=== PATIENT | female | born 2000 | race Caucasian/White ===

== ENCOUNTER 2024-11-10 10:11 | Emergency (ER) | payer MEDICAID, SELFPAY ==
[2024-11-10 10:11] VITALS: BP 133/94; PULSE 99; RESP 16; TEMP 36; O2SAT 100; BMI 45.6
--- NOTE | 2024-11-10 10:33 | EDS_ITS ---
HPI History of Present Illness Chief Complaint: Substance Abuse Detail of Chief Complaint: Intermittent use of fentanyl for 10 years Informant: patient Onset/Context/Timing Onset: - (Last used 1 week ago.) Context: Sudden Onset Timing: Intermittent Quality: Patient admits to snorting fentanyl. Location: Not applicable Current Severity: Gone Worsened by: Not applicable Relieved by: Not applicable Associated Symptoms Associated Symptoms: Negative for vomiting*, diarrhea*, fever*, rash*, seizure, tremor, palpatations, change in mental status, trauma or *HIV Risk Factors:Consider testing if last test > 6 months Narrative Narrative: Patient is a 24-year-old woman. Has no stomach and past medical history. She is had intermittent use of fentanyl for 10 years. She has not used since last week. She snorts the fentanyl. She has no history of hepatitis or HIV. Patient is affiliated with [facility]. She was instructed to come to the emergency room for medical clearance. Prior similar symptoms: Yes Recent Illness/Hospitalization: [facility] Medical History (Updated 11/10/24 @ 10:[address] Abdifatah Mattson MD) Opiate use Allergy/AdvReac Type Severity Reaction Status Date / Time No Known Allergies Allergy Verified 11/10/24 10:13 Social History (Updated 11/10/24 @ 10:[address] Abdifatah Mattson MD) household members: children ROS ROS ED Constitutional Constitutional ED: Denies chills, fever(s) or subjective Eyes Eyes: Denies blurry vision or change in vision ENT ENT ED: Denies rhinorrhea or sore throat Cardiovascular Cardiovascular: Denies chest pain or palpitations Respiratory/Chest Respiratory/Chest: Denies cough, dyspnea or dyspnea on exertion Gastrointestinal Gastrointestinal: Denies abdominal pain, diarrhea, nausea or vomiting Musculoskeletal Musculoskeletal: Denies arthralgias or myalgias Integumentary Denies rash Neurologic Neurologic: Denies headache(s) or paresthesias Endocrine Endocrinology: Denies cold intolerance or heat intolerance Hematologic/Lymphatic Hematologic/Lymphatic: Denies easy bleeding or easy bruising EXAM Physical Exam Const Vital Signs: 11/10/24 10:11 Temperature 96.8 F L Temperature Source Temporal Pulse Rate 99 Respiratory Rate 16 Blood Pressure 133/94 H Blood Pressure Mean 107 Pulse Ox 100 Oxygen Delivery Method Room Air Positive well nourished and well developed Constitutional Narrative: BMI is 45.7. Blood pressure slightly elevated. General Appearance ED: well developed and NAD; Negative for pallor HEENT Reports moist mucous membranes HEENT Narrative: Head is atraumatic and normocephalic. Ears normal Eyes PERRL and EOMs intact bilaterally General Eye ED: Negative for scleral icterus Neck no lymphadenopathy, supple and no JVD Resp normal respiratory effort and clear to auscultation bilaterally Cardio regular rate, regular rhythm, S1 normal heart sound, S2 normal heart sound and no murmurs Extremity Extremity Narrative: No clubbing, cyanosis, mottling or self injury. Neuro oriented x3, CN's II-XII intact bilaterally and no sensory deficits noted Gary Coma Scale: document GCS findings Spontaneous Obeys Commands Oriented 15 Sensorium / Orientation: alert Psych mental status grossly normal and thought process normal Skin General Skin Exam: Negative for jaundice or pallor Lesions: no lesions Rashes: no rashes MDM MDM MDM Narrative Medical decision making narrative: Patient presents for medical clearance. She has no symptoms. In my professional opinion patient is clear for outpatient therapy through [facility]. Discharge Plan Triage Chief Complaint: Substance Abuse ED Provider: Abdifatah Mattson Dx/Rx/DC Orders Clinical Impression: Encounter for medical screening examination, Opiate use, Elevated blood- pressure reading without diagnosis of hypertension, Adult BMI 45.0-49.9 kg/sq m Instructions: ED Screening Exam Medical Nonurgent Primary Care Provider: NOT,DEFINED Referrals: NOT,DEFINED [Primary Care Provider] - [facility] [Non-Staff] - As soon as possible Print Language: Korean Disposition Disposition: Home, Self Care
[2024-11-10 11:03] VITALS: BP 124/76; PULSE 84; RESP 16; TEMP 36.6; O2SAT 100
== END 2024-11-10 11:05 | disposition home or self-care (01) ==
LOC: ED 10:53
PROVIDERS: Emergency Provider Emergency Medicine; Visit Provider Emergency Medicine
DX: F11.10 Opioid abuse, uncomplicated (principal); R03.0 Elevated blood-pressure reading, without diagnosis of hypertension
CPT/HCPCS: 99282

== ENCOUNTER 2024-12-23 22:01 | Emergency (ER) | payer MEDICAID, SELFPAY ==
[2024-12-23 22:02] VITALS: BP 148/95; PULSE 94; RESP 20; TEMP 36.6; O2SAT 97; BMI 47.0
--- NOTE | 2024-12-23 22:34 | EKG12_ITS ---
Test Reason : CP Blood Pressure : */* mmHG Vent. Rate : 77 BPM Atrial Rate : 77 BPM P-R Int : 158 ms QRS Dur : 80 ms QT Int : 372 ms P-R-T Axes : 13 27 15 degrees QTcB Int : 420 ms Normal sinus rhythm with sinus arrhythmia Normal ECG Confirmed by LOPEZ NIETO ([id number]), video news editor EFE JUAREZ ([id number]) on 12/28/2024 6:26:42 AM Referred By: Confirmed By: LOPEZ NIETO
--- NOTE | 2024-12-23 22:37 | RAD_ITS ---
PROCEDURE: CHEST PA AND LATERAL 12/23/2024 REASON FOR EXAM: CP TECHNIQUE: CHEST PA AND LATERAL COMPARISON: None. FINDINGS: Lungs/Pleura: Clear. No consolidation, pneumothorax or pleural effusion. Heart/Mediastinum: Within normal limits. No vascular congestion. Bones/Soft tissues: No significant abnormality. RAD/Chest PA and Lateral IMPRESSION: No acute cardiopulmonary disease. Reading Location: [id number]
--- NOTE | 2024-12-23 22:38 | EDS_ITS ---
HPI History of Present Illness Chief Complaint: Chest Other Informant: patient Onset/Context/Timing Onset: Days Activity at onset: gradual Timing: Intermittent Quality: Positive for Sharp and Stabbing Location: Substernal Current Severity: Gone Maximum Severity: Mild Worsened By: Nothing Relieved By: Nothing Associated Symptoms: Negative for Nausea, Vomiting, Diaphoresis, Dyspnea, Cough, Fever, Lightheadedness, Acid Reflux or Palpitations Narrative Narrative: 24-year-old female history of bipolar, PTSD and anxiety. States she has had intermittent chest pain as sharp and stabbing the last 3 days to begin on Friday. Nothing particular makes it better or worse. She has had this before with anxiety. She has no history of cardiac disease. No history of drug use. Denies any history of DVT or PE. No leg pain or swelling. No hemoptysis. The pain is not pleuritic. Currently she is pain-free. She has had no recent travel, surgery or immobilization. Denies any family history of cardiac disease in a young age or clotting disorders. Prior Similar Symptoms: Yes Recent Illness/Hospitalization: No CVD Risk Factors: Negative for Hypertension, Diabetes or Hypercholesterolemia PE Risk Factors: Negative for Recent Travel/Surgery, Recent Immobilization, Prior DVT or PE, Cancer or OCP + Smoking + >/=35 TAD Risk Factors: Negative for Marfan's Syndrome [facility] Medical History Bipolar disorder PTSD (post-traumatic stress disorder) Anxiety Opiate use Home Medications ?Medication ?Instructions ?Recorded ?Last Taken ?Type aripiprazole lauroxil 882 mg/3.2 882 mg IM QMONTH 11/27 12/20 Unknown History mL suspension, ext.rel. IM syringe (Aristada) Allergy/AdvReac Type Severity Reaction Status Date / Time No Known Allergies Allergy Verified 12/23/24 22:02 Surgical History History of abdominal surgery Social History household members: children Smoking Status: Current every day smoker tobacco type: cigarettes and e- cigarettes ROS ROS ED ROS Narrative Denies recent illness. Intermittent sharp stabbing chest pain. Currently pain- free. Constitutional Constitutional ED: Denies chills or fever(s) Eyes Eyes: Reports none ENT ENT ED: Denies ear pain Cardiovascular Cardiovascular: Reports chest pain; Denies palpitations or racing heartbeat Respiratory/Chest Respiratory/Chest: Denies cough, dyspnea or dyspnea on exertion Gastrointestinal Gastrointestinal: Denies abdominal pain, constipation, diarrhea, melena, nausea or vomiting Genitourinary Genitourinary ED: Denies dysuria or hematuria Musculoskeletal Musculoskeletal: Denies arthralgias or back pain Integumentary Denies abscess or Abrasions Neurologic Neurologic: Denies headache(s) Psychiatric Psychiatric: Reports anxiety Endocrine Endocrinology: Denies cold intolerance Hematologic/Lymphatic Hematologic/Lymphatic: Denies easy bleeding, easy bruising or lymphadenopathy Allergic/Immunologic Allergic/Immunologic ED: Denies mouth swelling, tongue swelling or urticaria EXAM Physical Exam Narrative Exam Narrative: Well-appearing on 24-year-old female. Vital signs stable afebrile. Pulse ox 97% on room air no signs of hypoxia. Currently symptom-free pain-free. No distress. H EENT exam pupils round react light. Moist mutes membranes. Neck nontender no JVD. No lymphadenopathy. Back nontender. Lungs clear to auscultation bilaterally. Equal and symmetrical. Heart regular rate and rhythm rate about 90 no murmur. Chest wall and ribs nontender. No ecchymosis or bruising. Abdomen soft nontender. Moving all 4 extremities. Calves nontender without edema or cords. Normal dorsi plantarflexion. 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 Equal symmetrical radial pulses. Neurologically she is awake alert. Answering questions following commands. Benign exam. Const Vital Signs: 12/23/24 22:02 12/23/24 22:02 Temperature 97.8 F Temperature Source Oral Pulse Rate 94 Respiratory Rate 20 H Respiratory Effort Normal Blood Pressure 148/95 H Blood Pressure Mean 112 Pulse Ox 97 Positive well developed; Negative for cachectic, contractures or unkempt General Appearance ED: well developed; Negative for unkempt, cachectic, contractures or pallor Nutritional Appearance: Negative for cachectic HEENT Reports moist mucous membranes normocephalic and atraumatic Eyes PERRL and EOMs intact bilaterally Neck no lymphadenopathy, supple and no JVD General: Negative for tenderness Chest Wall inspection of chest normal and palpation of chest normal Resp normal respiratory effort and clear to auscultation bilaterally Effort and Inspection: Negative for respiratory distress Auscultation: Negative for rales, rhonchi, wheezes or diminished lung sounds Cardio regular rate, regular rhythm, S1 normal heart sound, S2 normal heart sound and no murmurs Peripheral Pulses: pulses 2+ throughout GI normal to inspection, nondistended, normoactive bowel sounds, soft to palpation, non-tender, non-distended and no masses Back/Spine no CVA tenderness and no thoracic nor lumbar tenderness Extremity normal to inspection General Extremety ED: Negative for edema, pulses abnormal or tenderness General Extremity: Negative for edema or pulses abnormal Neuro oriented x3 and CN's II-XII intact bilaterally Sensorium / Orientation: awake, alert, oriented to person, oriented to place and oriented to time Motor Exam: strength 5/5 throughout Psych mental status grossly normal Appearance: Negative for unkempt Skin no rashes or lesions noted and no wounds General Skin Exam: Negative for jaundice or pallor Rashes: No rashes noted Trauma: Negative for abrasion or laceration Heart Score History: Slightly/Non-Suspicious ECG: Normal Age: </= 45 years Risk Factors: No Risk Factors Score: 0 MDM MDM MDM Narrative Medical decision making narrative: 24-year-old female history of bipolar and anxiety. Complaining of atypical nonreproducible pleuritic chest pain and currently she is symptom-free. No history of DVT or PE or risk factors. Benign exam. Will obtain a chest x-ray and EKG. I do not think this is an MD. I do not think labs to be beneficial. She has no history or risk factors for DVT or PE and I will likely need a D- dimer. Repeat exam patient is doing well around 11:18 PM. She be discharged to home. Chest x-ray and EKG were both normal. History & Record Review Discussion w/independent historian: Patient Additional record(s) reviewed:: Prior inpatient record, Prior outpatient record, Prior ED visit and Prior labs Radiography Chest X-Ray - ED: 2 View, Read by ED Physician, Normal, Heart, Lungs, Mediastinum, Bony Structures and No Acute Disease Diagnostic Testing: Clinical Impression(s) from Imaging Studies Chest X-Ray 12/23/24 22:37 IMPRESSION: No acute cardiopulmonary disease. Reading Location: [facility] Chest x-ray, 2 views, AP and lateral, interpreted both by myself and radiology shows no acute abnormality. Normal cardiac silhouette. Normal mediastinum. Normal lung schultz. No pneumonia. No pneumothorax. Rhythm Strip Rhythm Strip: Sinus Rhythm Rate: 77 Ectopy: None EKG Initial EKG: Attestation: I personally reviewed and interpreted this EKG as follows: Interpretation: Sinus Rhythm and No Acute Injury Pattern Comments: Normal sinus rhythm rate of 77 no acute signs of MD nor ischemia. No dysrhythmia. Discharge Plan Triage Chief Complaint: Chest Other ED Provider: Christiano Chung Dx/Rx/DC Orders Clinical Impression: Chest pain, History of post traumatic stress disorder Instructions: ED Chest Pain, Uncertain Cause Prescriptions: No Action Aristada 882 mg/3.2 mL suspension,extended rel syring 882 mg IM QMONTH Primary Care Provider: Care Physician,No Primary Referrals: Koby Stone MD [Med Staff - [facility]] - 3-5 Days if not improving Care Physician,No Primary [Primary Care Provider] - Activity Restrictions/Additional Instructions: Your exam, chest x-ray and EKG were all normal. Tylenol and/or Motrin for pain. Follow-up with local doctor as needed. Print Language: Greek Disposition Disposition: Home, Self Care
--- OUTSIDE RECORDS SUMMARY | 2024-12-23 23:05 | XMS RPT_ITS | CCD ---
Author Organization [facility] Care Team Providers Care Fire Prevention Chief Name Role Phone DAVID MARLOW Attending Unavailable SRI PÉREZ Primary Care Unavailable STACY HENRY Attending Unavailable Unavailable Primary Care Provider Unavailabl e PROVIDER, UNKNOWN Attending Unavailable PROVIDER, UNKNOWN Admitting Unavailable DAVID MCFARLANE Referring Unavailable PROVIDER, UNKNOWN Admitting Unavailable JONH CHEN Attending Unavailable Unavailable Primary Care Provider Unavailabl e Unavailable Primary Care Provider Unavailabl e Unavailable Primary Care Provider Unavailabl e PROVIDER, UNKNOWN Referring Unavailable No, PCP Primary Care Unavailable ABRAHAM ANGUIANO Attending Unavailable PROVIDER, UNKNOWN Referring Unavailable No, PCP Primary Care Unavailable HERMAN CABRERA Attending Unavailable PROVIDER, UNKNOWN Referring Unavailable No, PCP Primary Care Unavailable Tootie Melgoza Attending Unavailable PROVIDER, UNKNOWN Referring Unavailable No, PCP Primary Care Unavailable Tootie Melgoza Attending Unavailable PROVIDER, UNKNOWN Referring Unavailable No, PCP Primary Care Unavailable GILLIAN ORTIZ Attending Unavailable PROVIDER, UNKNOWN Referring Unavailable No, PCP Primary Care Unavailable George Srinivasan Attending Unavailable ANNABELLE BREWER Attending Unavailable PROVIDER, UNKNOWN Referring Unavailable No, PCP Primary Care Unavailable PROVIDER, UNKNOWN Referring Unavailable No, PCP Primary Care Unavailable BERNADETTE MAYNARD Attending Unavailable Tommy Domingo Attending Unavailable PROVIDER, UNKNOWN Referring Unavailable No, PCP Primary Care Unavailable PROVIDER, UNKNOWN Referring Unavailable No, PCP Primary Care Unavailable Patricio Mills Attending Unavailable No, Pcp Primary Care Provider Unavailabl e Inc, [facility] Primary Care Provider Unav ailable Inc, [facility] Primary Care Provider Unav ailable Unavailable Primary Care Provider Unavailabl e ANISHA BARBER Admitting Unavailable ANISHA BARBER Attending Unavailable JEANNIE CARREON Admitting Unavailable JEANNIE CARREON Attending Unavailable TAMIRISA, VILMA Admitting Unavailable TAMIRISA, VILMA Attending Unavailable TAMIRISA, VILMA Admitting Unavailable TAMIRISA, VILMA Attending Unavailable TAMIRISA, VILMA Admitting Unavailable TAMIRISA, VILMA Attending Unavailable BIRD, LUIZ Attending Unavailable INC, [facility] Primary Care Unavailable BIRD, LUIZ Attending Unavailable BIRD, LUIZ Attending Unavailable [facility], [facility] Primary Care Unavailable BIRD, LUIZ Attending Unavailable BIRD, LUIZ Attending Unavailable BIRD, LUIZ Referring Unavailable INC, [facility] Primary Care Unavailable BIRD, LUIZ Attending Unavailable BIRD, LUIZ Referring Unavailable BIRD, LUIZ Attending Unavailable BIRD, LUIZ Referring Unavailable BIRD, LUIZ Attending Unavailable BIRD, LUIZ Referring Unavailable BIRD, LUIZ Attending Unavailable BIRD, LUIZ Referring Unavailable JHONY REYES III Attending Unavailfelipe Mattson MD, Dr. Gardiner Emergency Provider Care Physician, No Primary Primary Care Provider Unavailable Abdifatah Mattson Attending Unavailable Care Physician, No Primary Primary Care Unava ilable Allergies Allergy Classification Reported Allergen(s) Allergy Type Date of Onset Reaction(s) Facility (20 sources) fentaNYL; Translations: [FENTANYL] Drug Allergy 8 Hives, Itching [facility] Other [place] [facility] Medications Current Medications Medication Drug Class(es) Dates Sig (Normalized) Sig (Original) acetaminophen 500 mg oral tablet (16 sources) Start: 02-24-2024 End: 03-05-2024 take 1 tablet by mouth every six hours as needed for pain acetaminophen (Tylenol Extra Strength) 500 MG tablet Take 1 tablet (500 mg) by mouth every 6 hours as needed for mild pain (1-3) for up to 10 days. 30 tablet 02/24/2024 03/05/2024 Active Start: 02-22-2024 End: 02-24-2024 take 1 tablet by mouth every six hours as needed 650 mg, Oral, Every 6 hours PRN, other, pain (1-10), Starting on 02/22/24 at 2353, Give in addition to any other pain medication ordered at same time for any pain indication. Maximum dose of acetaminophen is 4000 mg from all sources in 24 hours. Alternate ibuprofen and acetaminophen every 3 hours. Give ibuprofen first in the sequence. Start: 07-25-2022 End: 08-09-2022 take 1 tablet by mouth every six hours as needed for pain acetaminophen (Tylenol Extra Strength) 500 MG tablet Take 1 tablet (500 mg) by mouth every 6 hours as needed for mild pain (1-3) for up to 10 days. 60 tablet 0 07/25/2022 08/09/2022 Active Start: 07-23-2022 End: 07-26-2022 take 1 tablet by mouth every six hours as needed for pain 650 mg, Oral, Every 6 hours PRN, mild pain (1-3), Starting on Tu07/23/22 at 0358 Give in addition to any other pain medication ordered at same time for any pain indication. Maximum dose of acetaminophen is 4000 mg from all sources in 24 hours. Alternate ibuprofen and acetaminophen every 3 hours. Start: 07-04-2022 End: 07-04-2022 take 1 tablet by mouth every four hours as needed for pain 650 mg, Oral, Every 4 hours PRN, mild pain (1-3), Fever GREATER than 100.5 F (38 C), Starting on [place] 07/04/22 at 1610 Maximum dose of acetaminophen is 4000 mg from all sources in 24 hours. 3.2 ml ARIPiprazole lauroxil 276 mg/ml prefilled syringe (20 sources) Start: 02-11-2024 Aristada 882 M G/3.2ML injection Inject 882 mg into the shoulder, thigh, or buttocks every 28 (twenty-eight) days. 02/07/24 02/11/2024 Active Start: 09-03-2023 End: 02-22-2024 Aristada 662 MG/2.4ML inject ion Inject 2.4 mL intramuscularly every 28 days 09/03/2023 02/22/2024 Discontinued 24 hr buPROPion hydrochloride 150 mg extended release oral tablet (18 sources) Aminoketone Start: 02-07-2023 take 1 tablet by mouth once daily buPROPion XL (Wellbutrin XL) 150 MG 24 hr tablet Take 150 mg by mouth daily. 0 02/07/2023 Active cephalexin 500 mg oral capsule (5 sources) Cephalosporin Antibacterial Start: 12-20-2021 End: 12-27-2021 take 1 capsule by mouth twice daily cephALEXin (KEFLEX) 500 MG capsule Take 1 capsule by mouth 2 times daily for 7 days 14 capsule 0 12/20/2021 12/27/2021 Active Start: 07-12-2021 End: 07-19-2021 take 1 capsule by mouth twice daily cephALEXin (KEFLEX) 500 MG capsule Take 1 capsule by mouth 2 times daily for 7 days 14 capsule 0 07/12/2021 07/19/2021 Active Start: 04-17-2019 End: 04-22-2019 take 1 capsule by mouth three times daily cephALEXin (KEFLEX) 250 MG capsule Take 1 capsule by mouth 3 times daily for 5 days 15 capsule 0 04/17/2019 04/22/2019 Active clindamycin 150 mg oral capsule (2 sources) Lincosamide Antibacterial Start: 12-20-2021 End: 12-27-2021 take 3 capsules by mouth three times daily clindamycin (CLEOCIN) 150 MG capsule Take 3 capsules by mouth 3 times daily for 7 days 63 capsule 0 12/20/2021 12/27/2021 Active Start: 12-20-2021 End: 12-20-2021 clindamycin (CLEOCIN) capsul e 450 mg clotrimazole 10 mg/ml topical cream (4 sources) Azole Antifungal Start: 07-03-2024 End: 08-02-2024 clotrimazole (Lotrimin) 1 % cream Apply 1 Application topically 2 times daily. Apply to affected area 2 times daily 85 g 07/03/2024 08/02/2024 Active Start: 07-03-2024 End: 07-03-2024 clotrimazole (Lotrimin) 1 % external solution Apply topically 2 times daily. 60 mL 07/03/2024 07/03/2024 Discontinued (Ineffective) docusate sodium 100 mg oral capsule (20 sources) Start: 02-22-2024 End: 02-24-2024 take 1 capsule by mouth twice daily docusate sodium (Colace) 100 MG capsule Take 1 capsule (100 mg) by mouth 2 times daily. 60 capsule 2 02/24/2024 Active Start: 07-15-2022 End: 02-09-2024 take 1 capsule by mouth twice daily docusate sodium (Colace) 100 MG capsule Take 1 capsule (100 mg) by mouth 2 times daily. 60 capsule 2 07/25/2022 02/09/2024 Discontinued (Stop taking at discharge) Start: 04-28-2019 End: 06-26-2019 take 1 capsule by mouth twice daily docusate sodium (COLACE) 100 MG capsule Take 1 capsule by mouth 2 times daily 20 capsule 0 04/28/2019 06/26/2019 Discontinued (LIST CLEANUP) docusate sodium 50 mg / sennosides, intermediate 8.6 mg oral tablet (2 sources) Start: 08-26-2022 End: 09-15-2022 take 8.6-50 mg by mouth once daily senna-docusate (Nicky-Colace) 8.6-50 MG tablet Take 2 tablets by mouth daily for 20 days. 40 tablet 0 08/26/2022 09/15/2022 Active ibuprofen 600 mg oral tablet (17 sources) Nonsteroidal Anti-inflammatory Drug Start: 02-22-2024 End: 03-10-2024 take 1 tablet by mouth every six hours as needed for pain ibuprofen 600 MG tablet Take 1 tablet (600 mg) by mouth every 6 hours as needed for mild pain (1-3) for up to 15 days. Alternate with tylenol 30 tablet 1 02/24/2024 03/10/2024 Active Start: 07-23-2022 End: 02-21-2023 take 1 tablet by mouth every six hours ibuprofen 600 MG tablet Take 1 tablet (600 mg) by mouth in the morning and 1 tablet (600 mg) at noon and 1 tablet (600 mg) in the evening and 1 tablet (600 mg) before bedtime. 60 tablet 0 07/25/2022 02/21/2023 Discontinued (Med list cleanup) magnesium citrate (1 source) Start: 04-20-2019 End: 04-20-2019 take 150 mL by mouth once magnesium citrate (CITROMA) SOLN Take 150 mLs by mouth once for 1 dose 1 Bottle 0 04/20/2019 04/20/2019 Active methadone hydrochloride 2 mg/ml oral solution (17 sources) Opioid Agonist methadone (Dolophine) 10 MG/5ML solution Take 20 mg by mouth. 0 Active naloxone hydrochloride 40 mg/ml nasal spray (2 sources) Opioid Antagonist Start: 09-14-2019 naloxone (NALOXONE TO-GO) 4 mg/0.1 mL nasal spray naproxen 500 mg oral tablet (5 sources) Nonsteroidal Anti-inflammatory Drug Start: 04-23-2021 take 1 tablet by mouth twice daily at mealtime naproxen (NAPROSYN) 500 MG tablet Take 1 tablet by mouth 2 times daily (with meals) 30 tablet 0 04/23/2021 Active polyethylene glycol 3350 57940 mg powder for oral solution (4 sources) Osmotic Laxative Start: 08-26-2022 End: 09-02-2022 take 17 g by mouth twice daily polyethylene glycol, PEG, 3350 (Miralax) 17 g packet Take 17 g by mouth 2 times daily for 7 days. 14 packet 0 08/26/2022 09/02/2022 Active Start: 04-20-2019 End: 05-20-2019 take 17 g by mouth once daily polyethylene glycol (GLY COLAX) powder Take 17 g by mouth daily 1530 g 1 04/20/2019 05/20/2019 Active Vit-Fe Fumarate-FA ( VITAMIN) 27-1 MG TABS tablet (1 source) take 1 tablet by mouth once daily Vit-Fe Fumarate-FA ( VITAMIN) 27-1 MG TABS tablet Take 1 tablet by mouth daily Patient taking . Unsure of brand 0 Active sennosides, intermediate 8.6 mg oral tablet (6 sources) Start: 02-24-2024 End: 03-05-2024 take 1 tablet by mouth once daily senna (Senokot) 8.6 MG tablet Take 1 tablet (8.6 mg) by mouth Nightly for 10 days. 10 tablet 02/24/2024 03/05/2024 Active Completed/Discontinued Medications Medication Drug Class(es) Dates Sig (Normalized) Sig (Original) aluminum hydroxide 40 mg/ml / magnesium hydroxide 40 mg/ml / simethicone 4 mg/ml oral suspension (2 sources) Start: 07-04-2022 End: 07-04-2022 take 30 mL by mouth every six hours as needed for gastroesophageal reflux disease 30 mL, Oral, Every 6 hours PRN, indigestion, heartburn, Starting on [facility] 07/04/22 at 1610 ARIPiprazole 5 mg oral tablet (20 sources) Atypical Antipsychotic Start: 02-07-2023 End: 02-22-2024 take 1 tablet by mouth once daily ARIPiprazole (Abilify) 5 MG tablet Take 5 mg by mouth daily. 02/07/2023 02/22/2024 Discontinued azithromycin 250 mg oral tablet (1 source) Macrolide Antimicrobial Start: 07-12-2021 End: 03-17-2022 azithromycin (ZITHROMAX) tablet 1,000 mg benzethonium chloride 2 mg/ml / benzocaine 200 mg/ml topical spray (4 sources) Standardized Chemical Allergen Start: 02-23-2024 End: 02-24-2024 Topical, As needed, pain, , Starting on 02/23/24 at 0224, , Apply to perineal area. Patient is capable and may self administer at bedside. Start: 07-23-2022 End: 07-26-2022 Topical, As needed, pain, Po stpartum, Starting on Tu07/23/22 at 0358, Apply to perineal area. Patient is capable and may self administer at bedside. brexpiprazole 1 mg oral tablet (3 sources) Atypical Antipsychotic End: 09-14-2019 take 1 tablet by mouth once daily brexpiprazole (REXULTI) 1 MG TABS tablet Take 1 mg by mouth daily 0 09/14/2019 Discontinued buprenorphine 2 mg sublingual tablet (20 sources) Partial Opioid Agonist Start: 07-23-2022 End: 07-23-2022 buprenorphine (Subtex) SL tablet 4 mg Start: 07-23-2022 End: 07-26-2022 buprenorphine (Subtex) SL ta blet 8 mg Start: 07-05-2022 End: 07-04-2022 buprenorphine (Subtex) SL ta blet 4 mg Start: 07-05-2022 End: 07-04-2022 buprenorphine (Subtex) SL ta blet 4 mg Start: 07-04-2022 End: 07-04-2022 take 1 tablet under the tongue every two hours buprenorphine (Subtex) SL tablet 2 mg buprenorphine (S ubtex) [address] 8 mg under the tongue. 0 Active busPIRone hydrochloride 5 mg oral tablet (3 sources) End: 09-14-2019 take 1 tablet by mouth three times daily busPIRone (BUSPAR) 5 MG tablet Take 5 mg by mouth 3 times daily 0 09/14/2019 Discontinued calcium chloride 0.0014 meq/ml / potassium chloride 0.004 meq/ml / sodium chloride 0.103 meq/ml / sodium lactate 0.028 meq/ml injectable solution (4 sources) Start: 02-22-2024 End: 02-22-2024 take 125 mL intravenously every hour 125 mL/hr, IntraVENous, Continuous, Starting on 02/22/24 at 1215, Pre-Delivery Start: 07-22-2022 End: 07-23-2022 take 125 mL intravenously every hour 125 mL/hr, IntraVENous, Continuous, Starting on Fri07/22/22 at 0900, Pre-Delivery cefTRIAXone (ROCEPHIN) 500 mg in lidocaine 1 % 1 mL IM Injection (1 source) Start: 07-12-2021 End: 07-12-2021 cefTRIAXone (ROCEPHIN) 500 mg in lidocaine 1 % 1 mL IM Injection chlorhexidine gluconate 20 mg/ml medicated pad (2 sources) Start: 07-22-2022 End: 07-23-2022 apply 1 dose topically every six hours Topical, Every 6 hours, First dose on Fri07/22/22 at 0900, Pre-Delivery Apply to the affected area. &nbsp ; Clean entire abdomen. chlorhexidine (Hibiclens) 4 % solution 1 Application (2 sources) Start: 02-22-2024 End: 02-22-2024 1 Application, Topical, Daily, First dose on 02/22/24 at 1215, Pre-Delivery, Use solution to clean abdomen upon admission then once daily until delivered dicyclomine hydrochloride 10 mg oral capsule (2 sources) Anticholinergic Start: 07-04-2022 End: 07-04-2022 take 10 mg by mouth three times daily as needed 10 mg, Oral, 3 times daily PRN, Abd cramping, Starting on [place] 07/04/22 at 1611 diphenhydrAMINE hydrochloride 25 mg oral tablet (4 sources) Histamine-1 Receptor Antagonist Start: 02-23-2024 End: 02-24-2024 take 1 tablet by mouth every six hours as needed for sleep 25 mg, Oral, Every 6 hours PRN, sleep, Starting on Fri02/23/24 at 2035 Start: 09-08-2021 End: 09-08-2021 diphenhydrAMINE (BENADRYL) i njection 50 mg Start: 09-08-2021 End: 09-08-2021 diphenhydrAMINE (BENADRYL) 5 0 MG/ML injection doxylamine succinate 25 mg oral tablet (4 sources) Start: 04-22-2018 End: 06-26-2019 take 0.5 tablet by mouth twice daily doxyLAMINE succinate (GNP SLEEP AID) 25 MG tablet Take 0.5 tablets by mouth 2 times daily 30 tablet 0 04/22/2018 06/26/2019 Discontinued (LIST CLEANUP) etonogestrel 68 mg drug implant (2 sources) Progestin Start: 02-22-2024 End: 02-23-2024 1 each, Implant, Once, On 02/22/24 at 2330, For 1 dose famotidine 20 mg oral tablet (4 sources) Histamine-2 Receptor Antagonist Start: 02-23-2024 End: 02-24-2024 Start: 07-23-2022 End: 07-26-2022 take 20 mg by mouth twice daily as needed for gastroesophageal reflux disease 20 mg, Oral, 2 times daily PRN, heartburn, Starting on Fri07/23/22 at 0358, Renal dose per pharmacy for peptic ulcer prophylaxis. ferrous sulfate 325 mg oral tablet (4 sources) Start: 02-23-2024 End: 02-24-2024 Start: 07-23-2022 End: 07-26-2022 take 325 mg by mouth twice daily at mealtime 325 mg, Oral, 2 times daily with meals, First dose on Fri07/23/22 at 0800, Start if Hgb less than 10. 1 ml haloperidol 5 mg/ml injection (2 sources) Typical Antipsychotic Start: 09-08-2021 End: 09-08-2021 haloperidol lactate (HALDOL) injection 5 mg Start: 09-08-2021 End: 09-08-2021 haloperidol lactate (HALDOL) 5 MG/ML injection hydrOXYzine pamoate 25 mg oral capsule (2 sources) Antihistamine Start: 07-04-2022 End: 07-04-2022 take 1 capsule by mouth every six hours as needed for anxiety 25 mg, Oral, Every 6 hours PRN, anxiety, sleep, Starting on Fri07/04/22 at 1615 iopamidol (Isovue-370) 76 % injection 75 mL (2 sources) Start: 08-26-2022 End: 08-26-2022 iopamidol (Isovue-370) 76 % injection 75 mL 1 ml ketorolac tromethamine 30 mg/ml cartridge (1 source) Nonsteroidal Anti-inflammatory Drug, Cyclooxygenase Inhibitor Start: 04-16-2019 End: 04-16-2019 ketorolac (TORADOL) injection 30 mg lamoTRIgine 25 mg oral tablet (4 sources) Mood Stabilizer, Anti-epileptic Agent End: 06-26-2019 take 1 tablet by mouth once daily lamoTRIgine (LAMICTAL) 25 MG tablet Take 25 mg by mouth daily 0 06/26/2019 Discontinued (LIST CLEANUP) lanolin 1000 mg/ml topical cream (4 sources) Start: 02-23-2024 End: 02-24-2024 Start: 07-23-2022 End: 07-26-2022 Topical, As needed, dry skin , nipple discomfort, Starting on Fri07/23/22 at 0358, Apply to affected area. 10 ml lidocaine hydrochloride 10 mg/ml injection (7 sources) Antiarrhythmic, Amide Local Anesthetic Start: 02-22-2024 End: 02-23-2024 5 mL, Infiltration, Once, On 02/22/24 at 2330, For 1 dose Start: 12-20-2023 End: 12-30-2023 apply 1 dose transdermal route once daily, then apply 1 dose transdermal route every twelve hours lidocaine (Lidoderm) 5 % patch Apply 1 patch topically daily for 10 days. Remove & discard patch within 12 hours or as directed by . 10 patch 12/20/2023 12/30/2023 Active Start: 12-20-2023 End: 12-20-2023 apply 1 dose transdermal route once daily, then apply 1 dose transdermal route every twelve hours 1 patch, TransDERmal, Administer over 12 Hours, Daily, First dose (after last modification) on 12/20/23 at 0315, Apply patch to affected area. Patch may remain in place for up to 12 hours in any 24 hour period. loperamide hydrochloride 2 mg oral capsule (2 sources) Opioid Agonist Start: 07-04-2022 End: 07-04-2022 take 1 capsule by mouth every six hours as needed for diarrhea 2 mg, Oral, Every 6 hours PRN, diarrhea, Starting on [place] 07/04/22 at 1610 1 ml LORazepam 2 mg/ml injection (2 sources) Benzodiazepine Start: 09-08-2021 End: 09-08-2021 LORazepam (ATIVAN) injection 2 mg Start: 09-08-2021 End: 09-08-2021 LORazepam (ATIVAN) 2 MG/ML i njection metoclopramide 10 mg oral tablet (2 sources) Dopamine-2 Receptor Antagonist Start: 07-15-2022 End: 07-15-2022 metoclopramide (Reglan) tablet 10 mg Start: 07-15-2022 End: 07-15-2022 metoclopramide (Reglan) tabl et 10 mg metroNIDAZOLE 500 mg oral tablet (1 source) Nitroimidazole Antimicrobial Start: 07-12-2021 End: 07-12-2021 metroNIDAZOLE (FLAGYL) tablet 2,000 mg miSOPROStol (Cytotec) split tablet 25 mcg (2 sources) Start: 07-22-2022 End: 07-22-2022 take 1 tablet vaginal route every four hours miSOPROStol (Cytotec) split tablet 25 mcg 24 hr nicotine 0.292 mg/hr transdermal system (20 sources) Cholinergic Nicotinic Agonist Start: 07-22-2022 End: 07-26-2022 nicotine (Nicoderm, Step 3) 7 MG/24HR patch 1 patch Start: 07-04-2022 End: 07-04-2022 apply 1 dose transdermal route once daily as needed 1 patch, TransDERmal, Administer over 24 Hours, Daily PRN, For cravings, Starting on Fri07/04/22 at 1614 Start: 05-23-2022 End: 02-21-2023 nicotine (Nicoderm, Step 1) 21 MG/24HR patch Place 1 patch on the skin Every 24 hours. 30 patch 1 05/23/2022 02/21/2023 Discontinued (Med list cleanup) OLANZapine (20 sources) Atypical Antipsychotic Start: 07-22-2022 End: 07-26-2022 OLANZapine (ZyPREXA) tablet 7.5 mg Start: 07-04-2022 End: 07-04-2022 take 7.5 mg by mouth once daily 7.5 mg, Oral, Nightly, First dose on Fri07/04/22 at 2100 Start: 07-04-2022 End: 07-04-2022 take 7.5 mg by mouth once daily 7.5 mg, Oral, Nightly, First dose on [place] 07/04/22 at 2100 Start: 05-03-2022 take 1 tablet by magali th once daily OLANZapine (ZyPREXA) 7.5 MG tablet Take 1 tablet by mouth daily. 0 05/03/2022 Active ondansetron 4 mg disintegrating oral tablet (7 sources) Serotonin-3 Receptor Antagonist Start: 07-04-2022 End: 07-04-2022 take 1 tablet by mouth every eight hours as needed for nausea and vomiting 4 mg, Oral, Every 8 hours PRN, nausea, vomiting, Starting on [place] 07/04/22 at 1610 1st Line. If inadequate response within 60 minutes, proceed to next-line agent or contact provider if no further options ordered. Patient should allow tablet to dissolve on tongue. Do not remove from blister pack until just before administering. Start: 04-16-2019 ondansetron (Z OFRAN) injection 4 mg Start: 03-21-2018 End: 06-26-2019 take 1 tablet by mouth every eight hours as needed for nausea ondansetron (ZOFRAN) 4 MG tablet Take 1 tablet by mouth every 8 hours as needed for Nausea 10 tablet 0 03/21/2018 06/26/2019 Discontinued (LIST CLEANUP) ondansetron ODT (Zofran-ODT) disintegrating tablet 4 mg (4 sources) Start: 02-22-2024 End: 02-24-2024 take 1 tablet by mouth every eight hours as needed for nausea and vomiting ondansetron ODT (Zofran-ODT) disintegrating tablet 4 mg Start: 07-23-2022 End: 07-26-2022 take 1 tablet by mouth every eight hours as needed for nausea and vomiting ondansetron ODT (Zofran-ODT) disintegrating tablet 4 mg oxytocin (Pitocin) 30 units in 500 mL infusion (14 sources) Start: 02-23-2024 End: 02-24-2024 125 celia-units/min (125 mL/ hr), IntraVENous, Continuous PRN, bleeding, Starting on 02/23/24 at 0031, For 48 hours, , For Immediate Post Use Only. Give after delivery of placenta and initial 30 unit bolus. Bag 2 of 2: 125cc/hr (125 mu/min) for an additional infusion of 500cc (30 units). Start: 02-22-2024 End: 02-23-2024 1-20 celia-units/min (1-20 m L/hr), IntraVENous, Continuous, Starting on [place] 02/22/24 at 1745, Begin infusion at 1 celia-unit/min (1 celia-unit per min = 1 mL per hour) and increase by 1 celia-unit/min after 30 minutes. Then increase by 2 celia-units/min as needed, no faster than every 30 minutes, until labor is achieved. Labor is defined as contractions every 2-3 minutes with cervical changes or [place] units (MVU) greater than 200 in a 10-minute window. Maximum infusion rate: 20 celia-unit/min. Contact provider if maximum rate does not achieve desired response. Provider may order alternative titration goal or other clinically appropriate goal of titration rate (s). Smaller titration increments of 1 celia-units/min, not faster than every 30 minutes, may be used when approaching therapeutic goal. Start: 02-22-2024 End: 02-22-2024 1-2 celia-units/min (1-2 mL/ hr), IntraVENous, Continuous, Starting on [place] 02/22/24 at 1515, Begin infusion at 1 celia-unit/min (1 celia-unit per min = 1 mL per hour) and increase by 1 celia-unit/min after 30 minutes. Maintain at 2 celia-unit/min until mendoza bulb comes out. Notify provider when mendoza bulb comes out. Start: 02-22-2024 End: 02-23-2024 250-999 celia-units/min (250 -999 mL/hr), IntraVENous, Continuous PRN, bleeding, Starting on [place] 02/22/24 at 1211, Post-Delivery, For Immediate Post Use Only. Give after delivery of placenta. Bag 1 of 2: Bolus for bag to infuse at 999 ml/hour for 15 minutes (15 units in 250cc). After initial bolus then decrease rate to 250cc/hr for 1 hour. Then discontinue Start: 07-23-2022 End: 07-25-2022 125 celia-units/min (125 mL/ hr), IntraVENous, Continuous PRN, bleeding, Starting on Fri07/23/22 at 0358, For 48 hours, For Immediate Post Use Only. Give after delivery of placenta and initial 30 unit bolus. Bag 2 of 2: 125cc/hr (125 mu/min) for an additional infusion of 500cc (30 units). Start: 07-22-2022 End: 07-23-2022 oxytocin (Pitocin) 30 units in 500 mL infusion Start: 07-22-2022 End: 07-26-2022 250-999 celia-units/min (250 -999 mL/hr), IntraVENous, Continuous PRN, bleeding, Starting on 07/22/22 at 0855 For Immediate Post Use Only. Give after delivery of placenta. Bag 1 of 2: Bolus for bag to infuse at 999 ml/hour for 15 minutes (15 units in 250cc). After initial bolus then decrease rate to 250cc/hr for 1 hour. Then discontinue oxytocin (Pitocin) 30 units infusion - Pyxis ADS Override Pull (2 sources) Start: 07-22-2022 End: 07-22-2022 oxytocin (Pitocin) 30 units infusion - Pyxis ADS Override Pull Vit-Fe Fumarate-FA ( Plus Vitamin/Mineral) 27-1 MG tablet (20 sources) Start: 04-26-2022 End: 02-24-2024 take 1 tablet by mouth once daily Vit-Fe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 Marijuana, Methamphetamines, Fentanyl Comment: Sober date July 10, 2022 Sexual activity: Yes Partners: Male Social Drivers of Health Financial Resource Strain: Low Risk (09/30/2023) Overall Financial Resource Strain (CARDIA) Difficulty of Paying Living Expenses: Not very hard Food Insecurity: No Food Insecurity (02/22/2024) Hunger Vital Sign Worried About Running Out of Food in the Last Year: Never true Ran Out of Food in the Last Year: Never true Transportation Needs: No Transportation Needs (02/22/2024) PRAPARE - Transportation Lack of Transportation (Medical): No Lack of Transportation (Non-Medical): No Physical Activity: Insufficiently Active (09/30/2023) Exercise Vital Sign Days of Exercise per Week: 5 days Minutes of Exercise per Session: 10 min Stress: Stress Concern Present (09/30/2023) [employer] - Occupational Stress Questionnaire Feeling of Stress : To some extent Social Connections: Unknown (09/30/2023) Social Connection and Isolation Panel [NHANES] Frequency of Communication with Friends and Family: Twice a week Frequency of Social Gatherings with Friends and Family: Twice a week Active Member of Clubs or Organizations: No Attends Club or Organization Meetings: Never Marital Status: Living with partner Intimate Partner Violence: Not At Risk (02/22/2024) Humiliation, Afraid, Rape, and Kick questionnaire Fear of Current or Ex-Partner: No Emotionally Abused: No Physically Abused: No Sexually Abused: No Housing Stability: Low Risk (02/22/2024) Housing Stability Vital Sign Unable to Pay for Housing in the Last Year: No Number of Times Moved in the Last Year: 0 Homeless in the Last Year: No SCREENINGS PHYSICAL EXAM ED Triage Vitals [07/03/24 1438] Temp Heart Rate Resp BP 36 ?C (96.8 ?F) 99 16 (!) 131/92 SpO2 Temp Source Heart Rate Source Patient Position 97 % Temporal Monitor -- BP Location FiO2 (%) -- -- Physical Exam GENERAL: The patient appears well nourished, well developed. Good historian. Able to answer questions appropriately. Vital signs as documented. HEENT: Head is normocephalic, atraumatic. No scleral icterus or orbital trauma noted. PERRLA, EOM intact. Mucous m (more content not included)... [facility] Office Visiton 03-15-2024 Follow-up visit [id number] Prakash Greene 2000 F Date Provider Department Center 03/15/2024 [id number] E [facility] WOM None Family History Problem Relation Age of Onset No Known Problems Father No Known Problems Mother No Known Problems Sister No Known Problems Daughter Family Status - Relation Status Age at Father Alive Mother Brother Sister Alive Daughter Alive Level of Service:[id number] RI OFFICE/OUTPT VISIT,PROCEDURE ONLY Reason for Visit and Comments: Care [85] [facility] Progress Noteon 03-15-2024 Progress Note Chief Complaint Patient presents with Care Patient's last menstrual period was 12/12/2022 (approximate). History: Past Medical History: Diagnosis Date Acute cystitis without hematuria 06/28/2019 Anxiety Anxiety Borderline personality disorder (CMS/HCC) (HCC) Drug abuse (CMS/HCC) (HCC) Hepatitis C Psychiatric problem PTSD (post-traumatic stress disorder) Past Surgical History: Procedure Laterality Date ABDOMINAL SURGERY 4yrs old- bowel surgery TONSILLECTOMY (HISTORICAL) 3yrs old Family History Problem Relation Name Age of Onset No Known Problems Father No Known Problems Mother No Known Problems Sister x2 No Known Problems Daughter x2 Social History Socioeconomic History Marital status: Single Spouse name: Alex Tobacco Use Smoking status: Every Day Current packs/day: 0.25 Average packs/day: 0.3 packs/day for 13.9 years (3.5 ttl pk-yrs) Types: Cigarettes Start date: 04/28/2010 Smokeless tobacco: Never Vaping Use Vaping status: Every Day Substances: Nicotine Substance and Sexual Activity Alcohol use: Not Currently Comment: last drink October 29, 2022 Drug use: Not Currently Types: IV, Marijuana, Methamphetamines, Fentanyl Comment: Sober date July 10, 2022 Sexual activity: Yes Partners: Male Social Drivers of Health Financial Resource Strain: Low Risk (09/30/2023) Overall Financial Resource Strain (CARDIA) Difficulty of Paying Living Expenses: Not very hard Food Insecurity: No Food Insecurity (02/22/2024) Hunger Vital Sign Worried About Running Out of Food in the Last Year: Never true Ran Out of Food in the Last Year: Never true Transportation Needs: No Transportation Needs (02/22/2024) PRAPARE - Transportation Lack of Transportation (Medical): No Lack of Transportation (Non-Medical): No Physical Activity: Insufficiently Active (09/30/2023) Exercise Vital Sign Days of Exercise per Week: 5 days Minutes of Exercise per Session: 10 min Stress: Stress Concern Present (09/30/2023) [employer] - Occupational Stress Questionnaire Feeling of Stress : To some extent Social Connections: Unknown (09/30/2023) Social Connection and Isolation Panel [NHANES] Frequency of Communication with Friends and Family: Twice a week Frequency of Social Gatherings with Friends and Family: Twice a week Active Member of Clubs or Organizations: No Attends Club or Organization Meetings: Never Marital Status: Living with partner Intimate Partner Violence: Not At Risk (02/22/2024) Humiliation, Afraid, Rape, and Kick questionnaire Fear of Current or Ex-Partner: No Emotionally Abused: No Physically Abused: No Sexually Abused: No Housing Stability: Low Risk (02/22/2024) Housing Stability Vital Sign Unable to Pay for Housing in the Last Year: No Number of Times Moved in the Last Year: 0 Homeless in the Last Year: No Allergies: Allergies Allergen Reactions Fentanyl Itching Medications: Current Outpatient Medications on File Prior to Visit Medication Sig Dispense Refill Aristada 882 MG/3.2ML injection Inject 882 mg into the shoulder, thigh, or buttocks every 28 (twenty-eight) days. 02/07/24 docusate sodium (Colace) 100 MG capsule Take 1 capsule (100 mg) by mouth 2 times daily. 60 capsule 2 [] ibuprofen 600 MG tablet Take 1 tablet (600 mg) by mouth every 6 hours as needed for mild pain (1-3) for up to 15 days. Alternate with tylenol 30 tablet 1 No current facility-administered medications on file prior to visit. HPI: Patient presents for pp visit. Delivered male infant via on 02/22/24. States light vaginal bleeding. Denies troubles with bladder and bowels. Denies fevers, chills, N/V. She is bottle feeding. Denies troubles with breasts. Denies problems with depression and/or too much sadness. Feels safe. Denies SI/HI. She has not had sex yet. Had Nexplanon placed while in the hospital. Patient also with hx Hep C. ROS: Review of Systems Constitutional: Negative. Gastrointestinal: Negative for constipation, diarrhea, nausea and vomiting. Genitourinary: Negative. exam: BP 120/83 Pulse 64 Temp 37.1 ?C (98.8 ?F) (Temporal) Wt 217 lb (98.4 kg) LMP 12/12/2022 (Approximate) No BMI 39.69 kg/m? Physical Exam Constitutional: Appearance: Normal appearance. HENT: Head: Normocephalic and atraumatic. Pulmonary: Effort: Pulmonary effort is normal. Abdominal: Palpations: Abdomen is soft. Genitourinary: Exam position: Lithotomy position. Labia: Right: No rash, tenderness, lesion or injury. Left: No rash, tenderness, lesion or injury. Vagina: No signs of injury and foreign body. Bleeding present. No vaginal discharge, erythema, tenderness, lesions or prolapsed vaginal allen. Cervix: Normal. Uterus: Normal. Adnexa: Right adnexa normal and left adnexa normal. Comments: Small bleeding noted. Musculoskeletal: General: Normal range of motion. (more content not included)... Normal [facility] Progress Note Pt states she has no concerns at the moment A cloth bale header was offered to be present during her exam. The patient: Declined [facility] 36on 03-03-2024 36 Call made to patient . Reschedueld PP visit. [facility] 36 Patient can't be released until she has pp visit. Must be at least 3 weeks pp for visit. Normal [facility] 36 Patient left on n urse line stating she was supposed to go back to work today but needs a note from her provider. Patient just delivered on 02/21. PP appointment not until 03/30. Forwarding to provider as I am not sure the policy on this. [facility] 36on 02-24-2024 36 Pt scheduled. [facility] 36 Please call patient to schedule her visit 4-6 weeks from 02/21. Thanks so much! [facility] Laboratory - Chemistry and C hemistry - challengeon 02-24-2024 Glucose [Mass/Vol] 123 mg/dL High 70 - 100 mg/dL [facility] No Panel Informationon 02-23 Interpretation and review of laboratory results Abnormal [facility] Performed by: [facility], [address] [place] [address] CLIA ID: [id number] [facility] Nursing Noteon 02-24-2024 Nursing Note Patient discharged t o home at 1135. Patient was wheeled out with father of baby and infant. Discharge paperwork reviewed with patient and father of the baby. Patient states she understands when to call the doctor for both her and and states she has no questions at this time. Normal [facility] Progress Noteon 02-24-2024 Progress Note VAGINAL DELIVERY POST DAY # 2 Prakash Ramona, 23 y.o. This patient was seen & examined today. Her was complicated by: Patient Active Problem List Diagnosis Polysubstance abuse (CMS/HCC) (HCC) Substance use disorder Hepatitis C antibody positive in blood Supervision of high risk in third trimester Substance abuse affecting in third trimester, antepartum ([facility]) Maternal obesity affecting , antepartum complicated by tobacco use in third trimester 39 weeks gestation of Today she is doing well without any chief complaint. Her lochia is light. She denies Headache, Chest Pain, Vision Changes, and Shortness of Breath. She is ambulating well. She is tolerating solids. Vital Signs: Vitals: 02/23/24 0812 02/23/24 2000 02/23/24 2303 02/24/24 0120 BP: 124/78 100/71 134/88 133/89 BP Location: Patient Position: Pulse: 97 99 93 94 Resp: 16 16 16 16 Temp: 36.3 ?C (97.3 ?F) 37 ?C (98.6 ?F) 36.4 ?C (97.5 ?F) 36.9 ?C (98.4 ?F) TempSrc: Temporal Temporal Temporal Temporal SpO2: 97% 97% 96% 96% Weight: Height: Physical Exam: GENERAL APPEARANCE: alert, well appearing, in no apparent distress ABDOMEN : benign non-tender, without masses or organomegaly palpable EXTREMITIES: no redness or tenderness in the calves or thighs, no edema NEUROLOGIC: alert, oriented, normal speech, no focal findings or movement disorder noted UTERUS : normal size, well involuted, firm, non-tender Lab: Lab Results Component Value Date HGB 11.1 (L) 02/22/2024 Lab Results Component Value Date HCT 34.0 (L) 02/22/2024 O Antibody Screen: No results found for: LABANTI No results found for: RUBELLAIGG LABOR DELIVERY ??? SCD's ONLY (labor through ambulation) SCD's PLUS Prophylactic Anticoagulation until discharge SCD's PLUS Prophylactic Anticoagulation for 6 weeks SCD's PLUS Therapeutic Anticoagulation for 6 weeks Vaginal Delivery [] BMI >= 40 kg/m2 Delivery All patients Vaginal Delivery [] BMI >= 40 kg/m2 AND [] Antepartum hospitalization >= 72 hours within the past month Delivery 1 Major Risk Factor: [] BMI >= 35 kg/m2 [] Low Risk Thrombophilia [] PPH+RBCs, IR, or operation [] Infection+Antibiotics [] Antepartum hospitalization >= 72 hours within the past month [] PMH: Sickle Cell, SLE, Cardiac Dz, Active IBD, Active Cancer, Nephrotic Syndrome OR 2 Minor Risk Factors: [] Multiple gestation [] Age > 40 [] PPH >= 1,000cc [] (+)FMH of VTE [] Smoker [] Preeclampsia [] BMI >= 40 kg/m2 AND [] Low Risk Thrombophilia OR ANY OF THE FOLLOWING: [] High Risk Thrombophilia without prior VTE [] Low Risk Thrombophilia with (+)FMH of VTE [] Any single prior VTE ANY OF THE FOLLOWING: [] Already on LMWH/UFH [] Multiple prior VTE [] High Risk Thrombophilia with prior VTE Low Risk Thrombophilia: FVL (heterozygous), Prothrombin (heterozygous), Protein C, Protein S High Risk Thrombophilia: FVL (homozygous), Prothrombin (homozygous), FVL+Prothrombin (heterozygous), Antithrombin III, APLS Assessment/Plan: Prakash Greene is PPD # 2 s/p Care - Doing well, VSS - Male, s/p circ - bottle feeding - Contraception: s/p Nexplanon insertion - Encourage ambulation - VTE Prophylaxis: Not Indicated Hepatitis C -09/08 VL positive without quant viral load -Quantitative viral load in process this hospitalization 3. History of Substance Use Disorder 4. Tobacco Use -Reports not using since 2022 -Used Marijuana, Methamphetamine, alcohol and fentanyl prior -MAT negative on admission -Reports 2-3 cigarette use daily 5. Obesity -BMI 41 -Ambulation encouraged this AM Disposition: Patient is safe for discharge today. Will plan for discharge later today. Provider's Name: DO Milagros Black MD 02/24/2024, 5:48 AM Normal [facility] [id number] 02-23-2024 [id number] Met with mother of baby/mob at bedside. Father of baby/fob Venkatesh Cummings [birth year]20-60 present and holding baby Venkatesh Cummings Jr. Mob known to from of last child Sharifa Cummings 07-23-22, at which time she was newly in recovery and going to [facility] and [facility] took custody at [place]. Mob states doing very well in recovery. ,Mob has been clean from substances since 07-10-22, admits to a relapse of alcohol one time on 10-29-22. still goes to counseling 1x per week with Rowena at [facility]. Fob states has been clean since time of baby's June 2022 and continues to regularly attend 12 step meetings. Mob stayed in [facility] for 90 days and worked plan with [facility], worker is Joy Vega got custody back of her dtr a few months ago and they have protective supervision over case and will close in a couple of months. [facility] Worker Joy Vega on way up to hospital. was able to speak to her when she came to visit mob and baby. States doing well and very compliant with case plan and tox screens all negative. Tox screens in med recordinclude 09-09-23, 12-31-23 and 02-22-24, all negative. Santi states has all supplies for baby including carseat, crib, basinett,clothing,diaper s and is on wic. Educated on safe sleep. She reports current mental health tx through [facility] and is on monthly injections of Abilify. [facility] sees psychiatrist ever three months. Discussed signs of PP Depression. Per [facility] worker Joy Vega, shira for mob and baby to be dc, they will continue to work with family in community. OK FOR DC [facility] [id number] Date: 02/23/2024 Name: Prakash Greene : 2000 [facility] Information [facility] Patient Information Primary Caregiver: Self Accompanied by/Relationship: S/O;Family Marital Status: single Support System: SO/Family Adventism/Cultural Factors: arnie Activities of Daily Living Communication: See demographics Living Arrangements Current Residence: Private residence Lives With: S/O; Family Support System: S/O; Family Income Information Income Source: Employed Financial Resource Strain How hard is it for you to pay for the very basics like food, housing, medical care and heating? N/A Housing Stability In the last 12 months, was there a time when you did not have a steady place to sleep or slept in a custodial (including now)? No Transportation Needs Has the lack of Transportation kept you from medical appointments? No In the past 12 months, has the lack of transportation kept you from meetings, work, or from getting things needed for daily living? No Food Insecurity Within the past 12 months, have you worried that your food would run out before you got the money to buy more? No Stress Do you feel stress - tense, restless, nervous, or anxious, or unable to sleep at night because you mind is troubled all the time? Mood stable Referral To Financial Resources: N/A Community Resources: Admission folder given upon admission to PP Unit Social Work: Hx of SHEA CLP: N/A Medical Information 23 year old admitted for IOL at 39/1 weeks. 5 Para 2. Vaginal delivery. Hx of THC, methamphetamine, fentanyl. MAT negative Patient states she went to [facility] for treatment. Discharge Plan Home or Community Resources: Admission folder given upon admission to PP unit Equipment: N/A Education Given: Discussion on the A. B. C's of safe sleep. Always place your baby on his or her back to sleep, use a firm sleep surface and your baby should not sleep in an adult bed, on a couch or chair. Keep soft objects, toys and loose bedding out of your baby's sleep area. Reviewed depression. It is common to have blues. This is a normal response to many of the hormonal changes, stress and lack of sleep that go with raising a and physically recovering from the . Don't hesitate to talk to your provider with any concerns. There are resources in your home going booklet. To help prevent germs from spreading to you and your baby, make sure everyone washes their hands before they handle your . Avoid crowds, and keep away from sick people, anyone who is sick with a cough or fever, including family members. Post- warning signs information reviewed with patient per nurse with discharge Additional Information: Patient is independent and has insurance. She is prepared with her baby supplies. To be discharged to home. Denies any concerns at this time. Mental Health Services: Resources in discharge folder Equipment: Developmental Delay: N/A Children's Services: N/A Normal [facility] Progress Noteon 02-23-2024 Progress Note ---- -------- Attestation signed by Vilma Rapp DO at 02/23/2024 11:14 AM Hospital Care (Independent): I independently saw and evaluated the patient. I agree with the findings and plan of care as documented in the resident's note. 23yo PPD#1 s/p at 39w1d at 39w1d (RR IOL). She is doing well but notes pain along her back where epidural was placed. States minimal bleeding and pain otherwise. Bonding well with baby. VSS Agree with physical exam findings. Plan for routine care and dc home tomorrow. Reviewed circumcision with patient and her support person. Discussed anesthesia with dorsal penile block' a;sp reviewed risks to be, but not exclusive of, bleeding, need for revision, small risk of injury to penile head that could require further surgical intervention. Patient agrees to move further. Discussed likely discharge home tomorrow if no other concerns. -------- VAGINAL DELIVERY POST DAY # 1 Prakash Greene, 23 y.o. This patient was seen & examined today. Her was complicated by: Patient Active Problem List Diagnosis Polysubstance abuse (CMS/HCC) (HCC) Substance use disorder Hepatitis C antibody positive in blood Supervision of high risk in third trimester Substance abuse affecting in third trimester, antepartum ([facility]) Maternal obesity affecting , antepartum complicated by tobacco use in third trimester 39 weeks gestation of Today she is doing well without any chief complaint. Her lochia is light. She denies Headache, Chest Pain, Vision Changes, and Shortness of Breath. She is ambulating well. She is tolerating solids. Vital Signs: Vitals: 02/23/24 0055 02/23/24 0110 02/23/24 0126 02/23/24 0156 BP: (!) 90/58 103/75 (!) 81/46 108/63 BP Location: Right arm Patient Position: Lying Pulse: 87 96 68 Resp: 18 Temp: 36.8 ?C (98.3 ?F) TempSrc: Temporal SpO2: 96% Weight: Height: Physical Exam: GENERAL APPEARANCE: alert, well appearing, in no apparent distress ABDOMEN : benign non-tender, without masses or organomegaly palpable EXTREMITIES: no redness or tenderness in the calves or thighs, no edema NEUROLOGIC: alert, oriented, normal speech, no focal findings or movement disorder noted UTERUS : normal size, well involuted, firm, non-tender Lab: Lab Results Component Value Date HGB 11.1 (L) 02/22/2024 Lab Results Component Value Date HCT 34.0 (L) 02/22/2024 O Antibody Screen: No results found for: LABANTI No results found for: RUBELLAIGG LABOR DELIVERY ??? SCD's ONLY (labor through ambulation) SCD's PLUS Prophylactic Anticoagulation until discharge SCD's PLUS Prophylactic Anticoagulation for 6 weeks SCD's PLUS Therapeutic Anticoagulation for 6 weeks Vaginal Delivery [] BMI >= 40 kg/m2 Delivery All patients Vaginal Delivery [] BMI >= 40 kg/m2 AND [] Antepartum hospitalization >= 72 hours within the past month Delivery 1 Major Risk Factor: [] BMI >= 35 kg/m2 [] Low Risk Thrombophilia [] PPH+RBCs, IR, or operation [] Infection+Antibiotics [] Antepartum hospitalization >= 72 hours within the past month [] PMH: Sickle Cell, SLE, Cardiac Dz, Active IBD, Active Cancer, Nephrotic Syndrome OR 2 Minor Risk Factors: [] Multiple gestation [] Age > 40 [] PPH >= 1,000cc [] (+)FMH of VTE [] Smoker [] Preeclampsia [] BMI >= 40 kg/m2 AND [] Low Risk Thrombophilia OR ANY OF THE FOLLOWING: [] High Risk Thrombophilia without prior VTE [] Low Risk Thrombophilia with (+)FMH of VTE [] Any single prior VTE ANY OF THE FOLLOWING: [] Already on LMWH/UFH [] Multiple prior VTE [] High Risk Thrombophilia with prior VTE Low Risk Thrombophilia: FVL (heterozygous), Prothrombin (heterozygous), Protein C, Protein S High Risk Thrombophilia: FVL (homozygous), Prothrombin (homozygous), FVL+Prothrombin (heterozygous), Antithrombin III, APLS Assessment/Plan: Prakash Greene is PPD # 1 s/p Care - Doing well, VSS - Male, desires circumcision - both, breast and bottle feeding - Contraception: s/p Nexplanon insertion - Encourage ambulation - VTE Prophylaxis: Not Indicated Hepatitis C -09/08 VL positive without quant -quant viral load in process 3. Substance Use Disorder -MAT negative for everything -Tobacco use 2-3 cigarettes per day -hx marijuana, methamphetamine, fentanyl 4. Obesity -BMI 41 -Early ambulation Disposition: Plan for discharge tomorrow given late time of delivery on 02/21. Provider's Name: DO Milagros Black MD 02/23/2024, 5:[address] [facility] BLOOD TYPE AND SCREEN GELon 02-22-2024 ABO GROUP[address] O [facility] Comment on above: Order Comment: Speci men is valid for 3 days - nurse to verify valid specimen. Performed By: #### L [id number] ####Center Consultant: CHASE GUTIERRES ([id number])[facility] ([facility])[address] [place] [address] RH TYPE IN BLOOD Positive Normal [facility] Comment on above: Order Comment: Speci men is valid for 3 days - nurse to verify valid specimen. Performed By: #### L [id number] ####Center Consultant: CHASE GUTIERRES ([id number])[facility] ([facility])[address] [place] [address] Blood type and Crossmatch pa vick (Bld)on 02-22-2024 ABO group Nom (Bld) O [facility] Blood group antibody screen GEL Ql Negative [facility] D Ag Ql (RBC) Positive [facility] h CBC (HEMOGRAM)on 02-22-2024 Erythrocyte distribution width (RBC) [Ratio] 13.7 % Normal 11.5-15.0 [facility] Comment on above: Performed By: #### L [id number] ####Center Consultant: CHASE GUTIERRES ([id number])[facility])[address] [place] [address] Hematocrit (Bld) [Volume fraction] 34.0 % Low 35.0-47.0 [facility] Comment on above: Performed By: #### L [id number] ####Center Consultant: CHASE GUTIERRES ([id number])[facility])[address] [place] [address] Hemoglobin (Bld) [Mass/Vol] 11.1 g/dL Low 11.7-16.0 [facility] Comment on above: Performed By: #### L [id number] ####Center Consultant: CHASE GUTIERRES ([id number])[facility])[address] [place] [address] MCH (RBC) [Entitic mass] 26.7 pg Normal 26.0-34.0 [facility] Comment on above: Performed By: #### L [id number] ####Center Consultant: CHASE GUTIERRES ([id number])[facility] ([facility])[address] [place] [address] MCHC 32.6 % Normal 30.5-36.0 [facility] Comment on above: Performed By: #### L [id number] ####Center Consultant: CHASE GUTIERRES ([id number])[facility] ([facility])[address] [place] [address] MCV (RBC) [Entitic vol] 81.7 fL Normal 77.0-99.0 [facility] Comment on above: Performed By: #### L [id number] ####Center Consultant: CHASE GUTIERRES ([id number])[facility])[address] [place] [address] Platelet mean volume (Bld) [Entitic vol] 8.5 fL Low 9.0-12.7 [facility] Comment on above: Performed By: #### L [id number] ####Center Consultant: CHASE GUTIERRES ([id number])[facility] ([facility])[address] [place] [address] Platelets (Bld) [#/Vol] 283 10*3/uL Normal 140-440 [facility] Comment on above: Performed By: #### L [id number] ####Center Consultant: CHASE GUTIERRES ([id number])[facility] ([facility])[address] [place] [address] RBC (Bld) [#/Vol] 4.16 10*6/uL Normal 3.80-5.20 [facility] Comment on above: Performed By: #### L [id number] ####Center Consultant: CHASE GUTIERRES ([id number])[facility] ([facility])[address] [place] [address] WBC (Bld) [#/Vol] 13.6 10*3/uL High 3.6-10.7 [facility] Comment on above: Performed By: #### L [id number] ####Center Consultant: CHASE GUTIERRES ([id number])[facility] ([address] CBC panel Auto (Bld)on 02-21 Erythrocyte distribution width (RBC) [Ratio] 13.7 % 11.5 - 15.0 % [facility] Hematocrit (Bld) [Volume fraction] 34 % Low 35.0 - 47.0 % [facility] Hemoglobin (Bld) [Mass/Vol] 11.1 g/dL Low 11.7 - 16.0 g/dL [facility] Interpretation and review of laboratory results Abnormal [facility] MCH (RBC) [Entitic mass] 26.7 pg 26.0 - 34.0 pg [facility] MCHC (RBC) [Mass/Vol] 32.6 % 30.5 - 36.0 % [facility] MCV (RBC) [Entitic vol] 81.7 fL 77.0 - 99.0 fL [facility] Platelet mean volume (Bld) [Entitic vol] 8.5 fL Low 9.0 - 12.7 fL [facility] Platelets (Bld) [#/Vol] 283 10*3/uL 140 - 440 10*3/uL [facility] RBC (Bld) [#/Vol] 4.16 10*6/uL 3.80 - 5.2 0 10*6/uL [facility] WBC (Bld) [#/Vol] 13.6 10*3/uL High 3.6 - 10.7 10*3/uL [facility] [employer] HEPATITIS C VIRAL LOADon HCV RNA QUANT 317 IU/ml High <15 [facility] Comment on above: Performed By: #### L [id number] ####Center Consultant: CHASE GUTIERRES ([id number])[facility] ([facility])[address] [place] [address] HCV RNA QUANT (LOG) 2.50 Log_IU High <1.18 [facility] [facility] Comment on above: Result Comment: HAZEL Montgomery COMMENTS: The linear detection limit for this assay is 15 HCV IU/ml. A result of <15 IU (<1.18 log IU) indicates that HCV was detected, but at a level below the linear cutoff. A result of None Detected means that no HCV RNA was detected. This test is performed via rtPCR methodology. Performed By: #### L [id number] ####Center Consultant: CHASE GUTIERRES ([id number])[address] Labor and Delivery Noteon Labor and Delivery Note -------- Attestation signed by Jeannie Carreon DO at 02/23/2024 6:39 AM Procedures or Surgery: I was present for all barron elements of the procedure or surgery as described in the resident note. -------- Vaginal Delivery Note Department of Obstetrics and Gynecology Patient: Prakash Greene : 2000 Date of delivery: 02/22/24 Pre-operative Diagnosis: Prakash Greene at 39w1d 1. Hepatitis C - New Viral load ordered on admission 2. Substance Use Disorder - MAT negative on admission 3. 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 Carreon; Dr. Garduno; Dr. Ramirez Infant Information: Information for the patient's : Kei Greene Prakash [[id number]] Information for the patient's : Kei GreeneAnaly [[id number]] Description: normal Meconium Noted: None Anesthesia: epidural Complications: None Application and Delivery: Prakash Greene at 39w1d admitted for IOL-RR. Her labor course consisted of mendoza balloon, pitocin, AROM. Patient progressed to complete and pushed with 1 contraction and delivered. She was known to be GBS negative and received nothing for prophylaxis. After pushing with contractions the head delivered OA over an intact perineum. A nuchal cord was not present. The anterior, then posterior shoulder delivered easily and atraumatically followed by the rest of the . The infant was placed on the maternal abdomen and attended by the RN for evaluation. The infant was stimulated and dried. The cord was clamped and cut. The delivery of the placenta was spontaneous and appeared intact. Pitocin was started. The vagina was swept of all clots and debris. The perineum and vagina were evaluated. No laceration were noted. All counts were correct. Mother and baby tolerated procedure well. EBL: 100cc VTE Prophylaxis: Not Indicated LABOR DELIVERY ??? SCD's ONLY (labor through ambulation) SCD's PLUS Prophylactic Anticoagulation until discharge SCD's PLUS Prophylactic Anticoagulation for 6 weeks SCD's PLUS Therapeutic Anticoagulation for 6 weeks Vaginal Delivery [] BMI >= 40 kg/m2 Delivery All patients Vaginal Delivery [] BMI >= 40 kg/m2 AND [] Antepartum hospitalization >= 72 hours within the past month Delivery 1 Major Risk Factor: [] BMI >= 35 kg/m2 [] Low Risk Thrombophilia [] PPH+RBCs, IR, or operation [] Infection+Antibiotics [] Antepartum hospitalization >= 72 hours within the past month [] PMH: Sickle Cell, SLE, Cardiac Dz, Active IBD, Active Cancer, Nephrotic Syndrome OR 2 Minor Risk Factors: [] Multiple gestation [] Age > 40 [] PPH >= 1,000cc [] (+)FMH of VTE [] Smoker [] Preeclampsia [] BMI >= 40 kg/m2 AND [] Low Risk Thrombophilia OR ANY OF THE FOLLOWING: [] High Risk Thrombophilia without prior VTE [] Low Risk Thrombophilia with (+)FMH of VTE [] Any single prior VTE ANY OF THE FOLLOWING: [] Already on LMWH/UFH [] Multiple prior VTE [] High Risk Thrombophilia with prior VTE Low Risk Thrombophilia: FVL (heterozygous), Prothrombin (heterozygous), Protein C, Protein S High Risk Thrombophilia: FVL (homozygous), Prothrombin (homozygous), FVL+Prothrombin (heterozygous), Antithrombin III, APLS Delivery Summary: Specimen: Cord blood, cord gases Blood Type and Rh: O Positive Racheal Garduno, DO 02/22/2024, 11:35 PM Normal [facility] Laboratory - Drug toxicology Ordered By: Odilia Palma on 02-22-2024 Amphetamines Ql (U) Negative Negative [facility] Barbiturates screen method Nom (U) Negative Negative [facility] Benzodiazepines screen method Nom (U) Negative Negative [facility] Cocaine Ql (U) Negative Negative [facility] Ethanol [Mass/Vol] Negative Negative [facility] Methadone Ql (U) Negative Negative [facility] Opiates Screen Ql (U) Negative Negative [facility] MEDICATION ASSISTED TREATMEN T PANELon 02-22-2024 Amphetamines Ql (U) Negative Normal Negative [facility] Comment on above: Performed By: #### L [id number] ####Center Consultant: CHASE GUTIERRES ([id number])[facility] ([facility])[address] [place] [address] BARBITURATES Negative Normal Negative [facility] Comment on above: Performed By: #### L [id number] ####Center Consultant: CHASE GUTIERRES ([id number])[facility])[address] [place] [address] Benzodiazepines Ql (U) Negative Normal Negative [facility] Comment on above: Performed By: #### L [id number] ####Center Consultant: CHASE GUTIERRES ([id number])[facility] ([facility])[address] [place] [address] BUPRENORPHINE SCREEN Negative Normal Negative [facility] Comment on above: Performed By: #### L [id number] ####Center Consultant: CHASE GUTIERRES ([id number])[facility] ([facility])[address] [place] [address] Cocaine Ql (U) Negative Normal Negative [facility] Comment on above: Performed By: #### L [id number] ####Center Consultant: CHASE GUTIERRES ([id number])[facility] ([facility])[address] [place] [address] ETHANOL-ETOHO Negative Normal Negative [facility] Comment on above: Result Comment: ORDE R COMMENTS: The expected value for the drugs listed above is Negative. The following drugs or drug groups have been screened for by Immunoassay at the following thresholds: Amphetamine class(1000ng/mL) Barbituates(200ng/mL) Benzodiazepines(200ng/mL) Cocaine(300ng/mL) Ethanol (50 ng/mL) Methadone(300ng/mL) Opiates(300ng/mL) Oxycodone(100ng/mL) PCP(25ng/mL) Buprenorphine(5ng/mL) THC(50ng/mL) Fentanyl(1ng/mL) Positive results are NOT confirmed by a more specific alternative method unless requested. If confirmation is needed, request confirmation under separate order. NOTE: These results are for medical treatment only. Analysis performed using non-forensic procedures. Performed By: #### L [id number] ####Center Consultant: CHASE GUTIERRES ([id number])[address] FENTANYL Negative Normal Negative [facility] Comment on above: Performed By: #### L [id number] ####Center Consultant: CHASE GUTIERRES ([id number])[address] Methadone Ql (U) Negative Normal Negative [facility] Comment on above: Performed By: #### L [id number] ####Center Consultant: CHASE GUTIERRES ([id number])[facility])[address] [place] [address] Opiates Ql (U) Negative Normal Negative [facility] Comment on above: Performed By: #### L [id number] ####Center Consultant: CHASE GUTIERRES ([id number])[facility])[address] [place] [address] OXYCODONE/OXYMORPHONE Negative Normal Negative [facility] Comment on above: Performed By: #### L [id number] ####Center Consultant: CHASE GUTIERRES ([id number])[facility])[address] [place] [address] PCP Negative Normal Negative [facility] Comment on above: Performed By: #### L [id number] ####Center Consultant: CHASE GUTIERRES ([id number])[facility])[address] [place] [address] THC-MTTHC Negative Normal Negative [facility] Comment on above: Performed By: #### L [id number] ####Center Consultant: CHASE GUTIERRES ([id number])[facility] ([facility])[address] [place] [address] No Panel InformationOrdered By: Odilia Palma on 02-22-2024 BUPRENORPHINE SCREEN Negative Negative [facility] FENTANYL Negative Negative [facility] OXYCODONE/OXYMORPHONE Negative Negative [facility] PCP Negative Negative [facility] THC Negative Negative [facility] The expected value f or the drugs listed above is Negative. The following drugs or drug groups have been screened for by Immunoassay at the following thresholds: Amphetamine class(1000ng/mL) Barbituates(200ng/mL) Benzodiazepines(200ng/mL ) Cocaine(300ng/mL) Ethanol (50 ng/mL) Methadone(300ng/mL) Opiates(300ng/mL) Oxycodone(100ng/mL) PCP(25ng/mL) Buprenorphine(5ng/mL) THC(50ng/mL) Fentanyl(1ng/mL) Positive results are NOT confirmed by a more specific alternative method unless requested. If confirmation is needed, request confirmation under separate order. NOTE: These results are for medical treatment only. Analysis performed using non-forensic procedures. [facility] No Panel Informationon 02-21 [facility] Progress Noteon 02-21-2024 Progress Note Department of Obstet rics and Gynecology Labor and Delivery Triage Note CHIEF COMPLAINT: Contractions HISTORY OF PRESENT ILLNESS: The patient is a 23 y.o. 39w0d. OB History 5 Para 2 Term 2 AB 2 Living 1 SAB 2 IAB Ectopic Multiple Live Births 1 Obstetric Comments Plans to bottle feed Patient presents with a chief complaint as above. Reports she noticed 5 contractions between 17:30-18:30 today that were intense, however reports they have not recurred since she has been in OB triage. Denies VB/LOF. When asked about DFM patient reports she does not keep track of kick counts of FM. Estimated Due Date: Estimated Date of Delivery: 02/28/24 PAST MEDICAL HISTORY: Past Medical History: Diagnosis Date Acute cystitis without hematuria 06/28/2019 Anxiety Anxiety Borderline personality disorder (CMS/HCC) (HCC) Drug abuse (CMS/HCC) (HCC) Hepatitis C Psychiatric problem PTSD (post-traumatic stress disorder) PAST SURGICAL HISTORY: Past Surgical History: Procedure Laterality Date ABDOMINAL SURGERY 4yrs old- bowel surgery TONSILLECTOMY (HISTORICAL) 3yrs old SOCIAL HISTORY: reports that she has been smoking cigarettes. She started smoking about 13 years ago. She has a 3.5 pack-year smoking history. She has never used smokeless tobacco. She reports that she does not currently use alcohol. She reports that she does not currently use drugs after having used the following drugs: IV, Marijuana, Methamphetamines, and Fentanyl. MEDICATIONS: Prior to Admission medications Medication Sig Start Date End Date Taking? Authorizing Provider Aristada 662 MG/2.4ML injection Inject 2.4 mL intramuscularly every 28 days 09/03/23 Yes Historical Provider, ARIPiprazole (Abilify) 5 MG tablet Take 5 mg by mouth daily. 02/07/23 Historical Provider, Vit-Fe Fumarate-FA ( Plus Vitamin/Mineral) 27-1 MG tablet Take 1 tablet by mouth daily. 04/26/22 Luiz Velez APRN - [employer] EMISSIONS INSPECTOR CARE: Complicated by: Hep C, History of Substance Use Disorder, Tobacco Use REVIEW OF SYSTEMS: Pertinent items are noted in HPI. APPEARANCE: Pain: No PHYSICAL EXAM: Vital Signs: VS wnl-reviewed/Respiration s normal effort Vitals: 02/21/24192402/21/24192902/21/241930 BP: 115/77 Pulse: (!) 123 118 (!) 123 Resp: 16 16 Temp: 36.6 ?C (97.9 ?F) TempSrc: Oral SpO2: 98% Weight: 200 lb (90.7 kg) Height: 5' 2 (1.575 m) Abdomen: soft, NT, ND, no rebound/guarding Uterus: gravid/non-tender LE Edema: trace heart rate: Category I Cervix: 2 / 50 / -3 Contraction frequency: none, uterine irritability Membranes: Intact RESULTS: NST: Reactive BSUS: Vertex ARLYN: 12.2 Procedures GENERAL LABS: No results found for this or any previous visit (from the past 24 hours). TRIAGE COURSE: Vertex on BSUS. Cervix noted to be 2/50/-3, she was 1/50/-3 in triage on 02/15. BP NT, however patient noted to be tachycardic, however patient has baseline tachycardia noted throughout . Given unknown movement status as patient does not keep track, ARLYN performed by Dr. Maloney and noted to be WNL (12.2). Patient has induction scheduled for 02/26 and would like to be notified if a soon time is available. Agreeable for discharge and given strict return precautions. IMPRESSION: Latent Phase Labor Pain assessment and plan: None DISCUSSED WITH C PROVIDER: Dr. Rapp DISPOSITION: Discharge to Home [facility] 36on 02-18-2024 36 Call to patient. No answer. LM with callback [facility] 36 Call to patient to discuss. No answer. LM with callback number. Informed pt of induction date and time. See other TE. Also notified pt she needs to get labs done. Informed pt she can be added to our lab, or go to outpatient lab. [facility] 36 Name of Caller: Presley Greene Contact Reason for Appointment: Pt calling to check status of induction scheduling. OV notes states Desires 39wk induction. Please advise Office Name: [facility] Medication Refills need, if any: n/a Medication Name: n/a [facility] 36on 02-17-2024 36 Pt left without gett ing labs today. Can we please call pt and see if she would be willing to come in for lab visit this week for completion? Thanks. [facility] GROUP B STREP SCREEN BY PCRo n 02-17-2024 GROUP B STREP SCREEN BY PCR GROUP B STREP SCREEN BY PCR Reference Not Detected Not Detected ORDER COMMENTS: Methodology: real-time PCR [facility] Comment on above: Performed By: #### L [id number] ####Center Consultant: CHASE GUTIERRES ([id number])[facility] ([employer] Progress Noteon 02-17-2024 Progress Note Pt here for OB visit . The baby is active. No LOF or bleeding. Contractions, but not consistent or regular. History reviewed - see episode report No nausea or vomiting. PE: See vitals Pt A&OX3, NAD Normal affect Non labored breathing Abd - non tender Ext - no edema Plan: 1.) GBS collected and labs from last visit collected as well. 2.) Desires 39wk induction. Reviewed R/B/A. Consent obtained. 3.) Flu and tdap today. 4.) Labor precautions, kick counts. 5.) RTC pp visit. Normal [facility] Progress Note Per MA, patient left without getting labs, flu vax, and tdap. Normal [facility] OB FOLLOW UP TRANSABDOMIN AL APPROACHon 02-17-2024 OB FOLLOW UP TRANSABDOMINAL APPROACH OBSTETRICS REPORT (Signed Final 02/17/2024 03:44 pm) PATIENT INFO: ID #: [id number] : [birth year] (23 yrs)(F) Name: PRAKASH GREENE Visit Date: 02/17/2024 11:06 am PERFORMED BY: Attending: Mary De Los Santos Performed By: Ran Alvarado Referred By: LUIZ VELEZ Location: [facility] Visit Type: Outpatient SERVICE(S) [place]: [place] [id number] INDICATIONS: Obesity complicating , unspecified O99.210 trimester VITAL SIGNS: Weight (lb): 224 Height: 5'2 BMI: 40.97 EVALUATION: Num Of Fetuses: 1 Heart Rate(bpm): 134 Cardiac Activity: Regular rhythm Lie: Longitudinal Presentation: Cephalic Placenta: Posterior Amniotic Fluid ARLYN FV: Within normal limits ARLYN Sum(cm) %Tile Largest Pocket(cm) 19.2 77 6.27 RUQ(cm) RLQ(cm) LUQ(cm) LLQ(cm) 3.75 3.71 6.27 5.47 BIOMETRY: BPD: 92 mm G.Age: 37w 3d 48 % OFD: 119 mm HC: 338.6 mm G.Age: 38w 6d 44 % AC: 341.9 mm G.Age: 38w 1d 61 % FL: 72.3 mm G.Age: 37w 0d 20 % LV: 3.65 mm CI: 77.3 % 70 - 86 FL/HC: 21.4 % 20.9 - 22.7 HC/AC: 0.99 0.92 - 1.05 FL/BPD: 78.6 % 71 - 87 FL/AC: 21.1 % 20 - 24 Est. FW: 3324 gm 7 lb 5 oz 52 % GESTATIONAL AGE: LMP: 35w 5d Date: 06/12/23 YAS: 03/18/24 U/S Today: 37w 6d YAS: 03/03/24 Best: 38w 3d Det. By: U/S (09/10/23) YAS: 02/28/24 ANATOMY: Cranium: Normal appearance Cavum: Normal appearance Ventricles: Normal appearance Choroid Plexus: Normal appearance Cerebellum: Normal appearance Posterior Fossa: Normal appearance Face: Normal appearance Lips: Previously visualized Palate: Suboptimal views Thoracic: Normal appearance Heart: Normal appearance RVOT: Normal appearance LVOT: Suboptimal views Aortic Arch: Normal appearance Ductal Arch: Normal appearance Diaphragm: Normal appearance Stomach: Normal appearance Abdomen: Normal appearance Abdominal Wall: Normal appearance Cord Vessels: 3-Vessel Cord Kidneys: Normal appearance Bladder: Normal appearance Spine: Previously visualized Upper Extremities: Present Lower Extremities: Present TARGETED ANATOMY: Head/Neck Palate: Suboptimal views Orbits/Eyes: Suboptimal views Mandible: Suboptimal views Maxilla: Suboptimal views Thorax Rt Outflow Tract: Suboptimal views Lt Outflow Tract: Suboptimal views Ductal Arch: Normal appearance SVC: Normal appearance 3 Vessel View: Normal appearance 3 V Trachea View: Normal appearance IVC: Normal Appearance Crossing: Suboptimal views Extremities Rt Humerus: Suboptimal views Rt Forearm: Suboptimal views Rt Hand: Suboptimal views Mary De Los Santos Electronically Signed Final Report 02/17/2024 03:44 pm IMPRESSION: 1. Lin live intrauterine at 38w 3d. 2. Normal growth; EFW 3324 grams, which is at the 52% for this gestational age. 3. The amniotic fluid index is 19.2cm, which is within normal limits. 4. Visualized anatomy appears normal as noted above but remains suboptimal due to GA Follow-up as clinically indicated. Ultrasound is not diagnostic of chromosomal aneuploidy and does not detect all subtle defects. Normal ultrasound findings do not guarantee normal outcomes. Normal [facility] US for pregnancyon 4 1. Lin live intrauterine at 38w 3d. 2. Normal growth; EFW 3324 grams, which is at the 52% for this gestational age. 3. The amniotic fluid index is 19.2cm, which is within normal limits. 4. Visualized anatomy appears normal as noted above but remains suboptimal due to GA Follow-up as clinically indicated. Ultrasound is not diagnostic of chromosomal aneuploidy and does not detect all subtle defects. Normal ultrasound findings do not guarantee normal outcomes. [employer] OBSTETRICS REPORT (Signed Final 02/17/2024 03:44 pm) PATIENT INFO: ID #: [id number] : [birth year] (23 yrs)(F) Name: PRAKASH GREENE Visit Date: 02/17/2024 11:06 am PERFORMED BY: Attending: Mray De Los Santos Performed By: Ran Alvarado Referred By: LUIZ VELEZ Location: [facility] Visit Type: Outpatient SERVICE(S) [place]: [place] [id number] INDICATIONS: Obesity complicating , unspecified O99.210 trimester VITAL SIGNS: Weight (lb): 224 Height: 5'2 BMI: 40.97 EVALUATION: Num Of Fetuses: 1 Heart Rate(bpm): 134 Cardiac Activity: Regular rhythm Lie: Longitudinal Presentation: Cephalic Placenta: Posterior Amniotic Fluid ARLYN FV: Within normal limits ARLYN Sum(cm) %Tile Largest Pocket(cm) 19.2 77 6.27 RUQ(cm) RLQ(cm) LUQ(cm) LLQ(cm) 3.75 3.71 6.27 5.47 BIOMETRY: BPD: 92 mm G.Age: 37w 3d 48 % OFD: 119 mm HC: 338.6 mm G.Age: 38w 6d 44 % AC: 341.9 mm G.Age: 38w 1d 61 % FL: 72.3 mm G.Age: 37w 0d 20 % LV: 3.65 mm CI: 77.3 % 70 - 86 FL/HC: 21.4 % 20.9 - 22.7 HC/AC: 0.99 0.92 - 1.05 FL/BPD: 78.6 % 71 - 87 FL/AC: 21.1 % 20 - 24 Est. FW: 3324 gm 7 lb 5 oz 52 % GESTATIONAL AGE: LMP: 35w 5d Date: 06/12/23 YAS: 03/18/24 U/S Today: 37w 6d YAS: 03/03/24 Best: 38w 3d Det. By: U/S (09/10/23) YAS: 02/28/24 ANATOMY: Cranium: Normal appearance Cavum: Normal appearance Ventricles: Normal appearance Choroid Plexus: Normal appearance Cerebellum: Normal appearance Posterior Fossa: Normal appearance Face: Normal appearance Lips: Previously visualized Palate: Suboptimal views Thoracic: Normal appearance Heart: Normal appearance RVOT: Normal appearance LVOT: Suboptimal views Aortic Arch: Normal appearance Ductal Arch: Normal appearance Diaphragm: Normal appearance Stomach: Normal appearance Abdomen: Normal appearance Abdominal Wall: Normal appearance Cord Vessels: 3-Vessel Cord Kidneys: Normal appearance Bladder: Normal appearance Spine: Previously visualized Upper Extremities: Present Lower Extremities: Present TARGETED ANATOMY: Head/Neck Palate: Suboptimal views Orbits/Eyes: Suboptimal views Mandible: Suboptimal views Maxilla: Suboptimal views Thorax Rt Outflow Tract: Suboptimal views Lt Outflow Tract: Suboptimal views Ductal Arch: Normal appearance SVC: Normal appearance 3 Vessel View: Normal appearance 3 V Trachea View: Normal appearance IVC: Normal Appearance Crossing: Suboptimal views Extremities Rt Humerus: Suboptimal views Rt Forearm: Suboptimal views Rt Hand: Suboptimal views Mary De Los Santos Electronically Signed Final Report 02/17/2024 03:44 pm [facility] [place] [facility] Mary De Los Santos MD - 02/17/2024 OBSTETRICS REPORT (Signed Final 02/17/2024 03:44 pm) PATIENT INFO: ID #: [id number] : [birth year] (23 yrs)(F) Name: PRAKASH GREENE Visit Date: 02/17/2024 11:06 am PERFORMED BY: Attending: Mary De Los Santos Performed By: Ran Alvarado Referred By: LUIZ VELEZ Location: [facility] Visit Type: Outpatient SERVICE(S) [place] [id number] INDICATIONS: Obesity complicating , unspecified O99.210 trimester VITAL SIGNS: Weight (lb): 224 Height: 5'2 BMI: 40.97 EVALUATION: Num Of Fetuses: 1 Heart Rate(bpm): 134 Cardiac Activity: Regular rhythm Lie: Longitudinal Presentation: Cephalic Placenta: Posterior Amniotic Fluid ARLYN FV: Within normal limits ARLYN Sum(cm) %Tile Largest Pocket(cm) 19.2 77 6.27 RUQ(cm) RLQ(cm) LUQ(cm) LLQ(cm) 3.75 3.71 6.27 5.47 BIOMETRY: BPD: 92 mm G.Age: 37w 3d 48 % OFD: 119 mm HC: 338.6 mm G.Age: 38w 6d 44 % AC: 341.9 mm G.Age: 38w 1d 61 % FL: 72.3 mm G.Age: 37w 0d 20 % LV: 3.65 mm CI: 77.3 % 70 - 86 FL/HC: 21.4 % 20.9 - 22.7 HC/AC: 0.99 0.92 - 1.05 FL/BPD: 78.6 % 71 - 87 FL/AC: 21.1 % - 24 Est. FW: 3324 gm 7 lb 5 oz 52 % GESTATIONAL AGE: LMP: 35w 5d Date: 06/12/23 YAS: 03/18/24 U/S Today: 37w 6d YAS: 03/03/24 Best: 38w 3d Det. By: U/S (09/10/23) YAS: 02/28/24 ANATOMY: Cranium: Normal appearance Cavum: Normal appearance Ventricles: Normal appearance Choroid Plexus: Normal appearance Cerebellum: Normal appearance Posterior Fossa: Normal appearance Face: Normal appearance Lips: Previously visualized Palate: Suboptimal views Thoracic: Normal appearance Heart: Normal appearance RVOT: Normal appearance LVOT: Suboptimal views Aortic Arch: Normal appearance Ductal Arch: Normal appearance Diaphragm: Normal appearance Stomach: Normal appearance Abdomen: Normal appearance Abdominal Wall: Normal appearance Cord Vessels: 3-Vessel Cord Kidneys: Normal appearance Bladder: Normal appearance Spine: Previously visualized Upper Extremities: Present Lower Extremities: Present TARGETED ANATOMY: Head/Neck Palate: Suboptimal views Orbits/Eyes: Suboptimal views Mandible: Suboptimal views Maxilla: Suboptimal views Thorax Rt Outflow Tract: Suboptimal views Lt Outflow Tract: Suboptimal views Ductal Arch: Normal appearance SVC: Normal appearance 3 Vessel View: Normal appearance 3 V Trachea View: Normal appearance IVC: Normal Appearance Crossing: Suboptimal views Extremities Rt Humerus: Suboptimal views Rt Forearm: Suboptimal views Rt Hand: Suboptimal views Mary De Los Santos Electronically Signed Final Report 02/17/2024 03:44 pm IMPRESSION: 1. Lin live intrauterine at 38w 3d. 2. Normal growth; EFW 3324 grams, which is at the 52% for this gestational age. 3. The amniotic fluid index is 19.2cm, which is within normal limits. 4. Visualized anatomy appears normal as noted above but remains suboptimal due to GA Follow-up as clinically indicated. Ultrasound is not diagnostic of chromosomal aneuploidy and does not detect all subtle defects. Normal ultrasound findings do not guarantee normal outcomes. [facility] Radiology Study observation (narrative) [facility] Progress Noteon 02-16-2024 Progress Note ---- -------- Attestation signed by Anisha Barber MD at 02/16/2024 6:01 AM Hospital Care (Independent): I independently saw and evaluated the patient. I agree with the findings and plan of care as documented in the resident's note. -------- Department of Obstetrics and Gynecology Labor and Delivery Triage Note CHIEF COMPLAINT: CTX HISTORY OF PRESENT ILLNESS: The patient is a 23 y.o. 38w2d. Pt here for ctx every 20 min. Unsure if in labor. Patient denies any other complaints. OB History 5 Para 2 Term 2 AB 2 Living 1 SAB 2 IAB Ectopic Multiple Live Births 1 Obstetric Comments Plans to bottle feed Patient presents with a chief complaint as above. DFM/VB/LOF/CTX Estimated Due Date: Estimated Date of Delivery: 02/28/24 PAST MEDICAL HISTORY: Past Medical History: Diagnosis Date Acute cystitis without hematuria 06/28/2019 Anxiety Anxiety Borderline personality disorder (CMS/HCC) ([facility]) Drug abuse (CMS/[facility]) ([facility]) Hepatitis C Psychiatric problem PTSD (post-traumatic stress disorder) PAST SURGICAL HISTORY: Past Surgical History: Procedure Laterality Date ABDOMINAL SURGERY 4yrs old- bowel surgery TONSILLECTOMY (HISTORICAL) 3yrs old SOCIAL HISTORY: reports that she has been smoking cigarettes. She started smoking about 13 years ago. She has a 3.5 pack-year smoking history. She has never used smokeless tobacco. She reports that she does not currently use alcohol. She reports that she does not currently use drugs after having used the following drugs: IV, Marijuana, Methamphetamines, and Fentanyl. MEDICATIONS: Prior to Admission medications Medication Sig Start Date End Date Taking? Authorizing Provider ARIPiprazole (Abilify) 5 MG tablet Take 5 mg by mouth daily. 02/07/23 Historical Provider, Aristada 662 MG/2.4ML injection Inject 2.4 mL intramuscularly every 28 days 09/03/23 Historical Provider, Vit-Fe Fumarate-FA ( Plus Vitamin/Mineral) 27-1 MG tablet Take 1 tablet by mouth daily. 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 APPEARANCE: Pain: No PHYSICAL EXAM: Vital Signs: VS wnl-reviewed/Respiration s normal effort Vitals: 02/15/24 2348 BP: 118/76 Pulse: 109 Resp: 15 Temp: 36.7 ?C (98 ?F) TempSrc: Oral SpO2: 99% Abdomen: soft, NT, ND, no rebound/guarding Uterus: gravid/non-tender LE Edema: trace Speculum Exam: defer heart rate: Category I Cervix: 1/50/-3 Contraction frequency: irregular, every 20 minutes Membranes: Intact RESULTS: NST: Reactive Procedures GENERAL LABS: No results found for this or any previous visit (from the past 24 hour(s)). TRIAGE COURSE: Patient here out of concern for contractions. FHT initially not reactive, but now reactive with acels and moderate variability. SVE unchanged from prior triage visit. Given triage precautions. Will trace heart rate for another 10 minutes for full NST. Patient had one possible late deceleration at 0058. Patient was then kept on monitor for next hour. FHT during that 1 hour Cat I with moderate variability and several spontaneous accelerations. Payne q10 min. Given strict triage precautions. Ran strip with Dr Barber. Offered patient induction for deceleration and patient felt comfortable going home given 1 hour of cat I. ESSION: Contractions Pain assessment and plan: None DISCUSSED WITH [facility] PROVIDER: Dr barber and Dr Christensen DISPOSITION: Discharge to Home [facility] Progress Noteon 02-09-2024 Progress Note ---- -------- Attestation signed by Vilma Rapp DO at 02/10/2024 6:37 AM Hospital Care (Independent): I independently saw and evaluated the patient. I agree with the findings and plan of care as documented in the resident's note. Discussed reassuring physical exam findings and discussed return precautions. Patient verbalized understanding and all questions were answered to her satisfaction. -------- Department of Obstetrics and Gynecology Labor and Delivery Triage Note CHIEF COMPLAINT: ROL HISTORY OF PRESENT ILLNESS: The patient is a 23 y.o. 37w2d. Contraction every 20-25 minutes. Pelvic pressure last few months as well. Denies VB, LOF, DFM. Overall well appearing. Will be seen tomorrow in [facility]. OB History 5 Para 2 Term 2 AB 2 Living 1 SAB 2 IAB Ectopic Multiple Live Births 1 Obstetric Comments Plans to bottle feed Patient presents with a chief complaint as above. DFM/VB/LOF Estimated Due Date: Estimated Date of Delivery: 02/28/24 PAST MEDICAL HISTORY: Past Medical History: Diagnosis Date Acute cystitis without hematuria 06/28/2019 Anxiety Anxiety Borderline personality disorder ([facility]) ([facility]) Drug abuse ([facility]) ([facility]) Hepatitis C Psychiatric problem PTSD (post-traumatic stress disorder) PAST SURGICAL HISTORY: Past Surgical History: Procedure Laterality Date ABDOMINAL SURGERY 4yrs old- bowel surgery TONSILLECTOMY (HISTORICAL) 3yrs old SOCIAL HISTORY: reports that she has been smoking cigarettes. She started smoking about 13 years ago. She has a 3.4 pack-year smoking history. She has never used smokeless tobacco. She reports that she does not currently use alcohol. She reports that she does not currently use drugs after having used the following drugs: IV, Marijuana, Methamphetamines, and Fentanyl. MEDICATIONS: Prior to Admission medications Medication Sig Start Date End Date Taking? Authorizing Provider Aristada 662 MG/2.4ML injection Inject 2.4 mL intramuscularly every 28 days 09/03/23 Yes Historical Provider, Vit-Fe Fumarate-FA ( Plus Vitamin/Mineral) 27-1 MG tablet Take 1 tablet by mouth daily. 04/26/22 Yes Luiz Velez APRN - [facility]ANK ARIPiprazole (Abilify) 5 MG tablet Take 5 mg by mouth daily. 02/07/23 Historical Provider, docusate sodium (Colace) 100 MG capsule Take 1 capsule (100 mg) by mouth 2 times daily. Patient not taking: Reported on 12/20/2023 07/25/22 Joanna Adhikari DO CARE: Complicated by: History of substance use, hepatitis C antibody positive, maternal obesity REVIEW OF SYSTEMS: Pertinent items are noted in HPI. APPEARANCE: Pain: No PHYSICAL EXAM: Vital Signs: VS wnl-reviewed/Respiration s normal effort Vitals: 02/09/24 1835 BP: 120/73 Pulse: 118 Resp: 18 Temp: 36.7 ?C (98.1 ?F) TempSrc: Oral Abdomen: soft, NT, ND, no rebound/guarding Uterus: gravid/non-tender LE Edema: 1+ Speculum Exam: defer heart rate: Category I Cervix: /-3 Contraction frequency: none Membranes: Intact RESULTS: NST: Reactive Procedures GENERAL LABS: No results found for this or any previous visit (from the past 24 hour(s)). TRIAGE COURSE: Patient resting comfortably with concern that she is in labor. Comfortable appearing without breathing through contractions. SVE /-3. Has appointment tomorrow with [facility]. FHT Cat I. Strip reviewed with Dr Rapp. Given labor precuations. [place] comfortable going home. ESSION: Contractions Pain assessment and plan: None DISCUSSED WITH C PROVIDER: Dr Rapp and Dr Gilman DISPOSITION: Discharge to Home [facility] 36on 01-06-[address] [facility] No Panel Informationon 01-05 Lin live intrauterine at 32w 3d. Normal growth; EFW 2147 grams, which is at the 57% for this gestational age. Visualized anatomy appears normal with limitations as noted above. The amniotic fluid index is 20.1cm, which is within normal limits. Reassuring BPP. [facility] OBSTETRICS REPORT (Signed Final 01/06/2024 11:55 am) PATIENT INFO: ID #: [id number] : [birth year] (23 yrs)(F) Name: PRESLEYJEFFY GREENE Visit Date: 01/06/2024 11:01 am PERFORMED BY: Attending: Mallorie Ochoa DO, FACOG Performed By: Hortencia Santiago RDMS Referred By: LUIZ VELEZ Location: [facility] Visit Type: Outpatient SERVICE(S) PROVIDED: Level II complete (Targeted OB) 58774 BPP w/out NST 49454 INDICATIONS: Obesity complicating , unspecified O99.210 trimester Obesity complicating , unspecified O99.210 trimester screening for malformations using Z36.3 ultrasound VITAL SIGNS: Weight (lb): 224 Height: 5'2 BMI: 40.97 EVALUATION: Num Of Fetuses: 1 Heart Rate(bpm): 119 Cardiac Activity: Regular rhythm Lie: Longitudinal Presentation: Cephalic Placenta: Posterior P. Cord Insertion: Not Visualized Amniotic Fluid ARLYN FV: Within normal limits ARLYN Sum(cm) %Tile Largest Pocket(cm) 20.1 76 5.9 RUQ(cm) RLQ(cm) LUQ(cm) LLQ(cm) 5.9 4.8 3.9 5.5 BIOPHYSICAL EVALUATION: Amniotic F.V: Within normal limits F. Tone: Observed F. Movement: Observed Score: 12/03 F. Breathing: Observed BIOMETRY: BPD: 82.7 mm G.Age: 33w 2d 67 % OFD: 109.6 mm HC: 307.3 mm G.Age: 34w 2d 62 % AC: 295.6 mm G.Age: 33w 4d 80 % FL: 62.3 mm G.Age: 32w 2d 33 % HUM: 55.3 mm G.Age: 32w 1d 49 % CER: 43.5 mm G.Age: 34w 1d 72 % LV: 4.69 mm CM: 6.85 mm TIB: 54.3 mm G.Age: 32w 0d 49 % CI: 75.5 % 70 - 86 FL/HC: 20.3 % 19.1 - 21.3 HC/AC: 1.04 0.96 - 1.17 FL/BPD: 75.3 % 71 - 87 FL/AC: 21.1 % 20 - 24 Est. FW: 2147 gm 4 lb 12 oz 57 % GESTATIONAL AGE: LMP: 29w 5d Date: 06/12/23 YAS: 03/18/24 U/S Today: 33w 3d YAS: 02/21/24 Best: 32w 3d Det. By: U/S (09/10/23) YAS: 02/28/24 TARGETED ANATOMY: Central Nervous System Calvarium/Cranial V.: Normal appearance Intracranial Bruce: Normal appearance Cavum: Normal appearance Parenchyma: Normal appearance Lateral Ventricles: Normal appearance Choroid Plexus: Normal appearance Cereb./Vermis: Normal appearance Cisterna Magna: Normal appearance Corpus Callosum: Normal appearance Midline Falx: Normal appearance Spine Cervical: Normal appearance Thoracic: Normal appearance Lumbar: Normal appearance Sacral: Normal appearance Shape/Curvature: Normal appearance Head/Neck Face: Normal appearance Lips: Normal appearance Neck: Normal appearance Nuchal Fold: Suboptimal views Nasal Bone: Present Palate: Suboptimal views Profile: Normal appearance Orbits/Eyes: Suboptimal views Mandible: Suboptimal views Maxilla: Suboptimal views Thorax Thoracic Contour: Normal appearance Lungs: Normal appearance 4 Chamber View: Normal appearance Cardiac Activity: Observed Cardiac Rhythm: Normal appearance Cardiac Situs: Normal appearance Rt Outflow Tract: Suboptimal views Lt Outflow Tract: Suboptimal views Aortic Arch: Normal appearance Ductal Arch: Suboptimal views SVC: Suboptimal View (more content not included)... [facility] [place] RADIOLOGY SYSTEM Mallorie Ochoa, DO - 01/06/2024 OBSTETRICS REPORT (Signed Final 01/06/2024 11:55 am) PATIENT INFO: ID #: [id number] : [birth year] (23 yrs)(F) Name: PRAKASH RAMONA Visit Date: 01/06/2024 11:01 am PERFORMED BY: Attending: Mallorie Ochoa DO, FACOG Performed By: Hortencia Santiago RDMS Referred By: LUIZ VELEZ Location: [facility] Visit Type: Outpatient SERVICE(S) PROVIDED: Level II complete (Targeted OB) 49309 BPP w/out NST 48340 INDICATIONS: Obesity complicating , unspecified O99.210 trimester Obesity complicating , unspecified O99.210 trimester screening for malformations using Z36.3 ultrasound VITAL SIGNS: Weight (lb): 224 Height: 5'2 BMI: 40.97 EVALUATION: Num Of Fetuses: 1 Heart Rate(bpm): 119 Cardiac Activity: Regular rhythm Lie: Longitudinal Presentation: Cephalic Placenta: Posterior P. Cord Insertion: Not Visualized Amniotic Fluid ARLYN FV: Within normal limits ARLYN Sum(cm) %Tile Largest Pocket(cm) 20.1 76 5.9 RUQ(cm) RLQ(cm) LUQ(cm) LLQ(cm) 5.9 4.8 3.9 5.5 BIOPHYSICAL EVALUATION: Amniotic F.V: Within normal limits F. Tone: Observed F. Movement: Observed Score: 12/03 F. Breathing: Observed BIOMETRY: BPD: 82.7 mm G.Age: 33w 2d 67 % OFD: 109.6 mm HC: 307.3 mm G.Age: 34w 2d 62 % AC: 295.6 mm G.Age: 33w 4d 80 % FL: 62.3 mm G.Age: 32w 2d 33 % HUM: 55.3 mm G.Age: 32w 1d 49 % CER: 43.5 mm G.Age: 34w 1d 72 % LV: 4.69 mm CM: 6.85 mm TIB: 54.3 mm G.Age: 32w 0d 49 % CI: 75.5 % 70 - 86 FL/HC: 20.3 % 19.1 - 21.3 HC/AC: 1.04 0.96 - 1.17 FL/BPD: 75.3 % 71 - 87 FL/AC: 21.1 % 20 - 24 Est. FW: 2147 gm 4 lb 12 oz 57 % GESTATIONAL AGE: LMP: 29w 5d Date: 06/12/23 YAS: 03/18/24 U/S Today: 33w 3d YAS: 02/21/24 Best: 32w 3d Det. By: U/S (09/10/23) YAS: 02/28/24 TARGETED ANATOMY: Central Nervous System Calvarium/Cranial V.: Normal appearance Intracranial Bruce: Normal appearance Cavum: Normal appearance Parenchyma: Normal appearance Lateral Ventricles: Normal appearance Choroid Plexus: Normal appearance Cereb./Vermis: Normal appearance Cisterna Magna: Normal appearance Corpus Callosum: Normal appearance Midline Falx: Normal appearance Spine Cervical: Normal appearance Thoracic: Normal appearance Lumbar: Normal appearance Sacral: Normal appearance Shape/Curvature: Normal appearance Head/Neck Face: Normal appearance Lips: Normal appearance Neck: Normal appearance Nuchal Fold: Suboptimal views Nasal Bone: Present Palate: Suboptimal views Profile: Normal appearance Orbits/Eyes: Suboptimal views Mandible: Suboptimal views Maxilla: Suboptimal views Thorax Thoracic Contour: Normal appearance Lungs: Normal appearance 4 Chamber View: Normal appearance Cardiac Activity: Observed Cardiac Rhythm: Normal appearance Cardiac Situs: Normal appearance Rt Outflow Tract: Suboptimal views Lt Outflow Tract: Suboptimal views Aortic Arch: Normal appearance Ductal Arch: Suboptimal views SVC: Suboptimal Views Interventr. Septum: Normal appearance Cardiac Mendon: Normal appearance Diaphragm: Normal appearance 3 Vessel View: Suboptimal views 3 V Trachea View: Suboptimal views IVC: Suboptimal View Crossing: Suboptimal views Abdomen Ventral Wall: Normal appearance Cord Insertion: Normal appearance Situs: Normal appearance Stomach: Normal appearance Liver: Normal appearance Lt Kidney: Normal appearance Rt Kidney: Normal appearance Bladder: Normal appearance Bowel: Normal appearance Spleen: Normal appearance Extremities Lt Humerus: Normal appearance Rt Humerus: Suboptimal views Lt Forearm: Normal appearance Rt Forearm: Suboptimal views Lt Hand: Normal appearance Rt Hand: Suboptimal views Lt Femur: Normal appearance Rt Femur: Normal appearance Lt Lower Leg: Normal appearance Rt Lower Leg: Normal appearance Lt Foot: Normal appearance Rt Foot: Normal appearance Other Umbilical Cord: Normal 3-vessel Genitalia: Male Comment: LT ankle - Sub-optimal (more content not included)... [facility] Radiology Study observation (narrative) [facility] No Panel InformationOrdered By: Mallorie Ochoa on 01-06-2024 [facility] Work Phone: US BIOPHYSICAL PROFILE WO NON STRESS TESTINGon 01-06-2024 US BIOPHYSICAL PROFILE WO NON STRESS TESTING OBSTETRICS REPORT (Signed Final 01/06/2024 11:55 am) PATIENT INFO: ID #: [id number] : [birth year] (23 yrs)(F) Name: PRAKASH GREENE Visit Date: 01/06/2024 11:01 am PERFORMED BY: Attending: Mallorie Ochoa DO, FACOG Performed By: Hortencia Santiago RDMS Referred By: LUIZ VELEZ Location: [facility] Visit Type: Outpatient SERVICE(S) PROVIDED: US Level II complete (Targeted OB) 12349 BPP w/out NST 32062 INDICATIONS: Obesity complicating , unspecified O99.210 trimester Obesity complicating , unspecified O99.210 trimester screening for malformations using Z36.3 ultrasound VITAL SIGNS: Weight (lb): 224 Height: 5'2 BMI: 40.97 EVALUATION: Num Of Fetuses: 1 Heart Rate(bpm): 119 Cardiac Activity: Regular rhythm Lie: Longitudinal Presentation: Cephalic Placenta: Posterior P. Cord Insertion: Not Visualized Amniotic Fluid ARLYN FV: Within normal limits ARLYN Sum(cm) %Tile Largest Pocket(cm) 20.1 76 5.9 RUQ(cm) RLQ(cm) LUQ(cm) LLQ(cm) 5.9 4.8 3.9 5.5 BIOPHYSICAL EVALUATION: Amniotic F.V: Within normal limits F. Tone: Observed F. Movement: Observed Score: 12/03 F. Breathing: Observed BIOMETRY: BPD: 82.7 mm G.Age: 33w 2d 67 % OFD: 109.6 mm HC: 307.3 mm G.Age: 34w 2d 62 % AC: 295.6 mm G.Age: 33w 4d 80 % FL: 62.3 mm G.Age: 32w 2d 33 % HUM: 55.3 mm G.Age: 32w 1d 49 % CER: 43.5 mm G.Age: 34w 1d 72 % LV: 4.69 mm CM: 6.85 mm TIB: 54.3 mm G.Age: 32w 0d 49 % CI: 75.5 % 70 - 86 FL/HC: 20.3 % 19.1 - 21.3 HC/AC: 1.04 0.96 - 1.17 FL/BPD: 75.3 % 71 - 87 FL/AC: 21.1 % 20 - 24 Est. FW: 2147 gm 4 lb 12 oz 57 % GESTATIONAL AGE: LMP: 29w 5d Date: 06/12/23 YAS: 03/18/24 U/S Today: 33w 3d YAS: 02/21/24 Best: 32w 3d Det. By: U/S (09/10/23) YAS: 02/28/24 TARGETED ANATOMY: Central Nervous System Calvarium/Cranial V.: Normal appearance Intracranial Bruce: Normal appearance Cavum: Normal appearance Parenchyma: Normal appearance Lateral Ventricles: Normal appearance Choroid Plexus: Normal appearance Cereb./Vermis: Normal appearance Cisterna Magna: Normal appearance Corpus Callosum: Normal appearance Midline Falx: Normal appearance Spine Cervical: Normal appearance Thoracic: Normal appearance Lumbar: Normal appearance Sacral: Normal appearance Shape/Curvature: Normal appearance Head/Neck Face: Normal appearance Lips: Normal appearance Neck: Normal appearance Nuchal Fold: Suboptimal views Nasal Bone: Present Palate: Suboptimal views Profile: Normal appearance Orbits/Eyes: Suboptimal views Mandible: Suboptimal views Maxilla: Suboptimal views Thorax Thoracic Contour: Normal appearance Lungs: Normal appearance 4 Chamber View: Normal appearance Cardiac Activity: Observed Cardiac Rhythm: Normal appearance Cardiac Situs: Normal appearance Rt Outflow Tract: Suboptimal views Lt Outflow Tract: Suboptimal views Aortic Arch: Normal appearance Ductal Arch: Suboptimal views SVC: Suboptimal Views Interventr. Septum: Normal appearance Cardiac Mendon: Normal appearance Diaphragm: Normal appearance 3 Vessel View: Suboptimal views 3 V Trachea View: Suboptimal views IVC: Suboptimal View Crossing: Suboptimal views Abdomen Ventral Wall: Normal appearance Cord Insertion: Normal appearance Situs: Normal appearance Stomach: Normal appearance Liver: Normal appearance Lt Kidney: Normal appearance Rt Kidney: Normal appearance Bladder: Normal appearance Bowel: Normal appearance Spleen: Normal appearance Extremities Lt Humerus: Normal appearance Rt Humerus: Suboptimal views Lt Forearm: Normal appearance Rt Forearm: Suboptimal views Lt Hand: Normal appearance Rt Hand: Suboptimal views Lt Femur: Normal appearance Rt Femur: Normal appearance Lt Lower Leg: Normal appearance Rt Lower Leg: Normal appearance Lt Foot: Normal appearance Rt Foot: Normal appearance Other Umbilical Cord: Normal 3-vessel Genitalia: Male Comment: LT ankle - Sub-optimal views. AP kidneys and renal arteries- sub-optimal views. ------ (more content not included)... [facility] US OB DETAIL ANATOMY T RANSABDOMINALon 01-06-2024 US OB DETAIL ANATOMY TRANSABDOMINAL OBSTETRICS REPORT (Signed Final 01/06/2024 11:55 am) PATIENT INFO: ID #: [id number] : [birth year] (23 yrs)(F) Name: PRAKASH GREENE Visit Date: 01/06/2024 11:01 am PERFORMED BY: Attending: Mallorie Ochoa DO, FACOG Performed By: Hortencia Santiago RDMS Referred By: LUIZ VELEZ Location: [facility] Visit Type: Outpatient SERVICE(S) PROVIDED: Level II complete (Targeted OB) [address] [facility] w/out NST 85922 INDICATIONS: Obesity complicating , unspecified O99.210 trimester Obesity complicating , unspecified O99.210 trimester screening for malformations using Z36.3 ultrasound VITAL SIGNS: Weight (lb): 224 Height: 5'2 BMI: 40.97 EVALUATION: Num Of Fetuses: 1 Heart Rate(bpm): 119 Cardiac Activity: Regular rhythm Lie: Longitudinal Presentation: Cephalic Placenta: Posterior P. Cord Insertion: Not Visualized Amniotic Fluid ARLYN FV: Within normal limits ARLYN Sum(cm) %Tile Largest Pocket(cm) 20.1 76 5.9 RUQ(cm) RLQ(cm) LUQ(cm) LLQ(cm) 5.9 4.8 3.9 5.5 BIOPHYSICAL EVALUATION: Amniotic F.V: Within normal limits F. Tone: Observed F. Movement: Observed Score: 8/8 F. Breathing: Observed BIOMETRY: BPD: 82.7 mm G.Age: 33w 2d 67 % OFD: 109.6 mm HC: 307.3 mm G.Age: 34w 2d 62 % AC: 295.6 mm G.Age: 33w 4d 80 % FL: 62.3 mm G.Age: 32w 2d 33 % HUM: 55.3 mm G.Age: 32w 1d 49 % CER: 43.5 mm G.Age: 34w 1d 72 % LV: 4.69 mm CM: 6.85 mm TIB: 54.3 mm G.Age: 32w 0d 49 % CI: 75.5 % 70 - 86 FL/HC: 20.3 % 19.1 - 21.3 HC/AC: 1.04 0.96 - 1.17 FL/BPD: 75.3 % 71 - 87 FL/AC: 21.1 % 20 - 24 Est. FW: 2147 gm 4 lb 12 oz 57 % GESTATIONAL AGE: LMP: 29w 5d Date: 06/12/23 YAS: 03/18/24 U/S Today: 33w 3d YAS: 02/21/24 Best: 32w 3d Det. By: U/S (09/10/23) YAS: 02/28/24 TARGETED ANATOMY: Central Nervous System Calvarium/Cranial V.: Normal appearance Intracranial Bruce: Normal appearance Cavum: Normal appearance Parenchyma: Normal appearance Lateral Ventricles: Normal appearance Choroid Plexus: Normal appearance Cereb./Vermis: Normal appearance Cisterna Magna: Normal appearance Corpus Callosum: Normal appearance Midline Falx: Normal appearance Spine Cervical: Normal appearance Thoracic: Normal appearance Lumbar: Normal appearance Sacral: Normal appearance Shape/Curvature: Normal appearance Head/Neck Face: Normal appearance Lips: Normal appearance Neck: Normal appearance Nuchal Fold: Suboptimal views Nasal Bone: Present Palate: Suboptimal views Profile: Normal appearance Orbits/Eyes: Suboptimal views Mandible: Suboptimal views Maxilla: Suboptimal views Thorax Thoracic Contour: Normal appearance Lungs: Normal appearance 4 Chamber View: Normal appearance Cardiac Activity: Observed Cardiac Rhythm: Normal appearance Cardiac Situs: Normal appearance Rt Outflow Tract: Suboptimal views Lt Outflow Tract: Suboptimal views Aortic Arch: Normal appearance Ductal Arch: Suboptimal views SVC: Suboptimal Views Interventr. Septum: Normal appearance Cardiac [place]: Normal appearance Diaphragm: Normal appearance 3 Vessel View: Suboptimal views 3 V Trachea View: Suboptimal views IVC: Suboptimal View Crossing: Suboptimal views Abdomen Ventral Wall: Normal appearance Cord Insertion: Normal appearance Situs: Normal appearance Stomach: Normal appearance Liver: Normal appearance Lt Kidney: Normal appearance Rt Kidney: Normal appearance Bladder: Normal appearance Bowel: Normal appearance Spleen: Normal appearance Extremities Lt Humerus: Normal appearance Rt Humerus: Suboptimal views Lt Forearm: Normal appearance Rt Forearm: Suboptimal views Lt Hand: Normal appearance Rt Hand: Suboptimal views Lt Femur: Normal appearance Rt Femur: Normal appearance Lt Lower Leg: Normal appearance Rt Lower Leg: Normal appearance Lt Foot: Normal appearance Rt Foot: Normal appearance Other Umbilical Cord: Normal 3-vessel Genitalia: Male Comment: LT ankle - Sub-optimal views. AP kidneys and renal arteries- sub-optimal views. ------ (more content not included)... [facility] 36on 12-31-2023 36 Please fax order for maternity belt to [employer]. Thanks. [facility] MEDICATION ASSISTED TREATMEN T PANELOrdered By: David Galeana on 12-31-2023 Amphetamines Ql (U) Negative Negative [facility] Barbiturates screen method Nom (U) Negative Negative [facility] Benzodiazepines screen method Nom (U) Negative Negative [facility] BUPRENORPHINE SCREEN Negative [facility] Cocaine Ql (U) Negative [facility] th Ethanol [Mass/Vol] Negative Negative [facility] FENTANYL Negative Negative [facility] Methadone Ql (U) Negative Negative [facility] Opiates Screen Ql (U) Negative Negative [facility] OXYCODONE/OXYMORPHONE Negative Negative [facility] PCP Negative Negative [facility] THC Negative Negative [facility] The expected value f or the drugs listed above is Negative. The following drugs or drug groups have been screened for by Immunoassay at the following thresholds: Amphetamine class(1000ng/mL) Barbituates(200ng/mL) Benzodiazepines(200ng/mL ) Cocaine(300ng/mL) Ethanol (50 ng/mL) Methadone(300ng/mL) Opiates(300ng/mL) Oxycodone(100ng/mL) PCP(25ng/mL) Buprenorphine(5ng/mL) THC(50ng/mL) Fentanyl(1ng/mL) Positive results are NOT confirmed by a more specific alternative method unless requested. If confirmation is needed, request confirmation under separate order. NOTE: These results are for medical treatment only. Analysis performed using non-forensic procedures. [facility] MEDICATION ASSISTED TREATMEN T PANELon 12-31-2023 Amphetamines Ql (U) Negative Normal Negative [facility] Comment on above: Performed By: #### L [id number] ####Center Consultant: CHASE GUTIERRES ([id number])[facility] ([facility])[address] [place] [address] BARBITURATES Negative Normal Negative [facility] Comment on above: Performed By: #### L [id number] ####Center Consultant: CHASE GUTIERRES ([id number])[facility])[address] [place] [address] Benzodiazepines Ql (U) Negative Normal Negative [facility] Comment on above: Performed By: #### L [id number] ####Center Consultant: CHASE GUTIERRES ([id number])[facility] ([facility])[address] [place] [address] BUPRENORPHINE SCREEN Negative Normal Negative [facility] Comment on above: Performed By: #### L [id number] ####Center Consultant: CHASE GUTIERRES ([id number])[facility] ([facility])[address] [place] [address] Cocaine Ql (U) Negative Normal Negative [facility] Comment on above: Performed By: #### L [id number] ####Center Consultant: CHASE GUTIERRES ([id number])[facility] ([facility])[address] [place] [address] ETHANOL-ETOHO Negative Normal Negative [facility] Comment on above: Result Comment: NIKHILE R COMMENTS: The expected value for the drugs listed above is Negative. The following drugs or drug groups have been screened for by Immunoassay at the following thresholds: Amphetamine class(1000ng/mL) Barbituates(200ng/mL) Benzodiazepines(200ng/mL) Cocaine(300ng/mL) Ethanol (50 ng/mL) Methadone(300ng/mL) Opiates(300ng/mL) Oxycodone(100ng/mL) PCP(25ng/mL) Buprenorphine(5ng/mL) THC(50ng/mL) Fentanyl(1ng/mL) Positive results are NOT confirmed by a more specific alternative method unless requested. If confirmation is needed, request confirmation under separate order. NOTE: These results are for medical treatment only. Analysis performed using non-forensic procedures. Performed By: #### L [id number] ####Center Consultant: CHASE GUTIERRES ([id number])[facility] [place] [address] FENTANYL Negative Normal Negative [facility] Comment on above: Performed By: #### L [id number] ####Center Consultant: CHASE GUTIERRES ([id number])[facility] ([facility])[address] [place] [address] Methadone Ql (U) Negative Normal Negative [facility] Comment on above: Performed By: #### L [id number] ####Center Consultant: CHASE GUTIERRES ([id number])[facility] ([facility])[address] [place] [address] Opiates Ql (U) Negative Normal Negative [facility] Comment on above: Performed By: #### L [id number] ####Center Consultant: CHASE GUTIERRES ([id number])[facility] ([facility])[address] [place] [address] OXYCODONE/OXYMORPHONE Negative Normal Negative [facility] Comment on above: Performed By: #### L [id number] ####Center Consultant: CHASE GUTIERRES ([id number])[facility] ([facility])[address] [place] [address] PCP Negative Normal Negative [facility] Comment on above: Performed By: #### L [id number] ####Center Consultant: CHASE GUTIERRES ([id number])[facility] ([facility])[address] [place] [address] THC-MTTHC Negative Normal Negative [facility] Comment on above: Performed By: #### L [id number] ####Center Consultant: CHASE GUTIERRES ([id number])[facility] ([facility])[address] [place] [address] Progress Noteon 12-31-2023 Progress Note Temp 97.4 Normal [facility] Progress Note Pt here for OB visit . The baby is active. No LOF or bleeding. No contractions. History reviewed - see episode report No nausea or vomiting. States she will have pelvic pain at times. No pain currently. Notices when walking. Denies unusual vaginal discharge. Denies troubles with bladder and bowels. Planning on . Desires BTL for contraception. PE: See vitals Pt A&OX3, NAD Normal affect Non labored breathing Abd - non tender Ext - no edema Plan: 1.) GCT, CBC, and RPR today. 2.) Needs to reschedule anatomy scan. 3.) Hx drug abuse. Sober since 06/2022. She does admit to consuming alcohol x1 on October 29. Gives consent for utox today. 4.) Hx BPD, anxiety, and PTSD. Follows with [facility] and is on Aristada injections. Feels safe. Denies SI/HI. 5.) Maternal obesity. Serial growth scans and testing ordered. 5.) Discussed round ligament pain vs pelvic joint dysfunction as source of pain. Rx maternity belt. 6.) Tdap today. 7.) Will have her discuss BTL with resident next visit. 8.) Smokes ciggs. 2-3 per day. Down from PPD. Encouraged cessation. Discussed risks during . Discussed [facility] program. 9.) Hep C antibody positive. Check hepatic fxn and viral load today. 10.) RTC 2wks. Normal [facility] Progress Note Labs and TDAP not completed, pt left prior to blood draw. Called pt at number listed in her chart, NA. Normal [facility] 36on 12-20-2023 36 S: Patient spoke shagufta h [facility] nurse regarding medication problem B: Onset of symptoms/concern today A: Pt states was seen at OB triage, script was sent in for lidocaine patches to [facility] which is closed for the weekend, requesting script to be transferred to [facility] at [address] R: Contacted [facility] pharmacy at [phone]. Pharmacist refused to take script stating they are to busy to do that today and sent call to . Prescription noted in EMR for lidocaine (Lidoderm) 5% patch, apply 1 patch topically for 10 day. Remove and discard patch within 12 hours or as directed by . D- 10 patch, R-0 and left verbatim on pharmacy . Patient understands care advice. No further needs at this time. Patient instructed to call back with new or worsening symptoms. Reason for Disposition ? [1] Prescription prescribed recently is not at pharmacy AND [2] triager has access to patient's EMR AND [3] prescription is recorded in the EMR Protocols used: Medication Refill and Renewal [id number] Normal [facility] COMPLETE URINALYSISon 2023 BACTERIA (#/HPF) IN URINE Few Abnormal Negative [facility] Comment on above: Performed By: #### L [id number] ####Center Consultant: CHASE GUTIERRES ([id number])[facility])[address] [place] [address] BILIRUBIN, TOTAL PRESENCE IN URINE Negative Normal Negative [facility] Comment on above: Performed By: #### L [id number] ####Center Consultant: CHASE GUTIERRES ([id number])[facility])[address] [place] [address] CALCIUM OXALATE CRYSTALS (#/HPF) IN URINE Moderate Abnormal Negative [facility] Comment on above: Performed By: #### L [id number] ####Center Consultant: CHASE GUTIERRES ([id number])[facility])[address] [place] [address] Clarity (U) Clear Normal Clear [facility] Comment on above: Performed By: #### L [id number] ####Center Consultant: CHASE GUTIERRES ([id number])[facility])[address] [place] [address] Color (U) Yellow Normal Lt. Yellow [facility] Comment on above: Performed By: #### L [id number] ####Center Consultant: CHASE GUTIERRES ([id number])[facility])[address] [place] [address] GLUCOSE (MG/DL) IN URINE Normal Normal Normal (<70) [facility] Comment on above: Performed By: #### L [id number] ####Center Consultant: CHASE GUTIERRES ([id number])[facility] ([facility])[address] [place] [address] HEMOGLOBIN PRESENCE IN URINE Negative Normal Negative [facility] Comment on above: Performed By: #### L [id number] ####Center Consultant: CHASE GUTIERRES ([id number])[facility] ([facility])[address] [place] [address] HYALINE CASTS (#/LPF) IN URINE SEDIMENT BY MICROSCOPY Negative Normal Negative [facility] Comment on above: Performed By: #### L [id number] ####Center Consultant: CHASE GUTIERRES ([id number])[facility] ([facility])[address] [place] [address] Ketones Ql (U) Trace Abnormal Negative [facility] Comment on above: Performed By: #### L [id number] ####Center Consultant: CHASE GUTIERRES ([id number])[facility] ([facility])[address] [place] [address] LEUKOCYTE ESTERASE PRESENCE IN URINE BY TEST STRIP 75 Violette/uL Abnormal Negative [facility] Comment on above: Performed By: #### L [id number] ####Center Consultant: CHASE GUTIERRES ([id number])[facility] ([facility])[address] [place] [address] MUCUS (#/LPF) IN URINE SEDIMENT Few Normal Negative [facility] Comment on above: Performed By: #### L [id number] ####Center Consultant: CHASE GUTIERRES ([id number])[facility] ([facility])[address] [place] [address] NITRITE PRESENCE IN URINE Negative Normal Negative [facility] Comment on above: Performed By: #### L [id number] ####Center Consultant: CHASE GUTIERRES ([id number])[facility] ([facility])[address] [place] [address] pH (U) 5.5 [pH] Normal 5.0-8.0 [facility] Comment on above: Performed By: #### L [id number] ####Center Consultant: CHASE GUTIERRES ([id number])[facility])[address] [place] [address] Protein (U) [Mass/Vol] 30 mg/dL Abnormal Negative [facility] Comment on above: Performed By: #### L [id number] ####Center Consultant: CHASE GUTIERRES ([id number])[facility])[address] [place] [address] RBC (#/HPF) IN URINE SEDIMENT 11-25 Abnormal 0-2 [facility] Comment on above: Performed By: #### L [id number] ####Center Consultant: CHASE GUTIERRES ([id number])[facility])[address] [place] [address] Specific gravity (U) [Rel density] 1.035 High 1.005-1.030 [facility] Comment on above: Performed By: #### L [id number] ####Center Consultant: CHASE GUTIERRES ([id number])[facility] ([facility])[address] [place] [address] SQUAMOUS EPITHELIAL CELLS (#/HPF) IN URINE SEDIMENT 11-25 Abnormal 3-5 [facility] Comment on above: Performed By: #### L [id number] ####Center Consultant: CHASE GUTIERRES ([id number])[facility])[address] [place] [address] UROBILINOGEN (MG/DL) IN URINE 2 mg/dL Abnormal Normal (0-1) [facility] Comment on above: Performed By: #### L [id number] ####Center Consultant: CHASE GUTIERRES ([id number])[facility])[address] [place] [address] WBC (LEUKOCYTE) (#/HPF) IN URINE SEDIMENT 3-5 Normal 0-5 [facility] Comment on above: Performed By: #### L [id number] ####Center Consultant: CHASE GUTIERRES ([id number])[facility])[address] [place] [address] [facility] Progress Noteon 12-20-2023 Progress Note ---- -------- Attestation signed by Vilma Rapp DO at 12/21/2023 10:42 AM Hospital Care (Independent): I independently saw and evaluated the patient. I agree with the findings and plan of care as documented in the resident's note. Patient with noted improvement of back pain. Patient discharged home with return precautions. -------- Department of Obstetrics and Gynecology Labor and Delivery Triage Note CHIEF COMPLAINT: back pain HISTORY OF PRESENT ILLNESS: The patient is a 23 y.o. 30w0d. Patient reports back pain and pelvis pain for 1 month, worsening in severity. Pain started intermittent and has become constant. States it has started to prevent her from working. She describes the pain as Sukumar horses in her back. Lower pelvic pain does not feel similar to pelvic pain she has had in prior pregnancies. She has taken tylenol with little to no relief. No VB, LOF, CTX. Positive for FM. No LEE, CP, SOB, N/V,Fevers/Chills, urinary or bladder habits. OB History 5 Para 2 Term 2 AB 2 Living 1 SAB 2 IAB Ectopic Multiple Live Births 1 Obstetric Comments Plans to bottle feed Estimated Due Date: Estimated Date of Delivery: 02/28/24 PAST MEDICAL HISTORY: Past Medical History: Diagnosis Date Acute cystitis without hematuria 06/28/2019 Anxiety Anxiety Borderline personality disorder (CMS/HCC) (HCC) Drug abuse (CMS/HCC) (HCC) Hepatitis C Psychiatric problem PTSD (post-traumatic stress disorder) PAST SURGICAL HISTORY: Past Surgical History: Procedure Laterality Date ABDOMINAL SURGERY 4yrs old- bowel surgery TONSILLECTOMY (HISTORICAL) 3yrs old SOCIAL HISTORY: reports that she has been smoking cigarettes. She started smoking about 13 years ago. She has a 3.4 pack-year smoking history. She has never used smokeless tobacco. She reports that she does not currently use alcohol. She reports that she does not currently use drugs after having used the following drugs: IV, Marijuana, Methamphetamines, and Fentanyl. Was taking methadone, stopped before this . Reports she has remained sober all of . MEDICATIONS: Prior to Admission medications Medication Sig Start Date End Date Taking? Authorizing Provider Aristada 662 MG/2.4ML injection Inject 2.4 mL intramuscularly every 28 days 09/03/23 Yes Historical Provider, Vit-Fe Fumarate-FA ( Plus Vitamin/Mineral) 27-1 MG tablet Take 1 tablet by mouth daily. 04/26/22 Yes Luiz Velez APRN - [facility] ARIPiprazole (Abilify) 5 MG tablet Take 5 mg by mouth daily. 02/07/23 Historical Provider, docusate sodium (Colace) 100 MG capsule Take 1 capsule (100 mg) by mouth 2 times daily. Patient not taking: Reported on 12/20/2023 07/25/22 Joanna Adhikari DO CARE: Complicated by: none REVIEW OF SYSTEMS: Pertinent items are noted in HPI. APPEARANCE: Pain: Yes: suprpubic and lumbar PHYSICAL EXAM: Vital Signs: VS wnl-reviewed/Respiration s normal effort Vitals: 12/20/23 0132 12/20/23 0133 BP: 123/87 Pulse: 116 Resp: 17 Temp: 36.6 ?C (97.8 ?F) SpO2: 98% Weight: 225 lb (102 kg) Height: 5' 2 (1.575 m) Abdomen: soft, NT, ND, no rebound/guarding Uterus: gravid/non-tender LE Edema: trace heart rate: Category I GENERAL LABS: No results found for this or any previous visit (from the past 24 hour(s)). TRIAGE COURSE: Patient seen sitting comfortably in triage with partner at bedside. Fetus breech, cervix closed. FHT cat I, patient remained normotensive through visit. NST reactive. Will give lidocaine patch for pain. UA collected. Will follow up outpatient given afebrile, no systemic symptoms, and no CVA tenderness. Low concern for PTL due to closed cervix and quiet toco. Koby Santiago MD 12/20/2023 2:59 AM IMPRESSION: Back pain, PTL ruled out. MSK pain Pain assessment and plan: DISCUSSED WITH [facility] PROVIDER: Dr. Rapp DISPOSITION: Discharge to Home Normal [facility] Urinalysis complete panel (U )Ordered By: Kathia Brooks on 12-20-2023 Bacteria LM.HPF (Urine sed) [#/Area] Few Abnormal Negative /HPF [facility] Bilirubin Ql (U) Negative Negative mg/dL [facility] Calcium oxalate crystals LM.HPF (Urine sed) [#/Area] Moderate Abnormal Negative /HPF [facility] Clarity (U) Clear Clear [facility] Color (U) Yellow Lt. Yellow [facility] Epithelial cells.squamous LM.HPF (Urine sed) [#/Area] 11-25 Abnormal [facility] h Glucose Ql (U) Normal Normal (<70) mg/dL [facility] Hemoglobin Ql (U) Negative Negative mg/dL [facility] Hyaline casts Auto (Urine sed) [#/Area] Negative Negative /LPF [facility] Interpretation and review of laboratory results Abnormal [facility] Ketones (U) [Mass/Vol] Trace Abnormal Negat augie mg/dL [facility] Leukocyte esterase Test strip Ql (U) 75 Abnormal Negative Violette/uL [facility] Mucus LM.HPF (Urine sed) [#/Area] Few Negative /LPF [facility] Nitrite Ql (U) Negative Negative [facility] th pH (U) 5.5 [pH] 5.0 - 8.0 pH [facility] Protein (U) [Mass/Vol] 30 mg/dL Abnormal Negative [facility] RBC LM.HPF (Urine sed) [#/Area] 11-25 Abnormal [facility] Specific gravity (U) [Rel density] 1.035 High 1.005 - 1.030 [facility] Urobilinogen (U) [Mass/Vol] 2 mg/dL Abnormal Normal (0-1) [facility] WBC LM.HPF (Urine sed) [#/Area] 3-5 [facility] ED PROV NOTEon 12-07-2023 ED PROV NOTE HNO ID: [id number] Author: PATRICIO MILLS APRN.FRANK Service: Emergency Medicine Author Type: Nurse Practitioner Type: ED Provider Notes Filed: 12/07/2023 13:32 Note Text: ED Provider Note Patient Name: Elsi Greene : 2000 SERVICE DATE: 12/07/23 History Patient presents with: Flu Like Symptoms: Pt complaining of cough and tiredness that started one week ago; (+) diarrhea; Denies any known fever; Stated is 7 months ; Stated needs a doctor note for work; Patient is a 23-year-old female presented to ED with complaints of coldness with the symptoms. She is been sick for about the past week. She notes that she has nasal congestion cough and fatigue. She states her and child are both sick with similar symptoms but have gotten better. She is here because she states she needs a work note. She is . She is approximately 7 months gestation. She denies any change in movement, no leaking of fluid. No abdominal pain, cramping. Notes some diarrhea as well but denies any constipation, vaginal bleeding or urinary changes. PAST MEDICAL HISTORY No date: Anxiety disorder No date: Depression No date: Drug abuse (HCC) No date: Mood disorder (HCC) PAST SURGICAL HISTORY No date: COLON SURGERY HX age 4: PAST SURGICAL HISTORY OF Comment: some type of abdominal surgery, has transverse scar No date: TONSILLECTOMY HX No family history on file. Social History Tobacco Use Smoking status: Every Day Packs/day: .5 Types: Cigarettes Last attempt to quit: 06/19/2016 Years since quittin.4 Smokeless tobacco: Never Vaping Use Vaping Use: Some days Substance and Sexual Activity Alcohol use: No Drug use: Yes Types: Marijuana, Heroin, Crack Cocaine, IV Comment: IV heroin, benzodiazepines, stimulants Sexual activity: Yes Partners: Male ALLERGIES Allergen Reactions Fentanyl Hives Review of Systems All other systems reviewed and are negative. Physical Exam Vitals [12/07/23 1315] BP Pulse Temp Temp src Resp SpO2 Weight Height 140/80 (!) 96 36.3 ?C (97.3 ?F) Temporal 20 98 % 99.8 kg (220 lb) 1.575 m (5' 2) Physical Exam Vitals and nursing note reviewed. Constitutional: Appearance: Normal appearance. She is well-developed. She is obese. HENT: Head: Normocephalic and atraumatic. Nose: Nose normal. Mouth/Throat: Mouth: Mucous membranes are moist. Eyes: General: No scleral icterus. Cardiovascular: Rate and Rhythm: Normal rate. Pulses: Normal pulses. Heart sounds: Normal heart sounds. Pulmonary: Effort: Pulmonary effort is normal. No respiratory distress. Breath sounds: Normal breath sounds. Abdominal: General: Bowel sounds are normal. There is no distension. Palpations: Abdomen is soft. Tenderness: There is no abdominal tenderness. There is no guarding or rebound. Musculoskeletal: General: Normal range of motion. Cervical back: Normal range of motion. Skin: General: Skin is warm. Neurological: Mental Status: She is alert and oriented to person, place, and time. Psychiatric: Mood and Affect: Mood normal. Diagnostic Testing ED Labs Ordered and Reviewed - No data to display Procedures ED Course / Clinical Impression Clinical Impressions as of 12/07/23 1330 Viral URI with cough MDM / Disposition / Plan Patient is a 23-year-old female presented to the ED with complaints of 1 week of URI symptoms. She is seen medically stable presentation she is but has no related symptoms. heart tones normal. Did offer COVID and flu testing but she declined. I believe she is stable to return to work we discussed appropriate hygiene and contact precautions. She will continue taking [id number]-vrb-[id number] meds as needed. Will follow-up with her PCP/MORTGAGE CONSULTANT. Disposition The patient was discharged. Counseled patient regarding suspected diagnosis. Prescriptions and Discharge Orders Discharge Orders None SIGNATURE: Patricio Mills APRN.PATRICIO NICOLE 12/07/23 1332 Normal [facility] Progress Noteon 09-30-2023 Progress Note Temp- 97.1 Patient here for OB intake. She arrived alone. This will be her third baby. Patient plans to bottle feed. Benefits of and baby friendly reviewed. Folder reviewed with patient and all relevant teaching completed. Proof of printed and instructions given to sign up for WIC. TDAP and Flu vaccination encouraged. Patient is active with Mychart. Informed patient on appropriate use of mychart and to not use for medical emergency questions. Informed patient when to seek emergent care and location of OB triage. Transportation is not an issue getting to appointments. Informed patient of provide a ride services through their insurance company. Virtual maternity tour not needed at this time. Hospital information handout given. Future visit appointment scheduled. Encouraged baby and me. Pt declined at this time. All questions answered. Informed pt of [facility] ([facility]), BETTINA Lopez LISW at [facility], but a referral is not indicated at this time. Patient reports she has outpatient counseling. She declines meeting with . Has resources through [employer]. Normal [facility] US OB 14+ WEEKS SINGLE FETUS MATERNAL EVAL TRANSABDOMINALon 09-10-2023 US OB 14+ WEEKS SINGLE FETUS MATERNAL EVAL TRANSABDOMINAL OBSTETRICS REPORT (Signed Final 09/10/2023 08:52 am) PATIENT INFO: ID #: [id number] : [birth year] (22 yrs)(F) Name: PRAKASH RICARDOMON Visit Date: 09/10/2023 07:54 am PERFORMED BY: Attending: Mallorie Ochoa DO, FACOG Performed By: Ran Alvarado Referred By: LUIZ VELEZ Location: [facility] Visit Type: Outpatient SERVICE(S) PROVIDED: US >= 14 weeks [id number] INDICATIONS: Encounter for supervision of other normal Z34.82 , second trimester VITAL SIGNS: Weight (lb): 190 Height: 5'2 BMI: 34.75 EVALUATION: Num Of Fetuses: 1 Heart Rate(bpm): 154 Cardiac Activity: Present Lie: Too early to determine Placenta: Posterior P. Cord Insertion: Normal Amniotic Fluid ARLYN FV: Appropriate for gestational age BIOMETRY: CRL: 104.4 mm G.Age: 16w 2d YAS: 02/23/24 BPD: 31.5 mm G.Age: 15w 6d 60 % OFD: 41 mm HC: 115.8 mm G.Age: 15w 5d 39 % AC: 93.4 mm G.Age: 15w 3d 50 % FL: 18 mm G.Age: 15w 2d 35 % CI: 76.8 % 70 - 86 FL/HC: 15.5 % 13.3 - 16.5 HC/AC: 1.24 1.05 - 1.39 FL/BPD: 57.1 % FL/AC: 19.3 % 20 - 24 Est. FW: 125 gm 0 lb 4 oz GESTATIONAL AGE: LMP: 12w 6d Date: 06/12/23 YAS: 03/18/24 U/S Today: 15w 4d YAS: 02/28/24 Best: 15w 4d Det. By: U/S (09/10/23) YAS: 02/28/24 ANATOMY: Cranium: Normal appearance Ventricles: Normal appearance Choroid Plexus: Normal appearance Heart: Normal appearance Stomach: Normal appearance Abdomen: Normal appearance Abdominal Wall: Normal appearance Cord Vessels: 3-Vessel Cord Kidneys: Normal appearance Bladder: Normal appearance Upper Extremities: Present Lower Extremities: Present CERVIX UTERUS ADNEXA: Right Ovary Size(cm) 3.58 x 2.18 x 2.37 Vol(ml): 9.68 Mallorie Ochoa DO, FACOG Electronically Signed Final Report 09/10/2023 08:52 am IMPRESSION: 1. Lin live intrauterine with a gestational age of 15w 4d with an YAS of 02/28/2024 based on today's biometry. 2. biometry is not in agreement with clinically supplied YAS. 3. Normal early anatomy as noted above. 4. Normal uterus and adnexa as noted above. Recommendations: 1. Recommend changing YAS to 02/28/24. 2. Aneuploidy screening as ordered per primary OB. MFM/genetics consult is available if desired. 3. Anatomic survey at 18-20 weeks. 4. Additional follow-up as clinically indicated. Ultrasound is not diagnostic of chromosomal aneuploidy and does not detect all subtle defects. Normal ultrasound findings do not guarantee normal outcomes. Normal [facility] US for pregnancyon 4 1. Lin live intrauterine with a gestational age of 15w 4d with an YAS of 02/28/2024 based on today's biometry. 2. biometry is not in agreement with clinically supplied YAS. 3. Normal early anatomy as noted above. 4. Normal uterus and adnexa as noted above. Recommendations: 1. Recommend changing YAS to 02/28/24. 2. Aneuploidy screening as ordered per primary OB. MFM/genetics consult is available if desired. 3. Anatomic survey at 18-20 weeks. 4. Additional follow-up as clinically indicated. Ultrasound is not diagnostic of chromosomal aneuploidy and does not detect all subtle defects. Normal ultrasound findings do not guarantee normal outcomes. [facility] OBSTETRICS REPORT (Signed Final 09/10/2023 08:52 am) PATIENT INFO: ID #: [id number] : [birth year] (22 yrs)(F) Name: PRAKASH GREENE Visit Date: 09/10/2023 07:54 am PERFORMED BY: Attending: Mallorie Ochoa DO, FACOG Performed By: Ran Alvarado Referred By: LUIZ VELEZ Location: [facility] Visit Type: Outpatient SERVICE(S) PROVIDED: US >= 14 weeks [id number] INDICATIONS: Encounter for supervision of other normal Z34.82 , second trimester VITAL SIGNS: Weight (lb): 190 Height: 5'2 BMI: 34.75 EVALUATION: Num Of Fetuses: 1 Heart Rate(bpm): 154 Cardiac Activity: Present Lie: Too early to determine Placenta: Posterior P. Cord Insertion: Normal Amniotic Fluid ARLYN FV: Appropriate for gestational age BIOMETRY: CRL: 104.4 mm G.Age: 16w 2d YAS: 02/23/24 BPD: 31.5 mm G.Age: 15w 6d 60 % OFD: 41 mm HC: 115.8 mm G.Age: 15w 5d 39 % AC: 93.4 mm G.Age: 15w 3d 50 % FL: 18 mm G.Age: 15w 2d 35 % CI: 76.8 % 70 - 86 FL/HC: 15.5 % 13.3 - 16.5 HC/AC: 1.24 1.05 - 1.39 FL/BPD: 57.1 % FL/AC: 19.3 % 20 - 24 Est. FW: 125 gm 0 lb 4 oz GESTATIONAL AGE: LMP: 12w 6d Date: 06/12/23 YAS: 03/18/24 U/S Today: 15w 4d YAS: 02/28/24 Best: 15w 4d Det. By: U/S (09/10/23) YAS: 02/28/24 ANATOMY: Cranium: Normal appearance Ventricles: Normal appearance Choroid Plexus: Normal appearance Heart: Normal appearance Stomach: Normal appearance Abdomen: Normal appearance Abdominal Wall: Normal appearance Cord Vessels: 3-Vessel Cord Kidneys: Normal appearance Bladder: Normal appearance Upper Extremities: Present Lower Extremities: Present CERVIX UTERUS ADNEXA: Right Ovary Size(cm) 3.58 x 2.18 x 2.37 Vol(ml): 9.68 Mallorie Ochoa DO, FACOG Electronically Signed Final Report 09/10/2023 08:52 am [facility] Mallorie Ochoa DO - 09/10/2023 OBSTETRICS REPORT (Signed Final 09/10/2023 08:52 am) PATIENT INFO: ID #: [id number] : [birth year] (22 yrs)(F) Name: PRAKASH GREENE Visit Date: 09/10/2023 07:54 am PERFORMED BY: Attending: Mallorie Ochoa DO, FACOG Performed By: Ran Alvarado Referred By: LUIZ VELEZ Location: [facility] Visit Type: Outpatient SERVICE(S) PROVIDED: US >= 14 weeks [id number] INDICATIONS: Encounter for supervision of other normal Z34.82 , second trimester VITAL SIGNS: Weight (lb): 190 Height: 5'2 BMI: 34.75 EVALUATION: Num Of Fetuses: 1 Heart Rate(bpm): 154 Cardiac Activity: Present Lie: Too early to determine Placenta: Posterior P. Cord Insertion: Normal Amniotic Fluid ARLYN FV: Appropriate for gestational age BIOMETRY: CRL: 104.4 mm G.Age: 16w 2d YAS: 02/23/24 BPD: 31.5 mm G.Age: 15w 6d 60 % OFD: 41 mm HC: 115.8 mm G.Age: 15w 5d 39 % AC: 93.4 mm G.Age: 15w 3d 50 % FL: 18 mm G.Age: 15w 2d 35 % CI: 76.8 % 70 - 86 FL/HC: 15.5 % 13.3 - 16.5 HC/AC: 1.24 1.05 - 1.39 FL/BPD: 57.1 % FL/AC: 19.3 % 20 - 24 Est. FW: 125 gm 0 lb 4 oz GESTATIONAL AGE: LMP: 12w 6d Date: 06/12/23 YAS: 03/18/24 U/S Today: 15w 4d YAS: 02/28/24 Best: 15w 4d Det. By: U/S (09/10/23) YAS: 02/28/24 ANATOMY: Cranium: Normal appearance Ventricles: Normal appearance Choroid Plexus: Normal appearance Heart: Normal appearance Stomach: Normal appearance Abdomen: Normal appearance Abdominal Wall: Normal appearance Cord Vessels: 3-Vessel Cord Kidneys: Normal appearance Bladder: Normal appearance Upper Extremities: Present Lower Extremities: Present CERVIX UTERUS ADNEXA: Right Ovary Size(cm) 3.58 x 2.18 x 2.37 Vol(ml): 9.68 Mallorie Ochoa DO, FACOG Electronically Signed Final Report 09/10/2023 08:52 am IMPRESSION: 1. Lin live intrauterine with a gestational age of 15w 4d with an YAS of 02/28/2024 based on today's biometry. 2. biometry is not in agreement with clinically supplied YAS. 3. Normal early anatomy as noted above. 4. Normal uterus and adnexa as noted above. Recommendations: 1. Recommend changing YAS to 02/28/24. 2. Aneuploidy screening as ordered per primary OB. MFM/genetics consult is available if desired. 3. Anatomic survey at 18-20 weeks. 4. Additional follow-up as clinically indicated. Ultrasound is not diagnostic of chromosomal aneuploidy and does not detect all subtle defects. Normal ultrasound findings do not guarantee normal outcomes. [facility] Radiology Study observation (narrative) [facility] US for pregnancyOrdered By: Mallorie Ochoa on 09-10-2023 [facility] [employer] Work Phone: ABO RH BLOOD TYPEon 09-09-19 ABO GROUPING O Normal [facility] Comment on above: Performed By: #### L [id number], [id number] ####Center Consultant: CHASE GUTIERRES ([id number])[facility] BLOOD [facility] ([facility])[address] [place] [address] RH TYPE IN BLOOD Positive Normal [facility] Comment on above: Performed By: #### L [id number], [id number] ####Center Consultant: CHASE GUTIERRES ([id number])[facility] BLOOD BANK ([facility])[address] [place] [address] [place] ABO and Rh group panel (Bld) on 09-09-2023 ABO group Nom (Bld) O [facility] D Ag Ql (RBC) Positive [facility] Blood group antibody screen GEL Qlon 09-09-2023 [facility] CBC (HEMOGRAM)on 09-09-2023 Erythrocyte distribution width (RBC) [Ratio] 13.4 % Normal 11.5-15.0 [facility] Comment on above: Performed By: #### L [id number] ####Center Consultant: CHASE GUTIERRES ([id number])[address] Hematocrit (Bld) [Volume fraction] 39.0 % Normal 35.0-47.0 [facility] Comment on above: Performed By: #### L [id number] ####Center Consultant: CHASE GUTIERRES ([id number])[address] Hemoglobin (Bld) [Mass/Vol] 13.2 g/dL Normal 11.7-16.0 [facility] Comment on above: Performed By: #### L [id number] ####Center Consultant: CHASE GUTIERRES ([id number])[address] MCH (RBC) [Entitic mass] 29.0 pg Normal 26.0-34.0 [facility] Comment on above: Performed By: #### L [id number] ####Center Consultant: CHASE GUTIERRES ([id number])[address] MCHC 33.8 % Normal 30.5-36.0 [facility] Comment on above: Performed By: #### L [id number] ####Center Consultant: CHASE GUTIERRES ([id number])[address] MCV (RBC) [Entitic vol] 85.7 fL Normal 77.0-99.0 [facility] Comment on above: Performed By: #### L [id number] ####Center Consultant: CHASE GUTIERRES ([id number])[address] Platelet mean volume (Bld) [Entitic vol] 9.5 fL Normal 9.0-12.7 [facility] Comment on above: Performed By: #### L [id number] ####Center Consultant: CHASE [id number])[facility] ([facility])[address] [place] [address] Platelets (Bld) [#/Vol] 284 10*3/uL Normal 140-440 [facility] Comment on above: Performed By: #### L [id number] ####Center Consultant: CHASE GUTIERRES ([id number])[facility])[address] [place] [address] RBC (Bld) [#/Vol] 4.55 10*6/uL Normal 3.80-5.20 [facility] Comment on above: Performed By: #### L [id number] ####Center Consultant: CHASE GUTIERRES ([id number])[facility])[address] [place] [address] WBC (Bld) [#/Vol] 9.1 10*3/uL Normal 3.6-10.7 [facility] Comment on above: Performed By: #### L [id number] ####Center Consultant: CHASE GUTIERRES ([id number])[facility] ([facility])[address] [place] [address] CBC panel Auto (Bld)on 09-08 Erythrocyte distribution width (RBC) [Ratio] 13.4 % 11.5 - 15.0 % [facility] Hematocrit (Bld) [Volume fraction] 39.0 % 35.0 - 47.0 % [facility] Hemoglobin (Bld) [Mass/Vol] 13.2 g/dL 11.7 - 16.0 g/dL [facility] Interpretation and review of laboratory results Normal [facility] MCH (RBC) [Entitic mass] 29.0 pg 26.0 - 34.0 pg [facility] MCHC (RBC) [Mass/Vol] 33.8 % 30.5 - 36.0 % [facility] MCV (RBC) [Entitic vol] 85.7 fL 77.0 - 99.0 fL [facility] Platelet mean volume (Bld) [Entitic vol] 9.5 fL 9.0 - 12.7 fL [facility] Platelets (Bld) [#/Vol] 284 10*3/uL 140 - 440 10*3/uL [facility] RBC (Bld) [#/Vol] 4.55 10*6/uL 3.80 - 5.2 0 10*6/uL [facility] WBC (Bld) [#/Vol] 9.1 10*3/uL 3.6 - 10.7 10*3/uL [facility] CHLAMYDIA/GONORRHEAon 2023 CHLAMYDIA/GONORRHEA NEISSERIA GONORRHOEA E DNA PROBE Reference Not Detected Not Detected CHLAMYDIA TRACHOMATIS DNA PROBE Reference Not Detected Not Detected ORDER COMMENTS: Methodology: real-time PCR This test is intended for medical purposes only and is not intended for the evaluation of suspected sexual abuse or for other forensic purposes. In certain contexts, culture may be required to meet applicable laws and regulations for diagnosis of C. trachomatis and N. gonorrhoeae infections. Per 2014 CDC recommmendations, this test does not include confirmation of positive results by an alternative nucleic acid target. A negative result does not exclude the possibility of infection. A result of invalid indicates that a new specimen should be collected if clinically indicated. Normal [facility] Comment on above: Performed By: #### L [id number], [id number] ####Center Consultant: CHASE GUTIERRES ([id number])[address] HBV surface Ag IA Qlon 09-08 Interpretation and review of laboratory results Normal [facility] HCV Ab IA QlOrdered By: Sonja Palma on 09-09-2023 Interpretation and review of laboratory results Abnormal [facility] HEMOGLOBIN A1Con 09-09-2023 Glucose [Mass/Vol] 100 mg/dL Normal [facility] Comment on above: Performed By: #### L AB90 ####Center Consultant: CHASE GUTIERRES ([id number])[facility])[address] [place] [address] HbA1c (Bld) [Mass fraction] 5.1 % Normal <5.7 [facility] Comment on above: Result Comment: Norm al less than 5.7% Prediabetes 5.7% to 6.4% Diabetes 6.5% or higher --HgbA1C levels may not be accurate in patients who have renal disease, received recent blood transfusions, are anemic, or who have dyshemoglobinemia. Performed By: #### L AB90 ####Center Consultant: CHASE GUTIERRES ([id number])[address] HEMOGLOBINOPATHY EVALon 05 Erythrocyte distribution width (RBC) [Ratio] 13.8 % Normal 11.0-15.0 [facility] Comment on above: Performed By: #### L [id number] ####[facility] ([facility]DBEAKER)[id number] [place] [place] [facility] Hematocrit (Bld) [Volume fraction] 41.6 % Normal 35.0-45.0 [facility] Comment on above: Performed By: #### L [id number] ####[facility] ([employer]) [place] Hemoglobin (Bld) [Mass/Vol] 13.6 g/dL Normal 11.7-15.5 [facility] Comment on above: Performed By: #### L [id number] ####[facility] (AMDBEAKER)[id number] [place] [address] [facility] HEMOGLOBIN A 96.9 % Normal >96.0 [facility] Comment on above: Performed By: #### L [id number] ####[facility] ([employer]) [place] HEMOGLOBIN A2 3.1 % Normal 2.2-3.2 [facility] Comment on above: Performed By: #### L [id number] ####[facility] (AMDBEAKER)[id number] [place] [address] [facility] HEMOGLOBIN C NO RESULT Normal [facility] Comment on above: Performed By: #### L [id number] ####[facility] ([employer]) [place] HEMOGLOBIN E NO RESULT Normal [facility] Comment on above: Performed By: #### L [id number] ####[facility] ([employer]) [place] [place] [facility] HEMOGLOBIN F 0.0 % Normal <2.0 [facility] Comment on above: Performed By: #### L [id number] ####[facility] ([employer])[address] [place] Hemoglobin S Ql (Bld) NO RESULT Normal [facility] Comment on above: Performed By: #### L [id number] ####[facility] ([employer])[address] [place] INTERPRETATION SEE BELOW Normal [facility] Comment on above: Result Comment: NORMAL PATTERN There is a normal pattern of hemoglobins and normal levels of Hb A2 and Hb F are present. No variant hemoglobins are observed. This is consistent with A/A phenotype. If iron deficiency coexists with a mild/silent beta thalassemia trait Hb A2 may be in the normal range. Rare variant hemoglobins have no separation from hemoglobin A by capillary zone electrophoresis (CZE) or high-performance liquid chromatography (HPLC). If clinically indicated, Thalassemia and Hemoglobinopathy [place] ([place] [address]) should be considered. Test Performed by [employer], [employer] [facility], [address] [place] [address] John Hernandez M.D., Ph.D., Director of Laboratories , [facility] [id number] Performed By: #### L [id number] ####[facility] ([employer])[address] [place] MCH (RBC) [Entitic mass] 29.6 pg Normal 27.0-33.0 [facility] Comment on above: Performed By: #### L [id number] ####[facility] ([employer])[address] [place] MCV (RBC) [Entitic vol] 90.4 fL Normal 80.0-100.0 [facility] Comment on above: Performed By: #### L [id number] ####[facility] ([employer])[address] [place] OTHER HEMOGLOBIN 1 NO RESULT Normal [facility] Comment on above: Performed By: #### L [id number] ####[facility] ([employer])[address] [place] OTHER HEMOGLOBIN 2 NO RESULT Normal [facility] Comment on above: Performed By: #### L [id number] ####[facility] ([employer])[address] [place] RED BLOOD CELL COUNT - QUE[facility] 4.60 Mill/uL Normal 3.80-5.10 [facility] Comment on above: Performed By: #### L [id number] ####[facility] ([employer]DB[employer]AKER)[id number] [place] [place] [facility] HEPATITIS B SURFACE ANTIGENo n 09-09-2023 HEPATITIS B VIRUS SURFACE AG Not detected Normal Not Detected [facility] Comment on above: Performed By: #### L [id number], [id number] ####Center Consultant: CHASE GUTIERRES ([id number])[facility])[address] [place] [address] HEPATITIS C ANTIBODYon 09-08 HCV Ab IA Ql Detected Abnormal Not Detected [facility] Comment on above: Result Comment: Dulce ents with DETECTED Hepatitis C Ab results should have a new specimen submitted for supplemental testing with a Hepatitis C Quantitative RNA assay (viral load), if clinically indicated. Performed By: #### L [id number], [id number] ####Center Consultant: CHASE GUTIERRES ([id number])[address] HIV 1+2 Ab+HIV1 p24 Ag IA Ql Ordered By: Lindsay Fitzgerald on 09-09-2023 Interpretation and review of laboratory results Normal [facility] HIV1,2 COMBO ANTIGEN-ANTIBOD Y SCREENon 09-09-2023 HIV 1,2 COMBO ANTIGEN/ANTIBODY Non-Reactive Normal Nonreactive [facility] Comment on above: Result Comment: The specimen was non-reactive for HIV-1 and HIV-2 antibodies and p24 antigen using an FDA-cleared 4th generation HIV test. Based on this non-reactive screen result, further reflexive testing was not indicated and was, therefore, not performed. Performed By: #### L [id number], [id number] ####Center Consultant: CHASE GUTIERRES ([id number])[facility] ([facility])[address] [place] [address] Laboratory - Blood bankon Blood group antibody screen GEL Ql Negative [facility] Laboratory - Chemistry and C hemistry - challengeon 09-09-2023 Average glucose Estimated from glycated hemoglobin (Bld) [Mass/Vol] 100 mg/dL [facility] Laboratory - Drug toxicology Ordered By: Felecia Shane on 09-09-2023 Amphetamines Ql (U) Negative Negative [facility] Barbiturates screen method Nom (U) Negative Negative [facility] Benzodiazepines screen method Nom (U) Negative Negative [facility] Cocaine Ql (U) Negative Negative [facility] th Ethanol [Mass/Vol] Negative Negative [facility] Methadone Ql (U) Negative Negative [facility] alth Opiates Screen Ql (U) Negative Negative [facility] Laboratory - Hematology and Cell countson 09-09-2023 HbA1c (Bld) [Mass fraction] 5.1 % NINF - 5.7 % [facility] Comment on above: Normal less than 5.7 % Prediabetes 5.7% to 6.4% Diabetes 6.5% or higher --HgbA1C levels may not be accurate in patients who have renal disease, received recent blood transfusions, are anemic, or who have dyshemoglobinemia. Laboratory - Microbiology an d Antimicrobial susceptibilityon 09-09-2023 Reagin Ab RPR Ql (S) Non-Reactive Nonreactive S [facility] Rubella virus IgG Qn (S) 22.9 [IU]/mL IU/mL [facility] HBV surface Ag IA Ql Not detected Not Detected [facility] Laboratory - Microbiology an d Antimicrobial susceptibilityOrdered By: Lindsay Fitzgerald on 09-09-2023 HIV 1+2 Ab+HIV1 p24 Ag IA Ql Non-Reactive Nonreactive [facility] Comment on above: The specimen was non -reactive for HIV-1 and HIV-2 antibodies and p24 antigen using an FDA-cleared 4th generation HIV test. Based on this non-reactive screen result, further reflexive testing was not indicated and was, therefore, not performed. Laboratory - Microbiology an d Antimicrobial susceptibilityOrdered By: Odilia Palma on 09-09-2023 HCV Ab IA Ql Detected Abnormal Not Detected [facility] Comment on above: Patients with DETECT ED Hepatitis C Ab results should have a new specimen submitted for supplemental testing with a Hepatitis C Quantitative RNA assay (viral load), if clinically indicated. MATERNAL SCREEN, AFP ONLYon 09-09-2023 DATING LMP CONF by [facility] Comment on above: Performed By: #### L [id number] ####[facility] ([facility])[address] ESTIMATED DUE DATE 02-27-[address] [facility] Comment on above: Performed By: #### L [id number] ####[facility] ([facility])[address] FAMILY HX NEURAL TUBE DEFECT No [facility] Comment on above: Performed By: #### L [id number] ####[facility] ([facility])[address] GESTATIONAL AGE CALC. AT COLLECTION 15 wks, [address] [facility] Comment on above: Performed By: #### L [id number] ####[facility] ([facility])[address] INSULIN REQ MATERNAL DIABETES No [facility] Comment on above: Performed By: #### L [id number] ####[facility] ([facility])[address] MATERNAL AGE AT DELIVERY 23.[address] [facility] Comment on above: Performed By: #### L [id number] ####[facility] ([facility])[address] MATERNAL RACE Nonblack Normal [facility] Comment on above: Performed By: #### L [id number] ####[facility] ([facility])[address] MATERNAL SCRN INTER. Screen Neg [facility] Comment on above: Result Comment: INTE RPRETATION: SCREEN NEGATIVE for open spina bifida Neural Tube Defects (NTD) Negative Pre-Test Post-Test Cutoff Neural Tube Defects Risks 1:1030 < 1:35088 1:250 Comments: The risk of an open neural tube defect is less than the screening cut-off. This test was developed and its performance characteristics determined by [facility]. It has not been cleared or approved by the [place] Food and Drug Administration. This test was performed in a CLIA certified laboratory and is intended for clinical purposes. Performed By: #### L [id number] ####[facility] ([facility])[address] MATERNAL WEIGHT 190.0 lbs. Normal [facility] Comment on above: Performed By: #### L [id number] ####[facility] ([facility])[address] MOM FOR AFP 0.88 Normal [facility] Comment on above: Performed By: #### L [id number] ####[facility] ([facility])[address] NUMBER OF FETUSES Lin Normal [facility] Comment on above: Performed By: #### L [id number] ####[facility] ([facility])[address] PATIENT'S AFP 24 ng/mL Normal [facility] Comment on above: Performed By: #### L [id number] ####[facility] ([facility])[address] SMOKING No Normal [facility] Comment on above: Performed By: #### L [id number] ####[facility] ([facility])[address] SPECIMEN See Note Normal [facility] Comment on above: Result Comment: Init ial sample Performed By: [facility] [address] [place] [address] Injection Molding Machine Offbearer: Panda Trammell MD, PhD CLIA Number: [id number] Performed By: #### L [id number] ####[facility] ([facility])[address] MEDICATION ASSISTED TREATMEN T PANELon 09-09-2023 Amphetamines Ql (U) Negative Normal Negative [facility] Comment on above: Performed By: #### L [id number] ####Center Consultant: CHASE GUTIERRES ([phone])[facility])[address] [place] [address] BARBITURATES Negative Normal Negative [facility] Comment on above: Performed By: #### L [id number] ####Center Consultant: CHASE GUTIERRES ([id number])[facility])[address] [place] [address] Benzodiazepines Ql (U) Negative Normal Negative [facility] Comment on above: Performed By: #### L [id number] ####Center Consultant: CHASE GUTIERRES ([id number])[facility])[address] [place] [address] BUPRENORPHINE SCREEN Negative Normal Negative [facility] Comment on above: Performed By: #### L [id number] ####Center Consultant: CHASE GUTIERRES ([id number])[facility] ([facility])[address] [place] [address] Cocaine Ql (U) Negative Normal Negative [facility] Comment on above: Performed By: #### L [id number] ####Center Consultant: CHASE GUTIERRES ([id number])[address] ETHANOL-ETOHO Negative Normal Negative [facility] Comment on above: Result Comment: HAZEL Montgomery COMMENTS: The expected value for the drugs listed above is Negative. The following drugs or drug groups have been screened for by Immunoassay at the following thresholds: Amphetamine class(1000ng/mL) Barbituates(200ng/mL) Benzodiazepines(200ng/mL) Cocaine(300ng/mL) Ethanol (50 ng/mL) Methadone(300ng/mL) Opiates(300ng/mL) Oxycodone(100ng/mL) PCP(25ng/mL) Buprenorphine(5ng/mL) THC(50ng/mL) Fentanyl(1ng/mL) Positive results are NOT confirmed by a more specific alternative method unless requested. If confirmation is needed, request confirmation under separate order. NOTE: These results are for medical treatment only. Analysis performed using non-forensic procedures. Performed By: #### L [id number] ####Center Consultant: CHASE GUTIERRES ([id number])[facility] ([facility])[address] [place] [address] FENTANYL Negative Normal Negative [facility] Comment on above: Performed By: #### L [id number] ####Center Consultant: CHASE GUTIERRES ([id number])[facility] ([facility])[address] [place] [address] Methadone Ql (U) Negative Normal Negative [facility] Comment on above: Performed By: #### L [id number] ####Center Consultant: CHASE GUTIERRES ([id number])[facility] ([facility])[address] [place] [address] Opiates Ql (U) Negative Normal Negative [facility] Comment on above: Performed By: #### L [id number] ####Center Consultant: CHASE GUTIERRES ([id number])[facility] ([facility])[address] [place] [address] OXYCODONE/OXYMORPHONE Negative Normal Negative [facility] Comment on above: Performed By: #### L [id number] ####Center Consultant: CHASE GUTIERRES ([id number])[facility] ([facility])[address] [place] [address] PCP Negative Normal Negative [facility] Comment on above: Performed By: #### L [id number] ####Center Consultant: CHASE GUTIERRES ([id number])[facility] ([facility])[address] [place] [address] THC-MTTHC Negative Normal Negative [facility] Comment on above: Performed By: #### L [id number] ####Center Consultant: CHASE GUTIERRES ([id number])[facility] ([facility])[address] [place] [address] N. gonorrhoeae DNA TAYLOR+probe Ql (Cervical mucus)on 09-09-2023 C. trachomatis DNA TAYLOR+probe Ql (Unsp spec) Not detected Not Detected [facility] Interpretation and review of laboratory results Normal [facility] N gonorrhoeae, DNA Probe Not detected Not Detected [facility] Methodology: real-ti me PCR This test is intended for medical purposes only and is not intended for the evaluation of suspected sexual abuse or for other forensic purposes. In certain contexts, culture may be required to meet applicable laws and regulations for diagnosis of C. trachomatis and N. gonorrhoeae infections. Per 2014 CDC recommmendations, this test does not include confirmation of positive results by an alternative nucleic acid target. A negative result does not exclude the possibility of infection. A result of invalid indicates that a new specimen should be collected if clinically indicated. [facility] No Panel InformationOrdered By: Felecia Shane on 09-09-2023 BUPRENORPHINE SCREEN Negative Negative [facility] FENTANYL Negative Negative [facility] OXYCODONE/OXYMORPHONE Negative Negative [facility] PCP Negative Negative [facility] THC Negative Negative [facility] The expected value f or the drugs listed above is Negative. The following drugs or drug groups have been screened for by Immunoassay at the following thresholds: Amphetamine class(1000ng/mL) Barbituates(200ng/mL) Benzodiazepines(200ng/mL ) Cocaine(300ng/mL) Ethanol (50 ng/mL) Methadone(300ng/mL) Opiates(300ng/mL) Oxycodone(100ng/mL) PCP(25ng/mL) Buprenorphine(5ng/mL) THC(50ng/mL) Fentanyl(1ng/mL) Positive results are NOT confirmed by a more specific alternative method unless requested. If confirmation is needed, request confirmation under separate order. NOTE: These results are for medical treatment only. Analysis performed using non-forensic procedures. [facility] No Panel Informationon 09-08 Interpretation Table : <10.0 Antibody NOT Detected >=10.0 Antibody Detected [facility] Office Visiton 09-09-2023 Follow-up visit [id number] Prakash Greene 2000 F Date Provider Department Center 09/09/2023 [id number] VELEZ [facility] None Family History Family Status - Relation Status Age at Mother Alive Father Alive Brother Sister Alive Level of Service:03[address] [place] OFFICE/OUTPATIENT ESTABLISHED LOW MDM 20 MIN (SA) Reason for Visit and Comments: Amenorrhea [[id number]] Normal [facility] Progress Noteon 09-09-2023 Progress Note Vital signs BP 146/82 Weight 214 Pulse 96 Temp 98.0 Normal [facility] Progress Note Chief Complaint Patient presents with Amenorrhea Patient's last menstrual period was 12/12/2022 (approximate). History: Past Medical History: Diagnosis Date Acute cystitis without hematuria 06/28/2019 Anxiety Anxiety takes zyprexa Borderline personality disorder (CMS/HCC) (HCC) Drug abuse (CMS/HCC) (HCC) Hepatitis C Psychiatric problem PTSD (post-traumatic stress disorder) Past Surgical History: Procedure Laterality Date ABDOMINAL SURGERY 4yrs old TONSILLECTOMY (HISTORICAL) 3yrs old No family history on file. Social History Socioeconomic History Marital status: Single Tobacco Use Smoking status: Every Day Packs/day: 0.50 Years: 10.00 Additional pack years: 0.00 Total pack years: 5.00 Types: Cigarettes Start date: 04/28/2010 Last attempt to quit: 07/22/2022 Years since quittin.1 Smokeless tobacco: Never Vaping Use Vaping Use: Never used Substance and Sexual Activity Alcohol use: Not Currently Drug use: Not Currently Types: IV, Marijuana, Methamphetamines, Fentanyl Comment: stopped whrn she found out she was . Relapsed week of 07/07/22, currently in rehab Sexual activity: Yes Partners: Male Social Determinants of Health Transportation Needs: No Transportation Needs (07/22/2022) PRAPARE - Transportation Lack of Transportation (Medical): No Lack of Transportation (Non-Medical): No Intimate Partner Violence: Not At Risk (06/19/2022) Humiliation, Afraid, Rape, and Kick questionnaire Fear of Current or Ex-Partner: No Emotionally Abused: No Physically Abused: No Sexually Abused: No Housing Stability: High Risk (07/22/2022) Housing Stability Vital Sign Unable to Pay for Housing in the Last Year: No Number of Places Lived in the Last Year: 3 Unstable Housing in the Last Year: Yes Allergies: Allergies Allergen Reactions Fentanyl Itching Medications: Current Outpatient Medications on File Prior to Visit Medication Sig Dispense Refill Aristada 662 MG/2.4ML injection Inject 2.4 mL intramuscularly every 28 days Vit-Fe Fumarate-FA ( Plus Vitamin/Mineral) 27-1 MG tablet Take 1 tablet by mouth daily. 90 tablet 4 ARIPiprazole (Abilify) 5 MG tablet Take 5 mg by mouth daily. buprenorphine (Subtex) [address] 8 mg under the tongue. buPROPion XL (Wellbutrin XL) 150 MG 24 hr tablet Take 150 mg by mouth daily. docusate sodium (Colace) 100 MG capsule Take 1 capsule (100 mg) by mouth 2 times daily. 60 capsule 2 methadone (Dolophine) 10 MG/5ML solution Take 20 mg by mouth. OLANZapine (ZyPREXA) 7.5 MG tablet Take 1 tablet by mouth daily. No current facility-administered medications on file prior to visit. HPI: Patient presents to establish care at [facility]. LMP 06/12/23. However, states she had U/S at [facility] giving her YAS of 02/27/24. Taking PNV's. Denies cramping and bleeding. Denies fevers, chills, N/V. Denies troubles with bladder and bowels. Denies unusual vaginal discharge. Desires genetic testing. ROS: Review of Systems Constitutional: Negative. Gastrointestinal: Negative for constipation, diarrhea, nausea and vomiting. Genitourinary: Negative. exam: LMP 12/12/2022 (Approximate) Physical Exam Constitutional: Appearance: Normal appearance. HENT: Head: Normocephalic and atraumatic. Pulmonary: Effort: Pulmonary effort is normal. Abdominal: Palpations: Abdomen is soft. Comments: FHR 150's Musculoskeletal: General: Normal range of motion. Cervical back: Normal range of motion. Skin: General: Skin is warm and dry. Neurological: Mental Status: She is alert and oriented to person, place, and time. Psychiatric: Mood and Affect: Mood normal. Behavior: Behavior normal. Assessment and Plan: Prakash was seen today for amenorrhea. Diagnoses and all orders for this visit: care, subsequent in second trimester (Primary) - Chlamydia/Gonorrhea - Trichomonas vaginalis PCR - ABO/Rh - Antibody screen - CBC - Hemoglobin A1c - Hemoglobinopathy evaluation - Hepatitis B surface antigen - Hepatitis C antibody - HIV-1 and HIV-2 Antigen-Antibody Screen - Maternal Screen, AFP Only - RPR - Urine culture - Rubella antibody, IgG - PANORAMA TEST - US OB 14+ weeks anatomy scan; Future - MEDICATION ASSISTED TREATMENT PANEL - Hepatitis C viral load - Hepatic function panel 15 weeks gestation of Hx drug abuse currently sober. She is not on MAT. Gives verbal consent for urine drug screen. Hx Hep C. States no active disease. Will check viral load and hepatic fxn. Follow up for OB intake. Normal [facility] RPR WITH REFLEX QUANTon 08-26 RPR Non-Reactive Normal Nonreactive [facility] Comment on above: Performed By: #### L [id number] ####Center Consultant: CHASE GUTIERRES ([id number])[facility] ([facility])[address] [place] [address] [place] RUBELLA ANTIBODY, IGGon 08-26 RUBELLA IMMUNE STATUS 22.9 IU/mL Normal [facility] Comment on above: Result Comment: HAZEL Montgomery COMMENTS: Interpretation Table: <10.0 Antibody NOT Detected >=10.0 Antibody Detected Performed By: #### L [id number] ####Center Consultant: BESSIE SALEEM ([id number])[facility] ([facility])[address] [place] [address] [place] Reagin Ab RPR Ql (S)on 09-08 Interpretation and review of laboratory results Normal [facility] T. vaginalis DNA TAYLOR+probe Q l (Genital specimen)on 09-09-2023 Interpretation and review of laboratory results Normal [facility] Trichomonas vaginalis Not detected Not Detected [facility] Methodology: real-ti me PCR A negative result does not completely rule out infection with T. vaginalis. Results should be interpreted in conjunction with other clinical data. This test has not been validated for use with self-collected vaginal swab specimens from patients. This test is intended for medical purposes only and is not intended for the evaluation of suspected sexual abuse or for other forensic purposes. [facility] TRICHOMONAS VAGINALIS PCRon 09-09-2023 TRICHOMONAS VAGINALIS PCR TRICHOMONAS VAGINALIS PCR Reference Not Detected Not Detected ORDER COMMENTS: Methodology: real-time PCR A negative result does not completely rule out infection with T. vaginalis. Results should be interpreted in conjunction with other clinical data. This test has not been validated for use with self-collected vaginal swab specimens from patients. This test is intended for medical purposes only and is not intended for the evaluation of suspected sexual abuse or for other forensic purposes. Normal [facility] Comment on above: Performed By: #### L [id number] ####Center Consultant: CHASE GUTIERRES ([phone])[facility])[address] [place] [address] URINE CULTUREon 09-09-2023 Bacteria identified Cx Nom (U) URINE CULTURE Reference Normal urogenital ashley present [ S = SUSCEPTIBLE R = RESISTANT I = INTERMEDIATE S-DD = Susceptible-dose dependent NS = Non-susceptible NO = No Interpretation ] Normal [facility] Comment on above: Performed By: #### L [id number] ####Center Consultant: CHASE GUTIERRES ([phone])[facility])[address] [place] [address] CBC W Auto Differential pane l (Bld)Ordered By: Leana Hawthorne on 04-16-2023 Basophils (Bld) [#/Vol] 0.0 10*3/uL 0.0 - 0.2 10*3/uL [facility] Basophils/100 WBC (Bld) 0.5 % 0.0 - 2.0 % [facility] Eosinophils (Bld) [#/Vol] 0.1 10*3/uL 0.0 - 0.5 10*3/uL [facility] Eosinophils/100 WBC (Bld) 0.8 % Low 1.0 - 6.0 % [facility] Erythrocyte distribution width (RBC) [Ratio] 13.5 % 11.5 - 14.5 % [facility] Hematocrit (Bld) [Volume fraction] 42.2 % 35.0 - 47.0 % [facility] Hemoglobin (Bld) [Mass/Vol] 13.8 g/dL 11.7 - 16.0 g/dL [facility] Interpretation and review of laboratory results Abnormal [facility] Lymphocytes (Bld) [#/Vol] 1.6 10*3/uL 1.0 - 4.3 10*3/uL [facility] Lymphocytes/100 WBC (Bld) 18.3 % Low 20.0 - 40.0 % [facility] MCH (RBC) [Entitic mass] 29.1 pg 26.0 - 34.0 pg [facility] MCHC (RBC) [Mass/Vol] 32.6 % 32.0 - 36.0 % [facility] MCV (RBC) [Entitic vol] 89.3 fL 80.0 - 98.0 fL [facility] Monocytes (Bld) [#/Vol] 0.3 10*3/uL 0.0 - 0.8 10*3/uL [facility] Monocytes/100 WBC (Bld) 3.6 % 2.0 - 10.0 % [facility] Neutrophils (Bld) [#/Vol] 6.7 10*3/uL 1.8 - 7.0 10*3/uL [facility] Neutrophils/100 WBC (Bld) 76.8 % 40.0 - 80.0 % [facility] Nucleated RBC/100 WBC (Bld) [Ratio] 0.0 % [facility] Platelet mean volume (Bld) [Entitic vol] 6.6 fL Low 7.4 - 12.4 fL [facility] Platelets (Bld) [#/Vol] 278 10*3/uL 140 - 440 10*3/uL [facility] RBC (Bld) [#/Vol] 4.73 10*6/uL 3.8 - 5.20 10*6/uL [facility] WBC (Bld) [#/Vol] 8.8 10*3/uL 3.6 - 10.7 10*3/uL [facility] COVID-19, Flu A/B, and RSV C omboon 04-16-2023 Interpretation and review of laboratory results Normal [facility] Laboratory - Chemistry and C hemistry - challengeon 04-16-2023 HCG.beta subunit Qn 4 m[IU]/mL Females <=5 mIU/mL [facility] Laboratory - Microbiology an d Antimicrobial susceptibilityon 04-16-2023 FLUAV RNA TAYLOR+probe Ql (Resp) Not detected Not Detected [facility] FLUBV RNA TAYLOR+probe Ql (Resp) Not detected Not Detected [facility] RSV RNA TAYLOR+probe Ql (Resp) Not detected Not Detected [facility] SARS-CoV-2 (COVID-19) RNA TAYLOR+probe Ql (Resp) Not detected Not Detected [facility] SARS-CoV-2 (COVID-19) RNA TAYLOR+probe Ql (Unsp spec) Methodology: real-time, RT-PCR The SARS-CoV-2, Flu A/B, and RSV Combo assay is intended for in vitro diagnostic use under the FDA Emergency Use Authorization (EUA). This test has not been FDA cleared or approved. In compliance with this authorization, please visit www.fda.gov/media/610745 /download or www.fda.gov/media/826764 /download to access the applicable information sheets. [facility] No Panel Informationon 04-16 Values in should double every 2 to 3 days for the first 6 weeks. Elevated concentrations of human chorionic gonadotropin (hCG) measured in the first trimester of are observed in normal , but may serve as an indication of chorionic carcinoma, hydatiform mole, or multiple . Decreasing hCG concentrations indicate threatened or missed , recent termination of , ectopic , gestosis or intrauterine . Nicky- and postmenopausal females may have detectable hCG concentrations (< or = to 14 mIU/mL) due to pituitary production of hCG. Serum follicle-stimulating hormone measurement may aid in ruling-out in this population. Cutoffs of greater than 20 to 45 mIU/mL have been suggested and are method dependent. False-elevations (called phantom human chorionic gonadotropin: hCG) may occur with patients who have human antianimal or heterophilic antibodies. Some specimens may not dilute linearly due to abnormal forms of hCG. Elevated hCG concentrations not associated with are found in patients with other diseases such as tumors of the germ cells, ovaries, bladder, pancreas, stomach, lungs, and liver. This test is not intended to detect or monitor tumors or gestational trophoblastic disease. [facility] US Pelvis transvaginalon No intrauterine gestation is identified. The endometrial stripe appears heterogeneous abnormally thickened, measuring up to 2.5 cm, which may reflect retained products of conception. Normal sonographic appearance of the ovaries. Report Dictated on Electronically Signed By: Panda Torres MD Electronically Signed Date/Time: 04/16/2023 4:58 PM [facility] Patient Name: PRAKASH GREENE : 2000 Exam Date/Time: 04/16/2023 16:03 Procedure: US PELVIS TRANSVAGINAL Ordering Provider: CASAS KEVIN Reason For Exam: ABDOMINAL PAIN PELVIC ULTRASOUND CLINICAL INDICATION: Abdominal pain, evaluate for retained products of conception Transvaginal sonographic images of the pelvis were obtained. COMPARISON: 03/17/2023. FINDINGS: The uterus measures 10 x 4.2 x 5.8 cm in length, AP, and transverse dimensions. No discrete fibroids are seen. The endometrial stripe is heterogeneous and thickened, measuring up to 2.5 cm in greatest thickness. There is no definite color or spectral Doppler blood flow within the endometrial canal. The right ovary measures 3.7 x 2.1 x 2.2 cm. The left ovary measures 4.3 x 1.1 x 1.3 cm. Normal color and spectral Doppler flow is seen within both ovaries. No abnormal fluid collections are noted. No adnexal masses are identified. [facility] Panda Torres MD - 04/16/2023 [facility] Name[facility] 2000 [id number] Exam Date/Time: 04/16/2023 16:03 Procedure: US PELVIS TRANSVAGINAL Ordering Provider: CASAS KEVIN Reason For Exam: ABDOMINAL PAIN PELVIC ULTRASOUND CLINICAL INDICATION: Abdominal pain, evaluate for retained products of conception Transvaginal sonographic images of the pelvis were obtained. COMPARISON: 03/17/2023. FINDINGS: The uterus measures 10 x 4.2 x 5.8 cm in length, AP, and transverse dimensions. No discrete fibroids are seen. The endometrial stripe is heterogeneous and thickened, measuring up to 2.5 cm in greatest thickness. There is no definite color or spectral Doppler blood flow within the endometrial canal. The right ovary measures 3.7 x 2.1 x 2.2 cm. The left ovary measures 4.3 x 1.1 x 1.3 cm. Normal color and spectral Doppler flow is seen within both ovaries. No abnormal fluid collections are noted. No adnexal masses are identified. IMPRESSION: No intrauterine gestation is identified. The endometrial stripe appears heterogeneous abnormally thickened, measuring up to 2.5 cm, which may reflect retained products of conception. Normal sonographic appearance of the ovaries. Report Dictated on Electronically Signed By: Panda Torres MD Electronically Signed Date/Time: 04/16/2023 4:58 PM EST [facility] Radiology Study observation (narrative) [facility] US Pelvis transvaginalOrdere d By: Panda Torres on 04-16-2023 [facility] Urinalysis complete panel (U )on 04-16-2023 Bilirubin Ql (U) Negative Negative mg/dL [facility] Clarity (U) Clear Clear [facility] Color (U) Light Yellow Lt. Yellow [facility] Glucose Ql (U) Normal Normal (<70) mg/dL [facility] Hemoglobin Ql (U) Negative Negative mg/dL [facility] Interpretation and review of laboratory results Normal [facility] Ketones (U) [Mass/Vol] Negative Negat augie mg/dL [facility] Leukocyte esterase Test strip Ql (U) Negative Negative Violette/uL [facility] Nitrite Ql (U) Negative Negative [facility] th pH (U) 6.5 [pH] 5.0 - 8.0 pH [facility] Protein (U) [Mass/Vol] Negative Negat augie mg/dL [facility] Specific gravity (U) [Rel density] 1.010 1.005 - 1.030 [facility] Urobilinogen (U) [Mass/Vol] Normal Normal (0-1) mg/dL [facility] No Panel Informationon 03-07 1. Lin live intrauterine with a gestational age of 7w 2d with an YAS of 10/22/23 based on today's CRL. 2. This is not in agreement of clinically supplied YAS . 3. Normal early anatomy as noted above. 4. Normal uterus and adnexa as noted above. Recommendations: 1. Recommend change of YAS to that of today's ultrasound. 2. NT screening between 11-13 weeks. 3. Aneuploidy screening as ordered per primary OB. MFM/genetics consult is available if desired. 4. Anatomic survey at 18-20 weeks. 5. Additional follow-up as clinically indicated. Ultrasound is not diagnostic of chromosomal aneuploidy and does not detect all subtle defects. Normal ultrasound findings do not guarantee normal outcomes. [facility] OBSTETRICS REPORT (Signed Final 03/07/2023 03:06 pm) PATIENT INFO: ID #: [id number] : [birth year] (22 yrs)(F) Name: PRAKASH GREENE Visit Date: 03/07/2023 11:12 am PERFORMED BY: Attending: Nakita Dumas MD Performed By: Hortencia Santiago RDMS Referred By: LUIZ VELEZ CNP Location: [facility] Visit Type: Outpatient SERVICE(S) PROVIDED: Transvaginal [id number] INDICATIONS: Amenorrhea, unspecified N91.2 VITAL SIGNS: Weight (lb): 202 Height: 5'2 BMI: 36.94 EVALUATION: Num Of Fetuses: 1 Preg. Location: Intrauterine Gest. Sac: Visualized Yolk Sac: Not visualized Pole: Not visualized Cardiac Activity: No pole Lie: Too early to determine Placenta: Too early to evaluate Amniotic Fluid ARLYN FV: Too early to evaluate BIOMETRY: GS: 21.4 mm G.Age: 7w 2d YAS: 10/22/23 GESTATIONAL AGE: LMP: 12w 1d Date: 12/12/22 YAS: 09/18/23 Best: 7w 2d Det. By: U/S Venecia Vizcaino YAS: 10/22/23 (03/07/23) CERVIX UTERUS ADNEXA: Right Ovary Size(cm) 2.72 x 2.17 x 2.51 Vol(ml): 7.76 Normal in size and appearance Left Ovary Not visualized Cul De Sac Small amount of fluid seen Nakita Dumas MD Electronically Signed Final Report 03/07/2023 03:06 pm [facility] Nakita Dumas MD - 03/07/2023 OBSTETRICS REPORT (Signed Final 03/07/2023 03:06 pm) PATIENT INFO: ID #: [id number] : [birth year] (22 yrs)(F) Name: RYLEYANALY GREENE Visit Date: 03/07/2023 11:12 am PERFORMED BY: Attending: Nakita Dumas MD Performed By: Hortencia Santiago RDMS Referred By: LUIZ VELEZ CNP Location: [facility] Visit Type: Outpatient SERVICE(S) PROVIDED: US Transvaginal [id number] INDICATIONS: Amenorrhea, unspecified N91.2 VITAL SIGNS: Weight (lb): 202 Height: 5'2 BMI: 36.94 EVALUATION: Num Of Fetuses: 1 Preg. Location: Intrauterine Gest. Sac: Visualized Yolk Sac: Not visualized Pole: Not visualized Cardiac Activity: No pole Lie: Too early to determine Placenta: Too early to evaluate Amniotic Fluid ARLYN FV: Too early to evaluate BIOMETRY: GS: 21.4 mm G.Age: 7w 2d YAS: 10/22/23 GESTATIONAL AGE: LMP: 12w 1d Date: 12/12/22 YAS: 09/18/23 Best: 7w 2d Det. By: Alem Vizcaino YAS: 10/22/23 (03/07/23) CERVIX UTERUS ADNEXA: Right Ovary Size(cm) 2.72 x 2.17 x 2.51 Vol(ml): 7.76 Normal in size and appearance Left Ovary Not visualized Cul De Sac Small amount of fluid seen Nakita Dumas MD Electronically Signed Final Report 03/07/2023 03:06 pm IMPRESSION: 1. Lin live intrauterine with a gestational age of 7w 2d with an YAS of 10/22/23 based on today's CRL. 2. This is not in agreement of clinically supplied YAS . 3. Normal early anatomy as noted above. 4. Normal uterus and adnexa as noted above. Recommendations: 1. Recommend change of YAS to that of today's ultrasound. 2. NT screening between 11-13 weeks. 3. Aneuploidy screening as ordered per primary OB. MFM/genetics consult is available if desired. 4. Anatomic survey at 18-20 weeks. 5. Additional follow-up as clinically indicated. Ultrasound is not diagnostic of chromosomal aneuploidy and does not detect all subtle defects. Normal ultrasound findings do not guarantee normal outcomes. [employer] [facility] Radiology Study observation (narrative) [employer] [facility] No Panel InformationOrdered By: Nakita Dumas on 03-07-2023 [employer] Work Phone: Gram Stain, Scored, VaginalO rdered By: Stalin Mcbride on 02-21-2023 Gram Stain Result Few Polymorphonuclea r leukocytes [facility] Gram Stain Result Gram stain consisten t with normal vaginal ashley. [facility] HCG ( test) Ql (U)o n 02-21-2023 Beta HCG ( test) Ql (U) [id number] [employer] [facility] Interpretation and review of laboratory results Abnormal [employer] [facility] NEGATIVE QC Pass [employer] [facility] POSITIVE QC Pass [employer] [facility] Preg Test, Ur Positive Abnormal Negative [employer] [employer] [facility] N. gonorrhoeae DNA TAYLOR+probe Ql (Cervical mucus)on 02-21-2023 C. trachomatis DNA TAYLOR+probe Ql (Unsp spec) Not detected Not Detected [employer] [facility] Interpretation and review of laboratory results Normal [facility] N gonorrhoeae, DNA Probe Not detected Not Detected [employer] [facility] Methodology: real-ti me PCR This test is intended for medical purposes only and is not intended for the evaluation of suspected sexual abuse or for other forensic purposes. In certain contexts, culture may be required to meet applicable laws and regulations for diagnosis of C. trachomatis and N. gonorrhoeae infections. Per 2014 CDC recommmendations, this test does not include confirmation of positive results by an alternative nucleic acid target. A negative result does not exclude the possibility of infection. A result of invalid indicates that a new specimen should be collected if clinically indicated. [facility] T. vaginalis DNA TAYLOR+probe Q l (Genital specimen)on 02-21-2023 Interpretation and review of laboratory results Normal [facility] Trichomonas vaginalis Not detected Not Detected [facility] Methodology: real-ti me PCR A negative result does not completely rule out infection with T. vaginalis. Results should be interpreted in conjunction with other clinical data. This test has not been validated for use with self-collected vaginal swab specimens from patients. This test is intended for medical purposes only and is not intended for the evaluation of suspected sexual abuse or for other forensic purposes. [facility] CBC W Auto Differential pane l (Bld)Ordered By: Gerald Starr on 08-26-2022 Basophils (Bld) [#/Vol] 0.0 10*3/uL 0.0 - 0.2 10*3/uL [facility] Basophils/100 WBC (Bld) 0.6 % 0.0 - 2.0 % [facility] Eosinophils (Bld) [#/Vol] 0.2 10*3/uL 0.0 - 0.5 10*3/uL [facility] Eosinophils/100 WBC (Bld) 4.0 % 1.0 - 6.0 % [facility] Erythrocyte distribution width (RBC) [Ratio] 13.4 % 11.5 - 14.5 % [facility] Hematocrit (Bld) [Volume fraction] 42.6 % 35.0 - 47.0 % [facility] Hemoglobin (Bld) [Mass/Vol] 14.2 g/dL 11.7 - 16.0 g/dL [facility] Interpretation and review of laboratory results Abnormal [facility] Lymphocytes (Bld) [#/Vol] 2.4 10*3/uL 1.0 - 4.3 10*3/uL [facility] Lymphocytes/100 WBC (Bld) 44.5 % High 20.0 - 40.0 % [facility] MCH (RBC) [Entitic mass] 30.8 pg 26.0 - 34.0 pg [facility] MCHC (RBC) [Mass/Vol] 33.5 % 32.0 - 36.0 % [employer] [facility] MCV (RBC) [Entitic vol] 92.0 fL 80.0 - 98.0 fL [facility] Monocytes (Bld) [#/Vol] 0.4 10*3/uL 0.0 - 0.8 10*3/uL [facility] Monocytes/100 WBC (Bld) 7.3 % 2.0 - 10.0 % [facility] Neutrophils (Bld) [#/Vol] 2.3 10*3/uL 1.8 - 7.0 10*3/uL [facility] Neutrophils/100 WBC (Bld) 43.6 % 40.0 - 80.0 % [employer] [facility] Nucleated RBC/100 WBC (Bld) [Ratio] 0.1 % [employer] [facility] Platelet mean volume (Bld) [Entitic vol] 6.7 fL Low 7.4 - 12.4 fL [facility] Platelets (Bld) [#/Vol] 193 10*3/uL 140 - 440 10*3/uL [facility] RBC (Bld) [#/Vol] 4.63 10*6/uL 3.8 - 5.20 10*6/uL [facility] WBC (Bld) [#/Vol] 5.4 10*3/uL 3.6 - 10.7 10*3/uL [facility] CT Abdomen and Pelvis W cont rast Kim 08-26-2022 No acute abdominal o r pelvic findings to explain symptoms. Probable constipation. Report Dictated on Electronically Signed By: George Philip Electronically Signed Date/Time: 08/26/2022 3:52 PM [facility] Patient Name: PRAKASH GREENE : 2000 Exam Date/Time: 08/26/2022 15:05 Procedure: CT ABDOMEN PELVIS W CONTRAST Ordering Provider: GARCIA J Reason For Exam: Nausea/vomiting CT ABDOMEN AND PELVIS WITH CONTRAST CLINICAL INDICATION: Nausea and vomiting.. TECHNIQUE: Multi-axial 3mm sections through the abdomen and pelvis following 75 mL of Isoview contrast media. No oral contrast was administered. Coronal and sagittal reconstructions were reviewed. Dose reduction was employed with automated exposure control. COMPARISON: None. FINDINGS: Lung bases: Normal. Liver: Normal size and contours. No focal lesion. Biliary tree: The gallbladder is unremarkable. No biliary dilatation. Spleen: Normal. Adrenals: Normal. Pancreas: Normal. Kidneys: Symmetric contrast enhancement without evidence of hydronephrosis. No focal renal lesion is identified. Free air or fluid: None. Mesenteric/retroperitone al: No adenopathy or inflammation. Aorta: Normal caliber. Bowel: Appendix is normal in caliber . No dilatation is noted. Residual fecal residue seen throughout the colon and rectum consistent with constipation. Abdominal wall: No ventral hernia is evident. Pelvic organs/viscera: No mass identified. Uterus is anteverted and normal in size. Urinary bladder is normally distended. Inguinal lymphadenopathy: None. Osseous structures: No osseous abnormality. [facility] [place] [facility] George Philip DO - 08/26/2022 [facility] 2000 [id number] Exam Date/Time: 08/26/2022 15:05 Procedure: CT ABDOMEN PELVIS W CONTRAST Ordering Provider: GARCIA J Reason For Exam: Nausea/vomiting CT ABDOMEN AND PELVIS WITH CONTRAST CLINICAL INDICATION: Nausea and vomiting.. TECHNIQUE: Multi-axial 3mm sections through the abdomen and pelvis following 75 mL of Isoview contrast media. No oral contrast was administered. Coronal and sagittal reconstructions were reviewed. Dose reduction was employed with automated exposure control. COMPARISON: None. FINDINGS: Lung bases: Normal. Liver: Normal size and contours. No focal lesion. Biliary tree: The gallbladder is unremarkable. No biliary dilatation. Spleen: Normal. Adrenals: Normal. Pancreas: Normal. Kidneys: Symmetric contrast enhancement without evidence of hydronephrosis. No focal renal lesion is identified. Free air or fluid: None. Mesenteric/retroperitone al: No adenopathy or inflammation. Aorta: Normal caliber. Bowel: Appendix is normal in caliber . No dilatation is noted. Residual fecal residue seen throughout the colon and rectum consistent with constipation. Abdominal wall: No ventral hernia is evident. Pelvic organs/viscera: No mass identified. Uterus is anteverted and normal in size. Urinary bladder is normally distended. Inguinal lymphadenopathy: None. Osseous structures: No osseous abnormality. IMPRESSION: No acute abdominal or pelvic findings to explain symptoms. Probable constipation. Report Dictated on Electronically Signed By: George Philip Electronically Signed Date/Time: 08/26/2022 3:52 PM EDT [facility] Radiology Study observation (narrative) [facility] CT Abdomen and Pelvis W cont rast IVOrdered By: George Philip on 08-26-2022 [facility] Work Phone: Comprehensive metabolic 2000 panelon 08-26-2022 Albumin [Mass/Vol] 4.1 g/dL 3.5 - 5.0 g/dL [facility] ALP [Catalytic activity/Vol] 109 U/L 38 - 126 U/L [facility] ALT [Catalytic activity/Vol] 42 U/L High 0 - 34 U/L [facility] Anion gap [Moles/Vol] 3 mmol/L 3 - 13 mmol/L [facility] AST [Catalytic activity/Vol] 56 U/L High 15 - 46 U/L [facility] Bilirubin [Mass/Vol] 0.4 mg/dL 0.2 - 1 .3 mg/dL [facility] Calcium [Mass/Vol] 8.9 mg/dL 8.4 - 10. 4 mg/dL [facility] Chloride [Moles/Vol] 101 mmol/L 98 - 10 7 mmol/L [facility] CO2 [Moles/Vol] 33 mmol/L High 22 - 30 mmol/L [facility] Creatinine [Mass/Vol] 0.94 mg/dL 0.52 - 1.04 mg/dL [facility] GFR/1.73 sq M.predicted MDRD (S/P/Bld) [Vol rate/Area] 87.6 mL/min/{1.73_m2} - [facility] Comment on above: Calculation based on the Chronic Kidney Disease Epidemiology Collaboration (CKD-EPI) equation refit without adjustment for race Glucose [Mass/Vol] 65 mg/dL Low 70 - 100 mg/dL [facility] Interpretation and review of laboratory results Abnormal [facility] Potassium [Moles/Vol] 4.7 mmol/L 3.5 - 5.1 mmol/L [facility] Protein [Mass/Vol] 6.9 g/dL 6.3 - 8.2 g/dL [facility] Sodium [Moles/Vol] 137 mmol/L 135 - 145 mmol/L [facility] Urea nitrogen [Mass/Vol] 19 mg/dL High 7 - 17 mg/dL [facility] Laboratory - Chemistry and C hemistry - challengeon 08-26-2022 HCG.beta subunit Qn Females < 5 mIU/mL [facility] Lipase [Catalytic activity/Vol] 136 U/L 23 - 300 U/L [facility] Lipase [Catalytic activity/V ol]on 08-26-2022 Interpretation and review of laboratory results Normal [facility] No Panel Informationon 08-26 Values in should double every 2 to 3 days for the first 6 weeks. Elevated concentrations of human chorionic gonadotropin (hCG) measured in the first trimester of are observed in normal , but may serve as an indication of chorionic carcinoma, hydatiform mole, or multiple . Decreasing hCG concentrations indicate threatened or missed , recent termination of , ectopic , gestosis or intrauterine . Nicky- and postmenopausal females may have detectable hCG concentrations (< or = to 14 mIU/mL) due to pituitary production of hCG. Serum follicle-stimulating hormone measurement may aid in ruling-out in this population. Cutoffs of greater than 20 to 45 mIU/mL have been suggested and are method dependent. False-elevations (called phantom human chorionic gonadotropin: hCG) may occur with patients who have human antianimal or heterophilic antibodies. Some specimens may not dilute linearly due to abnormal forms of hCG. Elevated hCG concentrations not associated with are found in patients with other diseases such as tumors of the germ cells, ovaries, bladder, pancreas, stomach, lungs, and liver. This test is not intended to detect or monitor tumors or gestational trophoblastic disease. [facility] Blood type and Crossmatch pa vick (Bld)on 07-22-2022 ABO group Nom (Bld) O [facility] Blood group antibody screen GEL Ql Negative [facility] D Ag Ql (RBC) Positive [facility] CBC panel Auto (Bld)Ordered By: Abraham Swab on 07-22-2022 Erythrocyte distribution width (RBC) [Ratio] 13.8 % 11.5 - 14.5 % [facility] Hematocrit (Bld) [Volume fraction] 36.7 % 35.0 - 47.0 % [facility] Hemoglobin (Bld) [Mass/Vol] 12.3 g/dL 11.7 - 16.0 g/dL [facility] Interpretation and review of laboratory results Abnormal [facility] MCH (RBC) [Entitic mass] 31.4 pg 26.0 - 34.0 pg [facility] MCHC (RBC) [Mass/Vol] 33.4 % 32.0 - 36.0 % [facility] MCV (RBC) [Entitic vol] 94.0 fL 80.0 - 98.0 fL [facility] Platelet mean volume (Bld) [Entitic vol] 6.8 fL Low 7.4 - 12.4 fL [facility] Platelets (Bld) [#/Vol] 323 10*3/uL 140 - 440 10*3/uL [facility] RBC (Bld) [#/Vol] 3.91 10*6/uL 3.8 - 5.20 10*6/uL [facility] WBC (Bld) [#/Vol] 15.1 10*3/uL High 3.6 - 10.7 10*3/uL [facility] Comprehensive metabolic 2000 panelon 07-22-2022 Albumin [Mass/Vol] 3.4 g/dL Low 3.5 - 5.0 g/dL [facility] ALP [Catalytic activity/Vol] 156 U/L High 38 - 126 U/L [facility] ALT [Catalytic activity/Vol] 14 U/L 0 - 34 U/L [facility] Anion gap [Moles/Vol] 7 mmol/L 3 - 13 mmol/L [facility] AST [Catalytic activity/Vol] 32 U/L 15 - 46 U/L [facility] Bilirubin [Mass/Vol] 0.3 mg/dL 0.2 - 1 .3 mg/dL [facility] Calcium [Mass/Vol] 9.5 mg/dL 8.4 - 10. 4 mg/dL [facility] Chloride [Moles/Vol] 104 mmol/L 98 - 10 7 mmol/L [facility] CO2 [Moles/Vol] 23 mmol/L 22 - 30 mmol/L [facility] Creatinine [Mass/Vol] 0.60 mg/dL 0.52 - 1.04 mg/dL [facility] GFR/1.73 sq M.predicted MDRD (S/P/Bld) [Vol rate/Area] - PINF [facility] Comment on above: Calculation based on the Chronic Kidney Disease Epidemiology Collaboration (CKD-EPI) equation refit without adjustment for race Glucose [Mass/Vol] 118 mg/dL High 70 - 100 mg/dL [facility] Interpretation and review of laboratory results Abnormal [facility] Potassium [Moles/Vol] 3.8 mmol/L 3.5 - 5.1 mmol/L [facility] Protein [Mass/Vol] 6.6 g/dL 6.3 - 8.2 g/dL [facility] Sodium [Moles/Vol] 133 mmol/L Low 135 - 145 mmol/L [facility] Urea nitrogen [Mass/Vol] 8 mg/dL 7 - 17 mg/dL [facility] Laboratory - Drug toxicology Ordered By: Jefe David on 07-22-2022 Amphetamines Ql (U) Negative Negative [facility] Benzodiazepines Ql (U) Negative Negative [facility] Cocaine Ql (U) Negative [facility] Ethanol [Mass/Vol] Negative Negative [facility] Methadone Ql (U) Negative Negative [facility] alth Opiates Ql (U) Negative Negative [facility] th No Panel InformationOrdered By: Jefe David on 07-22-2022 BARBITURATES Negative Negative [facility] BUPRENORPHINE SCREEN Positive Negative [facility] FENTANYL Negative Negative [facility] OXYCODONE/OXYMORPHONE Negative Negative [facility] PCP Negative Negative [facility] THC Negative Negative [facility] The expected value f or the drugs listed above is Negative. The following drugs or drug groups have been screened for by Immunoassay at the following thresholds: Amphetamine class(1000ng/mL) Barbituates(200ng/mL) Benzodiazepines(200ng/mL ) Cocaine(300ng/mL) Ethanol (50 ng/mL) Methadone(300ng/mL) Opiates(300ng/mL) Oxycodone(100ng/mL) PCP(25ng/mL) Buprenorphine(5ng/mL) THC(50ng/mL) Fentanyl(1ng/mL) Positive results are NOT confirmed by a more specific alternative method unless requested. If confirmation is needed, request confirmation under separate order. NOTE: These results are for medical treatment only. Analysis performed using non-forensic procedures. [facility] N. gonorrhoeae DNA TAYLOR+probe Ql (Cervical mucus)on 07-19-2022 C. trachomatis DNA TAYLOR+probe Ql (Unsp spec) Not detected Not Detected [facility] Interpretation and review of laboratory results Normal [facility] N gonorrhoeae, DNA Probe Not detected Not Detected [facility] Methodology: real-ti me PCR This test is intended for medical purposes only and is not intended for the evaluation of suspected sexual abuse or for other forensic purposes. In certain contexts, culture may be required to meet applicable laws and regulations for diagnosis of C. trachomatis and N. gonorrhoeae infections. Per 2014 CDC recommmendations, this test does not include confirmation of positive results by an alternative nucleic acid target. A negative result does not exclude the possibility of infection. A result of invalid indicates that a new specimen should be collected if clinically indicated. [facility] S. agalactiae DNA TAYLOR+probe Ql (Unsp spec)on 07-19-2022 Group B Strep Screen Not detected Not Detected [facility] Interpretation and review of laboratory results Normal [facility] Methodology: real-ti me PCR [facility] T. vaginalis DNA TAYLOR+probe Q l (Genital specimen)on 07-19-2022 Interpretation and review of laboratory results Normal [facility] Trichomonas vaginalis Not detected Not Detected [facility] Methodology: real-ti me PCR A negative result does not completely rule out infection with T. vaginalis. Results should be interpreted in conjunction with other clinical data. This test has not been validated for use with self-collected vaginal swab specimens from patients. This test is intended for medical purposes only and is not intended for the evaluation of suspected sexual abuse or for other forensic purposes. [facility] MEDICATION ASSISTED TREATMEN T PANELOrdered By: Felecia Shane on 07-18-2022 Amphetamines Ql (U) Negative Negative [facility] BARBITURATES Negative Negative [facility] Benzodiazepines Ql (U) Negative Negative [facility] BUPRENORPHINE SCREEN Positive Negative [facility] Cocaine Ql (U) Negative Negative [facility] Ethanol [Mass/Vol] Negative Negative [facility] FENTANYL Negative Negative [facility] Methadone Ql (U) Negative Negative [facility] alth Opiates Ql (U) Negative Negative [facility] th OXYCODONE/OXYMORPHONE Negative Negative [facility] PCP Negative Negative [facility] THC Negative Negative [facility] The expected value f or the drugs listed above is Negative. The following drugs or drug groups have been screened for by Immunoassay at the following thresholds: Amphetamine class(1000ng/mL) Barbituates(200ng/mL) Benzodiazepines(200ng/mL ) Cocaine(300ng/mL) Ethanol (50 ng/mL) Methadone(300ng/mL) Opiates(300ng/mL) Oxycodone(100ng/mL) PCP(25ng/mL) Buprenorphine(5ng/mL) THC(50ng/mL) Fentanyl(1ng/mL) Positive results are NOT confirmed by a more specific alternative method unless requested. If confirmation is needed, request confirmation under separate order. NOTE: These results are for medical treatment only. Analysis performed using non-forensic procedures. [employer] for pregnancyon 3 - Lin live intrauterine at 38w 3d. - The amniotic fluid index is 15.cm, which is within normal limits. - Incidental BPP 12/03. [facility] OBSTETRICS REPORT (Signed Final 07/18/2022 02:58 pm) PATIENT INFO: ID #: [id number] : [birth year] (21 yrs)(F) Name: PRAKASH RAMONA Visit Date: 07/18/2022 01:08 pm PERFORMED BY: Attending: Mallorie Ochoa DO FACOG Performed By: Sarah Champion Referred By: TOOTIE MELGOZA CNP Secondary Phy.: LUIZ VELEZ [employer] Visit Type: Outpatient SERVICE(S) PROVIDED: Limited [id number] INDICATIONS: Drug use complicating , O99.320 unspecified trimester Other psychoactive substance abuse, F19.10 uncomplicated (HCC) VITAL SIGNS: Weight (lb): 193 Height: 5'1 BMI: 36.46 EVALUATION: Num Of Fetuses: 1 Heart Rate(bpm): 149 Cardiac Activity: Regular rhythm Lie: Longitudinal Presentation: Cephalic Placenta: Anterior Amniotic Fluid ARLYN FV: Within normal limits ARLYN Sum(cm) %Tile Largest Pocket(cm) 15 59 5.4 RUQ(cm) RLQ(cm) LUQ(cm) LLQ(cm) 3.8 2 5.4 3.8 BIOMETRY: GESTATIONAL AGE: LMP: 41w 4d Date: 09/30/21 YAS: 07/07/22 Best: 38w 3d Det. By: U/S (02/13/22) YAS: 07/29/22 RECOMMENDATIONS: Follow-up as clinically indicated. Ultrasound is not diagnostic of chromosomal aneuploidy and does not detect all subtle defects. Normal ultrasound findings do not guarantee normal outcomes. Mallorie Ochoa DO, FACOG Electronically Signed Final Report 07/18/2022 02:58 pm [facility] Mallorie Ochoa DO - 07/18/2022 OBSTETRICS REPORT (Signed Final 07/18/2022 02:58 pm) PATIENT INFO: ID #: [id number] : [birth year] (21 yrs)(F) Name: PRAKASH GREENE Visit Date: 07/18/2022 01:08 pm PERFORMED BY: Attending: Mallorie Ochoa DO, FACOG Performed By: Sarah Champion Referred By: TOOTIE MELGOZA CNP Secondary Phy.: LUIZ VELEZ CNP Visit Type: Outpatient SERVICE(S) PROVIDED: [place] Limited [id number] INDICATIONS: Drug use complicating , O99.320 unspecified trimester Other psychoactive substance abuse, F19.10 uncomplicated (HCC) VITAL SIGNS: Weight (lb): 193 Height: 5'1 BMI: 36.46 EVALUATION: Num Of Fetuses: 1 Heart Rate(bpm): 149 Cardiac Activity: Regular rhythm Lie: Longitudinal Presentation: Cephalic Placenta: Anterior Amniotic Fluid ARLYN FV: Within normal limits ARLYN Sum(cm) %Tile Largest Pocket(cm) 15 59 5.4 RUQ(cm) RLQ(cm) LUQ(cm) LLQ(cm) 3.8 2 5.4 3.8 BIOMETRY: GESTATIONAL AGE: LMP: 41w 4d Date: 09/30/21 YAS: 07/07/22 Best: 38w 3d Det. By: Alem (02/13/22) YAS: 07/29/22 RECOMMENDATIONS: Follow-up as clinically indicated. Ultrasound is not diagnostic of chromosomal aneuploidy and does not detect all subtle defects. Normal ultrasound findings do not guarantee normal outcomes. Mallorie Ochoa DO, FACOG Electronically Signed Final Report 07/18/2022 02:58 pm IMPRESSION: - Lin live intrauterine at 38w 3d. - The amniotic fluid index is 15.cm, which is within normal limits. - Incidental BPP 12/03. [facility] Radiology Study observation (narrative) [facility] US for pregnancyOrdered By: Mallorie Ochoa on 07-18-2022 [employer] Work Phone: US for pregnancyon 3 Lin live intrauterine at 37w 3d. The amniotic fluid index is 13.6cm, which is within normal limits. Recommendations: Follow-up as clinically indicated. Ultrasound is not diagnostic of chromosomal aneuploidy and does not detect all subtle defects. Normal ultrasound findings do not guarantee normal outcomes. [facility] OBSTETRICS REPORT (Signed Final 07/11/2022 04:05 pm) PATIENT INFO: ID #: [id number] : [birth year] (21 yrs)(F) Name: PRAKASH GREENE Visit Date: 07/11/2022 01:43 pm PERFORMED BY: Attending: Nakita Dumas MD Performed By: Sarah Champion Referred By: TOOTIE MELGOZA CNP Secondary Phy.: LUIZ VELEZ CNP Visit Type: Outpatient SERVICE(S) PROVIDED: US Limited INDICATIONS: Drug use complicating , O99.320 unspecified trimester Other psychoactive substance abuse, F19.10 uncomplicated (HCC) VITAL SIGNS: Weight (lb): 193 Height: 5'1 BMI: 36.46 EVALUATION: Num Of Fetuses: 1 Heart Rate(bpm): 115 Cardiac Activity: Regular rhythm Lie: Longitudinal Presentation: Cephalic Placenta: Anterior Amniotic Fluid ARLYN FV: Within normal limits ARLYN Sum(cm) %Tile Largest Pocket(cm) 13.6 51 6.3 RUQ(cm) RLQ(cm) LUQ(cm) LLQ(cm) 6.3 1.6 5.7 0 BIOMETRY: GESTATIONAL AGE: LMP: 40w 4d Date: 09/30/21 YAS: 07/07/22 Best: 37w 3d Det. By: Jonathon/Charis (02/13/22) YAS: 07/29/22 Nakita Durango, MD Electronically Signed Final Report 07/11/2022 04:05 pm [facility] Nakita Dumas MD - 07/11/2022 OBSTETRICS REPORT (Signed Final 07/11/2022 04:05 pm) PATIENT INFO: ID #: [id number] : [birth year] (21 yrs)(F) Name: PRAKASH GREENE Visit Date: 07/11/2022 01:43 pm PERFORMED BY: Attending: Nakita Dumas MD Performed By: Sarah Champion Referred By: TOOTIE MELGOZA CNP Secondary Phy.: LUIZ VELEZ CNP Visit Type: Outpatient SERVICE(S) PROVIDED: US Limited INDICATIONS: Drug use complicating , O99.320 unspecified trimester Other psychoactive substance abuse, F19.10 uncomplicated (HCC) VITAL SIGNS: Weight (lb): 193 Height: 5'1 BMI: 36.46 EVALUATION: Num Of Fetuses: 1 Heart Rate(bpm): 115 Cardiac Activity: Regular rhythm Lie: Longitudinal Presentation: Cephalic Placenta: Anterior Amniotic Fluid ARLYN FV: Within normal limits ARLYN Sum(cm) %Tile Largest Pocket(cm) 13.6 51 6.3 RUQ(cm) RLQ(cm) LUQ(cm) LLQ(cm) 6.3 1.6 5.7 0 BIOMETRY: GESTATIONAL AGE: LMP: 40w 4d Date: 09/30/21 YAS: 07/07/22 Best: 37w 3d Det. By: U/S (02/13/22) YAS: 07/29/22 Nakita Dumas MD Electronically Signed Final Report 07/11/2022 04:05 pm IMPRESSION: Lin live intrauterine at 37w 3d. The amniotic fluid index is 13.6cm, which is within normal limits. Recommendations: Follow-up as clinically indicated. Ultrasound is not diagnostic of chromosomal aneuploidy and does not detect all subtle defects. Normal ultrasound findings do not guarantee normal outcomes. [facility] Radiology Study observation (narrative) [facility] US for pregnancyOrdered By: Nakita Dumas on 07-11-2022 [facility] Work Phone: Laboratory - Drug toxicology Ordered By: Preeti Cuba on 07-04-2022 Amphetamines Ql (U) Positive Negative [facility] Benzodiazepines Ql (U) Negative Negative [facility] Cocaine Ql (U) Positive Negative [facility] Ethanol [Mass/Vol] Negative Negative [facility] Methadone Ql (U) Negative Negative [facility] Opiates Ql (U) Negative Negative [facility] No Panel InformationOrdered By: Preeti Cuba on 07-04-2022 BARBITURATES Negative Negative [facility] BUPRENORPHINE SCREEN Negative Negative [facility] FENTANYL Negative Negative [facility] OXYCODONE/OXYMORPHONE Negative Negative [facility] PCP Negative Negative [facility] THC Negative Negative [facility] The expected value f or the drugs listed above is Negative. The following drugs or drug groups have been screened for by Immunoassay at the following thresholds: Amphetamine class(1000ng/mL) Barbituates(200ng/mL) Benzodiazepines(200ng/mL ) Cocaine(300ng/mL) Ethanol (50 ng/mL) Methadone(300ng/mL) Opiates(300ng/mL) Oxycodone(100ng/mL) PCP(25ng/mL) Buprenorphine(5ng/mL) THC(50ng/mL) Fentanyl(1ng/mL) Positive results are NOT confirmed by a more specific alternative method unless requested. If confirmation is needed, request confirmation under separate order. NOTE: These results are for medical treatment only. Analysis performed using non-forensic procedures. [facility] for pregnancyon 3 Lin live intrauterine at 36w 3d in cephalic presentation Normal growth; EFW 2557 grams, which is at the 25% for this gestational age. The amniotic fluid index is 16.1cm, which is within normal limits. [facility] [place] [facility] OBSTETRICS REPORT (Signed Final 07/04/2022 02:37 pm) PATIENT INFO: ID #: [id number] : [birth year] (21 yrs)(F) Name: PRAKASH RICARDOMON Visit Date: 07/04/2022 01:53 pm PERFORMED BY: Attending: Mary De Los Santos Performed By: Venessa Richmond RDMS Referred By: TOOTIE MELGOZA CNP Secondary Phy.: LUIZ VELEZ CNP Location: [facility] Visit Type: Outpatient SERVICE(S) [place]: [place] [address] INDICATIONS: Drug use complicating , O99.320 unspecified trimester Other psychoactive substance abuse, F19.10 uncomplicated (HCC) VITAL SIGNS: Weight (lb): 193 Height: 5'1 BMI: 36.46 EVALUATION: Num Of Fetuses: 1 Heart Rate(bpm): 131 Cardiac Activity: Regular rhythm Lie: Longitudinal Presentation: Cephalic Placenta: Anterior Amniotic Fluid ARLYN FV: Within normal limits ARLYN Sum(cm) %Tile Largest Pocket(cm) 16.1 60 6 RUQ(cm) RLQ(cm) LUQ(cm) LLQ(cm) 3 3.5 6 3.6 BIOMETRY: BPD: 87.8 mm G.Age: 35w 3d 34 % OFD: 113.9 mm HC: 322.8 mm G.Age: 36w 3d 23 % AC: 307.6 mm G.Age: 34w 5d 16 % FL: 67.4 mm G.Age: 34w 5d 10 % LV: 4.49 mm CI: 77.1 % 70 - 86 FL/HC: 20.9 % 20.1 - 22.1 HC/AC: 1.05 0.93 - 1.11 FL/BPD: 76.8 % 71 - 87 FL/AC: 21.9 % 20 - 24 Est. FW: 2557 gm 5 lb 10 oz 25 % GESTATIONAL AGE: LMP: 39w 4d Date: 09/30/21 YAS: 07/07/22 U/S Today: 35w 2d YAS: 08/06/22 Best: 36w 3d Det. By: U/S (02/13/22) YAS: 07/29/22 ANATOMY: Cranium: Normal appearance Cavum: Previously visualized Ventricles: Normal appearance Choroid Plexus: Normal appearance Cerebellum: Normal appearance Posterior Fossa: Normal appearance Nuchal Fold: Previously visualized Face: Normal appearance Lips: Normal appearance Palate: Previously visualized Thoracic: Normal appearance Heart: Normal appearance RVOT: Normal appearance LVOT: Normal appearance Aortic Arch: Previously visualized Ductal Arch: Previously visualized Diaphragm: Normal appearance Stomach: Normal appearance Abdomen: Normal appearance Abdominal Wall: Normal appearance Cord Vessels: Normal 3-Vessel Cord Kidneys: Normal appearance Bladder: Normal appearance Spine: Previously visualized Upper Extremities: Present Lower Extremities: Present RECOMMENDATIONS: Follow-up as clinically indicated. Ultrasound is not diagnostic of chromosomal aneuploidy and does not detect all subtle defects. Normal ultrasound findings do not guarantee normal outcomes. Mary De Los Santos Electronically Signed Final Report 07/04/2022 02:37 pm [facility] [place] RADIOLOGY SYSTEM Mary De Los Santos MD - 07/04/2022 OBSTETRICS REPORT (Signed Final 07/04/2022 02:37 pm) PATIENT INFO: ID #: [id number] : [birth year] (21 yrs)(F) Name: PRAKASH GREENE Visit Date: 07/04/2022 01:53 pm PERFORMED BY: Attending: Mary De Los Santos Performed By: Venessa Richmond RDMS Referred By: TOOTIE MELGOZA CNP Secondary Phy.: LUIZ VELEZ CNP Location: [facility] Visit Type: Outpatient SERVICE(S) [place]: [place] [address] INDICATIONS: Drug use complicating , O99.320 unspecified trimester Other psychoactive substance abuse, F19.10 uncomplicated (HCC) VITAL SIGNS: Weight (lb): 193 Height: 5'1 BMI: 36.46 EVALUATION: Num Of Fetuses: 1 Heart Rate(bpm): 131 Cardiac Activity: Regular rhythm Lie: Longitudinal Presentation: Cephalic Placenta: Anterior Amniotic Fluid ARLYN FV: Within normal limits ARLYN Sum(cm) %Tile Largest Pocket(cm) 16.1 60 6 RUQ(cm) RLQ(cm) LUQ(cm) LLQ(cm) 3 3.5 6 3.6 BIOMETRY: BPD: 87.8 mm G.Age: 35w 3d 34 % OFD: 113.9 mm HC: 322.8 mm G.Age: 36w 3d 23 % AC: 307.6 mm G.Age: 34w 5d 16 % FL: 67.4 mm G.Age: 34w 5d 10 % LV: 4.49 mm CI: 77.1 % 70 - 86 FL/HC: 20.9 % 20.1 - 22.1 HC/AC: 1.05 0.93 - 1.11 FL/BPD: 76.8 % 71 - 87 FL/AC: 21.9 % 20 - 24 Est. FW: 2557 gm 5 lb 10 oz 25 % GESTATIONAL AGE: LMP: 39w 4d Date: 09/30/21 YAS: 07/07/22 U/S Today: 35w 2d YAS: 08/06/22 Best: 36w 3d Det. By: U/S (02/13/22) YAS: 07/29/22 ANATOMY: Cranium: Normal appearance Cavum: Previously visualized Ventricles: Normal appearance Choroid Plexus: Normal appearance Cerebellum: Normal appearance Posterior Fossa: Normal appearance Nuchal Fold: Previously visualized Face: Normal appearance Lips: Normal appearance Palate: Previously visualized Thoracic: Normal appearance Heart: Normal appearance RVOT: Normal appearance LVOT: Normal appearance Aortic Arch: Previously visualized Ductal Arch: Previously visualized Diaphragm: Normal appearance Stomach: Normal appearance Abdomen: Normal appearance Abdominal Wall: Normal appearance Cord Vessels: Normal 3-Vessel Cord Kidneys: Normal appearance Bladder: Normal appearance Spine: Previously visualized Upper Extremities: Present Lower Extremities: Present RECOMMENDATIONS: Follow-up as clinically indicated. Ultrasound is not diagnostic of chromosomal aneuploidy and does not detect all subtle defects. Normal ultrasound findings do not guarantee normal outcomes. Mary De Los Santos Electronically Signed Final Report 07/04/2022 02:37 pm IMPRESSION: Lin live intrauterine at 36w 3d in cephalic presentation Normal growth; EFW 2557 grams, which is at the 25% for this gestational age. The amniotic fluid index is 16.1cm, which is within normal limits. [facility] Radiology Study observation (narrative) [facility] US for pregnancyOrdered By: Mary De Los Santos on 07-04-2022 [facility] Work Phone: US for pregnancyon 3 1. Lin live intrautine at 32w 3d. 2. Anatomy not visualized on prior exam appears normal. This completes the anatomic suvey. 3. Anterior placenta. 4. BPP 8 Additional follow-up as clinically indicated. Ultrasound is not diagnostic of chromosomal aneuploidy and does not detect all subtle defects. Normal ultrasound findings do not guarantee normal outcomes. [facility] OBSTETRICS REPORT (Signed Final 06/06/2022 02:30 pm) PATIENT INFO: ID #: [id number] : [birth year] (21 yrs)(F) Name: ELSI GREENE Visit Date: 06/06/2022 01:30 pm PERFORMED BY: Attending: Nakita Dumas MD Performed By: Venessa Richmond RDMS Referred By: TOOTIE MELGOZA CNP Location: [facility] Visit Type: Outpatient SERVICE(S) [place]: [place] [address] INDICATIONS: Encounter for other screening Z36.2 follow-up VITAL SIGNS: Weight (lb): 189 Height: 5'1 BMI: 35.71 EVALUATION: Num Of Fetuses: 1 Heart Rate(bpm): 140 Cardiac Activity: Regular rhythm Lie: Longitudinal Presentation: Cephalic Placenta: Anterior Amniotic Fluid ARLYN FV: Within normal limits ARLYN Sum(cm) %Tile Largest Pocket(cm) 14.1 48 6.1 RUQ(cm) LUQ(cm) LLQ(cm) 6.1 3.7 4.3 BIOMETRY: BPD: 82.3 mm G.Age: 33w 1d 62 % OFD: 106.5 mm HC: 303.3 mm G.Age: 33w 5d 46 % AC: 280.2 mm G.Age: 32w 0d 38 % FL: 61.9 mm G.Age: 32w 1d 28 % LV: 5.07 mm CI: 77.3 % 70 - 86 FL/HC: 20.4 % 19.1 - 21.3 HC/AC: 1.08 0.96 - 1.17 FL/BPD: 75.2 % 71 - 87 FL/AC: 22.1 % 20 - 24 Est. FW: 1950 gm 4 lb 5 oz 46 % GESTATIONAL AGE: LMP: 35w 4d Date: 09/30/21 YAS: 07/07/22 /S Today: 32w 5d YAS: 07/27/22 Best: 32w 3d Det. By: U/S (02/13/22) YAS: 07/29/22 ANATOMY: Cranium: Normal appearance Cavum: Normal appearance Ventricles: Normal appearance Choroid Plexus: Normal appearance Cerebellum: Normal appearance Posterior Fossa: Normal appearance Face: Normal appearance Lips: Previously visualized Palate: Previously visualized Thoracic: Normal appearance Heart: Normal appearance RVOT: Normal appearance LVOT: Normal appearance Aortic Arch: Normal appearance Ductal Arch: Previously visualized Diaphragm: Normal appearance Stomach: Normal appearance Abdomen: Normal appearance Abdominal Wall: Normal appearance Cord Vessels: 3-Vessel Cord Kidneys: Normal appearance Bladder: Normal appearance Spine: Normal appearance Upper Extremities: Normal appearance Lower Extremities: Normal appearance TARGETED ANATOMY: Thorax Thoracic Contour: Normal appearance Lungs: Normal appearance 4 Chamber View: Normal appearance Cardiac Activity: Normal Cardiac Rhythm: Normal Cardiac Situs: Normal appearance Rt Outflow Tract: Normal appearance Lt Outflow Tract: Normal appearance Aortic Arch: Normal appearance SVC: Normal appearance Interventr. Septum: Normal appearance Cardiac Mendon: Normal appearance Diaphragm: Normal appearance 3 Vessel View: Normal appearance 3 V Trachea View: Normal appearance IVC: Normal Appearance Crossing: Normal appearance Nakita Dumas MD Electronically Signed Final Report 06/06/2022 02:30 pm [facility] Nakita Dumas MD - 06/06/2022 OBSTETRICS REPORT (Signed Final 06/06/2022 02:30 pm) PATIENT INFO: ID #: [id number] : [birth year] (21 yrs)(F) Name: ELSI GREENE Visit Date: 06/06/2022 01:30 pm PERFORMED BY: Attending: Nakita Dumas MD Performed By: Venessa Richmond RDMS Referred By: TOOTIE MELGOZA CNP Location: [facility] Visit Type: Outpatient SERVICE(S) [place]: [place] [address] INDICATIONS: Encounter for other screening Z36.2 follow-up VITAL SIGNS: Weight (lb): 189 Height: 5'1 BMI: 35.71 EVALUATION: Num Of Fetuses: 1 Heart Rate(bpm): 140 Cardiac Activity: Regular rhythm Lie: Longitudinal Presentation: Cephalic Placenta: Anterior Amniotic Fluid ARLYN FV: Within normal limits ARLYN Sum(cm) %Tile Largest Pocket(cm) 14.1 48 6.1 RUQ(cm) LUQ(cm) LLQ(cm) 6.1 3.7 4.3 BIOMETRY: BPD: 82.3 mm G.Age: 33w 1d 62 % OFD: 106.5 mm HC: 303.3 mm G.Age: 33w 5d 46 % AC: 280.2 mm G.Age: 32w 0d 38 % FL: 61.9 mm G.Age: 32w 1d 28 % LV: 5.07 mm CI: 77.3 % 70 - 86 FL/HC: 20.4 % 19.1 - 21.3 HC/AC: 1.08 0.96 - 1.17 FL/BPD: 75.2 % 71 - 87 FL/AC: 22.1 % 20 - 24 Est. FW: 1950 gm 4 lb 5 oz 46 % GESTATIONAL AGE: LMP: 35w 4d Date: 09/30/21 YAS: 07/07/22 U/S Today: 32w 5d YAS: 07/27/22 Best: 32w 3d Det. By: U/S (02/13/22) YAS: 07/29/22 ANATOMY: Cranium: Normal appearance Cavum: Normal appearance Ventricles: Normal appearance Choroid Plexus: Normal appearance Cerebellum: Normal appearance Posterior Fossa: Normal appearance Face: Normal appearance Lips: Previously visualized Palate: Previously visualized Thoracic: Normal appearance Heart: Normal appearance RVOT: Normal appearance LVOT: Normal appearance Aortic Arch: Normal appearance Ductal Arch: Previously visualized Diaphragm: Normal appearance Stomach: Normal appearance Abdomen: Normal appearance Abdominal Wall: Normal appearance Cord Vessels: 3-Vessel Cord Kidneys: Normal appearance Bladder: Normal appearance Spine: Normal appearance Upper Extremities: Normal appearance Lower Extremities: Normal appearance TARGETED ANATOMY: Thorax Thoracic Contour: Normal appearance Lungs: Normal appearance 4 Chamber View: Normal appearance Cardiac Activity: Normal Cardiac Rhythm: Normal Cardiac Situs: Normal appearance Rt Outflow Tract: Normal appearance Lt Outflow Tract: Normal appearance Aortic Arch: Normal appearance SVC: Normal appearance Interventr. Septum: Normal appearance Cardiac Mendon: Normal appearance Diaphragm: Normal appearance 3 Vessel View: Normal appearance 3 V Trachea View: Normal appearance IVC: Normal Appearance Crossing: Normal appearance Nakita Dumas MD Electronically Signed Final Report 06/06/2022 02:30 pm IMPRESSION: 1. Lin live intrautine at 32w 3d. 2. Anatomy not visualized on prior exam appears normal. This completes the anatomic suvey. 3. Anterior placenta. 4. BPP 12/03 Additional follow-up as clinically indicated. Ultrasound is not diagnostic of chromosomal aneuploidy and does not detect all subtle defects. Normal ultrasound findings do not guarantee normal outcomes. [facility] Radiology Study observation (narrative) [facility] [facility] US for pregnancyOrdered By: Nakita Dumas on 06-06-2022 [facility] Work Phone: CBC panel Auto (Bld)Ordered By: Lupis Decker on 05-23-2022 Erythrocyte distribution width (RBC) [Ratio] 13.7 % 11.5 - 14.5 % [facility] Hematocrit (Bld) [Volume fraction] 36.7 % 35.0 - 47.0 % [employer] [employer] [facility] Hemoglobin (Bld) [Mass/Vol] 12.4 g/dL 11.7 - 16.0 g/dL [facility] Interpretation and review of laboratory results Abnormal [employer] [facility] MCH (RBC) [Entitic mass] 32.7 pg 26.0 - 34.0 pg [employer] [facility] MCHC (RBC) [Mass/Vol] 33.9 % 32.0 - 36.0 % [employer] [facility] MCV (RBC) [Entitic vol] 96.6 fL 80.0 - 98.0 fL [employer] [facility] Platelet mean volume (Bld) [Entitic vol] 6.7 fL Low 7.4 - 12.4 fL [employer] [facility] Platelets (Bld) [#/Vol] 266 10*3/uL 140 - 440 10*3/uL [employer] [facility] RBC (Bld) [#/Vol] 3.80 10*6/uL 3.8 - 5.20 10*6/uL [facility] WBC (Bld) [#/Vol] 13.4 10*3/uL High 3.6 - 10.7 10*3/uL [facility] Laboratory - Chemistry and C hemistry - challengeon 05-23-2022 Glucose 1 Hr post dose glucose [Mass/Vol] 139 mg/dL NINF - 140 mg/dL [facility] Laboratory - Drug toxicology Ordered By: Preeti Cuba on 05-23-2022 Amphetamines Ql (U) Negative Negative [facility] Benzodiazepines Ql (U) Negative Negative [facility] Cocaine Ql (U) Negative Negative [facility] Ethanol [Mass/Vol] Negative Negative [facility] Methadone Ql (U) Negative Negative [facility] Opiates Ql (U) Negative Negative [facility] No Panel InformationOrdered By: Preeti Cuba on 05-23-2022 BARBITURATES Negative Negative [facility] BUPRENORPHINE SCREEN Negative [facility] FENTANYL Negative Negative [facility] OXYCODONE/OXYMORPHONE Negative Negative [facility] PCP Negative Negative [facility] THC Negative Negative [facility] The expected value f or the drugs listed above is Negative. The following drugs or drug groups have been screened for by Immunoassay at the following thresholds: Amphetamine class(1000ng/mL) Barbituates(200ng/mL) Benzodiazepines(200ng/mL ) Cocaine(300ng/mL) Ethanol (50 ng/mL) Methadone(300ng/mL) Opiates(300ng/mL) Oxycodone(100ng/mL) PCP(25ng/mL) Buprenorphine(5ng/mL) THC(50ng/mL) Fentanyl(1ng/mL) Positive results are NOT confirmed by a more specific alternative method unless requested. If confirmation is needed, request confirmation under separate order. NOTE: These results are for medical treatment only. Analysis performed using non-forensic procedures. [facility] No Panel Informationon 05-23 Interpretation and review of laboratory results Normal [facility] Values >140 mg/dL constitute a positive screen. Positive screens on patients should be followed by a diagnostic three-hour glucose tolerance test (Glucose Tolerance Test; [id number]). [facility] US Complete w/ detailon 02-13-2022 M[facility] US Complete w/detail Patient Name: ELSI GREENE Maternal Medicine ACCESSION EXAM DATE/TIME PROCEDURE ORDERING PROVIDER [id number] 02/13/2022 09:57 EDT [facility] US TOOTIE MELGOZA Complete w/detail Reason For Exam ([facility] US Complete w/detail) Hx of substance abuse. Anatomy. Report OBSTETRICS REPORT (Signed Final 02/13/2022 04:49 pm) PATIENT INFO: ID #: [id number] : [birth year] (21 yrs) Name: ELSI GREENE Visit Date: 02/13/2022 09:52 am PERFORMED BY: Attending: Nakita Dumas MD Performed By: Sarah Champion Referred By: TOOTIE MELGOZA CNP Visit Type: Outpatient SERVICE(S) PROVIDED: US Level II complete (Targeted OB) 83532 US Transvaginal [id number] INDICATIONS: Anatomy/Cervical Length Dating Substance abuse Inmate VITAL SIGNS: Weight (lb): 153 Height: 5'1 BMI: 28.91 EVALUATION: Num Of Fetuses: 1 Heart Rate(bpm): 159 Cardiac Activity: Regular rhythm Lie: Longitudinal Presentation: Cephalic Placenta: Anterior P. Cord Insertion: Normal Amniotic Fluid ARLYN FV: Appropriate for gestational age Maternal Medicine Report BIOMETRY: BPD: 34.3 mm G.Age: 16w 4d 63 % OFD: 42.2 mm HC: 122.5 mm G.Age: 16w 1d 28 % AC: 106.5 mm G.Age: 16w 4d 61 % FL: 19.4 mm G.Age: 15w 5d 25 % HUM: 18.7 mm G.Age: 15w 3d 29 % CER: 15.4 mm G.Age: 16w 1d 20 % CM: 2.93 mm CI: 81.3 % 70 - 86 FL/HC: 15.8 % 13.3 - 16.5 HC/AC: 1.15 1.05 - 1.39 FL/BPD: 56.6 % FL/AC: 18.2 % 20 - 24 Est. FW: 148 gm 0 lb 5 oz GESTATIONAL AGE: LMP: 19w 3d Date: 09/30/21 YAS: 07/07/22 U/S Today: 16w 2d YAS: 07/29/22 Best: 16w 2d Det. By: U/S (02/13/22) YAS: 07/29/22 TARGETED ANATOMY: Central Nervous System Calvarium/Cranial V.: Normal appearance Intracranial Bruce: Normal appearance Cavum: Normal appearance Parenchyma: Normal appearance Lateral Ventricles: Normal appearance Choroid Plexus: Normal appearance Cereb./Vermis: Normal appearance Cisterna Magna: Normal appearance Corpus Callosum: Normal appearance Midline Falx: Normal appearance Spine Cervical: Normal appearance Thoracic: Normal appearance Lumbar: Normal appearance Sacral: Normal appearance Shape/Curvature: Normal appearance Head/Neck Face: Normal appearance Lips: Normal appearance Neck: Normal appearance Nuchal Fold: Suboptimal views Nasal Bone: Present Palate: Normal appearance Profile: Normal appearance Orbits/Eyes: Normal appearance Mandible: Normal appearance Maxilla: Normal appearance Thorax Thoracic Contour: Normal appearance Lungs: Normal appearance 4 Chamber View: Normal appearance Cardiac Activity: Observed Cardiac Rhythm: Normal appearance Cardiac Situs: Normal appearance Maternal Medicine Report Rt Outflow Tract: Suboptimal views Lt Outflow Tract: Suboptimal views Aortic Arch: Suboptimal views Ductal Arch: Suboptimal views SVC: Suboptimal Views Interventr. Septum: Suboptimal views Cardiac Mendon: Normal appearance Diaphragm: Normal appearance 3 Vessel View: Suboptimal views 3 V Trachea View: Suboptimal views IVC: Suboptimal Crossing: Suboptimal views Abdomen Ventral Wall: Normal appearance Cord Insertion: Normal appearance Situs: Normal appearance Stomach: Normal appearance Liver: Normal appearance Lt Kidney: Normal appearance Rt Kidney: Normal appearance Bladder: Normal appearance Bowel: Normal appearance Spleen: Normal appearance Extremities Lt Humerus: Normal appearance Rt Humerus: Normal appearance Lt Forearm: Normal appearance Rt Forearm: Normal appearance Lt Hand: Normal appearance Rt Hand: Normal appearance Lt Femur: Normal appearance Rt Femur: Normal appearance Lt Lower Leg: Normal appearance Rt Lower Leg: Normal appearance Lt Foot: Normal appearance Rt Foot: Normal appearance Other Umbilical Cord: Normal 3-vessel Genitalia: Female CERVIX UTERUS ADNEXA: Cervix Length: 4.31 cm. Within Normal Limits Right Ovary Size(cm) 3.53 x 3.13 x 2.97 Vol(ml): 17.18 Left Ovary Not visualized IMPRESSION: (more content not included)... Normal [facility] US Transvagina dacia 02-13-2022 [facility] US Transvaginal Patient Name: ELSI GREENE Maternal Medicine ACCESSION EXAM DATE/TIME PROCEDURE ORDERING PROVIDER [id number] 02/13/2022 09:57 EDT [facility] US TOOTIE MELGOZA Complete w/detail Reason For Exam ([facility] US Complete w/detail) CL screening Report OBSTETRICS REPORT (Signed Final 02/13/2022 04:49 pm) PATIENT INFO: ID #: [id number] : [birth year] (21 yrs) Name: ELSI GREENE Visit Date: 02/13/2022 09:52 am PERFORMED BY: Attending: Nakita Dumas MD Performed By: Sarah Champion Referred By: TOOTIE MELGOZA [employer] Visit Type: Outpatient SERVICE(S) PROVIDED: US Level II complete (Targeted OB) 91085 US Transvaginal [id number] INDICATIONS: Anatomy/Cervical Length Dating Substance abuse Inmate VITAL SIGNS: Weight (lb): 153 Height: 5'1 BMI: 28.91 EVALUATION: Num Of Fetuses: 1 Heart Rate(bpm): 159 Cardiac Activity: Regular rhythm Lie: Longitudinal Presentation: Cephalic Placenta: Anterior P. Cord Insertion: Normal Amniotic Fluid ARLYN FV: Appropriate for gestational age Maternal Medicine Report BIOMETRY: BPD: 34.3 mm G.Age: 16w 4d 63 % OFD: 42.2 mm HC: 122.5 mm G.Age: 16w 1d 28 % AC: 106.5 mm G.Age: 16w 4d 61 % FL: 19.4 mm G.Age: 15w 5d 25 % HUM: 18.7 mm G.Age: 15w 3d 29 % CER: 15.4 mm G.Age: 16w 1d 20 % CM: 2.93 mm CI: 81.3 % 70 - 86 FL/HC: 15.8 % 13.3 - 16.5 HC/AC: 1.15 1.05 - 1.39 FL/BPD: 56.6 % FL/AC: 18.2 % 20 - 24 Est. FW: 148 gm 0 lb 5 oz GESTATIONAL AGE: LMP: 19w 3d Date: 09/30/21 YAS: 07/07/22 U/S Today: 16w 2d YAS: 07/29/22 Best: 16w 2d Det. By: U/S (02/13/22) YAS: 07/29/22 TARGETED ANATOMY: Central Nervous System Calvarium/Cranial V.: Normal appearance Intracranial Bruce: Normal appearance Cavum: Normal appearance Parenchyma: Normal appearance Lateral Ventricles: Normal appearance Choroid Plexus: Normal appearance Cereb./Vermis: Normal appearance Cisterna Magna: Normal appearance Corpus Callosum: Normal appearance Midline Falx: Normal appearance Spine Cervical: Normal appearance Thoracic: Normal appearance Lumbar: Normal appearance Sacral: Normal appearance Shape/Curvature: Normal appearance Head/Neck Face: Normal appearance Lips: Normal appearance Neck: Normal appearance Nuchal Fold: Suboptimal views Nasal Bone: Present Palate: Normal appearance Profile: Normal appearance Orbits/Eyes: Normal appearance Mandible: Normal appearance Maxilla: Normal appearance Thorax Thoracic Contour: Normal appearance Lungs: Normal appearance 4 Chamber View: Normal appearance Cardiac Activity: Observed Cardiac Rhythm: Normal appearance Cardiac Situs: Normal appearance Maternal Medicine Report Rt Outflow Tract: Suboptimal views Lt Outflow Tract: Suboptimal views Aortic Arch: Suboptimal views Ductal Arch: Suboptimal views SVC: Suboptimal Views Interventr. Septum: Suboptimal views Cardiac Mendon: Normal appearance Diaphragm: Normal appearance 3 Vessel View: Suboptimal views 3 V Trachea View: Suboptimal views IVC: Suboptimal Crossing: Suboptimal views Abdomen Ventral Wall: Normal appearance Cord Insertion: Normal appearance Situs: Normal appearance Stomach: Normal appearance Liver: Normal appearance Lt Kidney: Normal appearance Rt Kidney: Normal appearance Bladder: Normal appearance Bowel: Normal appearance Spleen: Normal appearance Extremities Lt Humerus: Normal appearance Rt Humerus: Normal appearance Lt Forearm: Normal appearance Rt Forearm: Normal appearance Lt Hand: Normal appearance Rt Hand: Normal appearance Lt Femur: Normal appearance Rt Femur: Normal appearance Lt Lower Leg: Normal appearance Rt Lower Leg: Normal appearance Lt Foot: Normal appearance Rt Foot: Normal appearance Other Umbilical Cord: Normal 3-vessel Genitalia: Female CERVIX UTERUS ADNEXA: Cervix Length: 4.31 cm. Within Normal Limits Right Ovary Size(cm) 3.53 x 3.13 x 2.97 Vol(ml): 17.18 Left Ovary Not visualized IMPRESSION: 1. Lin live (more content not included)... Normal [facility] No Panel Informationon 02-13 Radiology Study observation (narrative) [facility] Work Phone: RADIOLOGY REPORTon 2 Ordered by an unspecified provider. [facility] US OB DETAIL ANATOMY S KATY OR FIRST GESTATIONon 02-13-2022 Patient Name: ELSI GREENE Maternal Medicine ACCESSION EXAM DATE/TIME PROCEDURE ORDERING PROVIDER [id number] 02/13/2022 09:57 EDT [facility] US TOOTIE MELGOZA Complete w/detail Reason For Exam ([facility] US Complete w/detail) Hx of substance abuse. Anatomy. Report OBSTETRICS REPORT (Signed Final 02/13/2022 04:49 pm) PATIENT INFO: ID #: [id number] : [birth year] (21 yrs) Name: ELSI GREENE Visit Date: 02/13/2022 09:52 am PERFORMED BY: Attending: Nakita Dumas MD Performed By: Sarah Champion Referred By: TOOTIE MELGOZA [employer]ISSIONS INSPECTOR Visit Type: Outpatient SERVICE(S) PROVIDED: Level II complete (Targeted OB) 11410 US Transvaginal 19550 INDICATIONS: Anatomy/Cervical Length Dating Substance abuse Inmate VITAL SIGNS: Weight (lb): 153 Height: 5'1 BMI: 28.91 EVALUATION: Num Of Fetuses: 1 Heart Rate(bpm): 159 Cardiac Activity: Regular rhythm Lie: Longitudinal Presentation: Cephalic Placenta: Anterior P. Cord Insertion: Normal Amniotic Fluid ARLYN FV: Appropriate for gestational age Maternal Medicine Report BIOMETRY: BPD: 34.3 mm G.Age: 16w 4d 63 % OFD: 42.2 mm HC: 122.5 mm G.Age: 16w 1d 28 % AC: 106.5 mm G.Age: 16w 4d 61 % FL: 19.4 mm G.Age: 15w 5d 25 % HUM: 18.7 mm G.Age: 15w 3d 29 % CER: 15.4 mm G.Age: 16w 1d 20 % CM: 2.93 mm CI: 81.3 % 70 - 86 FL/HC: 15.8 % 13.3 - 16.5 HC/AC: 1.15 1.05 - 1.39 FL/BPD: 56.6 % FL/AC: 18.2 % 20 - 24 Est. FW: 148 gm 0 lb 5 oz GESTATIONAL AGE: LMP: 19w 3d Date: 09/30/21 YAS: 07/07/22 U/S Today: 16w 2d YAS: 07/29/22 Best: 16w 2d Det. By: U/S (02/13/22) YAS: 07/29/22 TARGETED ANATOMY: Central Nervous System Calvarium/Cranial V.: Normal appearance Intracranial Bruce: Normal appearance Cavum: Normal appearance Parenchyma: Normal appearance Lateral Ventricles: Normal appearance Choroid Plexus: Normal appearance Cereb./Vermis: Normal appearance Cisterna Magna: Normal appearance Corpus Callosum: Normal appearance Midline Falx: Normal appearance Spine Cervical: Normal appearance Thoracic: Normal appearance Lumbar: Normal appearance Sacral: Normal appearance Shape/Curvature: Normal appearance Head/Neck Face: Normal appearance Lips: Normal appearance Neck: Normal appearance Nuchal Fold: Suboptimal views Nasal Bone: Present Palate: Normal appearance Profile: Normal appearance Orbits/Eyes: Normal appearance Mandible: Normal appearance Maxilla: Normal appearance Thorax Thoracic Contour: Normal appearance Lungs: Normal appearance 4 Chamber View: Normal appearance Cardiac Activity: Observed Cardiac Rhythm: Normal appearance Cardiac Situs: Normal appearance Maternal Medicine Report Rt Outflow Tract: Suboptimal views Lt Outflow Tract: Suboptimal views Aortic Arch: Suboptimal views Ductal Arch: Suboptimal views SVC: Suboptimal Views Interventr. Septum: Suboptimal views Cardiac Mendon: Normal appearance Diaphragm: Normal (more content not included)... Nakita Christopher MD - 02/13/2022 Patient Name: ELSI GREENE Maternal Medicine ACCESSION EXAM DATE/TIME PROCEDURE ORDERING PROVIDER [id number] 02/13/2022 09:57 EDT [facility] US TOOTIE MELGOZA Complete w/detail Reason For Exam ([facility] US Complete w/detail) Hx of substance abuse. Anatomy. Report OBSTETRICS REPORT (Signed Final 02/13/2022 04:49 pm) PATIENT INFO: ID #: [id number] : [birth year] (21 yrs) Name: ELSI GREENE Visit Date: 02/13/2022 09:52 am PERFORMED BY: Attending: Nakita Dumas MD Performed By: Sarah Champion Referred By: TOOTIE MELGOZA MOT[employer] EMISSIONS INSPECTOR Visit Type: Outpatient SERVICE(S) PROVIDED: Level II complete (Targeted OB) 01497 US Transvaginal 26112 INDICATIONS: Anatomy/Cervical Length Dating Substance abuse Inmate VITAL SIGNS: Weight (lb): 153 Height: 5'1 BMI: 28.91 EVALUATION: Num Of Fetuses: 1 Heart Rate(bpm): 159 Cardiac Activity: Regular rhythm Lie: Longitudinal Presentation: Cephalic Placenta: Anterior P. Cord Insertion: Normal Amniotic Fluid ARLYN FV: Appropriate for gestational age Maternal Medicine Report BIOMETRY: BPD: 34.3 mm G.Age: 16w 4d 63 % OFD: 42.2 mm HC: 122.5 mm G.Age: 16w 1d 28 % AC: 106.5 mm G.Age: 16w 4d 61 % FL: 19.4 mm G.Age: 15w 5d 25 % HUM: 18.7 mm G.Age: 15w 3d 29 % CER: 15.4 mm G.Age: 16w 1d 20 % CM: 2.93 mm CI: 81.3 % 70 - 86 FL/HC: 15.8 % 13.3 - 16.5 HC/AC: 1.15 1.05 - 1.39 FL/BPD: 56.6 % FL/AC: 18.2 % 20 - 24 Est. FW: 148 gm 0 lb 5 oz GESTATIONAL AGE: LMP: 19w 3d Date: 09/30/21 YAS: 07/07/22 U/S Today: 16w 2d YAS: 07/29/22 Best: 16w 2d Det. By: U/S (02/13/22) YAS: 07/29/22 TARGETED ANATOMY: Central Nervous System Calvarium/Cranial V.: Normal appearance Intracranial Bruce: Normal appearance Cavum: Normal appearance Parenchyma: Normal appearance Lateral Ventricles: Normal appearance Choroid Plexus: Normal appearance Cereb./Vermis: Normal appearance Cisterna Magna: Normal appearance Corpus Callosum: Normal appearance Midline Falx: Normal appearance Spine Cervical: Normal appearance Thoracic: Normal appearance Lumbar: Normal appearance Sacral: Normal appearance Shape/Curvature: Normal appearance Head/Neck Face: Normal appearance Lips: Normal appearance Neck: Normal appearance Nuchal Fold: Suboptimal views Nasal Bone: Present Palate: Normal appearance Profile: Normal appearance Orbits/Eyes: Normal appearance Mandible: Normal appearance Maxilla: Normal appearance Thorax Thoracic Contour: Normal appearance Lungs: Normal appearance 4 Chamber View: Normal appearance Cardiac Activity: Observed Cardiac Rhythm: Normal appearance Cardiac Situs: Normal appearance Maternal Medicine Report Rt Outflow Tract: Suboptimal views Lt Outflow Tract: Suboptimal views Aortic Arch: Suboptimal views Ductal Arch: Suboptimal views SVC: Suboptimal Views Interventr. Septum: Suboptimal views Cardiac Mendon: Normal appearance Diaphragm: Normal appearance 3 Vessel View: Suboptimal views 3 V Trachea View: Suboptimal views IVC: Suboptimal Crossing: Suboptimal views Abdomen Ventral Wall: Normal appearance Cord Insertion: Normal appearance Situs: Normal appearance Stomach: Normal appearance Liver: Normal appearance Lt Kidney: Normal appearance Rt Kidney: Normal appearance Bladder: Normal appearance Bowel: Normal appearance Spleen: Normal appearance Extremities Lt Humerus: Normal appearance Rt Humerus: Normal appearance Lt Forearm: Normal appearance Rt Forearm: Normal appearance Lt Hand: Normal appearance Rt Hand: Normal appearance Lt Femur: Normal appearance Rt Femur: Normal appearance Lt Lower Leg: Normal appearance Rt Lower Leg: Normal appearance Lt Foot: Normal appearance Rt Foot: Normal appearance Other Umbilical Cord: Normal 3-vessel Genitalia: Female CERVIX UTERUS ADNEXA: Cervix Length: 4.31 cm. Within Normal Limits Right Ovary Size(cm) 3.53 x 3.13 x 2.9 (more content not included)... [facility] Work Phone: US OB DETAIL ANATOMY S KATY OR FIRST GESTATIONOrdered By: Nakita Dumas on 02-13-2022 [facility] Work Phone: US OB TRANSVAGINALon 022 Patient Name: ELSI GREENE Maternal Medicine ACCESSION EXAM DATE/TIME PROCEDURE ORDERING PROVIDER [id number] 02/13/2022 09:57 EDT [facility] US TOOTIE MELGOZA Complete w/detail Reason For Exam ([facility] US Complete w/detail) CL screening Report OBSTETRICS REPORT (Signed Final 02/13/2022 04:49 pm) PATIENT INFO: ID #: [id number] : [birth year] (21 yrs) Name: ELSI GREENE Visit Date: 02/13/2022 09:52 am PERFORMED BY: Attending: Nakita Dumas MD Performed By: Sarah Champion Referred By: TOOTIE MELGOZA CNP Visit Type: Outpatient SERVICE(S) PROVIDED: US Level II complete (Targeted OB) 47903 US Transvaginal 26448 INDICATIONS: Anatomy/Cervical Length Dating Substance abuse Inmate VITAL SIGNS: Weight (lb): 153 Height: 5'1 BMI: 28.91 EVALUATION: Num Of Fetuses: 1 Heart Rate(bpm): 159 Cardiac Activity: Regular rhythm Lie: Longitudinal Presentation: Cephalic Placenta: Anterior P. Cord Insertion: Normal Amniotic Fluid ARLYN FV: Appropriate for gestational age Maternal Medicine Report BIOMETRY: BPD: 34.3 mm G.Age: 16w 4d 63 % OFD: 42.2 mm HC: 122.5 mm G.Age: 16w 1d 28 % AC: 106.5 mm G.Age: 16w 4d 61 % FL: 19.4 mm G.Age: 15w 5d 25 % HUM: 18.7 mm G.Age: 15w 3d 29 % CER: 15.4 mm G.Age: 16w 1d 20 % CM: 2.93 mm CI: 81.3 % 70 - 86 FL/HC: 15.8 % 13.3 - 16.5 HC/AC: 1.15 1.05 - 1.39 FL/BPD: 56.6 % FL/AC: 18.2 % 20 - 24 Est. FW: 148 gm 0 lb 5 oz GESTATIONAL AGE: LMP: 19w 3d Date: 09/30/21 YAS: 07/07/22 U/S Today: 16w 2d YAS: 07/29/22 Best: 16w 2d Det. By: U/S (02/13/22) YAS: 07/29/22 TARGETED ANATOMY: Central Nervous System Calvarium/Cranial V.: Normal appearance Intracranial Bruce: Normal appearance Cavum: Normal appearance Parenchyma: Normal appearance Lateral Ventricles: Normal appearance Choroid Plexus: Normal appearance Cereb./Vermis: Normal appearance Cisterna Magna: Normal appearance Corpus Callosum: Normal appearance Midline Falx: Normal appearance Spine Cervical: Normal appearance Thoracic: Normal appearance Lumbar: Normal appearance Sacral: Normal appearance Shape/Curvature: Normal appearance Head/Neck Face: Normal appearance Lips: Normal appearance Neck: Normal appearance Nuchal Fold: Suboptimal views Nasal Bone: Present Palate: Normal appearance Profile: Normal appearance Orbits/Eyes: Normal appearance Mandible: Normal appearance Maxilla: Normal appearance Thorax Thoracic Contour: Normal appearance Lungs: Normal appearance 4 Chamber View: Normal appearance Cardiac Activity: Observed Cardiac Rhythm: Normal appearance Cardiac Situs: Normal appearance Maternal Medicine Report Rt Outflow Tract: Suboptimal views Lt Outflow Tract: Suboptimal views Aortic Arch: Suboptimal views Ductal Arch: Suboptimal views SVC: Suboptimal Views Interventr. Septum: Suboptimal views Cardiac Mendon: Normal appearance Diaphragm: Normal appearance 3 Ves (more content not included)... [facility] Nakita Beatty MD - 02/13/2022 Patient Name: ELSI GREENE Maternal Medicine ACCESSION EXAM DATE/TIME PROCEDURE ORDERING PROVIDER [id number] 02/13/2022 09:57 EDT [facility] US TOOTIE MELGOZA Complete w/detail Reason For Exam ([facility] US Complete w/detail) CL screening Report OBSTETRICS REPORT (Signed Final 02/13/2022 04:49 pm) PATIENT INFO: ID #: [id number] : [birth year] (21 yrs) Name: ELSI GREENE Visit Date: 02/13/2022 09:52 am PERFORMED BY: Attending: Nakita Dumas MD Performed By: Sarah Champion Referred By: TOOTIE MELGOZA CNP Visit Type: Outpatient SERVICE(S) PROVIDED: US Level II complete (Targeted OB) 48957 US Transvaginal 88881 INDICATIONS: Anatomy/Cervical Length Dating Substance abuse Inmate VITAL SIGNS: Weight (lb): 153 Height: 5'1 BMI: 28.91 EVALUATION: Num Of Fetuses: 1 Heart Rate(bpm): 159 Cardiac Activity: Regular rhythm Lie: Longitudinal Presentation: Cephalic Placenta: Anterior P. Cord Insertion: Normal Amniotic Fluid ARLYN FV: Appropriate for gestational age Maternal Medicine Report BIOMETRY: BPD: 34.3 mm G.Age: 16w 4d 63 % OFD: 42.2 mm HC: 122.5 mm G.Age: 16w 1d 28 % AC: 106.5 mm G.Age: 16w 4d 61 % FL: 19.4 mm G.Age: 15w 5d 25 % HUM: 18.7 mm G.Age: 15w 3d 29 % CER: 15.4 mm G.Age: 16w 1d 20 % CM: 2.93 mm CI: 81.3 % 70 - 86 FL/HC: 15.8 % 13.3 - 16.5 HC/AC: 1.15 1.05 - 1.39 FL/BPD: 56.6 % FL/AC: 18.2 % 20 - 24 Est. FW: 148 gm 0 lb 5 oz GESTATIONAL AGE: LMP: 19w 3d Date: 09/30/21 YAS: 07/07/22 U/S Today: 16w 2d YAS: 07/29/22 Best: 16w 2d Det. By: U/S (02/13/22) YAS: 07/29/22 TARGETED ANATOMY: Central Nervous System Calvarium/Cranial V.: Normal appearance Intracranial Bruce: Normal appearance Cavum: Normal appearance Parenchyma: Normal appearance Lateral Ventricles: Normal appearance Choroid Plexus: Normal appearance Cereb./Vermis: Normal appearance Cisterna Magna: Normal appearance Corpus Callosum: Normal appearance Midline Falx: Normal appearance Spine Cervical: Normal appearance Thoracic: Normal appearance Lumbar: Normal appearance Sacral: Normal appearance Shape/Curvature: Normal appearance Head/Neck Face: Normal appearance Lips: Normal appearance Neck: Normal appearance Nuchal Fold: Suboptimal views Nasal Bone: Present Palate: Normal appearance Profile: Normal appearance Orbits/Eyes: Normal appearance Mandible: Normal appearance Maxilla: Normal appearance Thorax Thoracic Contour: Normal appearance Lungs: Normal appearance 4 Chamber View: Normal appearance Cardiac Activity: Observed Cardiac Rhythm: Normal appearance Cardiac Situs: Normal appearance Maternal Medicine Report Rt Outflow Tract: Suboptimal views Lt Outflow Tract: Suboptimal views Aortic Arch: Suboptimal views Ductal Arch: Suboptimal views SVC: Suboptimal Views Interventr. Septum: Suboptimal views Cardiac Mendon: Normal appearance Diaphragm: Normal appearance 3 Vessel View: Suboptimal views 3 V Trachea View: Suboptimal views IVC: Suboptimal Crossing: Suboptimal views Abdomen Ventral Wall: Normal appearance Cord Insertion: Normal appearance Situs: Normal appearance Stomach: Normal appearance Liver: Normal appearance Lt Kidney: Normal appearance Rt Kidney: Normal appearance Bladder: Normal appearance Bowel: Normal appearance Spleen: Normal appearance Extremities Lt Humerus: Normal appearance Rt Humerus: Normal appearance Lt Forearm: Normal appearance Rt Forearm: Normal appearance Lt Hand: Normal appearance Rt Hand: Normal appearance Lt Femur: Normal appearance Rt Femur: Normal appearance Lt Lower Leg: Normal appearance Rt Lower Leg: Normal appearance Lt Foot: Normal appearance Rt Foot: Normal appearance Other Umbilical Cord: Normal 3-vessel Genitalia: Female CERVIX UTERUS ADNEXA: Cervix Length: 4.31 cm. Within Normal Limits Right Ovary Size(cm) 3.53 x 3.13 x 2.97 Vol(ml): 17.18 (more content not included)... [facility] Work Phone: [facility] Work Phone: Complete Urinalysison 2021 Appearance (U) Turbid Abnormal Clear [facility] Comment on above: Result Comment: . Performed By: #### C UA2, HCGUR ####[employer] [place], [place] Bacteria Moderate Abnormal Negative [facility] Comment on above: Result Comment: . Performed By: #### C UA2, HCGUR ####[employer] [place], [place] Bilirubin,Urine Negative Normal Negative [facility] Comment on above: Result Comment: . Performed By: #### C UA2, HCGUR ####[employer] [place], [place] Cast, Hyaline Negative Normal Negative [facility] Comment on above: Result Comment: . Performed By: #### C UA2, HCGUR ####[employer] [address] [place], [place] Color (U) Yellow Normal Lt. Yellow [facility] Comment on above: Result Comment: . Performed By: #### C UA2, HCGUR ####[employer] [address] [place], [place] Glucose Ql (U) Normal Normal Normal (<70) [facility] Comment on above: Result Comment: . Performed By: #### C UA2, HCGUR ####[employer] [place], [place] Ketone,Urine Negative Normal Negative [facility] Comment on above: Result Comment: . Performed By: #### C UA2, HCGUR ####[id number] [place], [place] Leukocytes,Urine 75 [place]/uL Abnormal Negative [facility] Comment on above: Result Comment: . Performed By: #### C UA2, HCGUR ####[id number] [place], [place] Mucous Threads Few Normal Negative [facility] Comment on above: Result Comment: . Performed By: #### C UA2, HCGUR ####[place] [address] [place], [place] Nitrites,Urine Positive Abnormal Negative [facility] Comment on above: Result Comment: . Performed By: #### C UA2, HCGUR ####[address] Occult Blood,Urine Negative Normal Negative [facility] Comment on above: Result Comment: . Performed By: #### C UA2, HCGUR ####[address] pH,Urine 6.5 Normal 5.0-8.0 [facility] Comment on above: Result Comment: . Performed By: #### C UA2, HCGUR ####[address] RBC, Urine 0 - 2 Normal 0-2 [facility] Comment on above: Result Comment: . Performed By: #### C UA2, HCGUR ####[address] [place], [place] Specific [place],Urine 1.014 Normal 1.005 - 1.030 [facility] Comment on above: Result Comment: . Performed By: #### C UA2, HCGUR ####[address] Squamous Epithelial 0 - 2 Normal 3-5 [facility] Comment on above: Result Comment: . Performed By: #### C UA2, HCGUR ####[address] Total Protein,Urine Negative Normal Negative [facility] Comment on above: Result Comment: . Performed By: #### C UA2, HCGUR ####[employer] [place] [address] Urobilinogen,Urine Normal Normal Normal (0-1) [facility] Comment on above: Result Comment: . Performed By: #### C UA2, HCGUR ####[employer] [place] [address] WBC, Urine 6 - 10 Abnormal 0-5 [facility] Comment on above: Result Comment: . Performed By: #### C UA2, HCGUR ####[employer] [place] [address] ED Provider Noteon ED [facility] Patient: Elsi Greene : 2000 Date of Evaluation: 12/20/2021 ED KOURTNEY Provider: JIN Lew Chief Complaint Chief Complaint Patient presents with Rash Pt arrives via triage with complaints of staph infection all over her body for 2-3 weeks but is coming in now because she has fever/chills. Pt states she is 4-6 weeks . CELI Greene is a 21 y.o. female who presents to the emergency department with concern for rash. Vital signs are normal, patient not tachycardic, or febrile. Patient states that she has been told that she has a staph infection by multiple people, states that it is on her legs, back. Patient states that it itches, and she picks at it. Patient states it is not getting any better. Patient states she thinks she may be 4 to 6 weeks . Patient denies any chest pain, shortness of breath, diarrhea, dysuria, vaginal bleeding, vaginal discharge, nausea, vomiting. ROS: Review of Systems 14 systems reviewed and otherwise acutely negative except as in the [place]. Past History Past Medical History: Diagnosis Date Acute cystitis without hematuria 06/28/2019 Anxiety Borderline personality disorder (HCC) Drug abuse (HCC) Psychiatric problem PTSD (post-traumatic stress disorder) Past Surgical History: Procedure Laterality Date ABDOMINAL SURGERY TONSILLECTOMY Social History Socioeconomic History Marital status: Single Number of children: 1 Tobacco Use Smoking status: Every Day Packs/day: 0.50 Years: 10.00 Pack years: 5.00 Types: Cigarettes Smokeless tobacco: Never Vaping Use Vaping Use: Every day Substance and Sexual Activity Alcohol use: Yes Comment: 4 days a week, what she can get Drug use: Yes Types: IV, Opiates , Methamphetamines (Crystal Meth) Comment: meth/ fentanyl/ heroin, benzos Medications/Allergies Previous Medications NAPROXEN (NAPROSYN) 500 MG TABLET Take 1 tablet by mouth 2 times daily (with meals) Allergies Allergen Reactions Fentanyl Hives Pt Physical Exam ED Triage Vitals BP Temp Temp Source Heart Rate Resp SpO2 Height Weight 12/20/21 0200 12/20/21 0245 12/20/21 0200 12/20/21 0200 12/20/21 0200 12/20/21 0200 -- -- 115/77 98 ?F (36.7 ?C) Temporal (!) 102 16 98 % Physical Exam Constitutional: Appearance: Normal appearance. HENT: Head: Normocephalic and atraumatic. Mouth/Throat: Mouth: Mucous membranes are moist. Eyes: Extraocular Movements: Extraocular movements intact. Pupils: Pupils are equal, round, and reactive to light. Cardiovascular: Rate and Rhythm: Normal rate and regular rhythm. Pulmonary: Effort: Pulmonary effort is normal. No respiratory distress. Breath sounds: No stridor. No wheezing, rhonchi or rales. Abdominal: General: There is no distension. Palpations: Abdomen is soft. There is no mass. Tenderness: no abdominal tenderness There is no guarding. Hernia: No hernia is present. Musculoskeletal: General: Normal range of motion. Skin: General: Skin is warm and dry. Capillary Refill: Capillary refill takes less than 2 seconds. Findings: Erythema and rash present. Rash is crusting. Comments: Erythematous, crusting lesions, with purulence. No focal abscess, fluctuance, no skin sloughing, necrosis. Neurological: General: No focal deficit present. Mental Status: She is alert and oriented to person, place, and time. Sensory: No sensory deficit. Motor: No weakness. SCREENINGS Diagnostics Labs: Results for orders placed or performed during the hospital encounter of 12/20/21 Urinalysis Result Value Ref Range Glucose, Ur Normal Normal (<70) mg/dL Total Protein, Urine Negative Negative mg/dL Bilirubin Urine Negative Negative mg/dL Urobilinogen, Urine Normal Normal (0-1) mg/dL pH, Urine 6.5 5.0 - 8.0 NA Specific [place], Urine 1.014 1.005 - 1.030 NA Occult Blood,Urine Negative Negative mg/dL Ketones, Urine Negative Negative mg/dL Nitrite, Urine Positive (A) Negative NA LEUKOCYTES, UA 75 (A) Negative [place]/uL Appearance Turbid (A) Clear NA Color, Urine Yellow Lt. Yellow NA RBC, UA 0-2 0 - 2 /[HPF] WBC, UA 6-10 (A) 0 - 5 /[HPF] Squam Epithel, UA 0-2 3 - 5 /[HPF] Bacteria, UA Moderate (A) Negative /[HPF] Mucous Threads Few Negative /[LPF] Hyaline Casts, UA Negative Negative /[LPF] , URINE Result Value Ref Range HCG Urine Positive Negative NA Radiographs: No results found. Procedures: ED Course and MDM In brief, Elsi Greene is a 21 y.o. female who presented to the emergency department with concerns for , lesions on her legs, back. Vital signs are normal. Patient appears to have a staph infection, or possibly impetigo. Patient is , UA show evidence of acute infection. Patient will need Keflex to cover for the gram-negative's in the urine, and clindamycin to cover for MRSA. Patient was given follow-up w (more content not included)... Normal [facility] HCG,Urine Qualon 12-20-2021 Beta HCG ( test) Ql (U) Positive Normal Negative [facility] Comment on above: Result Comment: is the most common reason for HCG in urine, although choriocarcinoma, hydatidiform mole, and certain nontropho- blastic malignancies also result in detectable urinary HCG levels. Sensitivity = 20mIU/mL. Performed By: #### C UA2, HCGUR ####[facility] [place] [address] , URINEon Beta HCG ( test) Ql (U) Positive Negative NA [facility] Comment on above: is the most common reason for HCG in urine, although choriocarcinoma, hydatidiform mole, and certain nontropho- blastic malignancies also result in detectable urinary HCG levels. Sensitivity = 20mIU/mL. Test Performed by [facility], [address] [place] [address] [facility] Urinalysison 12-20-2021 Appearance (U) Turbid Abnormal Clear NA [facility] Comment on above: . Bacteria, UA Moderate Abnormal Negative /[HPF] [facility] Comment on above: . Bilirubin Urine Negative Negative mg/dL [facility] Comment on above: . Color (U) Yellow Lt. Yellow NA [facility] Comment on above: . Glucose, Ur Normal Normal (<70) mg/dL [facility] Comment on above: . Hyaline Casts, UA Negative Negative /[LPF] [facility] Comment on above: . Interpretation and review of laboratory results Abnormal [facility] Ketones Ql (U) Negative Negative mg/dL [facility] Comment on above: . LEUKOCYTES, UA 75 Abnormal Negative Violette/uL [facility] Comment on above: . Mucous Threads Few Negative /[LPF] [facility] Comment on above: . Nitrite, Urine Positive Abnormal Negative NA [facility] Comment on above: . Occult Blood,Urine Negative Negative mg/dL [facility] Comment on above: . pH (U) 6.5 [pH] [facility] Comment on above: . RBC, UA /[HPF] 0 - 2 /[HPF] [facility] Comment on above: . Specific [place], Urine 1.014 [facility] Comment on above: . Squam Epithel, UA 0-2 3 - 5 /[HPF] [facility] Comment on above: . Total Protein, Urine Negative Negativ e mg/dL [facility] Comment on above: . Urobilinogen, Urine Normal Normal ( 0-1) mg/dL [facility] Comment on above: . WBC, UA /[HPF] Abnormal 0 - 5 /[HPF] [facility] Comment on above: . Test Performed by [facility], [address] [place] [address] [facility] Comp Metabolic Panelon 09-09 ALT [Catalytic activity/Vol] 13 U/L Normal 0-34 [facility] Comment on above: Result Comment: The ALT test is performed by an updated assay method. Please note that the reference intervals have been changed and are now sex specific. Performed By: #### E TOH4, CMP3, HEMDF ####[place] [id number] [facility] [place] [address] Calcium [Mass/Vol] 8.9 mg/dL Normal 8.4-10.4 [facility] Comment on above: Performed By: #### E TOH4, CMP3, HEMDF ####[facility] [facility] [address] Glucose [Mass/Vol] 101 mg/dL High 70-100 [facility] Comment on above: Performed By: #### E TOH4, CMP3, HEMDF ####[place] [id number] [facility] [place] [address] Urea nitrogen [Mass/Vol] 18 mg/dL Normal 9-20 [facility] Comment on above: Performed By: #### E TOH4, CMP3, HEMDF ####[place] [address] [facility] [address] ALP [Catalytic activity/Vol] 80 U/L Normal 38-126 [facility] Comment on above: Performed By: #### E TOH4, CMP3, HEMDF ####[place] [address] [facility] [place] [address] Anion gap [Moles/Vol] 6 mmol/L Normal 3-13 [facility] Comment on above: Performed By: #### E TOH4, CMP3, HEMDF ####[place] [address] [facility] [place] [address] AST [Catalytic activity/Vol] 28 U/L Normal 15-46 [facility] Comment on above: Performed By: #### E TOH4, CMP3, HEMDF ####[place] [address] [facility] [place] [address] Bilirubin [Mass/Vol] mg/dL Low 0.2-1.3 [facility] Comment on above: Performed By: #### E TOH4, CMP3, HEMDF ####[place] [address] [facility] [address] CO2 [Moles/Vol] 27 mmol/L Normal 22-30 [facility] Comment on above: Performed By: #### E TOH4, CMP3, HEMDF ####[facility] [id number] [place], [place] Creatinine [Mass/Vol] 0.90 mg/dL Normal 0.52-1.25 [facility] Comment on above: Performed By: #### E TOH4, CMP3, HEMDF ####[facility] [id number] [place], [place] eGFR OTHER > 90.0 Normal >60 [facility] Comment on above: Result Comment: KDIG O guidelines provide the following GFR categories: Stage GFR(ml/min/1.73 m2) Terms G1 >=90 Normal or high G2 60-89 Mildly decreased* G3a 45-59 Mildly to moderately decreased G3b 30-44 Moderately to severely decreased G4 15-29 Severely decreased G5 <15 Kidney failure *Relative to young adult level. In the absence of evidence of kidney damage, neither GFR category G1 nor G2 fulfill the criteria for CKD. The CKD-EPI equation is validated in individuals 18 years of age and older. Currently the best equation for estimating glomerular filtration rate (GFR) from serum creatinine in children is the Bedside Perdomo equation. It is less accurate in patients with extremes of muscle mass, restriction of dietary protein, ingestion of creatine, extra-renal metabolism of creatinine, or treatment with medications that affect renal tubular creatinine secretion. Performed By: #### E TOMERRY Gaines3, HEMDF ####[facility] [address] [id number] [place], [place] GFR/1.73 sq M.predicted among blacks MDRD (S/P/Bld) [Vol rate/Area] mL/min/{1.73_m2} Normal >60 [facility] Comment on above: Performed By: #### E TOH4, CMP3, HEMDF ####[facility] [id number] [place], [place] Protein [Mass/Vol] 6.2 g/dL Low 6.3-8.2 [facility] Comment on above: Performed By: #### E TOH4, CMP3, HEMDF ####[facility] [address] [id number] [place], [place] Potassium [Moles/Vol] 4.0 mmol/L Normal 3.5-5.1 [facility] Comment on above: Performed By: #### E TOH4, CMP3, HEMDF ####[facility] [place], [place] Sodium [Moles/Vol] 142 mmol/L Normal 135-145 [facility] Comment on above: Performed By: #### E TOH4, CMP3, HEMDF ####[facility] [place], [place] Albumin [Mass/Vol] 3.5 g/dL Normal 3.5-5.0 [facility] Comment on above: Performed By: #### E TOH4, CMP3, HEMDF ####[facility] [place], [place] Chloride [Moles/Vol] 109 mmol/L High 98-107 [facility] Comment on above: Performed By: #### E TOH4, CMP3, HEMDF ####[place] [address] [place], [place] EKG 12 Leadon 09-09-2021 [facility] Test Date: 2021-09-09 Pat Name: [facility] Department: 1AER Room: 49 Gender: F 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 : 2000 Requested By: CAMPBLEL WEN Order Number: [id number] Reading : Annabelle Brewer Measurements Intervals [place] Rate: 59 P: 50 RI: 146 QRS: 76 QRSD: 81 T: 63 QT: 431 QTc: 428 Interpretive Statements Bradycardia with irregular rate Electronically Signed On 09-09-2021 1:35:46 EDT by Annabelle Brewer [facility] Annabelle Brewer MD - 09/09/2021 [facility] Test Date: 2021-09-09 Pat Name: [facility] Department: 1AER Room: 49 Gender: F 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 Analysis performed using non-forensic procedures. Performed By: #### E TOH4, CMP3, HEMDF ####[employer] [place] [address] SARS-CoV-2 Antigenon 022 SARS-CoV-2 Antigen Negative Normal Negative [facility] Comment on above: Result Comment: A negative result does not rule out the possibility of SARS-CoV-2 infection. NAAT-based methods should be considered for symptomatic patients presenting greater than seven days after onset of symptoms. Method: Lateral flow immunoassay. Fact sheets for healthcare providers and patients can be found at the following sites: https://www.fda.gov/media/258634/download https://www.fda.gov/media/518240/download Performed By: #### D RGA4, COVAG, CUA2, HCGUR ####[employer] [place] [address] CBC with Auto Differentialon 09-08-2021 Absolute Baso # 0.1 10*3/uL 0.0 - 0.2 10*3/uL [facility] Absolute Neut # 5.2 10*3/uL 1.8 - 7.0 10*3/uL [facility] Basophils/100 WBC (Bld) 0.8 % 0.0 - 2.0 % [facility] Eosinophils (Bld) [#/Vol] 0.1 10*3/uL 0.0 - 0.5 10*3/uL [facility] Eosinophils/100 WBC (Bld) 0.7 % Low 1.0 - 6.0 % [facility] Granulocytes/100 WBC (Bld) 63.7 % 40.0 - 80.0 % [facility] Hematocrit (Bld) [Volume fraction] 36.0 % 35.0 - 47.0 % [facility] Hemoglobin.gastrointes tinal spec 1 Ql (Stl) 11.7 g/dL 11.7 - 16.0 g/dL [facility] Interpretation and review of laboratory results Abnormal [facility] Lymphocytes (Bld) [#/Vol] 2.5 10*3/uL 1.0 - 4.3 10*3/uL [facility] Lymphocytes/100 WBC (Bld) 31.0 % 20.0 - 40.0 % [facility] MCH (RBC) [Entitic mass] 28.8 pg 26.0 - 34.0 pg [facility] MCHC (RBC) [Mass/Vol] 32.6 % 32.0 - 36.0 % [facility] MCV (RBC) [Entitic vol] 88.2 fL 79.0 - 98.0 fL [facility] Monocytes (Bld) [#/Vol] 0.3 10*3/uL 0.0 - 0.8 10*3/uL [facility] Monocytes/100 WBC (Bld) 3.8 % 2.0 - 10.0 % [facility] Platelet distribution width (Bld) [Ratio] 13.8 % 11.5 - 14.5 % [facility] Platelet mean volume (Bld) [Entitic vol] 7.0 fL Low 7.4 - 12.4 fL [facility] Comment on above: MPV is a calculated measurement using platelet volume ratio. Platelets (Bld) [#/Vol] 298 10*3/uL 140 - 440 10*3/uL [facility] RBC (Bld) [#/Vol] 4.08 10*6/uL 3.80 - 5.2 0 10*6/uL [facility] WBC (Bld) [#/Vol] 8.2 10*3/uL 3.6 - 10.7 10*3/uL [facility] Test Performed by [facility], [address] [place] [address] [facility] Complete Urinalysison 2021 Appearance (U) Turbid Abnormal [facility] Comment on above: Result Comment: . Performed By: #### D RGA4, COVAG, CUA2, HCGUR ####[facility] [address] [place] [address] Bacteria Few Abnormal Negative [facility] Comment on above: Result Comment: . Performed By: #### D RGA4, COVAG, CUA2, HCGUR ####[place] [address] [place], [place] Bilirubin,Urine Negative Normal Negative [facility] Comment on above: Result Comment: . Performed By: #### D RGA4, COVAG, CUA2, HCGUR ####[address] Cast, Hyaline Negative Normal Negative [facility] Comment on above: Result Comment: . Performed By: #### D RGA4, COVAG, CUA2, HCGUR ####[address] Color (U) Yellow Normal Lt. Yellow [facility] Comment on above: Result Comment: . Performed By: #### D RGA4, COVAG, CUA2, HCGUR ####[facility] [address] Glucose Ql (U) Normal Normal Normal (<70) [facility] Comment on above: Result Comment: . Performed By: #### D RGA4, COVAG, CUA2, HCGUR ####[address] Ketone,Urine Negative Normal Negative [facility] Comment on above: Result Comment: . Performed By: #### D RGA4, COVAG, CUA2, HCGUR ####[facility] [address] Leukocytes,Urine 75 Violette/uL Abnormal Negative [facility] Comment on above: Result Comment: . Performed By: #### D RGA4, COVAG, CUA2, HCGUR ####[facility] [address] Mucous Threads Few Normal Negative [facility] Comment on above: Result Comment: . Performed By: #### D RGA4, COVAG, CUA2, HCGUR ####[address] Nitrites,Urine Positive Abnormal Negative [facility] Comment on above: Result Comment: . Performed By: #### D RGA4, COVAG, CUA2, HCGUR ####[address] Occult Blood,Urine Negative Normal Negative [facility] Comment on above: Result Comment: . Performed By: #### D RGA4, COVAG, CUA2, HCGUR ####[address] pH,Urine 6.0 Normal 5.0-8.0 [facility] Comment on above: Result Comment: . Performed By: #### D RGA4, COVAG, CUA2, HCGUR ####[address] Protein (U) [Mass/Vol] 10 mg/dL Abnormal Negative [facility] Comment on above: Result Comment: . Performed By: #### D RGA4, COVAG, CUA2, HCGUR ####[address] RBC, Urine 0 - 2 Normal 0-2 [facility] Comment on above: Result Comment: . Performed By: #### D RGA4, COVAG, CUA2, HCGUR ####[address] Specific [place],Urine 1.024 Normal 1.005 - 1.030 [facility] Comment on above: Result Comment: . Performed By: #### D RGA4, COVAG, CUA2, HCGUR ####[address] Squamous Epithelial 0 - 2 Normal 3-5 [facility] Comment on above: Result Comment: . Performed By: #### D RGA4, COVAG, CUA2, HCGUR ####[address] Urobilinogen,Urine Normal Normal Normal (0-1) [facility] Comment on above: Result Comment: . Performed By: #### D RGA4, COVAG, CUA2, HCGUR ####[facility] [address] [place] [address] WBC, Urine 3 - 5 Normal 0-5 [facility] Comment on above: Result Comment: . Performed By: #### D RGA4, COVAG, CUA2, HCGUR ####[facility] [place] [address] Comprehensive Metabolic Pane dacia 09-08-2021 Albumin [Mass/Vol] 3.5 g/dL 3.5 - 5.0 g/dL [facility] ALP (Bld) [Catalytic activity/Vol] 80 U/L 38 - 126 U/L [facility] ALT [Catalytic activity/Vol] 13 U/L 0 - 34 U/L [facility] Comment on above: The ALT test is perf ormed by an updated assay method. Please note that the reference intervals have been changed and are now sex specific. Anion gap [Moles/Vol] 6 mmol/L 3 - 13 mmol/L [facility] AST [Catalytic activity/Vol] 28 U/L 15 - 46 U/L [facility] Bilirubin [Mass/Vol] mg/dL Low 0.2 - 1 .3 mg/dL [facility] Calcium [Mass/Vol] 8.9 mg/dL 8.4 - 10. 4 mg/dL [facility] Chloride [Moles/Vol] 109 mmol/L High 98 - 10 7 mmol/L [facility] CO2 [Moles/Vol] 27 mmol/L 22 - 30 mmol/L [facility] Creatinine [Mass/Vol] 0.9 mg/dL 0.52 - 1.25 mg/dL [facility] EGFR IF NonAfrican [place] Citizen >90.0 >60 mL/min [facility] Comment on above: KDIGO guidelines pro vide the following GFR categories: Stage GFR(ml/min/1.73 m2) Terms G1 >=90 Normal or high G2 60-89 Mildly decreased* G3a 45-59 Mildly to moderately decreased G3b 30-44 Moderately to severely decreased G4 15-29 Severely decreased G5 <15 Kidney failure *Relative to young adult level. In the absence of evidence of kidney damage, neither GFR category G1 nor G2 fulfill the criteria for CKD. The CKD-EPI equation is validated in individuals 18 years of age and older. Currently the best equation for estimating glomerular filtration rate (GFR) from serum creatinine in children is the Bedside Perdomo equation. It is less accurate in patients with extremes of muscle mass, restriction of dietary protein, ingestion of creatine, extra-renal metabolism of creatinine, or treatment with medications that affect renal tubular creatinine secretion. Free PSA/Total PSA [Mass fraction] 6.2 g/dL Low 6.3 - 8.2 g/dL [facility] GFR/1.73 sq M.predicted among blacks MDRD (S/P/Bld) [Vol rate/Area] mL/min/{1.73_m2} >60 mL/min [facility] Glucose [Mass/Vol] 101 mg/dL High 70 - 100 mg/dL [facility] Interpretation and review of laboratory results Abnormal [facility] Potassium [Moles/Vol] 4.0 mmol/L 3.5 - 5.1 mmol/L [facility] Sodium [Moles/Vol] 142 mmol/L 135 - 145 mmol/L [facility] Urea nitrogen (BldV) [Mass/Vol] 18 mg/dL 9 - 20 mg/dL [facility] Drugs of Abuseon 09-08-2021 Opiates, Ur Negative Normal [facility] Comment on above: Performed By: #### D HAYES, FATEMEH, CUA2, HCGUR ####[facility] [address] [address] [place] [address] Phencyclidine (PCP), Ur Negative Normal [facility] Comment on above: Result Comment: The expected value for all of the drugs listed above is Negative. The following drugs or drug groups have been screened for by Immunoassay at the following thresholds: Amphetamine class (1000 ng/mL), Barbiturates (200 ng/mL), Benzodiazepines (200 ng/mL), Cocaine (300 ng/mL), Methadone (300 ng/mL), Opiates (300 ng/mL), Oxycodone (100 ng/mL), and PCP (25 ng/mL). NOTE: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 Phone: PCP Screen, Urine Not detected Negative < 25 ng/mL [employer] Phone: Urine Microscopicon 04-17-20 19 Bacteria LM.HPF (Urine sed) [#/Area] FEW Abnormal [facility] Epithelial cells LM Ql (Urine sed) FEW Normal [facility] RBC (U) [#/Vol] NONE Normal 0-2 [facility] WBC (U) [#/Vol] 1-3 Normal 0-5 [facility] CBCon 04-16-2019 Erythrocyte distribution width (RBC) [Ratio] 14.0 fL 11.5 - 15 fL [place] MCHC (RBC) [Mass/Vol] 31.2 % Low 32 - 34.5 % [place], [place] CBCOrdered By: Stacy linares on 04-16-2019 MCHC 31.2 % Low 32 - 34.5 % [employer] Phone: RDW 14.0 fL 11.5 - 15 fL [employer] Phone: Comprehensive Metabolic Pane lOrdered By: Stacy Henry on 04-16-2019 Albumin [Mass/Vol] 4.3 g/dL 3.5 - 5.2 g/dL [employer] Phone: ALP [Catalytic activity/Vol] 96 U/L 35 - 104 U/L [facility] Phone: ALT [Catalytic activity/Vol] 8 U/L 0 - 32 U/L [employer] Phone: Anion gap [Moles/Vol] 10 mmol/L 7 - 16 mmol/L [employer] Phone: AST [Catalytic activity/Vol] 19 U/L 0 - 31 U/L [employer] Phone: Bilirubin [Mass/Vol] mg/dL 0 - 1.2 mg/dL [facility] Phone: Calcium [Mass/Vol] 9.1 mg/dL 8.6 - 10. 2 mg/dL [employer] Phone: Chloride [Moles/Vol] 107 mmol/L 98 - 10 7 mmol/L [employer] Phone: CO2 [Moles/Vol] 28 mmol/L 22 - 29 mmol/L [facility] Phone: Creatinine [Mass/Vol] 0.9 mg/dL 0.5 - 1 mg/dL [facility] Phone: GFR >60 [employer] Work Phone: GFR Non- >60 >=60 mL/min/1.73 [facility] Phone: Comment on above: Chronic Kidney Disea se: less than 60 ml/min/1.73 sq.m. Kidney Failure: less than 15 ml/min/1.73 sq.m. Results valid for patients 18 years and older. Glucose [Mass/Vol] 97 mg/dL 74 - 99 mg/dL [facility] Phone: Potassium [Moles/Vol] 4.2 mmol/L 3.5 - 5 mmol/L [employer] Phone: Protein [Mass/Vol] 6.7 g/dL 6.4 - 8.3 g/dL [facility] Phone: Sodium [Moles/Vol] 145 mmol/L 132 - 146 mmol/L [employer] Phone: Urea nitrogen [Mass/Vol] 14 mg/dL 6 - 20 mg/dL [facility] Phone: Laboratory - Chemistry and C hemistry - challengeOrdered By: Stacy Henry on 04-16-2019 Lipase [Catalytic activity/Vol] 69 U/L High 13 - 60 U/L [facility] Phone: Lactate [Moles/Vol] 1.7 mmol/L 0.5 - 2. 2 mmol/L [employer] Phone: Laboratory - Hematology and Cell countsOrdered By: Stacy Henry on 04-16-2019 Hematocrit (Bld) [Volume fraction] 41.7 % 34 - 48 % [employer] Phone: Hemoglobin (Bld) [Mass/Vol] 13.0 g/dL 11.5 - 15.5 g/dL [employer] Phone: MCH (RBC) [Entitic mass] 29.0 pg 26 - 35 pg [employer] Phone: MCV (RBC) [Entitic vol] 93.1 fL 80 - 99.9 fL [employer] Phone: Platelet mean volume (Bld) [Entitic vol] 9.1 fL 7 - 12 fL [employer] Work Phone: Platelets (Bld) [#/Vol] 214 10*3/uL [employer] Work Phone: [phone] RBC (Bld) [#/Vol] 4.48 10*6/uL [employer] Phone: WBC (Bld) [#/Vol] 8.3 10*3/uL [employer] Work Phone: Microscopic UrinalysisOrdere d By: Stacy Henry on 04-16-2019 Epi Cells FEW /HPF [facility] Phone: RBC, UA NONE [employer] Work Phone: Microscopic Urinalysison Epithelial Cells, UA FEW /HPF [facility] [place] RBC (U) [#/Vol] NONE [place] No Panel InformationOrdered By: Stacy Henry on 04-16-2019 Bacteria, UA FEW Abnormal /HPF [employer] Phone: Interpretation and review of laboratory results Abnormal [employer] Phone: WBC, UA 1-3 [employer] Phone: Interpretation and review of laboratory results Abnormal [employer] Phone: Interpretation and review of laboratory results Abnormal [employer] Phone: UrinalysisOrdered By: Stacy Henry on 04-16-2019 Bilirubin Urine Negative Negative [facility] Work Phone: Blood, Urine Negative Negative [employer] Work Phone: Clarity, UA Clear Clear [employer] Work Phone: Color, UA Yellow Straw/Yellow [employer] Work Phone: Glucose, Ur Negative Negative mg/dL [employer] Work Phone: Interpretation and review of laboratory results Abnormal [employer] Phone: Ketones Ql (U) Negative Negative mg/dL [facility] Work Phone: Leukocyte esterase Test strip Ql (U) SMALL Abnormal Negative [facility] Work Phone: Nitrite, Urine Negative Negative [facility] Work Phone: pH, UA 6.0 [facility] Work Phone: Protein, UA Negative Negative mg/dL [facility] Work Phone: Specific [place], UA 1.015 [facility] [employer] Work Phone: Urobilinogen, Urine 0.2 <2.0 E.U./dL [facility] Work Phone: Basic Metabolic Panelon 12-2 Calcium [Mass/Vol] 10.3 mg/dL Normal 8.4-10.4 [facility] Comment on above: Performed By: #### H EMDF, BMP3, LFT3, LIPA4, LACT3, QWNT #### [facility] [address] [place] [address] Anion gap [Moles/Vol] 19 Normal [facility] Comment on above: Performed By: #### H EMDF, BMP3, LFT3, LIPA4, LACT3, QWNT #### [facility] [address] [place] [address] CO2 [Moles/Vol] 23 mmol/L Normal 22-30 [facility] Comment on above: Performed By: #### H EMDF, BMP3, LFT3, LIPA4, LACT3, QWNT #### [facility] [address] [place] [address] Creatinine [Mass/Vol] 0.92 mg/dL Normal 0.52-1.25 [facility] Comment on above: Performed By: #### H EMDF, BMP3, LFT3, LIPA4, LACT3, QWNT #### [facility] [address] [place] [address] GFR/1.73 sq M predicted among blacks MDRD (S/P/Bld) [Vol rate/Area] mL/min/{1.73_m2} Normal >60 [facility] Comment on above: Performed By: #### H EMDF, BMP3, LFT3, LIPA4, LACT3, QWNT #### [facility] [address] [place] [address] GFR/1.73 sq M predicted among non-blacks MDRD (S/P/Bld) [Vol rate/Area] mL/min/{1.73_m2} Normal >60 [facility] Comment on above: Result Comment: Sour ce- MDRD equation with creatinine calibration to IDMS(NKDEP) eGFR not recommended for drug dose adjustment Performed By: #### H EMDF, BMP3, LFT3, LIPA4, LACT3, QWNT #### [facility] [address] [place] [address] Glucose [Mass/Vol] 104 mg/dL High 70-100 [facility] Comment on above: Performed By: #### H EMDF, BMP3, LFT3, LIPA4, LACT3, QWNT #### [facility] [address] [place] [address] Urea nitrogen [Mass/Vol] 9 mg/dL Normal 7-20 [facility] Comment on above: Performed By: #### H EMDF, BMP3, LFT3, LIPA4, LACT3, QWNT #### [facility] [address] [place] [address] Potassium [Moles/Vol] 3.5 mmol/L Normal 3.5-5.1 [facility] Comment on above: Performed By: #### H EMDF, BMP3, LFT3, LIPA4, LACT3, QWNT #### [facility] [address] [place] [address] Sodium [Moles/Vol] 135 mmol/L Normal 135-145 [facility] Comment on above: Performed By: #### H EMDF, BMP3, LFT3, LIPA4, LACT3, QWNT #### [facility] [address] [place] [address] Chloride [Moles/Vol] 93 mmol/L Low 98-107 [facility] Comment on above: Performed By: #### H EMDF, BMP3, LFT3, LIPA4, LACT3, QWNT #### [facility] [address] [place] [address] Hemogram w/ Autodiffon 04-22 Abs Baso Cnt 0.1 10*3/uL Normal 0.0-0.2 [facility] Comment on above: Performed By: #### H EMDF, BMP3, LFT3, LIPA4, LACT3, QWNT #### [facility] [address] [place] [address] Abs Neutrophile Cnt 8.6 10*3/uL High 1.8-7.0 [facility] Comment on above: Performed By: #### H EMDF, BMP3, LFT3, LIPA4, LACT3, QWNT #### [address] [place] [address] Basophils/100 WBC (Bld) 0.7 % Normal 0.0-2.0 [facility] Comment on above: Performed By: #### H EMDF, BMP3, LFT3, LIPA4, LACT3, QWNT #### [facility] [address] [place] [address] Eosinophils (Bld) [#/Vol] 0.0 10*3/uL Normal 0.0-0.5 [facility] Comment on above: Performed By: #### H EMDF, BMP3, LFT3, LIPA4, LACT3, QWNT #### [facility] [address] [place] [address] Eosinophils/100 WBC (Bld) 0.1 % Low 1.0-6.0 [facility] Comment on above: Performed By: #### H EMDF, BMP3, LFT3, LIPA4, LACT3, QWNT #### [facility] [address] [place] [address] Erythrocyte distribution width (RBC) [Ratio] 14.6 % High 11.5-14.5 [facility] Comment on above: Performed By: #### H EMDF, BMP3, LFT3, LIPA4, LACT3, QWNT #### [facility] [address] [place] [address] Granulocytes/100 WBC (Bld) 77.8 % Normal 40.0-80.0 [facility] Comment on above: Performed By: #### H EMDF, BMP3, LFT3, LIPA4, LACT3, QWNT #### [facility] [address] [place] [address] Hematocrit (Bld) [Volume fraction] 47.7 % High 35.0-47.0 [facility] Comment on above: Performed By: #### H EMDF, BMP3, LFT3, LIPA4, LACT3, QWNT #### [facility] [address] [place] [address] Hemoglobin (Bld) [Mass/Vol] 15.7 g/dL Normal 11.7-16.0 [facility] Comment on above: Performed By: #### H EMDF, BMP3, LFT3, LIPA4, LACT3, QWNT #### [address] [place] [address] Lymphocytes (Bld) [#/Vol] 1.7 10*3/uL Normal 1.0-4.3 [facility] Comment on above: Performed By: #### H EMDF, BMP3, LFT3, LIPA4, LACT3, QWNT #### [address] [place] [address] Lymphocytes/100 WBC (Bld) 14.9 % Low 20.0-40.0 [facility] Comment on above: Performed By: #### H EMDF, BMP3, LFT3, LIPA4, LACT3, QWNT #### [facility] [address] [place] [address] MCH (RBC) [Entitic mass] 27.5 pg Normal 26.0-34.0 [facility] Comment on above: Performed By: #### H EMDF, BMP3, LFT3, LIPA4, LACT3, QWNT #### [facility] [address] [place] [address] MCHC (RBC) [Mass/Vol] 32.9 % Normal 32.0-36.0 [facility] Comment on above: Performed By: #### H EMDF, BMP3, LFT3, LIPA4, LACT3, QWNT #### [facility] [address] [place] [address] MCV (RBC) [Entitic vol] 83.7 fL Normal 79.0-98.0 [facility] Comment on above: Performed By: #### H EMDF, BMP3, LFT3, LIPA4, LACT3, QWNT #### [facility] [address] [place] [address] Monocytes (Bld) [#/Vol] 0.7 10*3/uL Normal 0.0-0.8 [facility] Comment on above: Performed By: #### H EMDF, BMP3, LFT3, LIPA4, LACT3, QWNT #### [facility] [address] [place] [address] Monocytes/100 WBC (Bld) 6.5 % Normal 2.0-10.0 [facility] Comment on above: Performed By: #### H EMDF, BMP3, LFT3, LIPA4, LACT3, QWNT #### [facility] [address] [place] [address] Platelet mean volume (Bld) [Entitic vol] 7.4 fL Normal 7.4-10.4 [facility] Comment on above: Performed By: #### H EMDF, BMP3, LFT3, LIPA4, LACT3, QWNT #### [facility] [address] [place] [address] Platelets (Bld) [#/Vol] 401 10*3/uL Normal 140-440 [facility] Comment on above: Performed By: #### H EMDF, BMP3, LFT3, LIPA4, LACT3, QWNT #### [facility] [address] [place] [address] RBC (Bld) [#/Vol] 5.70 10*6/uL High 3.80-5.20 [facility] Comment on above: Performed By: #### H EMDF, BMP3, LFT3, LIPA4, LACT3, QWNT #### [facility] [address] [place] [address] WBC (Bld) [#/Vol] 11.1 10*3/uL High 3.6-10.7 [facility] Comment on above: Performed By: #### H EMDF, BMP3, LFT3, LIPA4, LACT3, QWNT #### [facility] [address] [place] [address] Hepatic Functionon 8 ALT [Catalytic activity/Vol] 36 U/L Normal 13-69 [facility] Comment on above: Performed By: #### H EMDF, BMP3, LFT3, LIPA4, LACT3, QWNT #### [facility] [address] [place] [address] ALP [Catalytic activity/Vol] 93 U/L Normal 38-126 [facility] Comment on above: Performed By: #### H EMDF, BMP3, LFT3, LIPA4, LACT3, QWNT #### [facility] [address] [place] [address] AST [Catalytic activity/Vol] 41 U/L Normal 15-46 [facility] Comment on above: Performed By: #### H EMDF, BMP3, LFT3, LIPA4, LACT3, QWNT #### [facility] [address] [place] [address] Bilirubin [Mass/Vol] 0.8 mg/dL Normal 0.2-1.3 [facility] Comment on above: Performed By: #### H EMDF, BMP3, LFT3, LIPA4, LACT3, QWNT #### [facility] [address] [place] [address] Bilirubin.direct [Mass/Vol] 0.0 mg/dL Normal 0.0-0.3 [facility] Comment on above: Performed By: #### H EMDF, BMP3, LFT3, LIPA4, LACT3, QWNT #### [facility] [address] [place] [address] Protein [Mass/Vol] 8.4 g/dL High 6.3-8.2 [facility] Comment on above: Performed By: #### H EMDF, BMP3, LFT3, LIPA4, LACT3, QWNT #### [facility] [address] [place] [address] Albumin [Mass/Vol] 5.2 g/dL High 3.5-5.0 [facility] Comment on above: Performed By: #### H EMDF, BMP3, LFT3, LIPA4, LACT3, QWNT #### [facility] [address] [place] [address] Lactic Acidon 04-22-2018 Lactate [Moles/Vol] 1.7 mmol/L Normal 0.7-2.0 [facility] Comment on above: Performed By: #### H EMDF, BMP3, LFT3, LIPA4, LACT3, QWNT #### [facility] [address] [place] [address] Lipaseon 04-22-2018 Lipase [Catalytic activity/Vol] 80 U/L Normal 23-300 [facility] Comment on above: Performed By: #### H EMDF, BMP3, LFT3, LIPA4, LACT3, QWNT #### [facility] [address] [place] [address] Urinalysis,Macroon 8 Appearance (U) CLEAR Normal Clear [facility] Comment on above: Performed By: #### H EMDF, CMP3, QWAL #### [facility] [address] [place] [address] Bilirubin,Ur 2 + Normal Negative [facility] Comment on above: Performed By: #### H EMDF, CMP3, QWAL #### [facility] [address] [place] [address] Color (U) YELLOW Normal Lt. Yellow [facility] Comment on above: Performed By: #### H EMDF, CMP3, QWAL #### [facility] [address] [place] [address] Glucose Ql (U) Negative Normal Negative [facility] Comment on above: Performed By: #### H EMDF, CMP3, QWAL #### [facility] [address] [place] [address] Ketone,Urine 2 + mg/dL Normal Negative [facility] Comment on above: Performed By: #### H EMDF, CMP3, QWAL #### [facility] [address] [place] [address] Nitrite Ql (U) Negative Normal Negative [facility] Comment on above: Performed By: #### H EMDF, CMP3, QWAL #### [facility] [address] [place] [address] Occult Blood,Ur Negative Normal Negative [facility] Comment on above: Performed By: #### H EMDF, CMP3, QWAL #### [facility] [address] [place] [address] pH (U) 5.5 Normal 5.0-8.0 [facility] Comment on above: Performed By: #### H EMDF, CMP3, QWAL #### [facility] [address] [place] [address] Protein (U) [Mass/Vol] TRACE Normal Negative [facility] [facility] Comment on above: Performed By: #### H EMDF, CMP3, QWAL #### [facility] [address] [place] [address] Specific [place],Urine >= 1.030 Criticall y abnormal 1.005-1.030 [facility] Comment on above: Performed By: #### H EMDF, CMP3, QWAL #### [facility] [address] [place] [address] Urobilinogen Qn (U) 1.0 mg/dL Normal 0-1 [facility] Comment on above: Performed By: #### H EMDF, CMP3, QWAL #### [facility] [address] [place] [address] WBC (Bld) [#/Vol] TRACE Normal Negative [facility] Comment on above: Performed By: #### H MERRY ROBERT3, QWAL #### [facility] [address] [place] [address] Urinalysis,Microscopicon Bacteria LM.HPF (Urine sed) [#/Area] Few (1-5) Normal Negative [facility] Comment on above: Performed By: #### H MERRY ROBERT3, QWAL #### [facility] [address] [place] [address] Epithelial cells LM.HPF (Urine sed) [#/Area] 6 - 10 Normal 3-5 [facility] Comment on above: Performed By: #### H MERRY ROBERT3, QWAL #### [facility] [address] [place] [address] Mucous Threads Few Normal Negative [facility] Comment on above: Performed By: #### H MERRY ROBERT3, QWAL #### [facility] [address] [place] [address] RBC LM.HPF (Urine sed) [#/Area] 3 - 5 Normal 0-2 [facility] Comment on above: Performed By: #### H MERRY ROBERT3, QWAL #### [facility] [address] [place] [address] Volume,Urine 12 ml Normal [facility] Comment on above: Performed By: #### H MERRY ROBERT3, QWAL #### [facility] [address] [place] [address] WBC LM.HPF (Urine sed) [#/Area] 6 - 10 Normal 0-5 [facility] Comment on above: Performed By: #### H MERRY ROBERT3, QWAL #### [facility] [address] [place] [address] hCG Quantitativeon 8 hCG Quantitative 90692 m[IU]/mL Abnormal < 3 [facility] Comment on above: Performed By: #### H JAKOB CMP3, QWAL #### [facility] [address] [place] [address] Comp Metabolic Panelon 03-21 Calcium [Mass/Vol] 10.0 mg/dL Normal 8.4-10.4 [facility] Comment on above: Performed By: #### H MERRY ROBERT3, QWAL #### [facility] [address] [place] [address] ALP [Catalytic activity/Vol] 84 U/L Normal 38-126 [facility] Comment on above: Performed By: #### H MERRY ROBERT3, QWAL #### [facility] [address] [place] [address] ALT [Catalytic activity/Vol] 26 U/L Normal 13-69 [facility] Comment on above: Performed By: #### H MERRY ROBERT3, QWAL #### [facility] [address] [place] [address] Anion gap [Moles/Vol] 11 Normal [facility] Comment on above: Performed By: #### H MERRY ROBERT3, QWAL #### [facility] [address] [place] [address] AST [Catalytic activity/Vol] 31 U/L Normal 15-46 [facility] Comment on above: Performed By: #### H MERRY ROBERT3, QWAL #### [facility] [address] [place] [address] Bilirubin [Mass/Vol] 0.4 mg/dL Normal 0.2-1.3 [facility] Comment on above: Performed By: #### H MERRY ROBERT3, QWAL #### [facility] [address] [place] [address] CO2 [Moles/Vol] 29 mmol/L Normal 22-30 [facility] Comment on above: Performed By: #### H MERRY ROBERT3, QWAL #### [facility] [address] [place] [address] Creatinine [Mass/Vol] 1.06 mg/dL Normal 0.52-1.25 [facility] Comment on above: Performed By: #### H MERRY ROBERT3, QWAL #### [facility] [address] [place] [address] GFR/1.73 sq M predicted among blacks MDRD (S/P/Bld) [Vol rate/Area] mL/min/{1.73_m2} Normal >60 [facility] Comment on above: Performed By: #### H MERRY ROBERT3, QWAL #### [facility] [address] [place] [address] GFR/1.73 sq M predicted among non-blacks MDRD (S/P/Bld) [Vol rate/Area] mL/min/{1.73_m2} Normal >60 [facility] Comment on above: Result Comment: Sour ce- MDRD equation with creatinine calibration to IDMS(NKDEP) eGFR not recommended for drug dose adjustment Performed By: #### H MERRY ROBERT3, QWAL #### [facility] [address] [place] [address] Glucose [Mass/Vol] 104 mg/dL High 70-100 [facility] Comment on above: Performed By: #### H MERRY ROBERT3, QWAL #### [facility] [address] [place] [address] Protein [Mass/Vol] 7.9 g/dL Normal 6.3-8.2 [facility] Comment on above: Performed By: #### H MERRY ROBERT3, QWAL #### [facility] [address] [place] [address] Urea nitrogen [Mass/Vol] 14 mg/dL Normal 7-20 [facility] Comment on above: Performed By: #### H JAKOB CMP3, QWAL #### [facility] [address] [place] [address] Potassium [Moles/Vol] 4.0 mmol/L Normal 3.5-5.1 [facility] Comment on above: Performed By: #### H JAKOB CMP3, QWAL #### [facility] [address] [place] [address] Albumin [Mass/Vol] 4.8 g/dL Normal 3.5-5.0 [facility] Comment on above: Performed By: #### H EMDF CMP3, QWAL #### [facility] [address] [place] [address] Chloride [Moles/Vol] 101 mmol/L Normal 98-107 [facility] Comment on above: Performed By: #### H EMDF, CMP3, QWAL #### [facility] [address] [place] [address] Sodium [Moles/Vol] 140 mmol/L Normal 137-145 [facility] Comment on above: Performed By: #### H EMDF, CMP3, QWAL #### [facility] [address] [place] [address] Hemogram w/ Autodiffon 03-21 Abs Baso Cnt 0.0 10*3/uL Normal 0.0-0.2 [facility] Comment on above: Performed By: #### H EMDF CMP3, QWAL #### [facility] [address] [place] [address] Abs Neutrophile Cnt 5.3 10*3/uL Normal 1.8-7.0 [facility] Comment on above: Performed By: #### H JAKOB CMP3, QWAL #### [facility] [address] [place] [address] Basophils/100 WBC (Bld) 0.6 % Normal 0.0-2.0 [facility] Comment on above: Performed By: #### H EMDF CMP3, QWAL #### [facility] [address] [place] [address] Eosinophils (Bld) [#/Vol] 0.0 10*3/uL Normal 0.0-0.5 [facility] Comment on above: Performed By: #### H EMDF CMP3, QWAL #### [facility] [address] [place] [address] Eosinophils/100 WBC (Bld) 0.5 % Low 1.0-6.0 [facility] Comment on above: Performed By: #### H EMDF CMP3, QWAL #### [facility] [address] [place] [address] Erythrocyte distribution width (RBC) [Ratio] 14.6 % High 11.5-14.5 [facility] Comment on above: Performed By: #### H EMDF, CMP3, QWAL #### [facility] [address] [place] [address] Granulocytes/100 WBC (Bld) 71.6 % Normal 40.0-80.0 [facility] Comment on above: Performed By: #### H EMDF, CMP3, QWAL #### [facility] [address] [place] [address] Hematocrit (Bld) [Volume fraction] 44.0 % Normal 35.0-47.0 [facility] Comment on above: Performed By: #### H EMDF, CMP3, QWAL #### [facility] [address] [place] [address] Hemoglobin (Bld) [Mass/Vol] 14.8 g/dL Normal 11.7-16.0 [facility] Comment on above: Performed By: #### H EMDF, CMP3, QWAL #### [facility] [address] [place] [address] Lymphocytes (Bld) [#/Vol] 1.7 10*3/uL Normal 1.0-4.3 [facility] Comment on above: Performed By: #### H EMDF, CMP3, QWAL #### [facility] [address] [place] [address] Lymphocytes/100 WBC (Bld) 22.7 % Normal 20.0-40.0 [facility] Comment on above: Performed By: #### H EMDF, CMP3, QWAL #### [facility] [address] [place] [address] MCH (RBC) [Entitic mass] 28.2 pg Normal 26.0-34.0 [facility] Comment on above: Performed By: #### H EMDF, CMP3, QWAL #### [facility] [address] [place] [address] MCHC (RBC) [Mass/Vol] 33.6 % Normal 32.0-36.0 [facility] Comment on above: Performed By: #### H EMDF, CMP3, QWAL #### [facility] [address] [place] [address] MCV (RBC) [Entitic vol] 83.9 fL Normal 79.0-98.0 [facility] Comment on above: Performed By: #### H EMDF, CMP3, QWAL #### [facility] [address] [address] Monocytes (Bld) [#/Vol] 0.3 10*3/uL Normal 0.0-0.8 [facility] Comment on above: Performed By: #### H EMDF, CMP3, QWAL #### [facility] [address] [place] [address] Monocytes/100 WBC (Bld) 4.6 % Normal 2.0-10.0 [facility] Comment on above: Performed By: #### H EMDF, CMP3, QWAL #### [facility] [address] [place] [address] Platelet mean volume (Bld) [Entitic vol] 6.5 fL Low 7.4-10.4 [facility] Comment on above: Performed By: #### H EMDF, CMP3, QWAL #### [facility] [address] [place] [address] Platelets (Bld) [#/Vol] 349 10*3/uL Normal 140-440 [facility] Comment on above: Performed By: #### H EMDF, CMP3, QWAL #### [facility] [address] [address] RBC (Bld) [#/Vol] 5.24 10*6/uL High 3.80-5.20 [facility] Comment on above: Performed By: #### H EMDF, CMP3, QWAL #### [facility] [address] [place] [address] WBC (Bld) [#/Vol] 7.5 10*3/uL Normal 3.6-10.7 [facility] Comment on above: Performed By: #### H EMDF, CMP3, QWAL #### [facility] [address] [place] [address] Urinalysis,Macroon 8 Appearance (U) CLEAR Normal [facility] Comment on above: Performed By: #### U AMAC, UAMIC #### [facility] [address] [place] [address] Bilirubin,Ur 1 + Normal Negative [facility] Comment on above: Performed By: #### U AMAC, UAMIC #### [facility] [address] [place] [address] Color (U) YELLOW Normal Lt. Yellow [facility] Comment on above: Performed By: #### U AMAC, UAMIC #### [facility] [address] [place] [address] Glucose Ql (U) Negative Normal Negative [facility] Comment on above: Performed By: #### U AMAC, UAMIC #### [facility] [address] [place] [address] Ketone,Urine 3 + mg/dL Normal Negative [facility] Comment on above: Performed By: #### U AMAC, UAMIC #### [facility] [address] [place] [address] Nitrite Ql (U) Negative Normal Negative [facility] Comment on above: Performed By: #### U AMAC, UAMIC #### [facility] [address] [place] [address] Occult Blood,Ur Negative Normal Negative [facility] Comment on above: Performed By: #### U AMAC, UAMIC #### [facility] [address] [place] [address] pH (U) 6.5 Normal 5.0-8.0 [facility] Comment on above: Performed By: #### U AMAC, UAMIC #### [facility] [address] [place] [address] Protein (U) [Mass/Vol] TRACE Normal Negative [facility] Comment on above: Performed By: #### U AMAC, UAMIC #### [facility] [address] [place] [address] Specific [place],Urine 1.020 Normal 1.005-1.030 [facility] Comment on above: Performed By: #### U AMAC, UAMIC #### [facility] [address] [place] [address] Urobilinogen Qn (U) 1.0 mg/dL Normal 0-1 [facility] Comment on above: Performed By: #### U AMAC, UAMIC #### [facility] [address] [place] [address] WBC (Bld) [#/Vol] TRACE Normal Negative [facility] Comment on above: Performed By: #### U AMAC, UAMIC #### [facility] [address] [place] [address] Urinalysis,Microscopicon Bacteria LM.HPF (Urine sed) [#/Area] Moderate (6-50) Normal Negative [facility] Comment on above: Performed By: #### U AMAC, UAMIC #### [facility] [address] [place] [address] Epithelial cells LM.HPF (Urine sed) [#/Area] 3 - 5 Normal 3-5 [facility] Comment on above: Performed By: #### U AMAC, UAMIC #### [facility] [address] [place] [address] Mucous Threads Few Normal Negative [facility] Comment on above: Performed By: #### U AMAC, UAMIC #### [facility] [address] [place] [address] RBC LM.HPF (Urine sed) [#/Area] Negative Normal 0-2 [facility] Comment on above: Performed By: #### U AMAC, UAMIC #### [facility] [address] [place] [address] Volume,Urine 12 ml Normal [facility] Comment on above: Performed By: #### U AMAC, UAMIC #### [facility] [address] [place] [address] WBC LM.HPF (Urine sed) [#/Area] 3 - 5 Normal 0-5 [facility] Comment on above: Performed By: #### U AMAC, UAMIC #### [facility] [address] [place] [address] hCG Qual Pregon 03-21-2018 hCG Qual Preg Negative Normal [facility] Comment on above: Result Comment: REF RANGE: Negative .... < 3 Questionable Rpt 48-72 Hr Positive ..... > 10 Performed By: #### H EMDF, CMP3, QWAL #### [facility] [address] [place] [address] ED PROV NOTEon 06-02-2017 ED PROV NOTE HNO ID: [id number]: Catherine Pedroza) LenkimberlyService: (none)Author Type: Physician AssistantType: ED Provider NotesFiled: 06/01/2017 10:14 PMNote Text:ED Provider NotePatient Name: Elsi Perez RamonaMRN: [id number] DATE: 06/01/17HistoryPatient presents with:Ear ProblemHPI Comments: 16 year old female, with a history of anxiety, presents withbleeding and drainage from right ear lobe. She is stretching her earlobe with gauges, and yesterday she tore a small area of ear lobe and nowhas bleeding and drainage to ear today. tetanus is UTDHistory provided by: Patient and significant otherPAST MEDICAL HISTORYDiagnosis Date- Anxiety disorder- DepressionPAST SURGICAL HISTORYProcedure Laterality Date- PAST SURGICAL HISTORY OF age 4 some type of abdominal surgery, has transverse scar- TONSILLECTOMY HXSocial HistorySocial History Main Topics- Smoking status: Current Every Day Smoker Packs/day: 0.50 Types: Cigarettes Last attempt to quit: 06/19/2016- Smokeless tobacco: Never Used Comment: 0.5 pack per day or less- Alcohol use No- Drug use: Yes Special: Marijuana- Sexual activity: Yes Partners: MaleALLERGIESAllergen Reactions- Fentanyl HivesReview of SystemsConstitutional: Negative for chills and fever.HENT: Positive for ear pain.Skin: Positive for wound.Physical ExamBP 138/82 Pulse 101 Temp (Src) 98.9 (Oral) Resp 16 Wt 150 lb(68.0kg) SpO2 96% LMP 05/21/2017Physical ExamConstitutional: She appears well-developed and well-nourished. Nodistress.HENT:Head: Normocephalic and atraumatic.Bleeding and drainage to right ear lobe. There is a small area of abrasionhowever nothing to suture.Cardiovascular: Normal rate and normal heart sounds.Pulmonary/Chest: Effort normal and breath sounds normal.Skin:See ENTNursing note and vitals reviewed.Diagnostic TestingProceduresMedical Decision Making / ED Lmoeql36:12 PM patient presents with bleeding and Drainage from right ear lobesince yesterday she's been using gauges to try and stretch her ear lobe.She now has a small abrasion, bleeding and drainage. Afebrile. I willtreat with Bactroban cream and Keflex. She will follow with internalmedicine in 2-3 days for a wound recheck. Her tetanus is up-to-date. Sheis discharged home in no acute distressED CourseEncounter Diagnosis ICD-10-CM1. Ear abrasion, right, initial encounter S00.411APlanThe Patient was DISCHARGED: Counseled patient and significant otherregarding suspected diagnosis AND need for follow-up. Discharged home withverbal and written instructions. They were instructed to return as neededfor persistent or worsening symptoms or any new concerns.Condition at time of disposition: stableSIGNATURE: JIN Montiel-Octaviano Cross (Diego Chu06/01/17 2214 Normal [facility] ED NOTEon 06-01-2017 ED NOTE HNO ID: [id number]: Bailey (Rn) KRISTINE Velazquezervice: NursingAuthor Type: Registered NurseType: ED NotesFiled: 06/01/2017 9:57 PMNote Text:Patient states she stretches her ear lobes and was stretching right earlobe yesterday and tore it. States today she noticed some white drainageand bleeding. Right ear lobe reddened, swollen and bleeding Normal [facility] Vital Signs Date Time Vital Sign Value Performing Clinician Facility 11-10-2024 11:03-0400 Body temperature 97.8 [degF] Dr. Abdifatah Mattson MD Work Phone: [phone] [place] [address] 11-10-2024 11:03-0400 Diastolic blood pressure 76 mm[Hg] Dr. Abdifatah Mattson MD Work Phone: 1(894)[phone] [place] [address] 11-10-2024 11:03-0400 Heart rate 84 /min Dr. Abdifatah Mattson MD Work Phone: [phone])[phone] [place] [address] 11-10-2024 11:03-0400 Respiratory rate 16 /min Dr. Abdifatah Mattson MD Work Phone: 9(313)[phone] [place] [address] 11-10-2024 11:03-0400 SaO2% (BldA) [Mass fraction] 100 % Dr. Abdifatah Mattson MD Work Phone: 5(483)118-009932 [place] [address] 11-10-2024 11:03-0400 Systolic blood pressure 124 mm[Hg] Dr. Abdifatah Mattson MD Work Phone: 6(241)610-208332 [place] [address] 11-10-2024 10:11-0400 Body height 157.[address] Abdifatah Mattson MD Work Phone: 2(234)[phone] [place] [address] 11-10-2024 10:11-0400 Body mass index (BMI) [Ratio] 45.6 kg/m2 Dr. Abdifatah Mattson MD Work Phone: [phone])157-527730 [place] [address] 11-10-2024 10:11-0400 Body weight 113.[address] Abdifatah Mattson MD Work Phone: 7(805)894-853230 [place] [address] 07-03-2024 14:38-0500 Body temperature 96.8 [degF] [facility] 07-03-2024 14:38-0500 Diastolic blood pressure 92 mm[Hg] [facility] 07-03-2024 14:38-0500 Heart rate 99 /min [facility] 07-03-2024 14:38-0500 Respiratory rate 16 /min [facility] 07-03-2024 14:38-0500 SaO2% (BldA) [Mass fraction] 97 % [facility] 07-03-2024 14:38-0500 Systolic blood pressure 131 mm[Hg] [facility] 07-03-2024 14:32-0500 Body height 157.5 cm [facility] 07-03-2024 14:32-0500 Body mass index (BMI) [Ratio] 40.24 kg/m2 [facility] 07-03-2024 14:32-0500 Body weight 99.79 kg [facility] 03-15-2024 13:39-0500 Body mass index (BMI) [Ratio] 39.69 kg/m2 Luiz Velez [employer]ING M[employer]INE [employer]TER [employer] INS[employer] Work Phone: [facility] 03-15-2024 13:39-0500 Body temperature 98.8 [degF] Luiz Velez [employer]ITCHING MACHINE SETTER - [employer] INSPECT[employer] Work Phone: [facility] 03-15-2024 13:39-0500 Body weight 98.43 kg Luiz Velez STITCHING MACHINE SETTER - [employer] INSPECTOR Work Phone: [facility] 03-15-2024 13:39-0500 Diastolic blood pressure 83 mm[Hg] Luiz Velez STITCHING MACHINE SETTER - [employer] INSPECTOR Work Phone: [facility] 03-15-2024 13:39-0500 Heart rate 64 /min Luiz Velez STITCHING MACHINE SETTER - [employer] INSPECTOR Work Phone: [facility] 03-15-2024 13:39-0500 Systolic blood pressure 120 mm[Hg] Luiz Velez ST[employer]ING MACHINE SETTER - [employer] INSPECTOR Work Phone: [facility] 02-24-2024 08:25-0400 Body temperature 98.4 [degF] Jeannie Harringtonak DO Work Phone: [facility] 02-24-2024 08:25-0400 Diastolic blood pressure 89 mm[Hg] Jeannie Lauri DO Work Phone: [facility] 02-24-2024 08:25-0400 Heart rate 97 /min Jeannie Lauri DO Work Phone: [facility] 02-24-2024 08:25-0400 Respiratory rate 20 /min Jeannie Lauri DO Work Phone: [facility] 02-24-2024 08:25-0400 SaO2% (BldA) [Mass fraction] 96 % Jeannie Lauri DO Work Phone: [employer] 02-24-2024 08:25-0400 Systolic blood pressure 129 mm[Hg] Jeannie Carreon DO Work Phone: [employer] 02-22-2024 12:46-0400 Body height 157.5 cm Jeannie Carreon DO Work Phone: [employer] 02-22-2024 12:46-0400 Body mass index (BMI) [Ratio] 36.58 kg/m2 Jeannie Carreon DO Work Phone: [employer] 02-22-2024 12:46-0400 Body weight 90.72 kg Jeannie Carreon DO Work Phone: [employer] 02-21-2024 19:31-0400 Body height 157.5 cm Vilma Tamirisa DO Work Phone: [employer] 02-21-2024 19:31-0400 Body mass index (BMI) [Ratio] 36.58 kg/m2 Vilma Tamirisa DO Work Phone: [employer] 02-21-2024 19:31-0400 Body temperature 97.9 [degF] Vilma Tamirisa DO Work Phone: [employer] 02-21-2024 19:31-0400 Body weight 90.72 kg Vilma Tamirisa DO Work Phone: [employer] 02-21-2024 19:31-0400 Diastolic blood pressure 77 mm[Hg] Vilma Tamirisa DO Work Phone: [employer] 02-21-2024 19:31-0400 Heart rate 123 /min Vilma Tamirisa DO Work Phone: [employer] 02-21-2024 19:31-0400 Respiratory rate 16 /min Vilma Tamirisa DO Work Phone: [facility] 02-21-2024 19:31-0400 SaO2% (BldA) [Mass fraction] 98 % Vilma Tamirisa DO Work Phone: [employer] 02-21-2024 19:31-0400 Systolic blood pressure 115 mm[Hg] Vilma Tamirisa DO Work Phone: [employer] [facility] 02-17-2024 13:40-0400 Body mass index (BMI) [Ratio] 42.98 kg/m2 Luiz Velez STITCHING MACHINE SETTER - [employer] INSPECTOR Work Phone: [employer] [facility] 02-17-2024 13:40-0400 Body weight 106.59 kg Luiz Velez STITCHING MACHINE SETTER - [employer] INSPECTOR Work Phone: [employer] [facility] 02-17-2024 13:40-0400 Diastolic blood pressure 86 mm[Hg] Luiz Velez STITCHING MACHINE SETTER - [employer] INSPECTOR Work Phone: [employer] [facility] 02-17-2024 13:40-0400 Heart rate 108 /min Luiz Velez STITCHING MACHINE SETTER - [employer] INSPECTOR Work Phone: [employer] [facility] 02-17-2024 13:40-0400 Systolic blood pressure 123 mm[Hg] Luiz Velez STITCHING MACHINE SETTER - [employer] INSPECTOR Work Phone: [employer] [facility] 02-15-2024 23:48-0400 Body temperature 98.01 [degF] Anisha Barber MD Work Phone: [employer] [facility] 02-15-2024 23:48-0400 Diastolic blood pressure 76 mm[Hg] Anisha Barber MD Work Phone: [employer] [facility] 02-15-2024 23:48-0400 Heart rate 109 /min Anisha Barber MD Work Phone: [employer] [facility] 02-15-2024 23:48-0400 Respiratory rate 15 /min Anisha Barber MD Work Phone: [employer] 02-15-2024 23:48-0400 SaO2% (BldA) [Mass fraction] 99 % Anisha Barber MD Work Phone: [employer] 02-15-2024 23:48-0400 Systolic blood pressure 118 mm[Hg] Anisha Barber MD Work Phone: [employer] 02-09-2024 19:10-0400 Heart rate 109 /min Vilma Tamirisa DO Work Phone: [employer] 02-09-2024 18:35-0400 Body temperature 98.1 [degF] Vilma Tamirisa DO Work Phone: [facility] [employer] 02-09-2024 18:35-0400 Diastolic blood pressure 73 mm[Hg] Vilma Tamirisa DO Work Phone: [facility] [employer] 02-09-2024 18:35-0400 Respiratory rate 18 /min Vilma Tamirisa DO Work Phone: [facility] [employer] 02-09-2024 18:35-0400 Systolic blood pressure 120 mm[Hg] Vilma Tamirisa DO Work Phone: [facility] [employer] 12-31-2023 08:52-0400 Body mass index (BMI) [Ratio] 40.97 kg/m2 Luiz Bird STITCHING MACHINE SETTER - MOTOR VEHICLE EMISSIONS INSPECTOR Work Phone: [facility] [employer] 12-31-2023 08:52-0400 Body weight 101.61 kg Luiz Bird STITCHING MACHINE SETTER - MOTOR VEHICLE EMISSIONS INSPECTOR Work Phone: [employer] 12-31-2023 08:52-0400 Diastolic blood pressure 84 mm[Hg] Luiz Bird STITCHING MACHINE SETTER - MOTOR VEHICLE EMISSIONS INSPECTOR Work Phone: [facility] [employer] 12-31-2023 08:52-0400 Heart rate 90 /min Luiz Bird STITCHING MACHINE SETTER - MOTOR VEHICLE EMISSIONS INSPECTOR Work Phone: [facility] [employer] 12-31-2023 08:52-0400 Systolic blood pressure 127 mm[Hg] Luiz Bird STITCHING MACHINE SETTER - MOTOR VEHICLE EMISSIONS INSPECTOR Work Phone: [employer] 12-20-2023 02:40-0400 Heart rate 97 /min Vilma Tamirisa DO Work Phone: [facility] [employer] 12-20-2023 01:33-0400 Body temperature 97.81 [degF] Vilma Tamirisa DO Work Phone: [facility] [employer] 12-20-2023 01:33-0400 Respiratory rate 17 /min Vilma Tamirisa DO Work Phone: [employer] 12-20-2023 01:33-0400 SaO2% (BldA) [Mass fraction] 98 % Vilma Ramossa DO Work Phone: [employer] 12-20-2023 01:32-0400 Body height 157.5 cm Vilma Ramossa DO Work Phone: [employer] 12-20-2023 01:32-0400 Body mass index (BMI) [Ratio] 41.15 kg/m2 Vilma Rapp DO Work Phone: [employer] 12-20-2023 01:32-0400 Body weight 102.06 kg Vilma Rapp DO Work Phone: [employer] 12-20-2023 01:32-0400 Diastolic blood pressure 87 mm[Hg] Vilma Rapp DO Work Phone: [employer] 12-20-2023 01:32-0400 Systolic blood pressure 123 mm[Hg] Vilma Rapp DO Work Phone: [employer] 04-16-2023 15:04-0500 Body height 157.5 cm Jose Casas MD Work Phone: [employer] 04-16-2023 15:04-0500 Body mass index (BMI) [Ratio] 34.75 kg/m2 Jose Casas MD Work Phone: [employer] 04-16-2023 15:04-0500 Body temperature 98.29 [degF] Jose Casas MD Work Phone: [employer] 04-16-2023 15:04-0500 Body weight 86.18 kg Jose Casas MD Work Phone: [employer] 04-16-2023 15:04-0500 Diastolic blood pressure 77 mm[Hg] Jose Casas MD Work Phone: [employer] 04-16-2023 15:04-0500 Heart rate 71 /min Jose Casas MD Work Phone: [employer] 04-16-2023 15:04-0500 Respiratory rate 16 /min Jose Casas MD Work Phone: [employer] 04-16-2023 15:04-0500 SaO2% (BldA) [Mass fraction] 98 % Jose Casas MD Work Phone: [facility] [employer] 04-16-2023 15:04-0500 Systolic blood pressure 111 mm[Hg] [facility] MD [facility] 03-22-2023 15:49-0500 Body temperature 98.1 [degF] [employer] 03-22-2023 15:49-0500 Diastolic blood pressure 74 mm[Hg] [facility]-22-[facility]23 15:49-0500 Heart rate 58 /min [facility] 03-22-2023 15:49-0500 Respiratory rate 16 /min [facility] 03-22-2023 15:49-0500 SaO2% (BldA) [Mass fraction] 99 % [facility] 03-22-2023 15:49-0500 Systolic blood pressure 105 mm[Hg] [facility] 02-21-2023 13:08-0400 Body height 157.5 cm Luiz Velez STITCHING MACHINE SETTER - MOTOR VEHICLE EMISSIONS INSPECTOR Work Phone: [employer] 02-21-2023 13:08-0400 Body mass index (BMI) [Ratio] 36.95 kg/m2 Luiz Velez STITCHING MACHINE SETTER - MOTOR VEHICLE EMISSIONS INSPECTOR Work Phone: [employer] 02-21-2023 13:08-0400 Body temperature 98.2 [degF] Luiz Bird STITCHING MACHINE SETTER - MOTOR VEHICLE EMISSIONS INSPECTOR Work Phone: [employer] 02-21-2023 13:08-0400 Body weight 91.63 kg Luiz Bird STITCHING MACHINE SETTER - MOTOR VEHICLE EMISSIONS INSPECTOR Work Phone: [employer] 02-21-2023 13:08-0400 Diastolic blood pressure 76 mm[Hg] Luiz Bird STITCHING MACHINE SETTER - MOTOR VEHICLE EMISSIONS INSPECTOR Work Phone: [employer] 02-21-2023 13:08-0400 Heart rate 86 /min Luiz Velez STITCHING MACHINE SETTER - MOTOR VEHICLE EMISSIONS INSPECTOR Work Phone: [facility] [employer] 02-21-2023 13:08-0400 Systolic blood pressure 128 mm[Hg] Luiz Velez STITCHING MACHINE SETTER - MOTOR VEHICLE EMISSIONS INSPECTOR Work Phone: [facility] [employer] 08-26-2022 15:24-0400 Diastolic blood pressure 60 mm[Hg] GRISELDA Garcia MD Work Phone: [facility] [employer] 08-26-2022 15:24-0400 Heart rate 55 /min GRISELDA Garcia MD Work Phone: [facility] [employer] 08-26-2022 15:24-0400 Respiratory rate 16 /min GRISELDA Garcia MD Work Phone: [facility] [employer] 08-26-2022 15:24-0400 SaO2% (BldA) [Mass fraction] 100 % GRISELDA Garcia MD Work Phone: [facility] [employer] 08-26-2022 15:24-0400 Systolic blood pressure 103 mm[Hg] GRISELDA Garcia MD Work Phone: [facility] [employer] 08-26-2022 11:52-0400 Body temperature 99.61 [degF] GRISELDA Garcia MD Work Phone: [facility] [employer] 07-25-2022 23:11-0400 Body temperature 98.4 [degF] Flavio Tolliver III, MD Work Phone: [facility] [employer] 07-25-2022 23:11-0400 Diastolic blood pressure 79 mm[Hg] Flavio Tolliver III, MD Work Phone: [facility] [employer] 07-25-2022 23:11-0400 Heart rate 76 /min Flavio Tolliver III, MD Work Phone: [facility] [employer] 07-25-2022 23:11-0400 Respiratory rate 16 /min Flavio Tolliver III, MD Work Phone: [facility] [employer] 07-25-2022 23:11-0400 SaO2% (BldA) [Mass fraction] 98 % Flavio Tolliver III, MD Work Phone: [facility] [employer] 07-25-2022 23:11-0400 Systolic blood pressure 124 mm[Hg] Flavio Tolliver III, MD Work Phone: [employer] 07-22-2022 09:04-0400 Body height 157.5 cm Flavio Tolliver III, MD Work Phone: [employer] 07-22-2022 09:04-0400 Body mass index (BMI) [Ratio] 36.58 kg/m2 Flavio Tolliver III, MD Work Phone: [employer] 07-22-2022 09:04-0400 Body weight 90.72 kg Flavio Tolliver III, MD Work Phone: [employer] 07-18-2022 14:03-0400 Body mass index (BMI) [Ratio] 36.8 kg/m2 Gillian De Los Santos DO Work Phone: [employer] 07-18-2022 14:03-0400 Body weight 91.26 kg Gillian De Los Santos DO Work Phone: [employer] 07-18-2022 14:03-0400 Diastolic blood pressure 73 mm[Hg] Gillian De Los Santos DO Work Phone: [employer] 07-18-2022 14:03-0400 Heart rate 89 /min Gillian De Los Santos DO Work Phone: [employer] 07-18-2022 14:03-0400 Systolic blood pressure 107 mm[Hg] Gillian De Los Santos DO Work Phone: [employer] 07-14-2022 23:50-0400 Heart rate 95 /min Lucy Moreno MD Work Phone: [employer] 07-14-2022 23:49-0400 Body temperature 98.2 [degF] Lucy Moreno MD Work Phone: [employer] 07-14-2022 23:49-0400 Diastolic blood pressure 77 mm[Hg] Lucy Moreno MD Work Phone: [employer] 07-14-2022 23:49-0400 Respiratory rate 16 /min Lucy Moreno MD Work Phone: [facility] [employer] 07-14-2022 23:49-0400 SaO2% (BldA) [Mass fraction] 97 % Lucy Moreno MD Work Phone: [facility] [employer] 07-14-2022 23:49-0400 Systolic blood pressure 109 mm[Hg] Lucy Moreno MD Work Phone: [facility] [employer] 07-04-2022 17:05-0500 Heart rate 108 /min Flavio Tolliver III, MD Work Phone: [facility] [employer] 07-04-2022 15:45-0500 SaO2% (BldA) [Mass fraction] 99 % Flavio Tolliver III, MD Work Phone: [facility] [employer] 07-04-2022 15:44-0500 Diastolic blood pressure 87 mm[Hg] Flavio Tolliver III, MD Work Phone: [facility] [employer] 07-04-2022 15:44-0500 Systolic blood pressure 119 mm[Hg] Flavio Tolliver III, MD Work Phone: [facility] [employer] 07-03-2022 17:00-0500 Heart rate 99 /min [facility] 07-03-2022 16:04-0500 Body height 157.5 cm [facility] 07-03-2022 16:04-0500 Body mass index (BMI) [Ratio] 35.3 kg/m2 [facility] 07-03-2022 16:04-0500 Body temperature 97.9 [degF] [facility] 07-03-2022 16:04-0500 Body weight 87.54 kg [facility] 07-03-2022 16:04-0500 Diastolic blood pressure 83 mm[Hg] [facility] 07-03-2022 16:04-0500 Respiratory rate 20 /min [facility] 07-03-2022 16:04-0500 Systolic blood pressure 119 mm[Hg] [facility] 06-19-2022 20:54-0500 Body height 157.5 cm Lucy Moreno MD Work Phone: [facility] [employer] 06-19-2022 20:54-0500 Body mass index (BMI) [Ratio] 35.3 kg/m2 Lucy Moreno MD Work Phone: [facility] [employer] 06-19-2022 20:54-0500 Body temperature 98.29 [degF] Lucy Moreno MD Work Phone: [facility] [employer] 06-19-2022 20:54-0500 Body weight 87.54 kg Lucy Moreno MD Work Phone: [facility] [employer] 06-19-2022 20:54-0500 Diastolic blood pressure 74 mm[Hg] Lucy Moreno MD Work Phone: [facility] [employer] 06-19-2022 20:54-0500 Heart rate 108 /min Lucy Moreno MD Work Phone: [facility] [employer] 06-19-2022 20:54-0500 Respiratory rate 18 /min Lucy Moreno MD Work Phone: [facility] [employer] 06-19-2022 20:54-0500 SaO2% (BldA) [Mass fraction] 98 % Lucy Moreno MD Work Phone: [facility] [employer] 06-19-2022 20:54-0500 Systolic blood pressure 122 mm[Hg] Lucy Moreno MD Work Phone: [facility] [employer] 05-23-2022 13:39-0500 Body mass index (BMI) [Ratio] 35.86 kg/m2 Luiz Velez STITCHING MACHINE SETTER - MOTOR VEHICLE EMISSIONS INSPECTOR Work Phone: [employer] 05-23-2022 13:39-0500 Body weight 86.09 kg Luiz Velez STITCHING MACHINE SETTER - MOTOR VEHICLE EMISSIONS INSPECTOR Work Phone: [employer] 05-23-2022 13:39-0500 Diastolic blood pressure 73 mm[Hg] Luiz Velez STITCHING MACHINE SETTER - MOTOR VEHICLE EMISSIONS INSPECTOR Work Phone: [employer] 05-23-2022 13:39-0500 Systolic blood pressure 114 mm[Hg] Luiz Velez STITCHING MACHINE SETTER - MOTOR VEHICLE EMISSIONS INSPECTOR Work Phone: [facility] 12-20-2021 04:27-0400 Body temperature 98.2 [degF] [facility] 12-20-2021 04:27-0400 Diastolic blood pressure 70 mm[Hg] [facility] 12-20-2021 04:27-0400 Heart rate 90 /min [facility] 12-20-2021 04:27-0400 Respiratory rate 16 /min [facility] 12-20-2021 04:27-0400 SaO2% (BldA) [Mass fraction] 99 % [facility] 12-20-2021 04:27-0400 Systolic blood pressure 118 mm[Hg] [facility] 09-09-2021 09:15-0400 Body temperature 98.6 [degF] Annabelle Brewer MD Work Phone: [facility] 09-09-2021 09:15-0400 Diastolic blood pressure 58 mm[Hg] Annabelle Brewer MD Work Phone: [facility] 09-09-2021 09:15-0400 Heart rate 64 /min Annabelle Brewer MD Work Phone: [facility] 09-09-2021 09:15-0400 Respiratory rate 12 /min Annabelle Brewer MD Work Phone: [facility] 09-09-2021 09:15-0400 SaO2% (BldA) [Mass fraction] 99 % Annabelle Brewer MD Work Phone: [facility] 09-09-2021 09:15-0400 Systolic blood pressure 93 mm[Hg] Annabelle Brewer MD Work Phone: [facility] 07-21-2021 22:48-0400 Body temperature 99.81 [degF] Abraham Nesheim DO Work Phone: [facility] 07-21-2021 22:48-0400 Diastolic blood pressure 62 mm[Hg] Abraham Nesheim DO Work Phone: [facility] 07-21-2021 22:48-0400 Heart rate 70 /min Abraham Nesheim DO Work Phone: [facility] 07-21-2021 22:48-0400 Respiratory rate 16 /min Abraham Nesheim DO Work Phone: [facility] 07-21-2021 22:48-0400 SaO2% (BldA) [Mass fraction] 98 % Abraham Nesheim DO Work Phone: [facility] 07-21-2021 22:48-0400 Systolic blood pressure 107 mm[Hg] Abraham Nesheim DO Work Phone: [facility] 07-21-2021 18:20-0400 Body height 154.9 cm Abraham Nesheim DO Work Phone: [facility] 07-21-2021 18:20-0400 Body mass index (BMI) [Ratio] 27.4 kg/m2 Abraham Nesheim DO Work Phone: [facility] 07-21-2021 18:20-0400 Body weight 65.77 kg Abraham Nesheim DO Work Phone: [facility] 07-12-2021 02:36-0400 Body temperature 98.49 [degF] Herman Cabrera MD Work Phone: [facility] 07-12-2021 02:36-0400 Diastolic blood pressure 91 mm[Hg] Herman Cabrera MD Work Phone: [facility] 07-12-2021 02:36-0400 Heart rate 116 /min Herman Cabrera MD Work Phone: [facility] 07-12-2021 02:36-0400 Respiratory rate 18 /min Herman Cabrera MD Work Phone: [facility] 07-12-2021 02:36-0400 SaO2% (BldA) [Mass fraction] 100 % Herman Cabrera MD Work Phone: [facility] 07-12-2021 02:36-0400 Systolic blood pressure 133 mm[Hg] Herman Cabrera MD Work Phone: [facility] 09-14-2019 23:06-0400 Body Temperature 98.01 [degF] Ni Good [facility] [place] 09-14-2019 23:06-0400 BP Diastolic 87 mm[Hg] [facility] [place] [facility] [place] 09-14-2019 23:06-0400 BP Systolic 118 mm[Hg] [facility] [place] 09-14-2019 23:06-0400 Pulse (Heart Rate) 95 /min [facility] [place] 09-14-2019 23:06-0400 Pulse Oximetry 100 % Ni [facility] [place] 09-14-2019 23:06-0400 Respiratory Rate 18 /min [facility] [place] 08-08-2019 06:15-0400 BP Diastolic 88 mm[Hg] [facility] [place] [facility] [place] 08-08-2019 06:15-0400 BP Systolic 120 mm[Hg] [facility] [place] [facility] [place] 08-08-2019 06:15-0400 Pulse (Heart Rate) 89 /min Koby Pal [facility] [place], [place] 08-08-2019 06:15-0400 Pulse Oximetry 98 % [facility] [place] 08-08-2019 06:15-0400 Respiratory Rate 16 /min [facility] [place] 08-08-2019 03:14-0400 BMI (Body Mass Index) 27.46 kg/m2 [facility] [place] 08-08-2019 03:14-0400 Body Temperature 98.01 [degF] [facility] [place] 08-08-2019 03:14-0400 Body weight 70.31 kg [facility] [place] 08-08-2019 03:14-0400 Height 160 cm [facility] [place] 06-29-2019 14:13-0500 BP Diastolic 69 mm[Hg] [facility] [place] [facility] [place] 06-29-2019 14:13-0500 BP Systolic 107 mm[Hg] [facility] [place] 06-29-2019 14:13-0500 Pulse (Heart Rate) 75 /min [facility] [place] 06-29-2019 14:13-0500 Pulse Oximetry 95 % [facility] [place] 06-29-2019 11:36-0500 Body Temperature 97.7 [degF] [employer], [place] 06-29-2019 11:36-0500 Respiratory Rate 16 /min [employer], [place] 06-28-2019 12:18-0500 Height [facility].[address] [place] 06-26-2019 12:16-0500 BMI (Body Mass Index) 27.4 kg/m2 [facility] [place] [place] 06-26-2019 12:16-0500 Body weight 65.[address] [facility] [place] [facility] [place] 04-28-2019 16:50-0500 Diastolic blood pressure 82 mm[Hg] [employer] Phone: 04-28-2019 16:50-0500 Heart rate 81 /min [employer] Phone: 04-28-2019 16:50-0500 Respiratory rate 14 /min [employer] Phone: 04-28-2019 16:50-0500 SaO2% (BldA) [Mass fraction] 99 % [employer] Phone: 04-28-2019 16:50-0500 Systolic blood pressure 119 mm[Hg] [employer] Phone: 04-28-2019 16:31-0500 Body mass index (BMI) [Ratio] 29.29 kg/m2 [employer] Phone: 04-28-2019 16:31-0500 Body temperature 97.2 [degF] [employer] Phone: 04-28-2019 16:31-0500 Body weight 70.31 kg [employer] Phone: 04-20-2019 17:02-0500 Body height 154.9 cm David DillNexeon Phone: [employer] Phone: 04-20-2019 17:02-0500 Body mass index (BMI) [Ratio] 29.29 kg/m2 David Deminos Phone: [employer] Phone: 04-20-2019 17:02-0500 Body temperature 98.29 [degF] David WatsonDrillsteri [employer] Work Phone: [employer] Phone: 04-20-2019 17:02-0500 Body weight 70.31 kg [employer] Work Phone: [employer] Phone: 04-20-2019 17:02-0500 Diastolic blood pressure 76 mm[Hg] [employer] Work Phone: [employer] Phone: 04-20-2019 17:02-0500 Heart rate 86 /min [employer] Work Phone: [employer] Phone: 04-20-2019 17:02-0500 Respiratory rate 16 /min [employer] Work Phone: [employer] Phone: 04-20-2019 17:02-0500 SaO2% (BldA) [Mass fraction] 98 % [facility] Work Phone: [employer] Phone: 04-20-2019 17:02-0500 Systolic blood pressure 119 mm[Hg] David WatsonDrillster[employer] Work Phone: [employer] Phone: 04-17-2019 00:05-0500 Body temperature 98.1 [degF] Stacy Henry MD Work Phone: [employer] Phone: 04-17-2019 00:05-0500 Diastolic blood pressure 83 mm[Hg] Stacy Henry MD Work Phone: [employer] Phone: 04-17-2019 00:05-0500 Heart rate 97 /min Stacy Henry MD Work Phone: [employer] Work Phone: 04-17-2019 00:05-0500 Respiratory rate 17 /min Stacy Henry MD Work Phone: [employer] Work Phone: 04-17-2019 00:05-0500 SaO2% (BldA) [Mass fraction] 99 % Stacy Henry MD Work Phone: [employer] Work Phone: 04-17-2019 00:05-0500 Systolic blood pressure 127 mm[Hg] Stacy Henry MD Work Phone: [employer] Work Phone: 04-16-2019 21:46-0500 Body height 154.9 cm Stacy Henry MD Work Phone: [employer] Work Phone: 04-16-2019 21:46-0500 Body mass index (BMI) [Ratio] 29.29 kg/m2 Stacy Henry MD Work Phone: [employer] Work Phone: 04-16-2019 21:46-0500 Body weight 70.31 kg Stacy Henry MD Work Phone: [employer] Work Phone: Encounters Encounter Date Encounter Type Care Provider Facility Start: 11-10-2024 End: 11-10-2024 Emergency department patient visit Dr. Abdifatah Mattson MD Work Phone: -Emergency Department Work Phone: Start: 07-23-2024 End: 07-23-2024 Emergency department patient visit JHONY REYES III Facility:[facility] Start: 07-03-2024 End: 07-03-2024 Emergency department patient visit [facility] EM[facility]Y [facility] Comment on above: Candidal intertrigo (Primary Dx) Start: 03-15-2024 End: 03-15-2024 Patient encounter procedure Luiz Velez APRN - MOTOR VEHICLE EMISSIONS INSPECTOR Work Phone: [facility] Comment on above: exam (Destiny danitza Dx); Encounter for surveillance of Nexplanon subdermal contraceptive; Chronic hepatitis C without hepatic coma (CMS/HCC) (HCC) Start: 03-15-2024 End: 03-15-2024 ambulatory LUIZ VELEZ 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 Start: 02-21-2024 End: 02-21-2024 Subsequent hospital visit by physician Vilma Rapp DO Work Phone: [facility] OB Triage H2 Start: 02-18-2024 End: 03-26-2024 Telephone encounter Luiz Velez APRN - MOTOR VEHICLE EMISSIONS INSPECTOR Work Phone: [facility] Comment on above: Scheduled Induction (Pt calling to schedule induction / OV notes state Desires 39wk induction) Start: 02-17-2024 End: 05-19-2024 Telephone encounter Luiz Velez APRN - MOTOR VEHICLE EMISSIONS INSPECTOR Work Phone: [facility] Start: 02-17-2024 End: 02-17-2024 Office outpatient visit 15 minutes Luiz Velez APRN - MOTOR VEHICLE EMISSIONS INSPECTOR Work Phone: [facility] Comment on above: care, subse quent in third trimester (Primary Dx); screening for streptococcus B; 38 weeks gestation of ; Flu vaccine need; Need for Tdap vaccination Start: 02-17-2024 End: 02-17-2024 ambulatory LUIZ VELEZ [facility] Start: 02-17-2024 End: 02-17-2024 ambulatory LUIZ ROSIE [facility] Start: 02-17-2024 End: 02-17-2024 Subsequent hospital visit by physician Luiz Velez STITCHING MACHINE SETTER - MOTOR VEHICLE EMISSIONS INSPECTOR Work Phone: [facility] Comment on above: Obesity affecting pr egnancy, antepartum, unspecified obesity type Start: 02-15-2024 End: 02-16-2024 ambulatory ANISHA BARBER [facility] Start: 02-15-2024 End: 02-16-2024 Subsequent hospital visit by physician Anisha Barber MD Work Phone: [facility] OB Triage H2 Start: 02-09-2024 End: 02-09-2024 ambulatory VILMA [facility] Start: 02-09-2024 End: 02-09-2024 Subsequent hospital visit by physician [facility] Work Phone: [facility] OB Triage H2 Start: 01-06-2024 End: 01-06-2024 Orders Only Luiz Velez STITCHING MACHINE SETTER - MOTOR VEHICLE EMISSIONS INSPECTOR Work Phone: [facility] Comment on above: Supervision of high risk in third trimester (Primary Dx) Obesity affecting pr egnancy, antepartum, unspecified obesity type Start: 01-06-2024 End: 01-06-2024 ambulatory LUIZ ROSIE [facility] Start: 12-31-2023 End: 12-31-2023 Office outpatient visit 15 minutes Luiz Velez STITCHING MACHINE SETTER - MOTOR VEHICLE EMISSIONS INSPECTOR Work Phone: [facility] Comment on above: Pelvic pain affectin g in third trimester, antepartum (Primary Dx); Obesity affecting , antepartum, unspecified obesity type; care, subsequent in third trimester; 31 weeks gestation of ; Need for Tdap vaccination Start: 12-31-2023 End: 12-31-2023 ambulatory LUIZ VELEZ [facility] Start: 12-20-2023 End: 12-22-2023 ambulatory Rosa Kellogg RN [facility] Clinical Communication Start: 12-20-2023 End: 12-22-2023 Patient encounter procedure Rosa Kellogg RN [facility] Clinical Communication Start: 12-20-2023 End: 12-20-2023 ambulatory [facility] Start: 12-20-2023 End: 12-20-2023 Subsequent hospital visit by physician Vilma Rapp DO Work Phone: [facility] OB Triage H2 Start: 09-30-2023 End: 09-30-[address] [facility] Start: 09-10-2023 End: 09-10-2023 Orders Only Luiz Velez STITCHING MACHINE SETTER - MOTOR VEHICLE EMISSIONS INSPECTOR Work Phone: [facility] Comment on above: care, subse quent in second trimester (Primary Dx) care, subse quent in second trimester Start: 09-09-2023 End: 09-09-2023 Office outpatient visit 15 minutes Luiz Velez STITCHING MACHINE SETTER - MOTOR VEHICLE EMISSIONS INSPECTOR Work Phone: [facility] Comment on above: care, subse quent in second trimester (Primary Dx); 15 weeks gestation of Start: 09-09-2023 End: 09-09-2023 ambulatory [facility] Start: 04-16-2023 End: 04-16-2023 Emergency department patient visit Jose Casas MD Work Phone: [facility] EMERGENCY DEPT Comment on above: Bilateral lower abdo nusrat cramping (Primary Dx) Start: 03-22-2023 End: 03-22-2023 Emergency department patient visit [facility] EMERGENCY DEPT Comment on above: Vaginal bleeding in (Primary Dx) Start: 03-17-2023 End: 03-17-2023 Subsequent hospital visit by physician Yohan Watson MD Work Phone: [facility] [address] [facility] Comment on above: at early s tage Start: 03-12-2023 Telephone encounter Joy Rios [facility] Comment on above: Appointment Request Start: 03-07-2023 Telephone encounter Luiz Velez STITCHING MACHINE SETTER - MOTOR VEHICLE EMISSIONS INSPECTOR Work Phone: [facility] Comment on above: Appointment Request Start: 03-07-2023 End: 03-07-2023 Subsequent hospital visit by physician Luiz Velez APRN - MOTOR VEHICLE EMISSIONS INSPECTOR Work Phone: [facility] Comment on above: Amenorrhea Start: 02-21-2023 End: 02-21-2023 Office outpatient visit 15 minutes Luiz Velez APRN - MOTOR VEHICLE EMISSIONS INSPECTOR [facility] [facility] Comment on above: Amenorrhea (Primary Dx); Vaginal discharge; History of drug abuse ([facility]) ([facility]) Start: 08-26-2022 End: 08-26-2022 Emergency department patient visit Ana Garcia MD Work Phone: [facility] EMERGENCY DEPT Comment on above: Vomiting without herb sea, unspecified vomiting type (Primary Dx); Constipation, unspecified constipation type Start: 07-26-2022 End: 07-26-2022 Evaluation and management of inpatient Flavio Tolliver MD Work Phone: [facility] H4 Start: 07-22-2022 End: 07-25-2022 Evaluation and management of inpatient Flavio Tolliver MD Work Phone: [facility] H4 Start: 07-18-2022 End: 07-18-2022 Office outpatient visit 15 minutes Gillian De Los Santos DO Work Phone: [facility] Comment on above: Substance use disord er (Primary Dx); care, subsequent in third trimester; Substance abuse affecting in third trimester, antepartum Start: 07-18-2022 End: 07-18-2022 Subsequent hospital visit by physician Luiz Velez APRN - MOTOR VEHICLE EMISSIONS INSPECTOR Work Phone: [facility] Comment on above: Drug abuse during pr egnancy ([facility]) ([facility]) Start: 07-14-2022 End: 07-15-2022 Evaluation and management of inpatient Lucy Moreno MD Work Phone: [facility] H2 OB TRIAGE Start: 07-14-2022 ambulatory Arsenio Montero RN [facility] Clinical Communication Start: 07-14-2022 Patient encounter procedure Arsenio Montero RN [facility] Clinical Communication Start: 07-11-2022 End: 07-11-2022 Subsequent hospital visit by physician Luiz Velez APRN - MOTOR VEHICLE EMISSIONS INSPECTOR Work Phone: [facility] Comment on above: Drug abuse during pr egnancy (CMS/HCC) (HCC) Start: 07-04-2022 End: 07-04-2022 Evaluation and management of inpatient Flavio Tolliver MD Work Phone: [facility] H2 OB TRIAGE Start: 07-04-2022 End: 07-04-2022 Subsequent hospital visit by physician Luzi Velez APRN - MOTOR VEHICLE EMISSIONS INSPECTOR Work Phone: [facility] Comment on above: Drug abuse during pr egnancy (CMS/HCC) ([facility]) Start: 07-03-2022 End: 07-03-2022 Subsequent hospital visit by physician Briana Barnes DO [facility] H2 OB TRIAGE Start: 06-30-2022 Telephone encounter Luiz Velez STITCHING MACHINE SETTER - MOTOR VEHICLE EMISSIONS INSPECTOR Work Phone: [facility] Comment on above: Appointment Confirma tion Start: 06-19-2022 End: 06-19-2022 Subsequent hospital visit by physician Lucy Moreno MD Work Phone: [facility] H2 OB TRIAGE Start: 06-06-2022 End: 06-06-2022 Subsequent hospital visit by physician Luiz Velez APRN - MOTOR VEHICLE EMISSIONS INSPECTOR Work Phone: [facility] Comment on above: Substance use disord er (Primary Dx); Drug abuse during (CMS/HCC) (HCC) Drug abuse during pr egnancy (CMS/HCC) (HCC) Substance use disord er (Primary Dx); Encounter for follow-up ultrasound of anatomy Start: 05-23-2022 Telephone encounter Luiz Velez APRN - MOTOR VEHICLE EMISSIONS INSPECTOR Work Phone: [facility] Comment on above: Ultrasound Start: 05-23-2022 End: 05-23-2022 Office outpatient visit 15 minutes Luiz Velez STITCHING MACHINE SETTER - MOTOR VEHICLE EMISSIONS INSPECTOR Work Phone: [facility] Comment on above: Drug abuse during pr egnancy (CMS/HCC) (HCC) (Primary Dx); complicated by tobacco use in third trimester; care, subsequent in third trimester; 30 weeks gestation of Start: 05-01-2022 Telephone encounter Luiz Cross Rosie STITCHING MACHINE SETTER - MOTOR VEHICLE EMISSIONS INSPECTOR Work Phone: [facility] Start: 04-23-2022 ambulatory Latoya Carrillo RN [facility] Clinical Communication Start: 04-23-2022 Patient encounter procedure Latoya Carirllo RN [facility] Clinical Communication Start: 02-13-2022 End: 02-13-2022 Subsequent hospital visit by physician Tootie Melgoza STITCHING MACHINE SETTER - MOTOR VEHICLE EMISSIONS INSPECTOR Work Phone: [facility] Comment on above: Arrived Amenorrhea, unspecif ied (Primary Dx); Encounter for test, result positive Start: 02-13-2022 ambulatory UNKNOWN PROVIDER [facility] Start: 02-06-2022 ambulatory UNKNOWN PROVIDER [facility] Start: 12-20-2021 End: 12-20-2021 Emergency department patient visit UNKNOWN PROVIDER [facility] Start: 12-20-2021 End: 12-20-2021 Emergency department patient visit [facility] Emergency Dept Comment on above: Cellulitis, unspecif ied cellulitis site (Primary Dx); Less than 8 weeks gestation of Start: 09-27-2021 End: 09-27-2021 Emergency department patient visit UNKNOWN PROVIDER [facility] Start: 09-08-2021 End: 09-09-2021 Emergency department patient visit ANNABELLE BREWER [facility] Start: 09-08-2021 End: 09-09-2021 Emergency department patient visit Annabelle Brewer MD Work Phone: [facility] Emergency Dept Comment on above: Paranoid (HCC) (Prim umm Dx); Delusional disorder (HCC) Start: 08-19-2021 End: 08-19-2021 Emergency department patient visit UNKNOWN PROVIDER [facility] Start: 07-21-2021 End: 07-22-2021 Emergency department patient visit UNKNOWN PROVIDER [facility] Start: 07-21-2021 End: 07-22-2021 Emergency department patient visit Abraham Anguiano DO Work Phone: [facility] Emergency Dept Comment on above: Methamphetamine abus e (HCC) (Primary Dx); Delusion (HCC) Start: 07-12-2021 End: 07-12-2021 Emergency department patient visit UNKNOWN PROVIDER [facility] Start: 07-12-2021 End: 07-12-2021 Emergency department patient visit Herman Cabrera MD Work Phone: [facility] Emergency Dept Comment on above: Acute cystitis with hematuria (Primary Dx); STI (sexually transmitted infection) Start: 05-02-2021 End: 05-02-2021 Emergency department patient visit Tommy Gagedarrell [facility] Start: 04-23-2021 End: 04-23-2021 Emergency department patient visit UNKNOWN PROVIDER [facility] Start: 01-21-2021 End: 01-21-2021 Emergency department patient visit UNKNOWN PROVIDER Facility:[facility] Start: 06-27-2020 End: 07-26-2020 ambulatory UNKNOWN PROVIDER Facility:[facility] Start: 09-14-2019 End: 09-14-2019 Emergency department patient visit Ni Good Work Phone: [facility] Comment on above: Opiate overdose, acc idental or unintentional, initial encounter (HCC) (Primary Dx) Start: 08-08-2019 End: 08-08-2019 Emergency department patient visit Koby Estrada Work Phone: [facility] Emergency Dept Comment on above: Polysubstance abuse (HCC) (Primary Dx) Start: 06-26-[address] [facility] Start: 04-28-2019 End: 04-28-2019 Emergency department patient visit SRI PÉREZ [facility] Start: 04-28-2019 End: 04-28-2019 Emergency department patient visit [facility] Comment on above: Constipation, unspec ified constipation type (Primary Dx) Start: 04-28-[address] [facility] [place] Start: 04-20-2019 End: 04-20-2019 Emergency department patient visit DAVID MARLOW [facility] Start: 04-20-2019 End: 04-20-2019 Emergency department patient visit David Marlow Work Phone: [facility] Emergency Department Comment on above: Constipation, unspec ified constipation type (Primary Dx) Start: 04-20-2019 Patient encounter procedure [place] Start: 04-16-2019 End: 04-17-2019 Emergency department patient visit SRI PÉREZ [facility] Start: 04-16-2019 End: 04-17-2019 Emergency department patient visit Stacy Henry Work Phone: [facility] Comment on above: Flank pain (Primary Dx); Abdominal pain, unspecified abdominal location; Anxiety state; Urinary tract infection symptoms Start: 04-16-2019 Patient encounter procedure [place] Start: 06-01-2017 End: 06-02-2017 Emergency department patient visit [facility] Procedures Date Procedure Procedure Detail Performing Clinician Start: 03-15-2024 care Care BUZZ VELEZ Start: 02-24-2024 Glucose quantitative blood xcpt reagent strip Jeannie Carreon DO Work Phone: Start: 02-22-2024 Antibody screen ANISHA BARBER Comment on above: Order Comment: Speci men is valid for 3 days - nurse to verify valid specimen. Performed By: #### L [id number] ####Center Consultant: CHASE GUTIERRES ([id number])[facility] ([address] Start: 02-22-2024 Blood count complete automated Salvador Harrell DO Work Phone: Start: 02-22-2024 Blood typing serologic abo Salvador Harrell DO Work Phone: Start: 02-22-2024 MEDICATION ASSISTED TREATMENT PANEL Salvador Harrell DO Work Phone: Start: 02-17-2024 Us preg uterus real time f/u trnsabdl per fetus Luiz Velez STITCHING MACHINE SETTER - MOTOR VEHICLE EMISSIONS INSPECTOR Work Phone: Start: 01-06-2024 Us preg uterus w/det ail bruce 1st gestation Luiz Velez STITCHING MACHINE SETTER - MOTOR VEHICLE EMISSIONS INSPECTOR Work Phone: Start: 12-31-2023 MEDICATION ASSISTED TREATMENT PANEL Luiz Velez STITCHING MACHINE SETTER - MOTOR VEHICLE EMISSIONS INSPECTOR Work Phone: Start: 12-20-2023 Urinalysis complete panel - Urine Koby Santiago MD Work Phone: Start: 12-20-2023 Urnls dip stick/tabl et reagent auto microscopy Koby Santiago MD Work Phone: Start: 09-10-2023 Us preg uterus after 1st trimest 04/28 gestation Luiz Velez STITCHING MACHINE SETTER - MOTOR VEHICLE EMISSIONS INSPECTOR Work Phone: Start: 09-09-2023 Antibody screen ANISHA BARBER Comment on above: Performed By: #### L [id number], [id number] ####Center Consultant: CHASE GUTIERRES ([id number])[facility] ([address] Start: 09-09-2023 Antibody screen rbc each serum technique Luiz Velez STITCHING MACHINE SETTER - MOTOR VEHICLE EMISSIONS INSPECTOR Work Phone: Start: 09-09-2023 Hemoglobin glycosylated a1c Luiz Velez STITCHING MACHINE SETTER - MOTOR VEHICLE EMISSIONS INSPECTOR Work Phone: Start: 09-09-2023 Iaad ia hepatitis b surface antigen Luiz Velez STITCHING MACHINE SETTER - MOTOR VEHICLE EMISSIONS INSPECTOR Work Phone: Start: 09-09-2023 MEDICATION ASSISTED TREATMENT PANEL Luiz Velez STITCHING MACHINE SETTER - MOTOR VEHICLE EMISSIONS INSPECTOR Work Phone: Start: 04-16-2023 Gonadotropin chorion ic quantitative Jose Casas MD Work Phone: Start: 04-16-2023 Urinalysis complete panel - Urine Willow ABDI Work Phone: Start: 04-16-2023 Urnls dip stick/tabl et rgnt auto w/o microscopy Willow ABDI Work Phone: Start: 04-16-2023 SARS-COV-2, FLU A/B, AND RSV COMBO Willow ABDI Work Phone: Start: 04-16-2023 Us transvaginal Jose Casas MD Work Phone: Start: 03-07-2023 Us nuchal cruz slucency 1st gestation Luiz Tay Bird STITCHING MACHINE SETTER - MOTOR VEHICLE EMISSIONS INSPECTOR Work Phone: Start: 02-21-2023 Iadna chlamydia trac homatis amplified probe tq Luiz E Bird STITCHING MACHINE SETTER - MOTOR VEHICLE EMISSIONS INSPECTOR Work Phone: Start: 02-21-2023 Urine test visual color cmprsn meths Luiz E Bird STITCHING MACHINE SETTER - MOTOR VEHICLE EMISSIONS INSPECTOR Work Phone: Start: 08-26-2022 Ct abdomen & pelvis w/contrast material J Lela Garcia MD Work Phone: Start: 08-26-2022 Comprehensive metabolic panel Ana Garcia MD Work Phone: Start: 07-22-2022 MEDICATION ASSISTED TREATMENT PANEL Joanna Adhikari DO Work Phone: Start: 07-22-2022 End: 07-22-2022 Comprehensive metabolic panel Nhi lorenzo MD Work Phone: Start: 07-22-2022 Blood typing serologic abo Racheal Garduno DO Work Phone: Start: 07-22-2022 OXYGEN THERAPY Racheal Garduno DO Work Phone: Start: 07-18-2022 Iadna chlamydia trac homatis amplified probe tq Gillian Ish De Los Santos DO Work Phone: Start: 07-18-2022 MEDICATION ASSISTED TREATMENT PANEL Gillian T De Los Santos DO Work Phone: Start: 07-18-2022 Us uterus l imited 1/> fetuses Luiz Tay Bird STITCHING MACHINE SETTER - MOTOR VEHICLE EMISSIONS INSPECTOR Work Phone: Start: 07-11-2022 Us uterus l imited 1/> fetuses Luiz E Bird STITCHING MACHINE SETTER - MOTOR VEHICLE EMISSIONS INSPECTOR Work Phone: Start: 07-04-2022 MEDICATION ASSISTED TREATMENT PANEL Joanna Adhikari DO Work Phone: Start: 07-04-2022 Us preg uterus real time f/u trnsabdl per fetus Luiz E Rosie [facility] Work Phone: Start: 06-06-2022 Us preg uterus real time f/u trnsabdl per fetus Tootie Melgoza [employer] [facility] Work Phone: Start: 05-23-2022 Blood count complete automated Luiz Cross Rosie [facility] [facility] Work Phone: Start: 05-23-2022 MEDICATION ASSISTED TREATMENT PANEL Luiz E Rosie STITCHING MACHINE SETTER [employer] Work Phone: Start: 02-13-2022 RADIOLOGY REPORT Physic ryan Generic Start: 02-13-2022 Us preg uterus w/det ail bruce 1st gestation Tootie Valderrama [facility] [facility] Work Phone: Start: 01-22-2022 Microscopic observat ion [Identifier] in Cervix by Cyto stain Tootie Melgoza [employer] [facility] Work Phone: Start: 12-20-2021 Urnls dip stick/tabl et rgnt auto w/o microscopy Gillian ABDI Work Phone: Start: 09-09-2021 Ecg routine ecg w/le ast 12 lds w/i&r Campbell Wen MD Work Phone: Start: 09-08-2021 Assay of ethanol Annabelle venegas MD Work Phone: Start: 09-08-2021 Comprehensive metabolic panel Annabelle Brewer MD Work Phone: Start: 09-08-2021 Drug screen class list a Annabelle Brewer MD Work Phone: Start: 09-08-2021 POCT COVID-19, ANTIGEN Annabelle Brewer MD Work Phone: Start: 09-08-2021 Urnls dip stick/tabl et rgnt auto w/o microscopy Annabelle Brewer MD Work Phone: Start: 07-21-2021 Drug screen class list a Dash Macdonald DO Work Phone: Start: 07-21-2021 Urnls dip stick/tabl et rgnt auto w/o microscopy Dash Macdonald DO Work Phone: Start: 07-21-2021 Ecg routine ecg w/le ast 12 lds w/i&r Dash Macdonald DO Work Phone: Start: 07-21-2021 Assay of acetaminophen Dash Macdonald DO Work Phone: Start: 07-21-2021 Assay of ethanol Dash Macdonald DO Work Phone: Start: 07-21-2021 Assay of salicylate Sharif micky Macdonald DO Work Phone: Start: 07-21-2021 End: 07-21-2021 Comprehensive metabolic panel Dash [facility] DO Work Phone: Start: 07-21-2021 POCT COVID-19, ANTIGEN Dash Macdonald DO Work Phone: Start: 07-12-2021 End: 07-12-2021 Urnls dip stick/tablet rgnt auto w/o microscopy Herman Cabrera MD Work Phone: Start: 08-08-2019 Assay of ethanol Patricia Bearden Work Phone: Start: 08-08-2019 Blood count complete auto&auto difrntl wbc Patricia Bearden Work Phone: Start: 08-08-2019 CANNABINOID, URINE, SCREENING, CRITICAL CARE Patricia Bearden Work Phone: Start: 08-08-2019 Comprehensive metabolic panel Patricia Bearden Work Phone: Start: 08-08-2019 Drug screen class list a Patricia Bearden Work Phone: Start: 08-08-2019 Gonadotropin chorion ic qualitative Patricia Bearden Work Phone: Start: 08-08-2019 Urnls dip stick/tabl et rgnt auto w/o microscopy Patricia Bearden Work Phone: Start: 07-21-2019 Electrocardiogram Start: 07-21-2019 Antibody screen Comment on above: Performed By: #### T [facility] ####[facility] [place], [place] [phone] Start: 06-26-2019 ADD ON LAB TEST Jose Watson Work Phone: Start: 06-26-2019 ADD ON LAB TEST Jose Watson Work Phone: Start: 06-26-2019 Drug screen class list a Mitzi Watson Work Phone: Start: 06-26-2019 Drug tst prsmv instr mnt chem analyzers pr date Mitzi Watson Work Phone: Start: 06-26-2019 Urine test visual color cmprsn meths Mitzi Watson Work Phone: Start: 06-26-2019 Urnls dip stick/tabl et rgnt auto w/o microscopy Mitzi Watson Work Phone: Start: 06-26-2019 Assay of ethanol Ann Marie Watson Work Phone: Start: 06-26-2019 Blood count complete auto&auto difrntl wbc Mitzi Watson Work Phone: Start: 06-26-2019 Comprehensive metabolic panel Mitzi Watson Work Phone: Start: 06-26-2019 Creatine kinase total M adalferoz Watson Work Phone: Start: 06-26-2019 Culture bacterial qu anttative colony count urine Dez M Zewail Work Phone: Start: 04-28-2019 SOAP SUDS ENEMA SRI PÉREZ Start: 04-28-2019 VITAL SIGNS SRI ACOSTA ONCGLADYS Start: 04-28-2019 Urine test visual color cmprsn meths Glenda Lehman Work Phone: Start: 04-20-2019 EKG REPORT Hpf Scanni ng Start: 04-17-2019 Ct abdomen & pelvis w/o contrast material SRI PÉREZ Start: 04-17-2019 Ecg routine ecg w/le ast 12 lds w/i&r SRI PÉREZ Start: 04-17-2019 Assay of lactate SRI PÉREZ Start: 04-17-2019 Assay of lipase SRI PÉREZ Start: 04-17-2019 Blood count complete automated SRI PÉREZ Start: 04-17-2019 Comprehensive metabolic panel SRI PÉREZ Start: 04-17-2019 Drug screen class list a SRI PÉREZ Start: 04-17-2019 Urinalysis microscopic only SRI PÉREZ Start: 04-17-2019 Urnls dip stick/tabl et rgnt auto w/o microscopy SRI PÉREZ Start: 04-17-2019 Ct abdomen & pelvis w/o contrast material Stacy Henry Work Phone: Start: 04-16-2019 Ecg routine ecg w/le ast 12 lds i&r only Stacy Henry Work Phone: Start: 04-16-2019 EKG REPORT Hpf Scanni ng Start: 04-16-2019 Assay of lactate Stacy Henry Work Phone: Start: 04-16-2019 Assay of lipase Stacy Henry Work Phone: Start: 04-16-2019 Blood count complete automated Stacy Henry Work Phone: Start: 04-16-2019 Comprehensive metabolic panel Stacy Henry Work Phone: Start: 04-16-2019 Drug screen class list a Stacy Henry Work Phone: Start: 04-16-2019 Urinalysis microscopic only Stacy Henry Work Phone: Start: 04-16-2019 Urnls dip stick/tabl et rgnt auto w/o microscopy Stacy Henry Work Phone: Start: 04-16-2019 Urine test visual color cmprsn gregory Henry Work Phone: Plan of Treatment Date Care Activity Detail Author Start: 2073 RSV Immunization for Adults (1 - 1-dose 75+ series) RSV Immunization for Adults (1 - 1-dose 75+ series) [facility] Start: 2058 RSV Immunization age d 60 or older (1 - 1-dose 60+ series) RSV Immunization aged 60 or older (1 - 1-dose 60+ series) [facility] Start: 2048 Zoster Vaccines (1 of 2) Zoster Vacc chris (1 of 2) [facility] Start: 2048 Shingles Vaccine (1 of 2) Shingles V accine (1 of 2) [place] Start: 07-25-2032 DTaP/Tdap/Td Vaccine s (10 - Td or Tdap) DTaP/Tdap/Td Vaccines (10 - Td or Tdap) [facility] Start: 12-20-2026 DTaP/Tdap/Td vaccine (8 - Td) DTaP/Tdap/Td vaccine (8 - Td) [facility] Work Phone: Start: 12-20-2026 DTaP/Tdap/Td vaccine (9 - Td or Tdap) DTaP/Tdap/Td vaccine (9 - Td or Tdap) [facility] Start: 12-20-2026 DTaP/Tdap/Td vaccine (9 - Td) DTaP/Tdap/Td vaccine (9 - Td) [facility] Work Phone: Start: 12-20-2026 DTaP/Tdap/Td Vaccine s (9 - Td or Tdap) DTaP/Tdap/Td Vaccines (9 - Td or Tdap) [facility] Start: 01-22-2025 Screening for malign ant neoplasm of cervix Pap smear [facility] Start: 11-10-2024 End: 11-10-2024 [facility] Start: 08-22-2024 Depression Monitoring Depression Mon [facility] Start: 03-30-2024 End: 03-30-2024 Patient encounter procedure 03/30/2024 1:15 PM EST Office Visit [facility] [address] [place] [phone] Tootie Melgoza, STITCHING MACHINE SETTER - MOTOR VEHICLE EMISSIONS INSPECTOR [address] [place] [address] [facility] Start: 03-15-2024 End: 03-15-2025 CBC panel - Blood by Automated count CBC Lab Routine Chronic hepatitis C without hepatic coma (CMS/HCC) (HCC) Expected: 03/15/2024 (Approximate), Expires: 03/15/2025 [facility] Comment on above: Expected: 03/15/2024 (Approximate), Expires: 03/15/2025 Start: 03-15-2024 End: 03-15-2025 Comprehensive metabolic 1998 panel - Serum or Plasma Comprehensive metabolic panel Lab Routine Chronic hepatitis C without hepatic coma (CMS/HCC) (HCC) Expected: 03/15/2024 (Approximate), Expires: 03/15/2025 [facility] Work Phone: Comment on above: Expected: 03/15/2024 (Approximate), Expires: 03/15/2025 Start: 03-15-2024 End: 03-15-2025 Hepatitis C virus genotype determination Hepatitis C genotype Lab Routine Chronic hepatitis C without hepatic coma (CMS/HCC) (HCC) Expected: 03/15/2024 (Approximate), Expires: 03/15/2025 [facility] Comment on above: Expected: 03/15/2024 (Approximate), Expires: 03/15/2025 Start: 03-15-2024 End: 03-15-2025 Hepatitis C virus RNA panel (viral load) in Serum or Plasma by TAYLOR with probe detection Hepatitis C viral load Lab Routine Chronic hepatitis C without hepatic coma (CMS/HCC) (HCC) Expected: 03/15/2024 (Approximate), Expires: 03/15/2025 [facility] Comment on above: Expected: 03/15/2024 (Approximate), Expires: 03/15/2025 Start: 03-15-2024 End: 03-15-2024 Patient encounter procedure 03/15/2024 1:30 PM EST Office Visit [facility] [address] [place] [phone] Luiz Velez, STITCHING MACHINE SETTER - MOTOR VEHICLE EMISSIONS INSPECTOR [address] [place] [address] [facility] Start: 02-24-2024 End: 02-24-2024 Patient encounter procedure [facility] Start: 02-17-2024 End: 02-17-2024 Patient encounter procedure [facility] Start: 02-10-2024 End: 02-10-2024 Patient encounter procedure [facility] Start: 02-03-2024 End: 02-03-2024 Patient encounter procedure [facility] Start: 01-27-2024 End: 01-27-2024 Patient encounter procedure [facility] Start: 01-21-2024 End: 01-21-2024 Patient encounter procedure 01/21/2024 10:30 AM EDT Appointment [facility] [address] [place] [phone] Luiz Velez, STITCHING MACHINE SETTER - MOTOR VEHICLE EMISSIONS INSPECTOR [address] [place] [address] [facility] Start: 01-20-2024 End: 01-05-2025 US for US OB 14+ weeks anatomy scan Imaging Routine Supervision of high risk in third trimester Expected: 01/20/2024, Expires: 01/05/2025 [facility] Work Phone: Comment on above: Expected: 01/20/2024 , Expires: 01/05/2025 Start: 01-20-2024 End: 01-20-2024 Patient encounter procedure [facility] Start: 01-14-2024 End: 01-14-2024 Patient encounter procedure 01/14/2024 10:00 AM EDT Appointment [facility] [address] [place] [phone] Luiz Velez, STITCHING MACHINE SETTER - MOTOR VEHICLE EMISSIONS INSPECTOR [address] [place] [address] [facility] Start: 01-13-2024 End: 01-13-2024 Patient encounter procedure 01/13/2024 11:30 AM EDT Appointment [facility] [address] [place] [phone] Luiz Velez, STITCHING MACHINE SETTER - MOTOR VEHICLE EMISSIONS INSPECTOR [address] [place], [place] [phone] [facility] Start: 01-13-2024 End: 01-13-2024 Patient encounter procedure [facility] Start: 01-06-2024 Subsequent hospital visit by physician 01/06/2024 10:30 AM EDT Hospital Encounter [facility] [address] [place] [phone] Luiz Velez, STITCHING MACHINE SETTER - MOTOR VEHICLE EMISSIONS INSPECTOR [address] [place] [address] [facility] Start: 01-06-2024 End: 01-06-2024 Patient encounter procedure 01/06/2024 10:00 AM EDT Appointment [facility] [address] [place] [phone] Luiz Velez, STITCHING MACHINE SETTER - MOTOR VEHICLE EMISSIONS INSPECTOR [address] [place] [address] [facility] Start: 01-03-2024 RSV Immunization age d 60 or older (1 - Risk 1-dose series) RSV Immunization aged 60 or older (1 - Risk 1-dose series) [facility] Start: 01-02-2024 RSV Immunization age d 60 or older (1 - Risk 1-dose series) RSV Immunization aged 60 or older (1 - Risk 1-dose series) [facility] Start: 12-31-2023 End: 12-31-2023 Patient encounter procedure 12/31/2023 8:45 AM EDT Routine [facility] [address] [place] [phone] Luiz Velez, STITCHING MACHINE SETTER - MOTOR VEHICLE EMISSIONS INSPECTOR [address] [place], [place] [phone] [facility] Start: 12-28-2023 COVID-19 Vaccine ( season) COVID-19 Vaccine ( season) [facility] Start: 12-28-2023 COVID-19 Vaccine ( season) COVID-19 Vaccine () [facility] Start: 12-28-2023 Influenza vaccination [facility] Start: 10-13-2023 End: 10-13-2023 Patient encounter procedure 10/13/2023 8:30 AM EDT Appointment [facility] [address] [place] [phone] Luiz Velez, STITCHING MACHINE SETTER - MOTOR VEH[employer]LE EMISSIONS INSPECTOR [address] [place] [address] [facility] Start: 10-11-2023 End: 09-09-2024 US for US OB 14+ weeks anatomy scan Imaging Routine care, subsequent in second trimester Expected: 10/11/2023, Expires: 09/09/2024 [facility] Work Phone: Comment on above: Expected: 10/11/2023 , Expires: 09/09/2024 Start: 09-30-2023 End: 09-30-2023 ambulatory 09/30/2023 10:00 AM EDT Initial [facility] [address] [place] [phone] [facility] Start: 09-10-2023 End: 09-10-2023 Patient encounter procedure 09/10/2023 8:45 AM EDT Office Visit [facility] [address] [place] [phone] Luiz Velez, STITCHING MACHINE SETTER - MOTOR VEHICLE EMISSIONS INSPECTOR [address] [place], [place] [id number] [facility] Start: 09-10-2023 End: 09-10-2023 Patient encounter procedure 09/10/2023 7:30 AM EDT Appointment [facility] [address] [place] [phone] Luiz Velez, STITCHING MACHINE SETTER - MOTOR VEHICLE EMISSIONS INSPECTOR [address] [place], [place] [id number] [facility] Start: 09-09-2023 End: 09-08-2024 US for US OB 14+ weeks anatomy scan Imaging Routine care, subsequent in second trimester Expected: 09/09/2023, Expires: 09/08/2024 [facility] Work Phone: Comment on above: Expected: 09/09/2023 , Expires: 09/08/2024 Start: 05-01-2023 End: 05-01-2023 Patient encounter procedure 05/01/2023 1:35 PM EST Office Visit [facility] [address] [place] [address] Joanna Adhikari DO [address] [place] [address] [facility] Start: 03-26-2023 End: 03-26-2023 Patient encounter procedure [facility] Start: 03-17-2023 End: 03-17-2023 Patient encounter procedure [facility] [address] [facility] Start: 03-14-2023 End: 03-14-2023 Patient encounter procedure 03/14/2023 1:30 PM EST Office Visit [facility] [address] [place] [address] [facility] Start: 03-07-2023 End: 03-07-2023 Patient encounter procedure [facility] Start: 03-06-2023 End: 03-06-2023 ambulatory 03/06/2023 1:00 PM EST Initial [facility] [address] [place] [phone] [facility] Start: 03-04-2023 End: 03-04-2023 Patient encounter procedure 03/04/2023 12:00 PM EST Routine [facility] [address] [place] [phone] [facility] Start: 02-28-2023 End: 02-28-2023 Patient encounter procedure 02/28/2023 11:00 AM EDT Appointment [facility] [address] [place] [phone] [facility] Start: 02-25-2023 End: 02-25-2023 Patient encounter procedure 02/25/2023 12:00 PM EDT Routine [facility] [address] [place] [phone] [facility] Start: 02-21-2023 End: 02-22-2024 US for [facility] Comment on above: Expected: 02/21/2023 , Expires: 02/22/2024 Start: 02-21-2023 End: 02-22-2024 US nuchal measure 1st trimester US nuchal measure 1st trimester Imaging Routine Amenorrhea Expected: 02/21/2023, Expires: 02/22/2024 [facility] Work Phone: Comment on above: Expected: 02/21/2023 , Expires: 02/22/2024 Start: 01-22-2023 Screening for Chlamy gary trachomatis Chlamydia/GC screen [facility] Start: 12-27-2022 COVID-19 Vaccine ( season) COVID-19 Vaccine () [facility] Start: 12-27-2022 Influenza vaccination Influenza Vacc ine (#1) [facility] Start: 08-01-2022 End: 08-01-2022 Patient encounter procedure 08/01/2022 Appointment Maternal/ Med [facility] Start: 07-25-2022 End: 07-25-2022 Patient encounter procedure [facility] Start: 07-18-2022 End: 07-18-2022 Patient encounter procedure [facility] Start: 07-12-2022 Screening for Chlamy gary trachomatis Chlamydia screen [facility] Start: 07-11-2022 End: 07-11-2022 Patient encounter procedure [facility] Start: 07-09-2022 End: 07-09-2022 Patient encounter procedure 07/09/2022 Routine Obstetrics and Gynecology [facility] Start: 07-04-2022 End: 07-04-2022 Patient encounter procedure [facility] Start: 06-27-2022 End: 06-27-2022 Patient encounter procedure [facility] Start: 06-20-2022 End: 06-20-2022 Patient encounter procedure [facility] Start: 06-13-2022 End: 06-13-2022 Patient encounter procedure [facility] Start: 06-06-2022 End: 06-06-2022 Patient encounter procedure [facility] Start: 05-28-2022 End: 05-28-2022 Patient encounter procedure 05/28/2022 Routine Obstetrics and Gynecology [facility] Start: 05-23-2022 End: 05-23-2022 Patient encounter procedure 05/23/2022 Routine Obstetrics and Gynecology Luiz Velez APRN - MOTOR VEHICLE EMISSIONS INSPECTOR [address] [place] [address] [facility] Start: 02-22-2022 End: 02-22-2022 ambulatory 02/22/2022 Initial Obstetrics and Gynecology Luiz Velez APRN - MOTOR VEHIC[employer] EMISSIONS INSPECTOR [address] [place] [address] [facility] Start: 12-27-2021 Influenza vaccination [facility] Start: 12-27-2020 Influenza vaccination Flu vaccine (# 1) [facility] Start: 12-28-2019 Influenza vaccination Flu vacc ine (Season Ended) [place] Start: 09-17-2019 Screening for malign ant neoplasm of cervix Pap smear [facility] Start: 12-27-2018 Influenza vaccination Flu vaccine (# 1) [facility] Work Phone: Start: 2017 Pneumococcal Vaccine : Pediatrics (0 to 5 Years) and At-Risk Patients (6 to 49 Years) (1 of 2 - PCV) Pneumococcal Vaccine: Pediatrics (0 to 5 Years) and At-Risk Patients (6 to 49 Years) (1 of 2 - PCV) [facility] Start: 2016 Hepatitis C screening Hepatitis C sc reen [facility] Start: 2014 Chlamydia screen Chlamydia screen [facility] Work Phone: Start: 2014 Screening for Chlamy gary trachomatis Chlamydia screen [facility] Start: 2013 HIV screen HIV screen [facility] Work Phone: Start: 2013 HIV screening HIV screen [facility] Start: 2010 [facility] Start: 2010 Depression Screen Depression Screen [facility] Start: 2010 Depression Screening Depression Scre ening [facility] Start: 2004 Pneumococcal 0-64 ye ars Vaccine (1 - PCV) Pneumococcal 0-64 years Vaccine (1 - PCV) [facility] Start: 2004 Pneumococcal 0-64 ye ars Vaccine (1 of 1 - PPSV23) Pneumococcal 0-64 years Vaccine (1 of 1 - PPSV23) [facility] [employer] Phone: Start: 2004 Pneumococcal 0-64 ye ars Vaccine (1 of 2 - PPSV23) Pneumococcal 0-64 years Vaccine (1 of 2 - PPSV23) [facility] Start: 2004 Pneumococcal Vaccine : Pediatrics (0 to 5 Years) and At-Risk Patients (6 to 64 Years) (1 - PCV) Pneumococcal Vaccine: Pediatrics (0 to 5 Years) and At-Risk Patients (6 to 64 Years) (1 - PCV) [facility] Start: 2004 Pneumococcal Vaccine : Pediatrics (0 to 5 Years) and At-Risk Patients (6 to 64 Years) (1 of 2 - PCV) Pneumococcal Vaccine: Pediatrics (0 to 5 Years) and At-Risk Patients (6 to 64 Years) (1 of 2 - PCV) [facility] Start: 09-17-2003 COVID-19 Vaccine (1) COVID-19 Vaccin e (1) [facility] Start: 03-19-1999 COVID-19 Vaccine (#1) COVID-19 Vacci ne (#1) [facility] Start: 1998 Hepatitis C screening Hepatitis C sc hernesto [facility] Start: 1998 Lipid panel Lipid Panel [facility] End: 07-04-2022 Bacteria identified in Urine by Culture Urine culture Microbiology STAT STAT (Lab) for 1 Occurrences starting 07/04/2022 until 07/04/2022 [employer] Work Phone: Comment on above: STAT (Lab) for 1 Occ urrences starting 07/04/2022 until 07/04/2022 Bacteria identified in Urine by Culture Urine culture Microbiology Routine Amenorrhea 02/21/2023 1:36 PM EDT [employer] Bacteria identified in Urine by Culture Urine culture Microbiology Routine care, subsequent in second trimester 09/09/2023 10:27 AM EDT [employer] Bacteria identified in Urine by Culture Urine culture Microbiology Routine care, subsequent in third trimester 05/23/2022 2:59 PM [employer] End: 07-12-2021 C. Trachomatis / N. Gonorrhoeae, DNA Probe [facility] Work Phone: Comment on above: One Time for 1 Occur rences starting 07/12/2021 until 07/12/2021 CBC panel - Blood by Automated count CBC Lab Routine care, subsequent in third trimester Ordered: 12/31/2023 [employer] Comment on above: Ordered: 12/31/2023 CBC panel - Blood by Automated count CBC Lab Routine care, subsequent in third trimester Ordered: 02/17/2024 [employer] Comment on above: Ordered: 02/17/2024 EKG 12 Lead EKG 12 Lead ECG STAT 04/16/2019 11:10 PM [employer] Work Phone: Fungus identified in Unspecified specimen by Culture Fungal Culture Microbiology Routine Vaginal discharge 02/21/2023 1:36 PM EDT [employer] Glucose Challenge Lonnie eric, Glucose Challenge Screen, Lab Routine care, subsequent in third trimester Ordered: 12/31/2023 [employer] Work Phone: Comment on above: Ordered: 12/31/2023 Hemoglobin A1c measurement Hemoglobin A1c Lab Routine care, subsequent in third trimester Ordered: 02/17/2024 [employer] Comment on above: Ordered: 02/17/2024 Hemoglobinopathy evaluation Hemoglobinopathy evaluation Lab Routine care, subsequent in second trimester 09/09/2023 10:27 AM EDT [employer] Hepatic function 200 0 panel - Serum or Plasma Hepatic function panel Lab Routine care, subsequent in second trimester Ordered: 09/09/2023 [employer] Comment on above: Ordered: 09/09/2023 Hepatic function 200 0 panel - Serum or Plasma Hepatic function panel Lab Routine care, subsequent in third trimester Ordered: 12/31/2023 [employer] Comment on above: Ordered: 12/31/2023 Hepatic function 200 0 panel - Serum or Plasma Hepatic function panel Lab Routine care, subsequent in third trimester Ordered: 02/17/2024 [employer] Work Phone: Comment on above: Ordered: 02/17/2024 Hepatitis C virus RN A panel (viral load) in Serum or Plasma by TAYLOR with probe detection Hepatitis C viral load Lab Routine care, subsequent in second trimester Ordered: 09/09/2023 [employer] Comment on above: Ordered: 09/09/2023 Hepatitis C virus RN A panel (viral load) in Serum or Plasma by TAYLOR with probe detection Hepatitis C viral load Lab Routine care, subsequent in third trimester Ordered: 12/31/2023 [employer] Comment on above: Ordered: 12/31/2023 Hepatitis C virus RN A panel (viral load) in Serum or Plasma by TAYLOR with probe detection Hepatitis C viral load Lab Routine care, subsequent in third trimester Ordered: 02/17/2024 [employer] Comment on above: Ordered: 02/17/2024 End: 02-22-2024 Hepatitis C virus RNA panel (viral load) in Serum or Plasma by TAYLOR with probe detection [employer] Work Phone: Comment on above: STAT (Lab) for 1 Occ urrences starting 02/22/2024 until 02/22/2024 Hepatitis C virus RN A panel (viral load) in Serum or Plasma by TAYLOR with probe detection Hepatitis C viral load Lab Routine care, subsequent in third trimester 05/23/2022 2:59 PM EST [employer] Maternal Screen, AFP Only Matern al Screen, AFP Only Lab Routine care, subsequent in second trimester 09/09/2023 10:27 AM EDT [employer] MEDICATION ASSISTED TREATMENT PANEL MEDICATION ASSISTED TREATMENT PANEL Lab Routine History of drug abuse ([facility]/HCC) (HCC) Ordered: 02/21/2023 [employer] Comment on above: Ordered: 02/21/2023 End: 07-04-2022 Neisseria gonorrhoeae DNA [Presence] in Cervical mucus by TAYLOR with probe detection C. trachomatis / N. gonorrhoeae, DNA probe Microbiology STAT STAT (Lab) for 1 Occurrences starting 07/04/2022 until 07/04/2022 [employer] Work Phone: Comment on above: STAT (Lab) for 1 Occ urrences starting 07/04/2022 until 07/04/2022 End: 12-30-2024 Nonstress test nonstress test Procedures Routine Obesity affecting , antepartum, unspecified obesity type Once a week for 8 Occurrences starting 12/31/2023 until 12/30/2024 [employer] Comment on above: Once a week for 8 Oc currences starting 12/31/2023 until 12/30/2024 End: 02-17-2024 Nonstress test nonstress test Procedures Routine Obesity affecting , antepartum, unspecified obesity type Once for 1 Occurrences starting 02/17/2024 until 02/17/2024 [employer] Work Phone: Comment on above: Once for 1 Occurrenc es starting 02/17/2024 until 02/17/2024 End: 09-03-2022 Nonstress test nonstress test, once Procedures Routine Substance use disorder Once a week for 10 Occurrences starting 06/06/2022 until 09/03/2022 [employer] Comment on above: Once a week for 10 O ccurrences starting 06/06/2022 until 09/03/2022 PANORAMA TEST PANORAMA TEST Lab Routine care, subsequent in second trimester 09/09/2023 10:24 AM EDT [employer] Patient Education ED Screening E xam Medical Nonurgent [facility] Work Phone: POC Urine Qual POC Pre gnancy Urine Qual Point of Care Testing STAT 04/16/2019 [facility] Work Phone: Reagin Ab [Presence] in Serum by RPR RPR Lab Routine care, subsequent in third trimester Ordered: 12/31/2023 [employer] Comment on above: Ordered: 12/31/2023 Reagin Ab [Presence] in Serum by RPR RPR Lab Routine care, subsequent in third trimester Ordered: 02/17/2024 [employer] Comment on above: Ordered: 02/17/2024 End: 07-04-2022 Streptococcus agalactiae DNA [Presence] in Unspecified specimen by TAYLOR with probe detection Group B Strep Screen by PCR Microbiology Routine Once (Lab) for 1 Occurrences starting 07/04/2022 until 07/04/2022 [employer] Comment on above: Once (Lab) for 1 Occ urrences starting 07/04/2022 until 07/04/2022 Streptococcus agalac tiae DNA [Presence] in Unspecified specimen by TAYLOR with probe detection Group B Strep Screen PCR Microbiology Routine screening for streptococcus B 02/17/2024 2:16 PM EDT [employer] End: 07-04-2022 Trichomonas vaginalis DNA [Presence] in Genital specimen by TAYLOR with probe detection Trichomonas vaginalis PCR Microbiology STAT STAT (Lab) for 1 Occurrences starting 07/04/2022 until 07/04/2022 [employer] Comment on above: STAT (Lab) for 1 Occ urrences starting 07/04/2022 until 07/04/2022 End: 06-06-2022 US biophysical profile wo non stress testing US biophysical profile wo non stress testing Imaging Routine Encounter for follow-up ultrasound of anatomy Once for 1 Occurrences starting 06/06/2022 until 06/06/2022 [employer] Work Phone: Comment on above: Once for 1 Occurrenc es starting 06/06/2022 until 06/06/2022 End: 07-04-2022 US non stress US non stress Imaging Routine Drug abuse during (CMS/HCC) ([facility]) Once for 1 Occurrences starting 07/04/2022 until 07/04/2022 [employer] Work Phone: Comment on above: Once for 1 Occurrenc es starting 07/04/2022 until 07/04/2022 End: 05-23-2023 US non stress US non stress Imaging Routine Drug abuse during ([facility]) ([facility]) Once a week for 8 Occurrences starting 05/23/2022 until 05/23/2023 [facility] [employer] Comment on above: Once a week for 8 Oc currences starting 05/23/2022 until 05/23/2023 End: 06-06-2022 US non stress US non stress Imaging Routine Drug abuse during ([facility]) ([facility]) Once for 1 Occurrences starting 06/06/2022 until 06/06/2022 [employer] Work Phone: Comment on above: Once for 1 Occurrenc es starting 06/06/2022 until 06/06/2022 End: 07-11-2022 US non stress US non stress Imaging Routine Drug abuse during ([facility]) ([facility]) Once for 1 Occurrences starting 07/11/2022 until 07/11/2022 [employer] Work Phone: Comment on above: Once for 1 Occurrenc es starting 07/11/2022 until 07/11/2022 End: 12-30-2024 US for [facility] [employer] Comment on above: Every 4 weeks for 2 Occurrences starting 12/31/2023 until 12/30/2024 Once a week for 8 Oc currences starting 12/31/2023 until 12/30/2024 End: 05-23-2023 [facility] Comment on above: Every 4 weeks for 3 Occurrences starting 05/23/2022 until 05/23/2023 Once a week for 8 Oc currences starting 05/23/2022 until 05/23/2023 End: 06-06-2022 US for US OB limited 1+ fetuses Imaging Routine Drug abuse during ([facility]) ([facility]) Once for 1 Occurrences starting 06/06/2022 until 06/06/2022 [employer] Work Phone: Comment on above: Once for 1 Occurrenc es starting 06/06/2022 until 06/06/2022 End: 03-17-2023 US Pelvis transvaginal [facility] Work Phone: Comment on above: Once for 1 Occurrenc es starting 03/17/2023 until 03/17/2023 End: 07-12-2021 VAGINAL PATHOGENS DNA PANEL VAGINAL PATHOGENS DNA PANEL Microbiology Routine Once for 1 Occurrences starting 07/12/2021 until 07/12/2021 [facility] Work Phone: Comment on above: Once for 1 Occurrenc es starting 07/12/2021 until 07/12/2021 VAGINAL PATHOGENS DN A PANEL VAGINAL PATHOGENS DNA PANEL Microbiology Routine 07/12/2021 5:00 AM EDT [facility] Work Phone: Immunizations Immunization Date Immunization Notes Care Provider Rajni [facility] 02-23-2024 measles, mumps and rubella virus vaccine Jeannie Carreon DO Work Phone: [facility] 07-25-2022 tetanus toxoid, redu imtiaz diphtheria toxoid, and acellular pertussis vaccine, adsorbed Flavio Tolliver III, MD Work Phone: [facility] 07-23-2022 measles, mumps and rubella virus vaccine Flavio Tolliver III, MD Work Phone: [facility] 01-22-2022 influenza, injectabl e, quadrivalent, preservative free Tootie Rhona STITCHING MACHINE SETTER - [facility] Work Phone: [facility] 01-22-2022 influenza virus vacc ine, unspecified formulation Luiz Rosie STITCHING MACHINE SETTER - MOT[employer] VEHICLE EMISSIONS INSPECTOR Work Phone: [facility] 04-01-2017 influenza, injectabl e, quadrivalent, contains preservative Jeannie Carreon DO Work Phone: [facility] 12-20-2016 tetanus toxoid, redu imtiaz diphtheria toxoid, and acellular pertussis vaccine, adsorbed Jeannie Carreon DO Work Phone: [facility] 03-09-2015 influenza virus vacc ine, live, attenuated, for intranasal use Jeannie Carreon DO Work Phone: [facility] 10-03-2014 meningococcal polysaccharide (groups A, C, Y and W-135) diphtheria toxoid conjugate vaccine (MCV4P) Jeannie Carreon DO Work Phone: [facility] 04-11-2014 influenza, seasonal, injectable Jeannie Carreon DO Work Phone: [facility] 01-10-2014 diphtheria, tetanus toxoids and acellular pertussis vaccine, unspecified formulation Jeannie Carreon DO Work Phone: [facility] 03-01-2013 Influenza, injectabl e, quadrivalent, preservative free Jeannie Carreon DO Work Phone: [facility] 07-16-2012 tuberculin skin test ; purified protein derivative solution, intradermal Jeannie Carreon DO Work Phone: [facility] 02-18-2012 hepatitis A vaccine, pediatric/adolescent dosage, 2 dose schedule Jeannie Carreon DO Work Phone: [facility] 02-18-2012 human papilloma viru s vaccine, quadrivalent Jeannie Carreon DO Work Phone: [facility] 02-18-2012 influenza virus vacc ine, live, attenuated, for intranasal use Jeannie Carreon DO Work Phone: [facility] 10-10-2011 human papilloma viru s vaccine, quadrivalent Jeannie Carreon DO Work Phone: [facility] 08-01-2011 hepatitis A vaccine, pediatric/adolescent dosage, 2 dose schedule Jeannie Carreon DO Work Phone: [facility] 08-01-2011 human papilloma viru s vaccine, quadrivalent Jeannie Carreon DO Work Phone: [facility] 12-13-2010 meningococcal polysaccharide (groups A, C, Y and W-135) diphtheria toxoid conjugate vaccine (MCV4P) Jeannie Carreon DO Work Phone: [facility] 12-13-2010 varicella virus vaccine Silvino Carreon DO Work Phone: [facility] 12-10-2010 tetanus toxoid, redu imtiaz diphtheria toxoid, and acellular pertussis vaccine, adsorbed Jeannie Carreon DO Work Phone: [facility] 01-30-2009 influenza virus vacc ine, live, attenuated, for intranasal use Jeannie Carreon DO Work Phone: [facility] 09-23-2003 diphtheria, tetanus toxoids and acellular pertussis vaccine, unspecified formulation Jeannie Carreon DO Work Phone: [facility] 09-23-2003 measles, mumps and rubella virus vaccine Jeannie Carreon DO Work Phone: [facility] 09-23-2003 poliovirus vaccine, unspecified formulation Jeannie Carreon DO Work Phone: [facility] 01-18-2000 diphtheria, tetanus toxoids and acellular pertussis vaccine, unspecified formulation Jeannie Carreon DO Work Phone: [facility] 01-18-2000 varicella virus vaccine Silvino Carreon DO Work Phone: [facility] 10-03-1999 haemophilus influenz ae type b vaccine, conjugate unspecified formulation Jeannie Carreon DO Work Phone: [facility] 10-03-1999 measles, mumps and rubella virus vaccine Jeannie Carreon DO Work Phone: [facility] 10-03-1999 poliovirus vaccine, inactivated Jeannie Carreon DO Work Phone: [facility] 07-13-1999 hepatitis B vaccine, pediatric or pediatric/adolescent dosage Jeannie Carreon DO Work Phone: [facility] 04-04-1999 diphtheria, tetanus toxoids and acellular pertussis vaccine, unspecified formulation Jeannie Carreon DO Work Phone: [facility] 04-04-1999 haemophilus influenz ae type b vaccine, conjugate unspecified formulation Jeannie Carreon DO Work Phone: [facility] 01-31-1999 diphtheria, tetanus toxoids and acellular pertussis vaccine, unspecified formulation Jeannie Carreon DO Work Phone: [facility] 01-31-1999 haemophilus influenz ae type b vaccine, conjugate unspecified formulation Jeannie Carreon DO Work Phone: [facility] 01-31-1999 poliovirus vaccine, unspecified formulation Jeannie Carreon DO Work Phone: [facility] [employer] 1998 diphtheria, tetanus toxoids and acellular pertussis vaccine, unspecified formulation Jeannie Carreon DO Work Phone: [facility] [employer] 1998 haemophilus influenz ae type b vaccine, conjugate unspecified formulation Jeannie Carreon DO Work Phone: [facility] [employer] 1998 hepatitis B vaccine, pediatric or pediatric/adolescent dosage Jeannie Carreon DO Work Phone: [facility] [employer] 1998 poliovirus vaccine, unspecified formulation Jeannie Carreon DO Work Phone: [facility] [employer] 1998 hepatitis B vaccine, pediatric or pediatric/adolescent dosage Jeannie Carreon DO Work Phone: [employer] NEGATED: Highlighted row has not occurred!02-24-2024 influenza, injectable, madin renae canine kidney, preservative free Jeannie Carreon DO Work Phone: [employer] Comment on above: Deferred: Patient Re fused NEGATED: Highlighted row has not occurred!02-24-2024 tetanus toxoid, reduced diphtheria toxoid, and acellular pertussis vaccine, adsorbed Jeannie Carreon DO Work Phone: [facility] [employer] Comment on above: Deferred: Patient Re fused Payers Date Payer Category Payer Self-pay 2023 Medicaid HMO [employer] [id number] 2022 Medicaid 2020 Unknown 2020 Department of [facility] [id number] 2017 Unknown [id number] 2017 Unknown [id number] 1998 Unknown [id number] 1998 Unknown [id number] 1998 Unknown [id number] 2000 Unknown [id number]. 1998 Unknown [id number]. 1998 Unknown [id number] 2.16.840.1.713286.3.579.2. 1998 Unknown [id number] 2.16.840.1.886322.3.579.2. 1998 Unknown [id number] 2.16.840.1.680368.3.579.2. 1998 Unknown [id number] 2.16.840.1.801050.3.579.2. 1998 Unknown [id number] 2.16.840.1.867917.3.579.2. 1998 Unknown [id number] [id number]. 1998 Unknown [id number] 2.16.840.1.680610.3.579.2. 1998 Unknown [id number]. 668 1951 Unknown [id number]. 732 Unknown [id number]. 462 Social History Date Type Detail Facility Start: 06-28-2019 End: 11-10-2024 Tobacco smoking status MDIS Current every day smoker [facility] Start: 04-28-2010 End: 07-22-2022 History of tobacco use Cigarette Smoker [facility]: Start: 06-28-2019 End: 02-22-2024 Cigarettes smoked current (pack per day) - Reported [facility]: Start: 06-28-2019 End: 08-18-2021 Alcohol intake Current drinker of alcohol (finding) [facility] Start: 06-26-2019 Alcohol Comment 4 days a week, what she can get [facility] Start: 2000 Sex Assigned At Not on file [facility]: Start: 09-14-2019 End: 07-03-2024 Alcohol intake Ex-drinker (finding) [employer] Exposure to SARS-CoV -2 (event) Unable to assess [facility] Start: 03-21-2018 End: 12-31-2023 Tobacco use and exposure Smokeless tobacco non-user [employer] Phone: Start: 07-11-2021 End: 08-26-2022 Exposure to SARS-CoV-2 (event) Not sure [employer] Phone: Start: 04-16-2019 End: 04-28-2019 Alcohol intake Current non-drinker of alcohol (finding) [facility]: Start: 01-30-2022 Tobacco smoking status NHIS Ex-smoker [facility] Start: 04-28-2010 End: 12-27-2021 History of tobacco use Current smoker [employer] Phone: Start: 01-30-2022 History SDOH Alcohol Comment currently in [facility] Work Phone: Start: 10-14-2021 [facility] Work Phone: Start: 04-24-2022 End: 06-20-2022 History SDOH IPV Fear 2 [facility] Start: 06-20-2022 End: 07-22-2022 History SDOH Housing Places Lived 3 [facility] Start: 06-20-2022 End: 07-22-2022 History SDOH Housing Homeless Last Year 1 [facility] Start: 08-26-2022 History SDOH Alcohol Std Drinks 0 [facility] Start: 06-19-2022 End: 02-22-2024 Humiliation, Afraid, Rape, and Kick questionnaire [HARK] [facility] Within the last year , have you been afraid of your partner or ex-partner? No [facility] How often to you hav e a drink containing alcohol? Never [facility] How many standard dr inks containing alcohol do you have on a typical day? Patient does not drink [facility] Start: 06-09-2022 End: 06-19-2022 At any time in the past 12 months, were you homeless or living in custodial [including now]? Yes [facility] Are you now , , , , never or living with a partner? Living with partner [facility] How hard is it for y ou to pay for the very basics like food, housing, medical care, and heating Not very hard [facility] Do you feel stress - tense, restless, nervous, or anxious, or unable to sleep at night because your mind is troubled all the time - these days [OSQ] To some extent [facility] (I/We) worried wheth er (my/our) food would run out before (I/we) got money to buy more. Never true [facility] Start: 09-30-2023 Alcohol Comment last drink October 29, 2022 [facility] Start: 11-26-2021 Sex Female (finding) [facility] Tobacco smoking stat [facility] Tobacco smoking consumption unknown [facility] Start: 2000 Sex Assigned At Female [facility] Clinical Notes 04-17-2019 to 11-10-2024 NICKI Reynoso CNP - 07/03/2024 2:29 PM NICKI Levin CNP - 07/03/2024 2:29 PM Ben Bailey MA - 03/15/2024 1:30 PM Eileen Recio RN - 02/24/2024 11:40 AM EDT Note Date & Type Note Facility 11-10-2024 Discharge summary [facility] 07-03-2024 Emergency department Note EMERGENCY DEPARTMENT ENCOUNTER Pt Name: Prakash Greene Birthdate 2000 Date of evaluation: 07/03/2024 ED Provider: NICKI Reynoso CNP Patient seen independently within my scope of practice with an Emergency Medicine attending available for supervision. CHIEF COMPLAINT Chief Complaint Patient presents with Rash Pt presents with right thigh and lower abdominal rash that started 2 days ago. Pt denies any contact with anything new (clothes, detergents, soaps, body wash, meds, foods, etc.) Pt states that it could be chaffing. HISTORY OF PRESENT ILLNESS (Location/Symptom, Timing/Onset, Context/Setting, Quality, Duration, Modifying Factors, Severity) Note limiting factors. I wore appropriate PPE for the entirety of this encounter. HPI Prakash Greene is a 23 y.o. who presents to the emergency department with rash in the intertriginous areas of the abdomen, lower abdomen going across the abdomen extending down the leg, itching, malodorous. Patient without any fevers, chills, noticed the rash 2 days ago. Initially thought it was shaving. Denies any purulent drainage. Nursing Notes were reviewed. Limitations to history: None Outside historians: None REVIEW OF SYSTEMS Review of Systems Pertinent positives and negatives as per HPI. PAST MEDICAL HISTORY Past Medical History: Diagnosis Date Acute cystitis without hematuria 06/28/2019 Anxiety Anxiety Borderline personality disorder (CMS/HCC) (HCC) Drug abuse (CMS/HCC) (HCC) Hepatitis C Psychiatric problem PTSD (post-traumatic stress disorder) SURGICAL HISTORY Past Surgical History: Procedure Laterality Date ABDOMINAL SURGERY 4yrs old- bowel surgery TONSILLECTOMY (HISTORICAL) 3yrs old CURRENT MEDICATIONS Previous Medications ARISTADA 882 MG/3.2ML INJECTION Inject 882 mg into the shoulder, thigh, or buttocks every 28 (twenty-eight) days. 02/07/24 DOCUSATE SODIUM (COLACE) 100 MG CAPSULE Take 1 capsule (100 mg) by mouth 2 times daily. ALLERGIES Fentanyl FAMILY HISTORY Family History Problem Relation Name Age of Onset No Known Problems Father No Known Problems Mother No Known Problems Sister x2 No Known Problems Daughter x2 SOCIAL HISTORY Social History Socioeconomic History Marital status: Single Spouse name: Alex Tobacco Use Smoking status: Every Day Current packs/day: 0.25 Average packs/day: 0.3 packs/day for 14.2 years (3.5 ttl pk-yrs) Types: Cigarettes Start date: 04/28/2010 Smokeless tobacco: Never Vaping Use Vaping status: Every Day Substances: Nicotine Substance and Sexual Activity Alcohol use: Not Currently Comment: last drink October 29, 2022 Drug use: Not Currently Types: IV, Marijuana, Methamphetamines, Fentanyl Comment: Sober date July 10, 2022 Sexual activity: Yes Partners: Male Social Drivers of Health Financial Resource Strain: Low Risk (09/30/2023) Overall Financial Resource Strain (CARDIA) Difficulty of Paying Living Expenses: Not very hard Food Insecurity: No Food Insecurity (02/22/2024) Hunger Vital Sign Worried About Running Out of Food in the Last Year: Never true Ran Out of Food in the Last Year: Never true Transportation Needs: No Transportation Needs (02/22/2024) PRAPARE - Transportation Lack of Transportation (Medical): No Lack of Transportation (Non-Medical): No Physical Activity: Insufficiently Active (09/30/2023) Exercise Vital Sign Days of Exercise per Week: 5 days Minutes of Exercise per Session: 10 min Stress: Stress Concern Present (09/30/2023) [employer] - Occupational Stress Questionnaire Feeling of Stress : To some extent Social Connections: Unknown (09/30/2023) Social Connection and Isolation Panel [NHANES] Frequency of Communication with Friends and Family: Twice a week Frequency of Social Gatherings with Friends and Family: Twice a week Active Member of Clubs or Organizations: No Attends Club or Organization Meetings: Never Marital Status: Living with partner Intimate Partner Violence: Not At Risk (02/22/2024) Humiliation, Afraid, Rape, and Kick questionnaire Fear of Current or Ex-Partner: No Emotionally Abused: No Physically Abused: No Sexually Abused: No Housing Stability: Low Risk (02/22/2024) Housing Stability Vital Sign Unable to Pay for Housing in the Last Year: No Number of Times Moved in the Last Year: 0 Homeless in the Last Year: No SCREENINGS PHYSICAL EXAM ED Triage Vitals [07/03/24 1438] Temp Heart Rate Resp BP 36 C (96.8 F) 99 16 (!) 131/92 SpO2 Temp Source Heart Rate Source Patient Position 97 % Temporal Monitor -- BP Location FiO2 (%) -- -- Physical Exam GENERAL: The patient appears well nourished, well developed. Good historian. Able to answer questions appropriately. Vital signs as documented. HEENT: Head is normocephalic, atraumatic. No scleral icterus or orbital trauma noted. PERRLA, EOM intact. Mucous membranes moist. Nares patent without copious rhinorrhea. Neck: Supple. No lymphadenopathy. LUNGS: Lungs are clear to auscultation, without any respiratory distress. Able to speak full sentences, no accessory muscle use CARDIAC: HRRR, no murmurs, rubs or gallops ABDOMEN: soft, nontender, nondistended. BS + x 4 quadrants, No guarding. No CVA tenderness MS: NEFF. Non edematous, with no obvious deformities. SKIN: Moist erythematous rash noted to the intertriginous areas of the pannus consistent with fungal rash NEURO: No obvious neurological deficits, normal sensation and strength bilaterally. patient able to ambulate. DIAGNOSTIC RESULTS RADIOLOGY (Per Emergency Physician): Interpretation per the Radiologist below, if available at the time of this note: No orders to display LABS: Labs Reviewed - No data to display All other labs were within normal range or not returned as of this dictation. EMERGENCY DEPARTMENT COURSE and DIFFERENTIAL DIAGNOSIS/MDM: Vitals: Vitals: 07/03/24 1432 07/03/24 1438 BP: (!) 131/92 Pulse: 99 Resp: 16 Temp: 36 C (96.8 F) TempSrc: Temporal SpO2: 97% Weight: 99.8 kg (220 lb) Height: 1.575 m (5' 2) Medications - No data to display Assessment: Rash in the intertriginous areas of the abdomen for 2 days with itching, burning, irritation Differential Diagnosis: Alysia intertriginous, cellulitis, shingles Plan: Physical exam ED Course Plan of care discussed, area is excoriated and moist appearing with a malodorous smell consistent with fungal infection in the intertriginous areas, do not feel this is shingles since it is not unilateral and is a diffuse erythematous area in the folds underneath the pannus. No purulent drainage, no areas of fluctuance, no induration, do not feel this is cellulitis, patient is well-appearing, is afebrile. Will prescribe clotrimazole and patient was advised on using barrier creams and keeping the area clean, dry. Patient is agreeable to above plan and is stable for discharge home PROCEDURES: Unless otherwise noted below, none Procedures CRITICAL CARE TIME FINAL IMPRESSION 1. Candidal intertrigo DISPOSITION Discharge 07/03/2024 03:10:18 PM PATIENT REFERRED TO: [facility] EMERGENCY DEPT [address] [place] [id number] DISCHARGE MEDICATIONS: New Prescriptions CLOTRIMAZOLE (LOTRIMIN) 1 % CREAM Apply 1 Application topically 2 times daily. Apply to affected area 2 times daily (Comment: Please note this report has been produced using speech recognition software and may contain errors related to that system including errors in grammar, punctuation, and spelling, as well as words and phrases that may be inappropriate. If there are any questions or concerns please feel free to contact the dictating provider for clarification.) NICKI Reynoso CNP (electronically signed) Emergency Medicine Provider NICKI Reynoso CNP 07/03/24 1514 documented in this encounter [facility] 07-03-2024 Physician Emergency department Note EMERGENCY DEPARTMENT ENCOUNTER Pt Name: Prakash Greene Birthdate 2000 Date of evaluation: 07/03/2024 ED Provider: NICKI Reynoso CNP Patient seen independently within my scope of practice with an Emergency Medicine attending available for supervision. CHIEF COMPLAINT Chief Complaint Patient presents with Rash Pt presents with right thigh and lower abdominal rash that started 2 days ago. Pt denies any contact with anything new (clothes, detergents, soaps, body wash, meds, foods, etc.) Pt states that it could be chaffing. HISTORY OF PRESENT ILLNESS (Location/Symptom, Timing/Onset, Context/Setting, Quality, Duration, Modifying Factors, Severity) Note limiting factors. I wore appropriate PPE for the entirety of this encounter. HPI Prakash Greene is a 23 y.o. who presents to the emergency department with rash in the intertriginous areas of the abdomen, lower abdomen going across the abdomen extending down the leg, itching, malodorous. Patient without any fevers, chills, noticed the rash 2 days ago. Initially thought it was shaving. Denies any purulent drainage. Nursing Notes were reviewed. Limitations to history: None Outside historians: None REVIEW OF SYSTEMS Review of Systems Pertinent positives and negatives as per HPI. PAST MEDICAL HISTORY Past Medical History: Diagnosis Date Acute cystitis without hematuria 06/28/2019 Anxiety Anxiety Borderline personality disorder (CMS/HCC) (HCC) Drug abuse (CMS/HCC) (HCC) Hepatitis C Psychiatric problem PTSD (post-traumatic stress disorder) SURGICAL HISTORY Past Surgical History: Procedure Laterality Date ABDOMINAL SURGERY 4yrs old- bowel surgery TONSILLECTOMY (HISTORICAL) 3yrs old CURRENT MEDICATIONS Previous Medications ARISTADA 882 MG/3.2ML INJECTION Inject 882 mg into the shoulder, thigh, or buttocks every 28 (twenty-eight) days. 02/07/24 DOCUSATE SODIUM (COLACE) 100 MG CAPSULE Take 1 capsule (100 mg) by mouth 2 times daily. ALLERGIES Fentanyl FAMILY HISTORY Family History Problem Relation Name Age of Onset No Known Problems Father No Known Problems Mother No Known Problems Sister x2 No Known Problems Daughter x2 SOCIAL HISTORY Social History Socioeconomic History Marital status: Single Spouse name: Alex Tobacco Use Smoking status: Every Day Current packs/day: 0.25 Average packs/day: 0.3 packs/day for 14.2 years (3.5 ttl pk-yrs) Types: Cigarettes Start date: 04/28/2010 Smokeless tobacco: Never Vaping Use Vaping status: Every Day Substances: Nicotine Substance and Sexual Activity Alcohol use: Not Currently Comment: last drink October 29, 2022 Drug use: Not Currently Types: IV, Marijuana, Methamphetamines, Fentanyl Comment: Sober date July 10, 2022 Sexual activity: Yes Partners: Male Social Drivers of Health Financial Resource Strain: Low Risk (09/30/2023) Overall Financial Resource Strain (CARDIA) Difficulty of Paying Living Expenses: Not very hard Food Insecurity: No Food Insecurity (02/22/2024) Hunger Vital Sign Worried About Running Out of Food in the Last Year: Never true Ran Out of Food in the Last Year: Never true Transportation Needs: No Transportation Needs (02/22/2024) PRAPARE - Transportation Lack of Transportation (Medical): No Lack of Transportation (Non-Medical): No Physical Activity: Insufficiently Active (09/30/2023) Exercise Vital Sign Days of Exercise per Week: 5 days Minutes of Exercise per Session: 10 min Stress: Stress Concern Present (09/30/2023) [employer] - Occupational Stress Questionnaire Feeling of Stress : To some extent Social Connections: Unknown (09/30/2023) Social Connection and Isolation Panel [NHANES] Frequency of Communication with Friends and Family: Twice a week Frequency of Social Gatherings with Friends and Family: Twice a week Active Member of Clubs or Organizations: No Attends Club or Organization Meetings: Never Marital Status: Living with partner Intimate Partner Violence: Not At Risk (02/22/2024) Humiliation, Afraid, Rape, and Kick questionnaire Fear of Current or Ex-Partner: No Emotionally Abused: No Physically Abused: No Sexually Abused: No Housing Stability: Low Risk (02/22/2024) Housing Stability Vital Sign Unable to Pay for Housing in the Last Year: No Number of Times Moved in the Last Year: 0 Homeless in the Last Year: No SCREENINGS PHYSICAL EXAM ED Triage Vitals [07/03/24 1438] Temp Heart Rate Resp BP 36 C (96.8 F) 99 16 (!) 131/92 SpO2 Temp Source Heart Rate Source Patient Position 97 % Temporal Monitor -- BP Location FiO2 (%) -- -- Physical Exam GENERAL: The patient appears well nourished, well developed. Good historian. Able to answer questions appropriately. Vital signs as documented. HEENT: Head is normocephalic, atraumatic. No scleral icterus or orbital trauma noted. PERRLA, EOM intact. Mucous membranes moist. Nares patent without copious rhinorrhea. Neck: Supple. No lymphadenopathy. LUNGS: Lungs are clear to auscultation, without any respiratory distress. Able to speak full sentences, no accessory muscle use CARDIAC: HRRR, no murmurs, rubs or gallops ABDOMEN: soft, nontender, nondistended. BS + x 4 quadrants, No guarding. No CVA tenderness MS: NEFF. Non edematous, with no obvious deformities. SKIN: Moist erythematous rash noted to the intertriginous areas of the pannus consistent with fungal rash NEURO: No obvious neurological deficits, normal sensation and strength bilaterally. patient able to ambulate. DIAGNOSTIC RESULTS RADIOLOGY (Per Emergency Physician): Interpretation per the Radiologist below, if available at the time of this note: No orders to display LABS: Labs Reviewed - No data to display All other labs were within normal range or not returned as of this dictation. EMERGENCY DEPARTMENT COURSE and DIFFERENTIAL DIAGNOSIS/MDM: Vitals: Vitals: 07/03/24 1432 07/03/24 1438 BP: (!) 131/92 Pulse: 99 Resp: 16 Temp: 36 C (96.8 F) TempSrc: Temporal SpO2: 97% Weight: 99.8 kg (220 lb) Height: 1.575 m (5' 2) Medications - No data to display Assessment: Rash in the intertriginous areas of the abdomen for 2 days with itching, burning, irritation Differential Diagnosis: Alysia intertriginous, cellulitis, shingles Plan: Physical exam ED Course Plan of care discussed, area is excoriated and moist appearing with a malodorous smell consistent with fungal infection in the intertriginous areas, do not feel this is shingles since it is not unilateral and is a diffuse erythematous area in the folds underneath the pannus. No purulent drainage, no areas of fluctuance, no induration, do not feel this is cellulitis, patient is well-appearing, is afebrile. Will prescribe clotrimazole and patient was advised on using barrier creams and keeping the area clean, dry. Patient is agreeable to above plan and is stable for discharge home PROCEDURES: Unless otherwise noted below, none Procedures CRITICAL CARE TIME FINAL IMPRESSION 1. Candidal intertrigo DISPOSITION Discharge 07/03/2024 03:10:18 PM PATIENT REFERRED TO: [facility] EMERGENCY DEPT [address] [place] [phone] DISCHARGE MEDICATIONS: New Prescriptions CLOTRIMAZOLE (LOTRIMIN) 1 % CREAM Apply 1 Application topically 2 times daily. Apply to affected area 2 times daily (Comment: Please note this report has been produced using speech recognition software and may contain errors related to that system including errors in grammar, punctuation, and spelling, as well as words and phrases that may be inappropriate. If there are any questions or concerns please feel free to contact the dictating provider for clarification.) NICKI Reynoso CNP (electronically signed) Emergency Medicine Provider NICKI Reynoso CNP 07/03/24 1514 [facility] 03-15-2024 History of Present illness Narrative Pt states she has no concerns at the moment A cloth bale header was offered to be present during her exam. The patient: Declined Chief Complaint Patient presents with Care Patient's last menstrual period was 12/12/2022 (approximate). History: Past Medical History: Diagnosis Date Acute cystitis without hematuria 06/28/2019 Anxiety Anxiety Borderline personality disorder (CMS/HCC) (HCC) Drug abuse (CMS/HCC) (HCC) Hepatitis C Psychiatric problem PTSD (post-traumatic stress disorder) Past Surgical History: Procedure Laterality Date ABDOMINAL SURGERY 4yrs old- bowel surgery TONSILLECTOMY (HISTORICAL) 3yrs old Family History Problem Relation Name Age of Onset No Known Problems Father No Known Problems Mother No Known Problems Sister x2 No Known Problems Daughter x2 Social History Socioeconomic History Marital status: Single Spouse name: Alex Tobacco Use Smoking status: Every Day Current packs/day: 0.25 Average packs/day: 0.3 packs/day for 13.9 years (3.5 ttl pk-yrs) Types: Cigarettes Start date: 04/28/2010 Smokeless tobacco: Never Vaping Use Vaping status: Every Day Substances: Nicotine Substance and Sexual Activity Alcohol use: Not Currently Comment: last drink October 29, 2022 Drug use: Not Currently Types: IV, Marijuana, Methamphetamines, Fentanyl Comment: Sober date July 10, 2022 Sexual activity: Yes Partners: Male Social Drivers of Health Financial Resource Strain: Low Risk (09/30/2023) Overall Financial Resource Strain (CARDIA) Difficulty of Paying Living Expenses: Not very hard Food Insecurity: No Food Insecurity (02/22/2024) Hunger Vital Sign Worried About Running Out of Food in the Last Year: Never true Ran Out of Food in the Last Year: Never true Transportation Needs: No Transportation Needs (02/22/2024) PRAPARE - Transportation Lack of Transportation (Medical): No Lack of Transportation (Non-Medical): No Physical Activity: Insufficiently Active (09/30/2023) Exercise Vital Sign Days of Exercise per Week: 5 days Minutes of Exercise per Session: 10 min Stress: Stress Concern Present (09/30/2023) [employer] - Occupational Stress Questionnaire Feeling of Stress : To some extent Social Connections: Unknown (09/30/2023) Social Connection and Isolation Panel [NHANES] Frequency of Communication with Friends and Family: Twice a week Frequency of Social Gatherings with Friends and Family: Twice a week Active Member of Clubs or Organizations: No Attends Club or Organization Meetings: Never Marital Status: Living with partner Intimate Partner Violence: Not At Risk (02/22/2024) Humiliation, Afraid, Rape, and Kick questionnaire Fear of Current or Ex-Partner: No Emotionally Abused: No Physically Abused: No Sexually Abused: No Housing Stability: Low Risk (02/22/2024) Housing Stability Vital Sign Unable to Pay for Housing in the Last Year: No Number of Times Moved in the Last Year: 0 Homeless in the Last Year: No Allergies: Allergies Allergen Reactions Fentanyl Itching Medications: Current Outpatient Medications on File Prior to Visit Medication Sig Dispense Refill Aristada 882 MG/3.2ML injection Inject 882 mg into the shoulder, thigh, or buttocks every 28 (twenty-eight) days. 02/07/24 docusate sodium (Colace) 100 MG capsule Take 1 capsule (100 mg) by mouth 2 times daily. 60 capsule 2 [] ibuprofen 600 MG tablet Take 1 tablet (600 mg) by mouth every 6 hours as needed for mild pain (1-3) for up to 15 days. Alternate with tylenol 30 tablet 1 No current facility-administered medications on file prior to visit. HPI: Patient presents for pp visit. Delivered male via on 02/22/24. States light vaginal bleeding. Denies troubles with bladder and bowels. Denies fevers, chills, N/V. She is bottle feeding. Denies troubles with breasts. Denies problems with depression and/or too much sadness. Feels safe. Denies SI/HI. She has not had sex yet. Had Nexplanon placed while in the hospital. Patient also with hx Hep C. ROS: Review of Systems Constitutional: Negative. Gastrointestinal: Negative for constipation, diarrhea, nausea and vomiting. Genitourinary: Negative. exam: BP 120/83 Pulse 64 Temp 37.1 C (98.8 F) (Temporal) Wt 217 lb (98.4 kg) LMP 12/12/2022 (Approximate) No BMI 39.69 kg/m Physical Exam Constitutional: Appearance: Normal appearance. HENT: Head: Normocephalic and atraumatic. Pulmonary: Effort: Pulmonary effort is normal. Abdominal: Palpations: Abdomen is soft. Genitourinary: Exam position: Lithotomy position. Labia: Right: No rash, tenderness, lesion or injury. Left: No rash, tenderness, lesion or injury. Vagina: No signs of injury and foreign body. Bleeding present. No vaginal discharge, erythema, tenderness, lesions or prolapsed vaginal allen. Cervix: Normal. Uterus: Normal. Adnexa: Right adnexa normal and left adnexa normal. Comments: Small bleeding noted. Musculoskeletal: General: Normal range of motion. Cervical back: Normal range of motion. Skin: General: Skin is warm and dry. Comments: Nexplanon palpable in upper left arm. Neurological: Mental Status: She is alert and oriented to person, place, and time. Psychiatric: Mood and Affect: Mood normal. Behavior: Behavior normal. Assessment and Plan: Prakash was seen today for care. Diagnoses and all orders for this visit: exam (Primary) Encounter for surveillance of Nexplanon subdermal contraceptive Chronic hepatitis C without hepatic coma (CMS/HCC) (HCC) - Comprehensive metabolic panel; Future - Hepatitis C viral load; Future - Hepatitis C genotype; Future - CBC; Future - Comprehensive metabolic panel - Hepatitis C viral load - Hepatitis C genotype - CBC Follow up in about 1 year (around 03/15/2025), or if symptoms worsen or fail to improve. documented in this encounter [facility] 03-03-2024 Telephone encounter Note Call made to patient. [place] PP visit. [facility] 03-03-2024 Miscellaneous Notes Call made to patient. [place] PP visit. Patient can't be released until she has pp visit. Must be at least 3 weeks pp for visit. Patient left VM on nurse line stating she was supposed to go back to work today but needs a note from her provider. Patient just delivered on 02/21. PP appointment not until 03/30. Forwarding to provider as I am not sure the policy on this. Pt scheduled. Please call patient to schedule her visit 4-6 weeks from 02/21. Thanks so much! documented in this encounter [facility] 03-03-2024 Telephone encounter Note Patient can't be released until she has pp visit. Must be at least 3 weeks pp for visit. [facility] 03-03-2024 Telephone encounter Note Patient left VM on nurse line stating she was supposed to go back to work today but needs a note from her provider. Patient just delivered on 02/21. PP appointment not until 03/30. Forwarding to provider as I am not sure the policy on this. [facility] 02-24-2024 Telephone encounter Note Pt scheduled. [facility] 02-24-2024 Miscellaneous Notes Pt scheduled. Please call patient to schedule her visit 4-6 weeks from 02/21. Thanks so much! documented in this encounter [facility] 02-24-2024 Nurse Note Patient discharged to home at 1135. Patient was wheeled out with father of baby and . Discharge paperwork reviewed with patient and father of the baby. Patient states she understands when to call the doctor for both her and and states she has no questions at this time. [facility] 02-24-2024 Nurse Note Patient discharged to home at 1135. Patient was wheeled out with father of baby and infant. Discharge paperwork reviewed with patient and father of the baby. Patient states she understands when to call the doctor for both her and infant and states she has no questions at this time. documented in this encounter [facility] 02-24-2024 Telephone encounter Note Please call patient to schedule her visit 4-6 weeks from 02/21. Thanks so much! [facility] 02-24-2024 Note Department of Obstet rics and Gynecology Delivery Discharge Summary Admission on 02/22/2024 12:06 PM Reason for admission: IOL-RR Intrapartum Course: Patient admitted for her IOL-RR. She was GBS negative and her labor course included FB, pitocin, AROM. FHT was Cat II for a period of time and r/b/a of placing IFM in setting of Hep C was discussed and ultimately pursued. Patient progressed to . Surgical Operations & Procedures: Date of delivery: 02/21 Delivery Type: Vaginal, Spontaneous Delivery Anesthesia: Epidural anesthesia Laceration(s): none Delivery Complications: none EBL: 100 cc Pertinent Findings & Procedures: Information for the patient's : Kei Greene [[id number]] male 7 lb 12.5 oz (3.53 kg) Apgars: Information for the patient's : Kei Greene [[id number]] Course: Uncomplicated : Male, sp circ Blood Type/Rh: O Antibody Screen: No results found for: LABANTI Rubella: No results found for: RUBELLAIGG Contraception: S/p Nexplanon placement. : no VTE Prophylaxis: Not Indicated Meds: Medication List START taking these medications acetaminophen 500 MG tablet Commonly known as: Tylenol Extra Strength Take 1 tablet (500 mg) by mouth every 6 hours as needed for mild pain (1-3) for up to 10 days. docusate sodium 100 MG capsule Commonly known as: Colace Take 1 capsule (100 mg) by mouth 2 times daily. ibuprofen 600 MG tablet Take 1 tablet (600 mg) by mouth every 6 hours as needed for mild pain (1-3) for up to 15 days. Alternate with tylenol senna 8.6 MG tablet Commonly known as: Senokot Take 1 tablet (8.6 mg) by mouth Nightly for 10 days. CONTINUE taking these medications Aristada 882 MG/3.2ML injection Generic drug: ARIPiprazole Lauroxil ER STOP taking these medications Plus Vitamin/Mineral 27-1 MG tablet Where to Get Your Medications These medications were sent to [facility]/pharmacy #[id number] - [place], [place] - [address] [facility] [place] [address] Hours: 24-hours acetaminophen 500 MG tablet docusate sodium 100 MG capsule ibuprofen 600 MG tablet senna 8.6 MG tablet Activity: Activity as tolerated Diet: Regular diet If a patient meets criteria for hypertension, make sure the following are done prior to discharge: [] Order a blood pressure kit through [facility] (or the patient's own pharmacy on the weekend) [] Order the blood pressure log through [facility] [] Place a telephone encounter for a 72 hour blood pressure check. Specify that this will be a virtual visit. [] Include blood pressure dot phrase (.sumobhypertension) in discharge instructions [x] Check here if the patient does NOT meet criteria for hypertension Follow up Care: Follow up appointment in [address] [facility] Condition on discharge: Stable Discharge to: Home Discharge date: 02/23 Discharge Dx: Spontaneous Vaginal Delivery, Hepatitis C Infection, Substance Use Disorder History, Obesity, Tobacco Use Instructions to Patient:: Pelvic Rest (no intercourse, tampons, douching, etc) x 6 weeks Specific discharge instruction printed 39 weeks gestation of [Z3A.39] Patient Active Problem List Diagnosis Polysubstance abuse (CMS/HCC) (HCC) Substance use disorder Hepatitis C antibody positive in blood Supervision of high risk in third trimester Substance abuse affecting in third trimester, antepartum (HCC) Maternal obesity affecting , antepartum complicated by tobacco use in third trimester 39 weeks gestation of Comments: Home care, Follow-up care and control were reviewed. Signs and symptoms of mastitis and Post Depression were reviewed. The patient is to notify her physician if any of these occur. Milagros Rey MD on 02/24/2024 at 5:57 AM [facility] 02-24-2024 Hospital course Narrative Department of Obstetrics and Gynecology Delivery Discharge Summary Admission on 02/22/2024 12:06 PM Reason for admission: IOL-RR Intrapartum Course: Patient admitted for her IOL-RR. She was GBS negative and her labor course included FB, pitocin, AROM. FHT was Cat II for a period of time and r/b/a of placing IFM in setting of Hep C was discussed and ultimately pursued. Patient progressed to . Surgical Operations & Procedures: Date of delivery: 02/21 Delivery Type: Vaginal, Spontaneous Delivery Anesthesia: Epidural anesthesia Laceration(s): none Delivery Complications: none EBL: 100 cc Pertinent Findings & Procedures: Information for the patient's : Kei Greene [[id number]] male 7 lb 12.5 oz (3.53 kg) Apgars: Information for the patient's : Kei Greene [[id number]] Course: Uncomplicated Infant: Male, sp circ Blood Type/Rh: O Antibody Screen: No results found for: LABANTI Rubella: No results found for: RUBELLAIGG Contraception: S/p Nexplanon placement. : no VTE Prophylaxis: Not Indicated Meds: Medication List START taking these medications acetaminophen 500 MG tablet Commonly known as: Tylenol Extra Strength Take 1 tablet (500 mg) by mouth every 6 hours as needed for mild pain (1-3) for up to 10 days. docusate sodium 100 MG capsule Commonly known as: Colace Take 1 capsule (100 mg) by mouth 2 times daily. ibuprofen 600 MG tablet Take 1 tablet (600 mg) by mouth every 6 hours as needed for mild pain (1-3) for up to 15 days. Alternate with tylenol senna 8.6 MG tablet Commonly known as: Senokot Take 1 tablet (8.6 mg) by mouth Nightly for 10 days. CONTINUE taking these medications Aristada 882 MG/3.2ML injection Generic drug: ARIPiprazole Lauroxil ER STOP taking these medications Plus Vitamin/Mineral 27-1 MG tablet Where to Get Your Medications These medications were sent to [facility]/pharmacy #[id number] [facility] [address] [facility] [place] [address] Hours: 24-hours acetaminophen 500 MG tablet docusate sodium 100 MG capsule ibuprofen 600 MG tablet senna 8.6 MG tablet Activity: Activity as tolerated Diet: Regular diet If a patient meets criteria for hypertension, make sure the following are done prior to discharge: [] Order a blood pressure kit through [facility] (or the patient's own pharmacy on the weekend) [] Order the blood pressure log through [facility] [] Place a telephone encounter for a 72 hour blood pressure check. Specify that this will be a virtual visit. [] Include blood pressure dot phrase (.sumobhypertension) in discharge instructions [x] Check here if the patient does NOT meet criteria for hypertension Follow up Care: Follow up appointment in [address] [facility] Condition on discharge: Stable Discharge to: Home Discharge date: 02/23 Discharge Dx: Spontaneous Vaginal Delivery, Hepatitis C Infection, Substance Use Disorder History, Obesity, Tobacco Use Instructions to Patient:: Pelvic Rest (no intercourse, tampons, douching, etc) x 6 weeks Specific discharge instruction printed 39 weeks gestation of [Z3A.39] Patient Active Problem List Diagnosis Polysubstance abuse (CMS/HCC) (HCC) Substance use disorder Hepatitis C antibody positive in blood Supervision of high risk in third trimester Substance abuse affecting in third trimester, antepartum (HCC) Maternal obesity affecting , antepartum complicated by tobacco use in third trimester 39 weeks gestation of Comments: Home care, Follow-up care and control were reviewed. Signs and symptoms of mastitis and Post Depression were reviewed. The patient is to notify her physician if any of these occur. Milagros Rey MD on 02/24/2024 at 5:57 AM Cosigned by Lucy Moreno MD at 02/24/2024 8:09 AM EDT documented in this encounter [facility] 02-24-2024 Hospital Discharge instructions Milagros Rey MD - 02/24/2024 5:52 AM EDT Images from the original note were not included. Thank you for allowing us to care of you at [facility]. This time can be one of many emotional ups and downs and many changes in your life. In these first weeks try to take good care of yourself because you will likely feel very tired. It may take 4 to 6 weeks to feel like yourself again, and possibly longer if you had a . FOLLOW-UP: Your follow-up care is a barron part of your treatment and safety. Follow-up with your OB providerin 4 weeks or as specified by your OB provider. If you had high blood pressure, visit your OB provider within 3-5 days after being home. Most women's blood pressure will return to pre- levels after delivery. However, some patients continue to have problems with their blood pressure, and some even get worse. Very high blood pressure can lead to seizures or stroke which can be life threatening. If ordered by your provider, take your blood pressure at home and call your OB provider if you have a high reading. Your OB provider can write you a prescription for a blood pressure monitor if you do not have one. Be sure to make and go to all appointments, and call your OB provider if you are having problems. It's also a good idea to know your test results and keep a list of the medicines you take. BLEEDING Vaginal bleeding will decrease in amount over the next few weeks. 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 Use pads instead of tampons for the bloody flow that may last as long as 2 weeks. You will notice that as your activity increases, your flow may increase. Call your provider if you are saturating one maxi pad in an hour & passing large clots for 3 hours or more. ACTIVITY NO SEXUAL activity for 6 weeks or until advised by your OB provider; Nothing in vagina: intercourse, tampons, or douching. Begin to think about your reproductive life plan. Talk to your OB provider about if and when you would like to get in the future. The recommendation for safe spacing is 18-24 months. Showering is okay; NO tub baths, swimming, or hot tubs. Gradually increase your activity. Resume exercise regimen only after advised by your )OB provider. Avoid lifting anything heavier than ten pounds or a gallon of milk for six weeks. Avoid driving 1 week for vaginal delivery and 2 weeks for section, or longer if you are on prescription pain medicine unless otherwise instructed by your OB provider. Rise slowly from a lying to sitting and then a standing position. Climb stairs carefully. You may feel tired or have a lack of energy. You may continue your vitamin to replenish nutrients post-delivery. Nap when whenever you can to catch up on sleep. EMOTIONS You may feel chowdary, sad, teary, & overwhelmed for the first 2 weeks ; however, feelings of depression may occur any time within the first year after delivery. Contact your OB provider if you feel you may be showing signs of depression, or have thoughts of harming yourself or or anyone.. WOUND CARE For Vaginal Delivery: Shower daily, and cleanse your perineum (bottom) with mild soap from front to back. Use the plastic squirt bottle until bleeding stops each time you use the restroom instead of wiping with toilet paper. Ease soreness of hemorrhoids and the area between your vagina and rectum with ice compresses or witch wilder pads. If used, stitches will dissolve in 4-6 weeks on their own. You may use a sitz bath or soak in a clean tub with drain open and water running for comfort. Kegel exercises will help restore bladder control. To do these tighten your muscles as if you were stopping your urine flow. Hold for a few seconds and then relax. Do these throughout the day. For Section Delivery: Keep your incision clean and dry. If you had steri-strips you may remove these once they start falling off. If you have elicia they need to be removed 3-10 daysafter delivery. If you have steri-strips, remove after 7 - 10 days. Do not wear clothing that irritates the incision line. If your incision is in a crease that is not dry, use a hair-dryer to dry the area 3 times a day. If you develop fever, shaking chills, redness, swelling, drainage or discharge from your wound, or if your wound looks like it is coming apart call your provider immediately. BREAST CARE If you develop a warm, red, tender area on your breast or develop a fever contact your OB provider. If your breasts become engorged ask your provider because treatment can vary according to your needs. DIET & CONSTIPATION Eat a well-balanced diet focusing on foods high in fiber and protein such as: whole grain cereals and breads, fruits and vegetables and legumes (eg, beans, lentils) Drink 8-10 glasses of fluids daily, especially water. Limit caffeine. To avoid constipation you may take a mild [id number] stool softener (such as colace) as recommended by your OB provider. SWELLING Try to keep your legs elevated when you are sitting or lying down. Stay hydrated and take walks. If you had high blood pressure, weigh yourself at the same time each day. Write down your weight and take the record to your OB provider appointment. MEDICATIONS Take all medications prescribed for you exactly as ordered. Don't take any drugs not prescribed to you or over the counter medicines unless recommended by your provider. Don't smoke. WHEN TO CALL THE OB PROVIDER Signs of infection, including fever and chills Increased bleeding: soaking more than one pad an hour or passing clots the size of an egg or larger. Wounds that become red, swollen or drain pus Vaginal discharge that smells foul New pain, swelling, or tenderness in your legs Pain that you can't control with the medications you've been given Pain, burning, urgency or frequency of urination, or persistent bleeding in the urine Cough, shortness of breath, or serious difficulty catching your breath Chest pain or pain in the upper right area of your belly Headache (very painful) or vision changes like blurry or double vision, seeing spots or 'auras' Swelling that is worse or weight gain of more than 3 pounds in 3 days Depression, suicidal thoughts, or feelings of harming someone else Breasts that are hot, red and accompanied by fever Any cracking or bleeding from the nipple or areola (the dark-colored area of the breast) SAVE YOUR LIFE: Get Care for these POST- Warning Signs: Call 911 if you have: Pain in chest Obstructed breathing or shortness of breath Seizures Thoughts of hurting yourself or your baby Call your healthcare provider if you have: (if you can't reach your healthcare provider, call 911 or go to an emergency room) Bleeding, soaking through one pad/hour, or blood clots the size of an egg or bigger Incision that is not healing Red or swollen leg, that is painful or warm to touch Temperature of 100.4 F or higher Headache that does not get better, even after taking medicine, or bad headache with vision changes. Contact your healthcare provider and tell them: I delivered on 07/23/2022 02/22/2024 and I am having ____(specific warning signs) In case of an emergency, call 911 immediately. documented in this encounter [facility] 02-24-2024 History of Present illness Narrative Images from the original note were not included. VAGINAL DELIVERY POST DAY # 2 Prakash Greene, 23 y.o. This patient was seen & examined today. Her was complicated by: Patient Active Problem List Diagnosis Polysubstance abuse (CMS/HCC) (HCC) Substance use disorder Hepatitis C antibody positive in blood Supervision of high risk in third trimester Substance abuse affecting in third trimester, antepartum (HCC) Maternal obesity affecting , antepartum complicated by tobacco use in third trimester 39 weeks gestation of Today she is doing well without any chief complaint. Her lochia is light. She denies Headache, Chest Pain, Vision Changes, and Shortness of Breath. She is ambulating well. She is tolerating solids. Vital Signs: Vitals: 02/23/24 0812 02/23/24 2000 02/23/24 2303 02/24/24 0120 BP: 124/78 100/71 134/88 133/89 BP Location: Patient Position: Pulse: 97 99 93 94 Resp: 16 16 16 16 Temp: 36.3 C (97.3 F) 37 C (98.6 F) 36.4 C (97.5 F) 36.9 C (98.4 F) TempSrc: Temporal Temporal Temporal Temporal SpO2: 97% 97% 96% 96% Weight: Height: Physical Exam: GENERAL APPEARANCE: alert, well appearing, in no apparent distress ABDOMEN : benign non-tender, without masses or organomegaly palpable EXTREMITIES: no redness or tenderness in the calves or thighs, no edema NEUROLOGIC: alert, oriented, normal speech, no focal findings or movement disorder noted UTERUS : normal size, well involuted, firm, non-tender Lab: Lab Results Component Value Date HGB 11.1 (L) 02/22/2024 Lab Results Component Value Date HCT 34.0 (L) 02/22/2024 O Antibody Screen: No results found for: LABANTI No results found for: RUBELLAIGG LABOR DELIVERY ??? SCD's ONLY (labor through ambulation) SCD's PLUS Prophylactic Anticoagulation until discharge SCD's PLUS Prophylactic Anticoagulation for 6 weeks SCD's PLUS Therapeutic Anticoagulation for 6 weeks Vaginal Delivery [] BMI >= 40 kg/m2 Delivery All patients Vaginal Delivery [] BMI >= 40 kg/m2 AND [] Antepartum hospitalization >= 72 hours within the past month Delivery 1 Major Risk Factor: [] BMI >= 35 kg/m2 [] Low Risk Thrombophilia [] PPH+RBCs, IR, or operation [] Infection+Antibiotics [] Antepartum hospitalization >= 72 hours within the past month [] PMH: Sickle Cell, SLE, Cardiac Dz, Active IBD, Active Cancer, Nephrotic Syndrome OR 2 Minor Risk Factors: [] Multiple gestation [] Age > 40 [] PPH >= 1,000cc [] (+)FMH of VTE [] Smoker [] Preeclampsia [] BMI >= 40 kg/m2 AND [] Low Risk Thrombophilia OR ANY OF THE FOLLOWING: [] High Risk Thrombophilia without prior VTE [] Low Risk Thrombophilia with (+)FMH of VTE [] Any single prior VTE ANY OF THE FOLLOWING: [] Already on LMWH/UFH [] Multiple prior VTE [] High Risk Thrombophilia with prior VTE Low Risk Thrombophilia: FVL (heterozygous), Prothrombin (heterozygous), Protein C, Protein S High Risk Thrombophilia: FVL (homozygous), Prothrombin (homozygous), FVL+Prothrombin (heterozygous), Antithrombin III, APLS Assessment/Plan: Prakash Greene is PPD # 2 s/p Care - Doing well, VSS - Male, s/p circ - bottle feeding - Contraception: s/p Nexplanon insertion - Encourage ambulation - VTE Prophylaxis: Not Indicated Hepatitis C -09/08 VL positive without quant viral load -Quantitative viral load in process this hospitalization 3. History of Substance Use Disorder 4. Tobacco Use -Reports not using since 2022 -Used Marijuana, Methamphetamine, alcohol and fentanyl prior -MAT negative on admission -Reports 2-3 cigarette use daily 5. Obesity -BMI 41 -Ambulation encouraged this AM Disposition: Patient is safe for discharge today. Will plan for discharge later today. Provider's Name: DO Milagros Black MD 02/24/2024, 5:48 AM Cosigned by Lucy Moreno MD at 02/24/2024 8:09 AM EDT Images from the original note were not included. VAGINAL DELIVERY POST DAY # 1 Prakash Greene, 23 y.o. This patient was seen & examined today. Her was complicated by: Patient Active Problem List Diagnosis Polysubstance abuse (CMS/HCC) (HCC) Substance use disorder Hepatitis C antibody positive in blood Supervision of high risk in third trimester Substance abuse affecting in third trimester, antepartum (HCC) Maternal obesity affecting , antepartum complicated by tobacco use in third trimester 39 weeks gestation of Today she is doing well without any chief complaint. Her lochia is light. She denies Headache, Chest Pain, Vision Changes, and Shortness of Breath. She is ambulating well. She is tolerating solids. Vital Signs: Vitals: 02/23/24 0055 02/23/24 0110 02/23/24 0126 02/23/24 0156 BP: (!) 90/58 103/75 (!) 81/46 108/63 BP Location: Right arm Patient Position: Lying Pulse: 87 96 68 Resp: 18 Temp: 36.8 C (98.3 F) TempSrc: Temporal SpO2: 96% Weight: Height: Physical Exam: GENERAL APPEARANCE: alert, well appearing, in no apparent distress ABDOMEN : benign non-tender, without masses or organomegaly palpable EXTREMITIES: no redness or tenderness in the calves or thighs, no edema NEUROLOGIC: alert, oriented, normal speech, no focal findings or movement disorder noted UTERUS : normal size, well involuted, firm, non-tender Lab: Lab Results Component Value Date HGB 11.1 (L) 02/22/2024 Lab Results Component Value Date HCT 34.0 (L) 02/22/2024 O Antibody Screen: No results found for: LABANTI No results found for: RUBELLAIGG LABOR DELIVERY ??? SCD's ONLY (labor through ambulation) SCD's PLUS Prophylactic Anticoagulation until discharge SCD's PLUS Prophylactic Anticoagulation for 6 weeks SCD's PLUS Therapeutic Anticoagulation for 6 weeks Vaginal Delivery [] BMI >= 40 kg/m2 Delivery All patients Vaginal Delivery [] BMI >= 40 kg/m2 AND [] Antepartum hospitalization >= 72 hours within the past month Delivery 1 Major Risk Factor: [] BMI >= 35 kg/m2 [] Low Risk Thrombophilia [] PPH+RBCs, IR, or operation [] Infection+Antibiotics [] Antepartum hospitalization >= 72 hours within the past month [] PMH: Sickle Cell, SLE, Cardiac Dz, Active IBD, Active Cancer, Nephrotic Syndrome OR 2 Minor Risk Factors: [] Multiple gestation [] Age > 40 [] PPH >= 1,000cc [] (+)FMH of VTE [] Smoker [] Preeclampsia [] BMI >= 40 kg/m2 AND [] Low Risk Thrombophilia OR ANY OF THE FOLLOWING: [] High Risk Thrombophilia without prior VTE [] Low Risk Thrombophilia with (+)FMH of VTE [] Any single prior VTE ANY OF THE FOLLOWING: [] Already on LMWH/UFH [] Multiple prior VTE [] High Risk Thrombophilia with prior VTE Low Risk Thrombophilia: FVL (heterozygous), Prothrombin (heterozygous), Protein C, Protein S High Risk Thrombophilia: FVL (homozygous), Prothrombin (homozygous), FVL+Prothrombin (heterozygous), Antithrombin III, APLS Assessment/Plan: Prakash Greene is PPD # 1 s/p Care - Doing well, VSS - Male, desires circumcision - both, breast and bottle feeding - Contraception: s/p Nexplanon insertion - Encourage ambulation - VTE Prophylaxis: Not Indicated Hepatitis C -09/08 VL positive without quant -quant viral load in process 3. Substance Use Disorder -MAT negative for everything -Tobacco use 2-3 cigarettes per day -hx marijuana, methamphetamine, fentanyl 4. Obesity -BMI 41 -Early ambulation Disposition: Plan for discharge tomorrow given late time of delivery on 02/21. Provider's Name: DO Milagros Black MD 02/23/2024, 5:46 AM Cosigned by Vilma Rapp DO at 02/23/2024 11:14 AM EDT Associated attestation - Vilma Rapp DO - 02/23/2024 11:14 AM EDT Hospital Care (Independent): I independently saw and evaluated the patient. I agree with the findings and plan of care as documented in the resident's note. 23yo PPD#1 s/p at 39w1d at 39w1d (RR IOL). She is doing well but notes pain along her back where epidural was placed. States minimal bleeding and pain otherwise. Bonding well with baby. VSS Agree with physical exam findings. Plan for routine care and dc home tomorrow. Reviewed circumcision with patient and her support person. Discussed anesthesia with dorsal penile block' a;sp reviewed risks to be, but not exclusive of, bleeding, need for revision, small risk of injury to penile head that could require further surgical intervention. Patient agrees to move further. Discussed likely discharge home tomorrow if no other concerns. Images from the original note were not included. Labor Progress Note Date: 02/22/2024 Time: 3:35 PM Subjective: Prakash Greene is a 23 y.o. female at 39w1d admitted for IOL-rr Complications: HCV Substance Use Disorder Obesity SVE on admission: GBS: []Pos [x]Neg []Unknown Cx: FHP: Defer FHT: Cat 2 Payne:quiet FHT: Baseline of 125 with Moderate variability, accelerations Present. Rare late decelerations present. Overall Reassuring. acidemia reliably excluded at this time. Interventions: Fb placed at this time, LD pitocin started. Plan for SVE when FB is out. Last BP: normotensive. Fluid Bolus started for late decels. Overall reassuring with moderate variability. Cx:Defer FHT: Category 2 Payne: Quiet FHT: Baseline of 130 with Moderate variability, accelerations Present. Rare late decelerations present. Overall Reassuring. acidemia reliably excluded at this time. Interventions: Regular pitocin ordered. FBO. Last BP: normotensive. Cat II for intermittent lates, overall reassuring with moderate variability and accelerations. AROM for clear fluids at this time. SVE 5/70/-3. Patient to get epidural at this time. Tomasa Han DO 02/22/2024 5:55 PM FHT Cat II for intermittent deep late decelerations. Patient underwent episodes of hypotension following placement of epidural, now improving. Pitocin at 4 ml/hr. SVE 5-6/80/-3. Per RN, patient continues to have copious leakage of amniotic fluid. IUPC placed with RN at bedside, patient tolerated procedure well. Continues to have copious leakage of clear amniotic fluid. FHT improving with moderate variability. Will continue to monitor. Robert Gonzalez MD 02/22/2024 7:16 PM FHT Cat II for intermittent lates, overall reassuring with moderate variability and accelerations. SVE 5/80/-3. Hip release completed at this time. Pitocin currently at 4 ml/hr. BP NT. Continue to titrate pitocin as able. MVUs inadequate at 177. Tomasa Han DO 02/22/2024 8:39 PM Patient seen at bedside SVE 7/80/-2. IFM placed due to breaks in FHT and variable decelerations. FHR remains Cat II with recurrent variable declarations, patient still hypotensive and anesthesia to re-evaluate for possible continued treatment of patient's blood pressure. Once BP normalized will re-assess decelerations and consider an AI if variable decelerations persist at that time. Robert Gonzalez MD 02/22/2024 9:11 PM Anesthesia at bedside, AI started at 2116. Dr. Garduno counseling patient on risks of internal monitoring in the setting of Hepatitis C, as well as the plan regarding her FHT. Robert Gonzalez MD 02/22/2024 9:32 PM On my exam cervix is 5/80/-3, head is not well applied to cervix, head is not coming through the cervix, can stretch cervix to 7. I discussed theoretical low risk for vertical transmission in the setting of Hepatitis C and internal IFM. I did discuss due to Cat II FHT and difficulty tracing, would like to trace internally. Patient and FOB voiced understanding for need for internal monitoring and there is risk of Hep C transmission. Anesthesia in room to treat low BP, we just did hip release and IVF bolus running. AI is currently running and Pitocin turned off in the setting of Cat II for recurrent variable decelerations, her pattern is reassuring with return to baseline quickly and moderate variability in between contractions. Since pit off and AI running, now with less significant decels, now more early decelerations vs lates. Continue to monitor closely at this time but ok to continue on. Will find window to restart pitocin. Repeat SVE . Patient making quick cervical change. Positive scalp stim at 2228. Due to quick cervical change to 9 cm and acceleration, okay to continue with at this time. Plan on recheck in 30 minutes or sooner if indicated. Reviewed with Dr. Carreon and DR. Garduno. Discussed possible vs operative delivery with patient. Pitocin remains off and AI still running. CCM. Tomasa Han DO 02/22/2024 10:38 PM FHT improved at this time with moderate variability and accelerations. Contractions every 2-3 minutes. Plan recheck SVE at 2310. Tomasa Han DO 02/22/2024 11:00 PM . Please refer to delivery note for more information. Tomasa Han DO 02/22/2024 11:19 PM documented in this encounter [facility] 02-23-2024 Note Formatting of this n ote might be different from the original. Met with mother of baby/mob at bedside. Father of baby/fob Venkatesh Cummings 02-20-60 present and holding baby Venkatesh Cummings . Mob known to Sw from of last child Sharifa Cummings 07-23-22, at which time she was newly in recovery and going to [facility] and [facility] took custody at [place]. Mob states doing very well in recovery. ,Mob has been clean from substances since 07-10-22, admits to a relapse of alcohol one time on 10-29-22. States still goes to counseling 1x per week with Rowena at [facility]. Fob states has been clean since time of baby's June 2022 and continues to regularly attend 12 step meetings. Mob stayed in [facility] for 90 days and worked plan with [facility], worker is Joy Vega got custody back of her dtr a few months ago and they have protective supervision over case and will close in a couple of months. [facility] Worker Joy Vega on way up to hospital. Sw was able to speak to her when she came to visit mob and baby. States doing well and very compliant with case plan and tox screens all negative. Tox screens in med record include 09-09-23, 12-31-23 and 02-22-24, all negative. Mob has all supplies for baby including carseat, crib, basinett,clothing,diapers and is on wic. Educated on safe sleep. She reports current mental health tx through [facility] and is on monthly injections of Abilify. States sees psychiatrist ever three months. Discussed signs of PP Depression. Per [facility] worker Joy Vega, ok for mob and baby to be dc, they will continue to work with family in community. [place] FOR DC [facility] Work Phone: 02-23-2024 Note Formatting of this n ote might be different from the original. Met with mother of baby/mob at bedside. Father of baby/fob Venkatesh Cummings 02-20-60 present and holding baby Venkatesh Cummings . Mob known to from of last child Sharifa Cummings 07-23-22, at which time she was newly in recovery and going to [facility] and [facility] took custody at [place]. Mob states doing very well in recovery. ,Mob has been clean from substances since 07-10-22, admits to a relapse of alcohol one time on 10-29-22. States still goes to counseling 1x per week with Rowena at [facility]. Fob states has been clean since time of baby's June 2022 and continues to regularly attend 12 step meetings. Mob stayed in [facility] for 90 days and worked plan with [facility], worker is Joy Vega got custody back of her dtr a few months ago and they have protective supervision over case and will close in a couple of months. [facility] Worker Joy Vega on way up to hospital. was able to speak to her when she came to visit mob and baby. States doing well and very compliant with case plan and tox screens all negative. Tox screens in med record include 09-09-23, 12-31-23 and 02-22-24, all negative. Santi sanders has all supplies for baby including carseat, crib, basinett,clothing,diapers and is on wic. Educated on safe sleep. She reports current mental health tx through [facility] and is on monthly injections of Abilify. [facility] sees psychiatrist ever three months. Discussed signs of PP Depression. Per [facility] worker Joy Vega, ok for mob and baby to be dc, they will continue to work with family in community. [place] FOR DC [facility] Work Phone: 02-23-2024 Miscellaneous Notes Met with mother of baby/mob at bedside. Father of baby/fob Venkatesh Cummings 02-20-60 present and holding baby Venkatesh Cummings . Mob known to from of last child Sharifa Cummings 07-23-22, at which time she was newly in recovery and going to [facility] and [facility] took custody at [place]. Mob states doing very well in recovery. ,Mob has been clean from substances since 07-10-22, admits to a relapse of alcohol one time on 10-29-22. States still goes to counseling 1x per week with Rowena at [facility]. Fob states has been clean since time of baby's June 2022 and continues to regularly attend 12 step meetings. Mob stayed in [facility] for 90 days and worked plan with [facility], worker is Joy Vega got custody back of her dtr a few months ago and they have protective supervision over case and will close in a couple of months. [facility] Worker Joy Vega on way up to hospital. Sw was able to speak to her when she came to visit mob and baby. States doing well and very compliant with case plan and tox screens all negative. Tox screens in med record include 1424, 924 and 24, all negative. Mob states has all supplies for baby including carseat, crib, basinett,clothing,diapers and is on wic. Educated on safe sleep. She reports current mental health tx through [facility] and is on monthly injections of Abilify. States sees psychiatrist ever three months. Discussed signs of PP Depression. Per [facility] worker Joy Vega, ok for mob and baby to be dc, they will continue to work with family in community. [place] FOR DC Date: 02/23/2024 Name: Prakash Greene : 2000 [facility] Information [facility] Patient Information Primary Caregiver: Self Accompanied by/Relationship: S/O;Family Marital Status: single Support System: SO/Family Adventism/Cultural Factors: arnie Activities of Daily Living Communication: See demographics Living Arrangements Current Residence: Private residence Lives With: S/O; Family Support System: S/O; Family Income Information Income Source: Employed Financial Resource Strain How hard is it for you to pay for the very basics like food, housing, medical care and heating? N/A Housing Stability In the last 12 months, was there a time when you did not have a steady place to sleep or slept in a custodial (including now)? No Transportation Needs Has the lack of Transportation kept you from medical appointments? No In the past 12 months, has the lack of transportation kept you from meetings, work, or from getting things needed for daily living? No Food Insecurity Within the past 12 months, have you worried that your food would run out before you got the money to buy more? No Stress Do you feel stress - tense, restless, nervous, or anxious, or unable to sleep at night because you mind is troubled all the time? Mood stable Referral To Financial Resources: N/A Community Resources: Admission folder given upon admission to PP Unit Social Work: Hx of SHEA CLP: N/A Medical Information 23 year old admitted for IOL at 39/1 weeks. 5 Para 2. Vaginal delivery. Hx of THC, methamphetamine, fentanyl. MAT negative Patient states she went to [facility] for treatment. Discharge Plan Home or Community Resources: Admission folder given upon admission to PP unit Equipment: N/A Education Given: Discussion on the A. B. C's of safe sleep. Always place your baby on his or her back to sleep, use a firm sleep surface and your baby should not sleep in an adult bed, on a couch or chair. Keep soft objects, toys and loose bedding out of your baby's sleep area. Reviewed depression. It is common to have blues. This is a normal response to many of the hormonal changes, stress and lack of sleep that go with raising a and physically recovering from the . Don't hesitate to talk to your provider with any concerns. There are resources in your home going booklet. To help prevent germs from spreading to you and your baby, make sure everyone washes their hands before they handle your . Avoid crowds, and keep away from sick people, anyone who is sick with a cough or fever, including family members. Post- warning signs information reviewed with patient per nurse with discharge Additional Information: Patient is independent and has insurance. She is prepared with her baby supplies. To be discharged to home. Denies any concerns at this time. Mental Health Services: Resources in discharge folder Equipment: Developmental Delay: N/A Children's Services: N/A Images from the original note were not included. Vaginal Delivery Note Department of Obstetrics and Gynecology Patient: Prakash Greene : 2000 Date of delivery: 02/22/24 Pre-operative Diagnosis: Prakash Greene at 39w1d 1. Hepatitis C - New Viral load ordered on admission 2. Substance Use Disorder - MAT negative on admission 3. 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 Carreon; Dr. Garduno; Dr. Ramirez Information: Information for the patient's : Kei Greene [[id number]] Information for the patient's : Kei Greene [[id number]] Description: normal Meconium Noted: None Anesthesia: epidural Complications: None Application and Delivery: Prakash Greene at 39w1d admitted for IOL-RR. Her labor course consisted of mendoza balloon, pitocin, AROM. Patient progressed to complete and pushed with 1 contraction and delivered. She was known to be GBS negative and received nothing for prophylaxis. After pushing with contractions the head delivered OA over an intact perineum. A nuchal cord was not present. The anterior, then posterior shoulder delivered easily and atraumatically followed by the rest of the infant. The infant was placed on the maternal abdomen and attended by the RN for evaluation. The infant was stimulated and dried. The cord was clamped and cut. The delivery of the placenta was spontaneous and appeared intact. Pitocin was started. The vagina was swept of all clots and debris. The perineum and vagina were evaluated. No laceration were noted. All counts were correct. Mother and baby tolerated procedure well. EBL: 100cc VTE Prophylaxis: Not Indicated LABOR DELIVERY ??? SCD's ONLY (labor through ambulation) SCD's PLUS Prophylactic Anticoagulation until discharge SCD's PLUS Prophylactic Anticoagulation for 6 weeks SCD's PLUS Therapeutic Anticoagulation for 6 weeks Vaginal Delivery [] BMI >= 40 kg/m2 Delivery All patients Vaginal Delivery [] BMI >= 40 kg/m2 AND [] Antepartum hospitalization >= 72 hours within the past month Delivery 1 Major Risk Factor: [] BMI >= 35 kg/m2 [] Low Risk Thrombophilia [] PPH+RBCs, IR, or operation [] Infection+Antibiotics [] Antepartum hospitalization >= 72 hours within the past month [] PMH: Sickle Cell, SLE, Cardiac Dz, Active IBD, Active Cancer, Nephrotic Syndrome OR 2 Minor Risk Factors: [] Multiple gestation [] Age > 40 [] PPH >= 1,000cc [] (+)FMH of VTE [] Smoker [] Preeclampsia [] BMI >= 40 kg/m2 AND [] Low Risk Thrombophilia OR ANY OF THE FOLLOWING: [] High Risk Thrombophilia without prior VTE [] Low Risk Thrombophilia with (+)FMH of VTE [] Any single prior VTE ANY OF THE FOLLOWING: [] Already on LMWH/UFH [] Multiple prior VTE [] High Risk Thrombophilia with prior VTE Low Risk Thrombophilia: FVL (heterozygous), Prothrombin (heterozygous), Protein C, Protein S High Risk Thrombophilia: FVL (homozygous), Prothrombin (homozygous), FVL+Prothrombin (heterozygous), Antithrombin III, APLS Delivery Summary: Specimen: Cord blood, cord gases Blood Type and Rh: O Positive Racheal Garduno DO 02/22/2024, 11:35 PM Cosigned by Jeannie Carreon DO at 02/23/2024 6:39 AM EDT Associated attestation - Jeannie Carreon DO - 02/23/2024 6:39 AM EDT Procedures or Surgery: I was present for all barron elements of the procedure or surgery as described in the resident note. documented in this encounter [facility] 02-23-2024 Note Formatting of this n ote might be different from the original. Date: 02/23/2024 Name: Prakash Greene : 2000 [facility] Patient Information Primary Caregiver: Self Accompanied by/Relationship: S/O;Family Marital Status: single Support System: SO/Family Adventism/Cultural Factors: arnie Activities of Daily Living Communication: See demographics Living Arrangements Current Residence: Private residence Lives With: S/O; Family Support System: S/O; Family Income Information Income Source: Employed Financial Resource Strain How hard is it for you to pay for the very basics like food, housing, medical care and heating? N/A Housing Stability In the last 12 months, was there a time when you did not have a steady place to sleep or slept in a custodial (including now)? No Transportation Needs Has the lack of Transportation kept you from medical appointments? No In the past 12 months, has the lack of transportation kept you from meetings, work, or from getting things needed for daily living? No Food Insecurity Within the past 12 months, have you worried that your food would run out before you got the money to buy more? No Stress Do you feel stress - tense, restless, nervous, or anxious, or unable to sleep at night because you mind is troubled all the time? Mood stable Referral To Financial Resources: N/A Community Resources: Admission folder given upon admission to PP Unit Social Work: Hx of SHEA CLP: N/A Medical Information 23 year old admitted for IOL at 39/1 weeks. 5 Para 2. Vaginal delivery. Hx of THC, methamphetamine, fentanyl. MAT negative Patient states she went to [facility] for treatment. Discharge Plan Home or Community Resources: Admission folder given upon admission to PP unit Equipment: N/A Education Given: Discussion on the A. B. C's of safe sleep. Always place your baby on his or her back to sleep, use a firm sleep surface and your baby should not sleep in an adult bed, on a couch or chair. Keep soft objects, toys and loose bedding out of your baby's sleep area. Reviewed depression. It is common to have blues. This is a normal response to many of the hormonal changes, stress and lack of sleep that go with raising a and physically recovering from the . Don't hesitate to talk to your provider with any concerns. There are resources in your home going booklet. To help prevent germs from spreading to you and your baby, make sure everyone washes their hands before they handle your . Avoid crowds, and keep away from sick people, anyone who is sick with a cough or fever, including family members. Post- warning signs information reviewed with patient per nurse with discharge Additional Information: Patient is independent and has insurance. She is prepared with her baby supplies. To be discharged to home. Denies any concerns at this time. Mental Health Services: Resources in discharge folder Equipment: Developmental Delay: N/A Children's Services: N/A [facility] 02-23-2024 Note Formatting of this n ote might be different from the original. Date: 02/23/2024 Name: Prakash Greene : 2000 [facility] Patient Information Primary Caregiver: Self Accompanied by/Relationship: S/O;Family Marital Status: single Support System: SO/Family Adventism/Cultural Factors: arnie Activities of Daily Living Communication: See demographics Living Arrangements Current Residence: Private residence Lives With: S/O; Family Support System: S/O; Family Income Information Income Source: Employed Financial Resource Strain How hard is it for you to pay for the very basics like food, housing, medical care and heating? N/A Housing Stability In the last 12 months, was there a time when you did not have a steady place to sleep or slept in a custodial (including now)? No Transportation Needs Has the lack of Transportation kept you from medical appointments? No In the past 12 months, has the lack of transportation kept you from meetings, work, or from getting things needed for daily living? No Food Insecurity Within the past 12 months, have you worried that your food would run out before you got the money to buy more? No Stress Do you feel stress - tense, restless, nervous, or anxious, or unable to sleep at night because you mind is troubled all the time? Mood stable Referral To Financial Resources: N/A Community Resources: Admission folder given upon admission to PP Unit Social Work: Hx of SHEA CLP: N/A Medical Information 23 year old admitted for IOL at 39/1 weeks. 5 Para 2. Vaginal delivery. Hx of THC, methamphetamine, fentanyl. MAT negative Patient states she went to [facility] for treatment. Discharge Plan Home or Community Resources: Admission folder given upon admission to PP unit Equipment: N/A Education Given: Discussion on the A. B. C's of safe sleep. Always place your baby on his or her back to sleep, use a firm sleep surface and your baby should not sleep in an adult bed, on a couch or chair. Keep soft objects, toys and loose bedding out of your baby's sleep area. Reviewed depression. It is common to have blues. This is a normal response to many of the hormonal changes, stress and lack of sleep that go with raising a and physically recovering from the . Don't hesitate to talk to your provider with any concerns. There are resources in your home going booklet. To help prevent germs from spreading to you and your baby, make sure everyone washes their hands before they handle your . Avoid crowds, and keep infant away from sick people, anyone who is sick with a cough or fever, including family members. Post- warning signs information reviewed with patient per nurse with discharge Additional Information: Patient is independent and has insurance. She is prepared with her baby supplies. To be discharged to home. Denies any concerns at this time. Mental Health Services: Resources in discharge folder Equipment: Developmental Delay: N/A Children's Services: N/A [facility] 02-23-2024 Note Attestation signed by Jeannie Carreon DO at 02/23/2024 6:40 AM Procedures or Surgery: I was present for all barron elements of the procedure or surgery as described in the resident note. Nexplanon Insertion Procedure Note Pre-operative Diagnosis: ; Desires Long Acting Reversible Contraception with Nexplanon Post-operative Diagnosis: normal Indications: undesired fertility Procedure Details The patient was positioned comfortably on our procedure table. She was consented earlier in the appointment and the procedure risk and complications were reviewed. A sterile prep and drape was completed and a 1% xylocaine for local anesthetic was utilized, 3 ml. Nexplanon was inserted per protocol without difficulty in the left upper arm. A sterile dressing was applied with a pressure wrap. The patient tolerated the procedure well. Nexplanon Information: SN [id number] . EXP 2026-01 LOT1 [id number] Condition: Stable Complications: None Plan: Formal restrictions were discussed in detail. She is to notify our office if any swelling, redness, temperature, or limb restriction or numbness. No baths, Pools or Lakes until Follow up. Showers are allowed in 36 hours. She understands the most common side effect of irregular bleeding, and that this may be increased during the period. She was advised to use Tylenol #3 as needed for mild to moderate pain. She will follow up for follow up. She is instructed to adhere to pelvic rest for 6 weeks. She was counseled on the effects of Nexplanon use while breast feeding. Dr. Carreon was present for the procedure Tomasa Han DO 02/23/2024, 12:55 AM [facility] 02-23-2024 Procedure note Nexplanon Insertion Procedure Note Pre-operative Diagnosis: ; Desires Long Acting Reversible Contraception with Nexplanon Post-operative Diagnosis: normal Indications: undesired fertility Procedure Details The patient was positioned comfortably on our procedure table. She was consented earlier in the appointment and the procedure risk and complications were reviewed. A sterile prep and drape was completed and a 1% xylocaine for local anesthetic was utilized, 3 ml. Nexplanon was inserted per protocol without difficulty in the left upper arm. A sterile dressing was applied with a pressure wrap. The patient tolerated the procedure well. Nexplanon Information: SN [id number] . EXP 2026-01 LOT1 [id number] Condition: Stable Complications: None Plan: Formal restrictions were discussed in detail. She is to notify our office if any swelling, redness, temperature, or limb restriction or numbness. No baths, Pools or Lakes until Follow up. Showers are allowed in 36 hours. She understands the most common side effect of irregular bleeding, and that this may be increased during the period. She was advised to use Tylenol #3 as needed for mild to moderate pain. She will follow up for follow up. She is instructed to adhere to pelvic rest for 6 weeks. She was counseled on the effects of Nexplanon use while breast feeding. Dr. Carreon was present for the procedure Tomasa Han DO 02/23/2024, 12:55 AM Cosigned by Jeannie Carreon DO at 02/23/2024 6:40 AM EDT Associated attestation - Jeannie Carreon DO - 02/23/2024 6:40 AM EDT Procedures or Surgery: I was present for all barron elements of the procedure or surgery as described in the resident note. [facility] 02-23-2024 Procedure note Nexplanon Insertion Procedure Note Pre-operative Diagnosis: ; Desires Long Acting Reversible Contraception with Nexplanon Post-operative Diagnosis: normal Indications: undesired fertility Procedure Details The patient was positioned comfortably on our procedure table. She was consented earlier in the appointment and the procedure risk and complications were reviewed. A sterile prep and drape was completed and a 1% xylocaine for local anesthetic was utilized, 3 ml. Nexplanon was inserted per protocol without difficulty in the left upper arm. A sterile dressing was applied with a pressure wrap. The patient tolerated the procedure well. Nexplanon Information: [id number] . EXP 2026-01 LOT1 [id number] Condition: Stable Complications: None Plan: Formal restrictions were discussed in detail. She is to notify our office if any swelling, redness, temperature, or limb restriction or numbness. No baths, Pools or Lakes until Follow up. Showers are allowed in 36 hours. She understands the most common side effect of irregular bleeding, and that this may be increased during the period. She was advised to use Tylenol #3 as needed for mild to moderate pain. She will follow up for follow up. She is instructed to adhere to pelvic rest for 6 weeks. She was counseled on the effects of Nexplanon use while breast feeding. Dr. Carreon was present for the procedure Tomasa Han DO 02/23/2024, 12:55 AM Cosigned by Jeannie Carreon DO at 02/23/2024 6:40 AM EDT Associated attestation - Jeannie Carreon DO - 02/23/2024 6:40 AM EDT Procedures or Surgery: I was present for all barron elements of the procedure or surgery as described in the resident note. documented in this encounter [facility] 02-22-2024 Labor and delivery summary note Images from the original note were not included. Vaginal Delivery Note Department of Obstetrics and Gynecology Patient: Prakash Greene : 2000 Date of delivery: 02/22/24 Pre-operative Diagnosis: Prakash Greene at 39w1d 1. Hepatitis C - New Viral load ordered on admission 2. Substance Use Disorder - MAT negative on admission 3. 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 Carreon; Dr. Garduno; Dr. Ramirez Information: Information for the patient's : Kei Greene [[id number]] Information for the patient's : Kei Greene [[id number]] Description: normal Meconium Noted: None Anesthesia: epidural Complications: None Application and Delivery: Prakash Greene at 39w1d admitted for IOL-RR. Her labor course consisted of mendoza balloon, pitocin, AROM. Patient progressed to complete and pushed with 1 contraction and delivered. She was known to be GBS negative and received nothing for prophylaxis. After pushing with contractions the head delivered OA over an intact perineum. A nuchal cord was not present. The anterior, then posterior shoulder delivered easily and atraumatically followed by the rest of the . The was placed on the maternal abdomen and attended by the RN for evaluation. The infant was stimulated and dried. The cord was clamped and cut. The delivery of the placenta was spontaneous and appeared intact. Pitocin was started. The vagina was swept of all clots and debris. The perineum and vagina were evaluated. No laceration were noted. All counts were correct. Mother and baby tolerated procedure well. EBL: 100cc VTE Prophylaxis: Not Indicated LABOR DELIVERY ??? SCD's ONLY (labor through ambulation) SCD's PLUS Prophylactic Anticoagulation until discharge SCD's PLUS Prophylactic Anticoagulation for 6 weeks SCD's PLUS Therapeutic Anticoagulation for 6 weeks Vaginal Delivery [] BMI >= 40 kg/m2 Delivery All patients Vaginal Delivery [] BMI >= 40 kg/m2 AND [] Antepartum hospitalization >= 72 hours within the past month Delivery 1 Major Risk Factor: [] BMI >= 35 kg/m2 [] Low Risk Thrombophilia [] PPH+RBCs, IR, or operation [] Infection+Antibiotics [] Antepartum hospitalization >= 72 hours within the past month [] PMH: Sickle Cell, SLE, Cardiac Dz, Active IBD, Active Cancer, Nephrotic Syndrome OR 2 Minor Risk Factors: [] Multiple gestation [] Age > 40 [] PPH >= 1,000cc [] (+)FMH of VTE [] Smoker [] Preeclampsia [] BMI >= 40 kg/m2 AND [] Low Risk Thrombophilia OR ANY OF THE FOLLOWING: [] High Risk Thrombophilia without prior VTE [] Low Risk Thrombophilia with (+)FMH of VTE [] Any single prior VTE ANY OF THE FOLLOWING: [] Already on LMWH/UFH [] Multiple prior VTE [] High Risk Thrombophilia with prior VTE Low Risk Thrombophilia: FVL (heterozygous), Prothrombin (heterozygous), Protein C, Protein S High Risk Thrombophilia: FVL (homozygous), Prothrombin (homozygous), FVL+Prothrombin (heterozygous), Antithrombin III, APLS Delivery Summary: Specimen: Cord blood, cord gases Blood Type and Rh: O Positive Racheal Garduno DO 02/22/2024, 11:35 PM Cosigned by Jeannie Carreon DO at 02/23/2024 6:39 AM EDT Associated attestation - Jeannie Carreon DO - 02/23/2024 6:39 AM EDT Procedures or Surgery: I was present for all barron elements of the procedure or surgery as described in the resident note. [facility] Phone: 02-22-2024 Note Epidural Block Time Out: 02/22/2024 6:18 PM Patient location during procedure: OB Start time: 02/22/2024 6:21 PM End time: 02/22/2024 6:27 PM Reason for block: labor analgesia Staffing Performed: CUSTOMER RETENTION SPECIALIST Resident/CUSTOMER RETENTION SPECIALIST: NICKI Oleary CRNA Preanesthetic Checklist Completed: patient identified, IV checked, site marked, risks and benefits discussed, surgical consent, monitors and equipment checked, pre-op evaluation, timeout performed, IV bolus and anesthesia consent given Block Placement Patient position: sitting Prep: ChloraPrep Sterility prep: drape, gloves, cap, hand and mask Sedation level: no sedation Patient monitoring: heart rate and continuous pulse oximetry Approach: midline Location: lumbar Lumbar location: L3-L4 Epidural Loss of resistance technique: saline Guidance: landmark technique Needle Needle type: [employer] Needle gauge: 17 G Needle length: 9 cm Needle insertion depth: 7 cm Catheter type: multi-orifice Catheter size: 19 G Catheter at skin depth: 14 cm Catheter securement method: surgical tape, liquid medical adhesive and clear occlusive dressing Test dose: negative Medications Administered lidocaine-EPINEPHrine (Xylocaine W/EPI) 1.5 %-1:[id number] injection - Epidural 3 mL - 02/22/2024 6:26:00 PM Assessment Block outcome: pain improved Number of attempts: 1 Procedure assessment: patient tolerated procedure well with no immediate complications [facility] 02-22-2024 Note Labor Progress Note Date: 02/22/2024 Time: 3:35 PM Subjective: Prakash Greene is a 23 y.o. female at 39w1d admitted for IOL-rr Complications: HCV Substance Use Disorder Obesity SVE on admission: GBS: []Pos [x]Neg []Unknown Cx: FHP: Defer FHT: Cat 2 Payne:quiet FHT: Baseline of 125 with Moderate variability, accelerations Present. Rare late decelerations present. Overall Reassuring. acidemia reliably excluded at this time. Interventions: Fb placed at this time, LD pitocin started. Plan for SVE when FB is out. Last BP: normotensive. Fluid Bolus started for late decels. Overall reassuring with moderate variability. Cx:Defer FHT: Category 2 Payne: Quiet FHT: Baseline of 130 with Moderate variability, accelerations Present. Rare late decelerations present. Overall Reassuring. acidemia reliably excluded at this time. Interventions: Regular pitocin ordered. FBO. Last BP: normotensive. Cat II for intermittent lates, overall reassuring with moderate variability and accelerations. AROM for clear fluids at this time. SVE 70/-3. Patient to get epidural at this time. Tomasa Han DO 02/22/2024 5:55 PM FHT Cat II for intermittent deep late decelerations. Patient underwent episodes of hypotension following placement of epidural, now improving. Pitocin at 4 ml/hr. SVE 5-/-3. Per RN, patient continues to have copious leakage of amniotic fluid. IUPC placed with RN at bedside, patient tolerated procedure well. Continues to have copious leakage of clear amniotic fluid. FHT improving with moderate variability. Will continue to monitor. Robert Gonzalez MD 02/22/2024 7:16 PM FHT Cat II for intermittent lates, overall reassuring with moderate variability and accelerations. SVE 5/80/-3. Hip release completed at this time. Pitocin currently at 4 ml/hr. BP NT. Continue to titrate pitocin as able. MVUs inadequate at 177. Tomasa Han DO 02/22/2024 8:39 PM Patient seen at bedside SVE 7/80/-2. IFM placed due to breaks in FHT and variable decelerations. FHR remains Cat II with recurrent variable declarations, patient still hypotensive and anesthesia to re-evaluate for possible continued treatment of patient's blood pressure. Once BP normalized will re-assess decelerations and consider an AI if variable decelerations persist at that time. Robert Gonzalez MD 02/22/2024 9:11 PM Anesthesia at bedside, AI started at 2116. Dr. Garduno counseling patient on risks of internal monitoring in the setting of Hepatitis C, as well as the plan regarding her FHT. Robert Gonzalez MD 02/22/2024 9:32 PM On my exam cervix is 5/80/-3, head is not well applied to cervix, head is not coming through the cervix, can stretch cervix to 7. I discussed theoretical low risk for vertical transmission in the setting of Hepatitis C and internal IFM. I did discuss due to Cat II FHT and difficulty tracing, would like to trace internally. Patient and FOB voiced understanding for need for internal monitoring and there is risk of Hep C transmission. Anesthesia in room to treat low BP, we just did hip release and IVF bolus running. AI is currently running and Pitocin turned off in the setting of Cat II for recurrent variable decelerations, her pattern is reassuring with return to baseline quickly and moderate variability in between contractions. Since pit off and AI running, now with less significant decels, now more early decelerations vs lates. Continue to monitor closely at this time but ok to continue on. Will find window to restart pitocin. Repeat SVE /-1. Patient making quick cervical change. Positive scalp stim at 2228. Due to quick cervical change to 9 cm and acceleration, okay to continue with at this time. Plan on recheck in 30 minutes or sooner if indicated. Reviewed with Dr. Carreon and DR. Garduno. Discussed possible vs operative delivery with patient. Pitocin remains off and AI still running. CCM. Tomasa Han, 02/22/2024 10:38 PM FHT improved at this time with moderate variability and accelerations. Contractions every 2-3 minutes. Plan recheck SVE at 2310. Tomasa HanDO 02/22/2024 11:00 PM . Please refer to delivery note for more information. Tomasa HanDO 02/22/2024 11:19 PM [facility] 02-22-2024 Note Patient: Prakash melgar Procedure Information Date: 02/22/24 Procedure: Labor Analgesia Relevant Problems Other (+) 39 weeks gestation of (+) Supervision of high risk in third trimester Clinical information reviewed: Allergies Meds Physical Exam Airway Mallampati: III TM distance: >3 FB Neck ROM: full Cardiovascular Dental Pulmonary Abdominal encephalographer Evaluation Anesthesia Plan patient is NPO appropriate Any family history or previous problems with anesthesia no ASA 2 epidural Any family history or previous problems with anesthesia no The patient is not a current smoker. Anesthetic plan and risks discussed with patient. Use of blood products discussed with who consented to blood products. Additional Equipment Requests [facility] 02-22-2024 History and physical note Images from the original note were not included. Obstetrical History and Physical Admission: IOL-rr HISTORY OF PRESENT ILLNESS: The patient is a 23 y.o. female at 39w1d OB History 5 Para 2 Term 2 AB 2 Living 1 SAB 2 IAB Ectopic Multiple Live Births 1 Obstetric Comments Plans to bottle feed Patient presents with a chief complaint as above and is being admitted for IOL-RR Denies DFM/VB/LOF/LEE/EpigastricPain/Visua l changes Estimated Due Date: Estimated Date of Delivery: 02/28/24 CARE: Complications: See Below PAST OB HISTORY: OB History Para Term AB Living 5 2 2 2 1 SAB IAB Ectopic Multiple Live Births 2 1 # Outcome Date GA Lbr Jasmeet/2nd Weight Sex Type Anes PTL Lv 5 Current 4 SAB 04/2023 11w0d 3 Term 07/23/22 39w1d / 00:13 7 lb (3.175 kg) F Vag-Spont EPI N GIAN Complications: Intolerance 2 SAB 2020 10w0d 1 Term 01/12/17 39w0d 7 lb (3.175 kg) F Vag-Spont EPI Obstetric Comments Plans to bottle feed Past Medical History: Past Medical History: Diagnosis Date Acute cystitis without hematuria 06/28/2019 Anxiety Anxiety Borderline personality disorder (CMS/HCC) (HCC) Drug abuse (CMS/HCC) (HCC) Hepatitis C Psychiatric problem PTSD (post-traumatic stress disorder) Past Surgical History: Past Surgical History: Procedure Laterality Date ABDOMINAL SURGERY 4yrs old- bowel surgery TONSILLECTOMY (HISTORICAL) 3yrs old Allergies: Fentanyl Social History: Social History Socioeconomic History Marital status: Single Spouse name: Not on file Number of children: Not on file Years of education: Not on file Highest education level: Not on file Occupational History Not on file Tobacco Use Smoking status: Every Day Current packs/day: 0.25 Average packs/day: 0.3 packs/day for 13.8 years (3.5 ttl pk-yrs) Types: Cigarettes Start date: 04/28/2010 Smokeless tobacco: Never Vaping Use Vaping status: Every Day Substance and Sexual Activity Alcohol use: Not Currently Comment: last drink October 29, 2022 Drug use: Not Currently Types: IV, Marijuana, Methamphetamines, Fentanyl Comment: Sober date July 10, 2022 Sexual activity: Yes Partners: Male Other Topics Concern Not on file Social History Narrative Not on file Social Drivers of Health Financial Resource Strain: Low Risk (09/30/2023) Overall Financial Resource Strain (CARDIA) Difficulty of Paying Living Expenses: Not very hard Food Insecurity: No Food Insecurity (09/30/2023) Hunger Vital Sign Worried About Running Out of Food in the Last Year: Never true Ran Out of Food in the Last Year: Never true Transportation Needs: No Transportation Needs (09/30/2023) PRAPARE - Transportation Lack of Transportation (Medical): No Lack of Transportation (Non-Medical): No Physical Activity: Insufficiently Active (09/30/2023) Exercise Vital Sign Days of Exercise per Week: 5 days Minutes of Exercise per Session: 10 min Stress: Stress Concern Present (09/30/2023) [employer] - Occupational Stress Questionnaire Feeling of Stress : To some extent Social Connections: Unknown (09/30/2023) Social Connection and Isolation Panel [NHANES] Frequency of Communication with Friends and Family: Twice a week Frequency of Social Gatherings with Friends and Family: Twice a week Attends [employer]ism Services: Not on file Active Member of Clubs or Organizations: No Attends Club or Organization Meetings: Never Marital Status: Living with partner Intimate Partner Violence: Not At Risk (12/20/2023) Humiliation, Afraid, Rape, and Kick questionnaire Fear of Current or Ex-Partner: No Emotionally Abused: No Physically Abused: No Sexually Abused: No Housing Stability: Low Risk (09/30/2023) Housing Stability Vital Sign Unable to Pay for Housing in the Last Year: No Number of Places Lived in the Last Year: 1 Unstable Housing in the Last Year: No Family History: Family History Problem Relation Name Age of Onset No Known Problems Father No Known Problems Mother No Known Problems Sister x2 No Known Problems Daughter x2 Medications Prior to Admission: Medications Prior to Admission Medication Sig Dispense Refill Last Dose/Taking ARIPiprazole (Abilify) 5 MG tablet Take 5 mg by mouth daily. Aristada 662 MG/2.4ML injection Inject 2.4 mL intramuscularly every 28 days Vit-Fe Fumarate-FA ( Plus Vitamin/Mineral) 27-1 MG tablet Take 1 tablet by mouth daily. 90 tablet 4 REVIEW OF SYSTEMS: Const: Negative HEENT: Negative Resp: Negative CVS: Negative GI: Negative : Negative MSK: Negative Breast: Negative Skin: Negative Heme/Lymph:Negative Endo: Negative Neuro: Negative Psych: Negative PHYSICAL EXAM: There were no vitals filed for this visit. General appearance: awake, alert, cooperative, no apparent distress, and appears stated age Neurologic: Awake, alert, oriented to name, place and time. Lungs: No increased work of breathing, good air exchange Abdomen: Soft, non tender, gravid, consistent with her gestational age Sterile Speculum Exam: Defer Cervix: 2/50/-3 Contraction frequency: Irregular Labs: Pending on admission Blood Type/Rh: pos Group B Strep: negative Fetus: EFW: 01/06/24 US 2147 gm 4 lb 12 oz 57 % AC 80% Presentation: cephalic by U/S Vega Score: 3 0 1 2 3 Position Posterior Mid Anterior - Consistency Firm Medium Soft - Effacement 0-30% 40-50% 60-70% 80% or > Dilation 0cm 1-2cm 3-4cm 5cm or > Station -3 -2 -1, 0 +1, +2 LABOR DELIVERY ??? SCD's ONLY (labor through ambulation) SCD's PLUS Prophylactic Anticoagulation until discharge SCD's PLUS Prophylactic Anticoagulation for 6 weeks SCD's PLUS Therapeutic Anticoagulation for 6 weeks Vaginal Delivery [] BMI >= 40 kg/m2 Delivery All patients Vaginal Delivery [] BMI >= 40 kg/m2 AND [] Antepartum hospitalization >= 72 hours within the past month Delivery 1 Major Risk Factor: [] BMI >= 35 kg/m2 [] Low Risk Thrombophilia [] PPH+RBCs, IR, or operation [] Infection+Antibiotics [] Antepartum hospitalization >= 72 hours within the past month [] PMH: Sickle Cell, SLE, Cardiac Dz, Active IBD, Active Cancer, Nephrotic Syndrome OR 2 Minor Risk Factors: [] Multiple gestation [] Age > 40 [] PPH >= 1,000cc [] (+)FMH of VTE [] Smoker [] Preeclampsia [] BMI >= 40 kg/m2 AND [] Low Risk Thrombophilia OR ANY OF THE FOLLOWING: [] High Risk Thrombophilia without prior VTE [] Low Risk Thrombophilia with (+)FMH of VTE [] Any single prior VTE ANY OF THE FOLLOWING: [] Already on LMWH/UFH [] Multiple prior VTE [] High Risk Thrombophilia with prior VTE Low Risk Thrombophilia: FVL (heterozygous), Prothrombin (heterozygous), Protein C, Protein S High Risk Thrombophilia: FVL (homozygous), Prothrombin (homozygous), FVL+Prothrombin (heterozygous), Antithrombin III, APLS ASSESSMENT AND PLAN: 1. IOL-RR Admission: Admit to L&D FHR: Cat2 [place]: not indicated Pain control plan: desires epidural Delivery Plan: FB and pitocin GBS: GBS negative, No indication for GBS prophylaxis LARC: Declines Intrapartum SCDs: Not Indicated VTE Prophylaxis: Not Indicated Hepatitis C - 09/09/23 VL positive, no quant - VL ordered on admission - 12/30 VL pending Substance Use Disorder - MAT consented and ordered - Tobacco Use: 2-3 cigarettes per day - Hx of Marijuana, Methamphetamine, Fentanyl Obesity - BMI 41 - DVT ppx per protocol - Early ambulation Discussed with Dr Carreon, who agrees with plan. Salvador Harrell DO 02/22/2024, 12:12 PM Cosigned by Jeannie Carreon DO at 02/22/2024 4:49 PM EDT [facility] 02-22-2024 Note Obstetrical History and Physical Admission: IOL-rr HISTORY OF PRESENT ILLNESS: The patient is a 23 y.o. female at 39w1d OB History 5 Para 2 Term 2 AB 2 Living 1 SAB 2 IAB Ectopic Multiple Live Births 1 Obstetric Comments Plans to bottle feed Patient presents with a chief complaint as above and is being admitted for IOL-RR Denies DFM/VB/LOF/LEE/EpigastricPain/Visua l changes Estimated Due Date: Estimated Date of Delivery: 02/28/24 CARE: Complications: See Below PAST OB HISTORY: OB History Para Term AB Living 5 2 2 2 1 SAB IAB Ectopic Multiple Live Births 2 1 # Outcome Date GA Lbr Jasmeet/2nd Weight Sex Type Anes PTL Lv 5 Current 4 SAB 04/2023 11w0d 3 Term 07/23/22 39w1d / 00:13 7 lb (3.175 kg) F Vag-Spont EPI N GIAN Complications: Intolerance 2 2020 10w0d 1 Term 01/12/17 39w0d 7 lb (3.175 kg) F Vag-Spont EPI Obstetric Comments Plans to bottle feed Past Medical History: Past Medical History: Diagnosis Date Acute cystitis without hematuria 06/28/2019 Anxiety Anxiety Borderline personality disorder (CMS/HCC) (HCC) Drug abuse (CMS/HCC) (HCC) Hepatitis C Psychiatric problem PTSD (post-traumatic stress disorder) Past Surgical History: Past Surgical History: Procedure Laterality Date ABDOMINAL SURGERY 4yrs old- bowel surgery TONSILLECTOMY (HISTORICAL) 3yrs old Allergies: Fentanyl Social History: Social History Socioeconomic History Marital status: Single Spouse name: Not on file Number of children: Not on file Years of education: Not on file Highest education level: Not on file Occupational History Not on file Tobacco Use Smoking status: Every Day Current packs/day: 0.25 Average packs/day: 0.3 packs/day for 13.8 years (3.5 ttl pk-yrs) Types: Cigarettes Start date: 04/28/2010 Smokeless tobacco: Never Vaping Use Vaping status: Every Day Substance and Sexual Activity Alcohol use: Not Currently Comment: last drink October 29, 2022 Drug use: Not Currently Types: IV, Marijuana, Methamphetamines, Fentanyl Comment: Sober date July 10, 2022 Sexual activity: Yes Partners: Male Other Topics Concern Not on file Social History Narrative Not on file Social Drivers of Health Financial Resource Strain: Low Risk (09/30/2023) Overall Financial Resource Strain (CARDIA) Difficulty of Paying Living Expenses: Not very hard Food Insecurity: No Food Insecurity (09/30/2023) Hunger Vital Sign Worried About Running Out of Food in the Last Year: Never true Ran Out of Food in the Last Year: Never true Transportation Needs: No Transportation Needs (09/30/2023) PRAPARE - Transportation Lack of Transportation (Medical): No Lack of Transportation (Non-Medical): No Physical Activity: Insufficiently Active (09/30/2023) Exercise Vital Sign Days of Exercise per Week: 5 days Minutes of Exercise per Session: 10 min Stress: Stress Concern Present (09/30/2023) [employer] - Occupational Stress Questionnaire Feeling of Stress : To some extent Social Connections: Unknown (09/30/2023) Social Connection and Isolation Panel [NHANES] Frequency of Communication with Friends and Family: Twice a week Frequency of Social Gatherings with Friends and Family: Twice a week Attends Adventism Services: Not on file Active Member of Clubs or Organizations: No Attends Club or Organization Meetings: Never Marital Status: Living with partner Intimate Partner Violence: Not At Risk (12/20/2023) Humiliation, Afraid, Rape, and Kick questionnaire Fear of Current or Ex-Partner: No Emotionally Abused: No Physically Abused: No Sexually Abused: No Housing Stability: Low Risk (09/30/2023) Housing Stability Vital Sign Unable to Pay for Housing in the Last Year: No Number of Places Lived in the Last Year: 1 Unstable Housing in the Last Year: No Family History: Family History Problem Relation Name Age of Onset No Known Problems Father No Known Problems Mother No Known Problems Sister x2 No Known Problems Daughter x2 Medications Prior to Admission: Medications Prior to Admission Medication Sig Dispense Refill Last Dose/Taking ARIPiprazole (Abilify) 5 MG tablet Take 5 mg by mouth daily. Aristada 662 MG/2.4ML injection Inject 2.4 mL intramuscularly every 28 days Vit-Fe Fumarate-FA ( Plus Vitamin/Mineral) 27-1 MG tablet Take 1 tablet by mouth daily. 90 tablet 4 REVIEW OF SYSTEMS: Const: Negative HEENT: Negative Resp: Negative CVS: Negative GI: Negative : Negative MSK: Negative Breast: Negative Skin: Negative Heme/Lymph:Negative Endo: Negative Neuro: Negative Psych: Negative PHYSICAL EXAM: There were no vitals filed for this visit. General appearance: awake, alert, cooperative, no apparent distress, and appears stated age Neurologic: Awake, alert, oriented to name, place and time. (more content not included)... [facility] 02-22-2024 History and physical note Images from the original note were not included. Obstetrical History and Physical Admission: IOL-rr HISTORY OF PRESENT ILLNESS: The patient is a 23 y.o. female at 39w1d OB History 5 Para 2 Term 2 AB 2 Living 1 SAB 2 IAB Ectopic Multiple Live Births 1 Obstetric Comments Plans to bottle feed Patient presents with a chief complaint as above and is being admitted for IOL-RR Denies DFM/VB/LOF/LEE/EpigastricPain/Visua l changes Estimated Due Date: Estimated Date of Delivery: 02/28/24 CARE: Complications: See Below PAST OB HISTORY: OB History Para Term AB Living 5 2 2 2 1 SAB IAB Ectopic Multiple Live Births 2 1 # Outcome Date GA Lbr Jasmeet/2nd Weight Sex Type Anes PTL Lv 5 Current 4 SAB 04/2023 11w0d 3 Term 07/23/22 39w1d / 00:13 7 lb (3.175 kg) F Vag-Spont EPI N GIAN Complications: Intolerance 2 SAB 2020 10w0d 1 Term 01/12/17 39w0d 7 lb (3.175 kg) F Vag-Spont EPI Obstetric Comments Plans to bottle feed Past Medical History: Past Medical History: Diagnosis Date Acute cystitis without hematuria 06/28/2019 Anxiety Anxiety Borderline personality disorder (CMS/HCC) (HCC) Drug abuse (CMS/HCC) (HCC) Hepatitis C Psychiatric problem PTSD (post-traumatic stress disorder) Past Surgical History: Past Surgical History: Procedure Laterality Date ABDOMINAL SURGERY 4yrs old- bowel surgery TONSILLECTOMY (HISTORICAL) 3yrs old Allergies: Fentanyl Social History: Social History Socioeconomic History Marital status: Single Spouse name: Not on file Number of children: Not on file Years of education: Not on file Highest education level: Not on file Occupational History Not on file Tobacco Use Smoking status: Every Day Current packs/day: 0.25 Average packs/day: 0.3 packs/day for 13.8 years (3.5 ttl pk-yrs) Types: Cigarettes Start date: 04/28/2010 Smokeless tobacco: Never Vaping Use Vaping status: Every Day Substance and Sexual Activity Alcohol use: Not Currently Comment: last drink October 29, 2022 Drug use: Not Currently Types: IV, Marijuana, Methamphetamines, Fentanyl Comment: Sober date July 10, 2022 Sexual activity: Yes Partners: Male Other Topics Concern Not on file Social History Narrative Not on file Social Drivers of Health Financial Resource Strain: Low Risk (09/30/2023) Overall Financial Resource Strain (CARDIA) Difficulty of Paying Living Expenses: Not very hard Food Insecurity: No Food Insecurity (09/30/2023) Hunger Vital Sign Worried About Running Out of Food in the Last Year: Never true Ran Out of Food in the Last Year: Never true Transportation Needs: No Transportation Needs (09/30/2023) PRAPARE - Transportation Lack of Transportation (Medical): No Lack of Transportation (Non-Medical): No Physical Activity: Insufficiently Active (09/30/2023) Exercise Vital Sign Days of Exercise per Week: 5 days Minutes of Exercise per Session: 10 min Stress: Stress Concern Present (09/30/2023) [employer] - Occupational Stress Questionnaire Feeling of Stress : To some extent Social Connections: Unknown (09/30/2023) Social Connection and Isolation Panel [NHANES] Frequency of Communication with Friends and Family: Twice a week Frequency of Social Gatherings with Friends and Family: Twice a week Attends Adventism Services: Not on file Active Member of Clubs or Organizations: No Attends Club or Organization Meetings: Never Marital Status: Living with partner Intimate Partner Violence: Not At Risk (12/20/2023) Humiliation, Afraid, Rape, and Kick questionnaire Fear of Current or Ex-Partner: No Emotionally Abused: No Physically Abused: No Sexually Abused: No Housing Stability: Low Risk (09/30/2023) Housing Stability Vital Sign Unable to Pay for Housing in the Last Year: No Number of Places Lived in the Last Year: 1 Unstable Housing in the Last Year: No Family History: Family History Problem Relation Name Age of Onset No Known Problems Father No Known Problems Mother No Known Problems Sister x2 No Known Problems Daughter x2 Medications Prior to Admission: Medications Prior to Admission Medication Sig Dispense Refill Last Dose/Taking ARIPiprazole (Abilify) 5 MG tablet Take 5 mg by mouth daily. Aristada 662 MG/2.4ML injection Inject 2.4 mL intramuscularly every 28 days Vit-Fe Fumarate-FA ( Plus Vitamin/Mineral) 27-1 MG tablet Take 1 tablet by mouth daily. 90 tablet 4 REVIEW OF SYSTEMS: Const: Negative HEENT: Negative Resp: Negative CVS: Negative GI: Negative : Negative MSK: Negative Breast: Negative Skin: Negative Heme/Lymph:Negative Endo: Negative Neuro: Negative Psych: Negative PHYSICAL EXAM: There were no vitals filed for this visit. General appearance: awake, alert, cooperative, no apparent distress, and appears stated age Neurologic: Awake, alert, oriented to name, place and time. Lungs: No increased work of breathing, good air exchange Abdomen: Soft, non tender, gravid, consistent with her gestational age Sterile Speculum Exam: Defer Cervix: 250/-3 Contraction frequency: Irregular Labs: Pending on admission Blood Type/Rh: pos Group B Strep: negative Fetus: EFW: 01/06/24 US 2147 gm 4 lb 12 oz 57 % AC 80% Presentation: cephalic by U/S Vega Score: 3 0 1 2 3 Position Posterior Mid Anterior - Consistency Firm Medium Soft - Effacement 0-30% 40-50% 60-70% 80% or > Dilation 0cm 1-2cm 3-4cm 5cm or > Station -3 -2 -1, 0 +1, +2 LABOR DELIVERY ??? SCD's ONLY (labor through ambulation) SCD's PLUS Prophylactic Anticoagulation until discharge SCD's PLUS Prophylactic Anticoagulation for 6 weeks SCD's PLUS Therapeutic Anticoagulation for 6 weeks Vaginal Delivery [] BMI >= 40 kg/m2 Delivery All patients Vaginal Delivery [] BMI >= 40 kg/m2 AND [] Antepartum hospitalization >= 72 hours within the past month Delivery 1 Major Risk Factor: [] BMI >= 35 kg/m2 [] Low Risk Thrombophilia [] PPH+RBCs, IR, or operation [] Infection+Antibiotics [] Antepartum hospitalization >= 72 hours within the past month [] PMH: Sickle Cell, SLE, Cardiac Dz, Active IBD, Active Cancer, Nephrotic Syndrome OR 2 Minor Risk Factors: [] Multiple gestation [] Age > 40 [] PPH >= 1,000cc [] (+)FMH of VTE [] Smoker [] Preeclampsia [] BMI >= 40 kg/m2 AND [] Low Risk Thrombophilia OR ANY OF THE FOLLOWING: [] High Risk Thrombophilia without prior VTE [] Low Risk Thrombophilia with (+)FMH of VTE [] Any single prior VTE ANY OF THE FOLLOWING: [] Already on LMWH/UFH [] Multiple prior VTE [] High Risk Thrombophilia with prior VTE Low Risk Thrombophilia: FVL (heterozygous), Prothrombin (heterozygous), Protein C, Protein S High Risk Thrombophilia: FVL (homozygous), Prothrombin (homozygous), FVL+Prothrombin (heterozygous), Antithrombin III, APLS ASSESSMENT AND PLAN: 1. IOL-RR Admission: Admit to L&D FHR: Cat2 [place]: not indicated Pain control plan: desires epidural Delivery Plan: FB and pitocin GBS: GBS negative, No indication for GBS prophylaxis LARC: Declines Intrapartum SCDs: Not Indicated VTE Prophylaxis: Not Indicated Hepatitis C - 09/09/23 VL positive, no quant - VL ordered on admission - 12/30 VL pending Substance Use Disorder - MAT consented and ordered - Tobacco Use: 2-3 cigarettes per day - Hx of Marijuana, Methamphetamine, Fentanyl Obesity - BMI 41 - DVT ppx per protocol - Early ambulation Discussed with Dr Carreon, who agrees with plan. Salvador Harrell DO 02/22/2024, 12:12 PM Cosigned by Jeannie Carreon DO at 02/22/2024 4:49 PM EDT documented in this encounter [facility] 02-21-2024 Hospital Discharge instructions Jovana Maloney MD - 02/21/2024 8:41 PM EDT Follow up appointment with your doctor/fireperson - Keep next scheduled appointment Activity - Normal Activity Call your doctor/fireperson if you have: - leaking fluid - vaginal bleeding - regular contractions: Every 5 minutes or closer for one hour - decreased movement - worsening abdominal (belly) pain - headache, blurry vision, increased swelling, upper abdominal pain If you are going home with contractions that are uncomfortable/painful- we recommend these coping strategies: rhythmic breathing, hydrotherapy, imagery or visualization, gentle massage, walking and changing your position. Treatment Verification: Prakash Greene was assessed on Labor and Delivery for a related visit on 02/21/24 . Jovana Maloney MD [facility] documented in this encounter [facility] 02-18-2024 Telephone encounter Note Call to patient. No answer. LM with callback [facility] 02-18-2024 Miscellaneous Notes Call to patient. No answer. LM with callback Pt left without getting labs today. Can we please call pt and see if she would be willing to come in for lab visit this week for completion? Thanks. documented in this encounter [facility] 02-18-2024 Telephone encounter Note Call to patient to discuss. No answer. LM with callback number. Informed pt of induction date and time. See other TE. Also notified pt she needs to get labs done. Informed pt she can be added to our lab, or go to outpatient lab. [facility] 02-18-2024 Miscellaneous Notes Call to patient to discuss. No answer. LM with callback number. Informed pt of induction date and time. See other TE. Also notified pt she needs to get labs done. Informed pt she can be added to our lab, or go to outpatient lab. Name of Caller: Elsi Ricardomon Contact Reason for Appointment: Pt calling to check status of induction scheduling. OV notes states Desires 39wk induction. Please advise Office Name: [facility] Medication Refills need, if any: n/a Medication Name: n/a documented in this encounter [facility] 02-18-2024 Telephone encounter Note Name of Caller: Ryleejade Greene Contact Reason for Appointment: Pt calling to check status of induction scheduling. OV notes states Desires 39wk induction. Please advise [facility] Medication Refills need, if any: n/a Medication Name: n/a [facility] 02-17-2024 Telephone encounter Note Pt left without getting labs today. Can we please call pt and see if she would be willing to come in for lab visit this week for completion? Thanks. [facility] 02-17-2024 History of Present illness Narrative Pt here for OB visit. The baby is active. No LOF or bleeding. Contractions, but not consistent or regular. History reviewed - see episode report No nausea or vomiting. PE: See vitals Pt A&OX3, NAD Normal affect Non labored breathing Abd - non tender Ext - no edema Plan: 1.) GBS collected and labs from last visit collected as well. 2.) Desires 39wk induction. Reviewed R/B/A. Consent obtained. 3.) Flu and tdap today. 4.) Labor precautions, kick counts. 5.) RTC pp visit. Pt left office before getting blood drawn or immunizations given. Per JOSE, patient left without getting labs, flu vax, and tdap. documented in this encounter [facility] 02-17-2024 Note Pt left office befor e getting blood drawn or immunizations given. [facility] 02-17-2024 Note Prakash Greene, jade at 38w3d with an YAS of 02/28/2024, by Ultrasound, was seen at [facility] for a nonstress test. Reason for Non-Stress Test 1 : Other (Comment) (Obesity H/O substance abuse) Variability in Waveform for Non-Stress Test 1: Moderate Decelerations in Non-Stress Test 1: None Accelerations in Non-Stress Test 1: Yes Acoustic Stimulator for Non-Stress Test 1: No Baseline Heart Rate for Non-Stress Test 1: 135 BPM Uterine Irritability for Non-Stress Test 1: No Contractions in Non-Stress Test 1: Not present Interpretation of Non-Stress Test 1: Reactive Comments on Non-Stress Test 1: fetus active during NST [facility] 02-17-2024 Procedure note Procedure(s): NONSTRESS TEST jade Judd at 38w3d with an YAS of 02/28/2024, by Ultrasound, was seen at [facility] for a nonstress test. Reason for Non-Stress Test 1 : Other (Comment) (Obesity H/O substance abuse) Variability in Waveform for Non-Stress Test 1: Moderate Decelerations in Non-Stress Test 1: None Accelerations in Non-Stress Test 1: Yes Acoustic Stimulator for Non-Stress Test 1: No Baseline Heart Rate for Non-Stress Test 1: 135 BPM Uterine Irritability for Non-Stress Test 1: No Contractions in Non-Stress Test 1: Not present Interpretation of Non-Stress Test 1: Reactive Comments on Non-Stress Test 1: fetus active during NST [facility] 02-17-2024 Procedure note Procedure(s): NONSTRESS TEST jade Judd at 38w3d with an YAS of 02/28/2024, by Ultrasound, was seen at [facility] for a nonstress test. Reason for Non-Stress Test 1 : Other (Comment) (Obesity H/O substance abuse) Variability in Waveform for Non-Stress Test 1: Moderate Decelerations in Non-Stress Test 1: None Accelerations in Non-Stress Test 1: Yes Acoustic Stimulator for Non-Stress Test 1: No Baseline Heart Rate for Non-Stress Test 1: 135 BPM Uterine Irritability for Non-Stress Test 1: No Contractions in Non-Stress Test 1: Not present Interpretation of Non-Stress Test 1: Reactive Comments on Non-Stress Test 1: fetus active during NST documented in this encounter [facility] 02-16-2024 Hospital Discharge instructions Milagros Rey MD - 02/16/2024 2:18 AM EDT Follow up appointment with your doctor/fireperson - Keep next scheduled appointment Activity - Normal Activity Call your doctor/fireperson if you have: - leaking fluid - vaginal bleeding - regular contractions: Every 5 minutes or closer for one hour - decreased movement - worsening abdominal (belly) pain - headache, blurry vision, increased swelling, upper abdominal pain If you are going home with contractions that are uncomfortable/painful- we recommend these coping strategies: rhythmic breathing, hydrotherapy, imagery or visualization, gentle massage, walking and changing your position. Treatment Verification: Prakash Greene was assessed on Labor and Delivery for a related visit on 02/16/24 . Milagros Rey MD [facility] documented in this encounter [facility] 02-16-2024 History of Present illness Narrative Department of Obstetrics and Gynecology Labor and Delivery Triage Note CHIEF COMPLAINT: CTX HISTORY OF PRESENT ILLNESS: The patient is a 23 y.o. 38w2d. Pt here for ctx every 20 min. Unsure if in labor. Patient denies any other complaints. OB History 5 Para 2 Term 2 AB 2 Living 1 SAB 2 IAB Ectopic Multiple Live Births 1 Obstetric Comments Plans to bottle feed Patient presents with a chief complaint as above. DFM/VB/LOF/CTX Estimated Due Date: Estimated Date of Delivery: 02/28/24 PAST MEDICAL HISTORY: Past Medical History: Diagnosis Date Acute cystitis without hematuria 06/28/2019 Anxiety Anxiety Borderline personality disorder (CMS/HCC) (HCC) Drug abuse (CMS/HCC) (HCC) Hepatitis C Psychiatric problem PTSD (post-traumatic stress disorder) PAST SURGICAL HISTORY: Past Surgical History: Procedure Laterality Date ABDOMINAL SURGERY 4yrs old- bowel surgery TONSILLECTOMY (HISTORICAL) 3yrs old SOCIAL HISTORY: reports that she has been smoking cigarettes. She started smoking about 13 years ago. She has a 3.5 pack-year smoking history. She has never used smokeless tobacco. She reports that she does not currently use alcohol. She reports that she does not currently use drugs after having used the following drugs: IV, Marijuana, Methamphetamines, and Fentanyl. MEDICATIONS: Prior to Admission medications Medication Sig Start Date End Date Taking? Authorizing Provider ARIPiprazole (Abilify) 5 MG tablet Take 5 mg by mouth daily. 02/07/23 Historical Provider, Aristada 662 MG/2.4ML injection Inject 2.4 mL intramuscularly every 28 days 09/03/23 Historical Provider, Vit-Fe Fumarate-FA ( Plus Vitamin/Mineral) 27-1 MG tablet Take 1 tablet by mouth daily. 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 APPEARANCE: Pain: No PHYSICAL EXAM: Vital Signs: VS wnl-reviewed/Respirations normal effort Vitals: 02/15/24 2348 BP: 118/76 Pulse: 109 Resp: 15 Temp: 36.7 C (98 F) TempSrc: Oral SpO2: 99% Abdomen: soft, NT, ND, no rebound/guarding Uterus: gravid/non-tender LE Edema: trace Speculum Exam: defer heart rate: Category I Cervix: 1/50/-3 Contraction frequency: irregular, every 20 minutes Membranes: Intact RESULTS: NST: Reactive Procedures GENERAL LABS: No results found for this or any previous visit (from the past 24 hour(s)). TRIAGE COURSE: Patient here out of concern for contractions. FHT initially not reactive, but now reactive with acels and moderate variability. SVE unchanged from prior triage visit. Given triage precautions. Will trace heart rate for another 10 minutes for full NST. Patient had one possible late deceleration at 0058. Patient was then kept on monitor for next hour. FHT during that 1 hour Cat I with moderate variability and several spontaneous accelerations. Payne q10 min. Given strict triage precautions. Ran strip with Dr Barber. Offered patient induction for deceleration and patient felt comfortable going home given 1 hour of cat I. ESSION: Contractions Pain assessment and plan: None DISCUSSED WITH C PROVIDER: Dr barber and Dr Christensen DISPOSITION: Discharge to Home Associated attestation - Anisha Barber MD - 02/16/2024 6:01 AM EDT Hospital Care (Independent): I independently saw and evaluated the patient. I agree with the findings and plan of care as documented in the resident's note. documented in this encounter [facility] 02-09-2024 Hospital Discharge instructions Milagros Rey MD - 02/09/2024 7:21 PM EDT Follow up appointment with your doctor/fireperson - Keep next scheduled appointment Activity - Normal Activity Call your doctor/fireperson if you have: - leaking fluid - vaginal bleeding - regular contractions: Every 5 minutes or closer for one hour - decreased movement - worsening abdominal (belly) pain - headache, blurry vision, increased swelling, upper abdominal pain If you are going home with contractions that are uncomfortable/painful- we recommend these coping strategies: rhythmic breathing, hydrotherapy, imagery or visualization, gentle massage, walking and changing your position. Treatment Verification: Prakash Greene was assessed on Labor and Delivery for a related visit on 02/09/24 . Milagros Rey MD [facility] documented in this encounter [facility] 12-31-2023 History of Present illness Narrative Temp 97.4 Pt here for OB visit. The baby is active. No LOF or bleeding. No contractions. History reviewed - see episode report No nausea or vomiting. States she will have pelvic pain at times. No pain currently. Notices when walking. Denies unusual vaginal discharge. Denies troubles with bladder and bowels. Planning on . Desires BTL for contraception. PE: See vitals Pt A&OX3, NAD Normal affect Non labored breathing Abd - non tender Ext - no edema Plan: 1.) GCT, CBC, and RPR today. 2.) Needs to reschedule anatomy scan. 3.) Hx drug abuse. Sober since 06/2022. She does admit to consuming alcohol x1 on October 29. Gives consent for utox today. 4.) Hx BPD, anxiety, and PTSD. Follows with [facility] and is on Aristada injections. Feels safe. Denies SI/HI. 5.) Maternal obesity. Serial growth scans and testing ordered. 5.) Discussed round ligament pain vs pelvic joint dysfunction as source of pain. Rx maternity belt. 6.) Tdap today. 7.) Will have her discuss BTL with resident next visit. 8.) Smokes ciggs. 2-3 per day. Down from PPD. Encouraged cessation. Discussed risks during . Discussed [facility]. 9.) Hep C antibody positive. Check hepatic fxn and viral load today. 10.) RTC 2wks. Labs and TDAP not completed, pt left prior to blood draw. Called pt at number listed in her chart, NA. documented in this encounter [facility] 12-20-2023 Miscellaneous Notes S: Patient spoke with [facility] nurse regarding medication problem B: Onset of symptoms/concern today A: Pt states was seen at OB triage, script was sent in for lidocaine patches to her [place] pharmacy which is closed for the weekend, requesting script to be transferred to [facility] at [address] R: Contacted [facility] pharmacy at [phone]. Pharmacist refused to take script stating they are to busy to do that today and sent call to . Prescription noted in EMR for lidocaine (Lidoderm) 5% patch, apply 1 patch topically for 10 day. Remove and discard patch within 12 hours or as directed by . D- 10 patch, R-0 and left verbatim on pharmacy VM. Patient understands care advice. No further needs at this time. Patient instructed to call back with new or worsening symptoms. Reason for Disposition [1] Prescription prescribed recently is not at pharmacy AND [2] triager has access to patient's EMR AND [3] prescription is recorded in the EMR Protocols used: Medication Refill and Renewal [id number] documented in this encounter [facility] 12-20-2023 Telephone encounter Note S: Patient spoke with [facility] nurse regarding medication problem B: Onset of symptoms/concern today A: Pt states was seen at OB triage, script was sent in for lidocaine patches to her [place] pharmacy which is closed for the weekend, requesting script to be transferred to [facility] at [address] R: Contacted [facility] pharmacy at [phone]. Pharmacist refused to take script stating they are to busy to do that today and sent call to VM. Prescription noted in EMR for lidocaine (Lidoderm) 5% patch, apply 1 patch topically for 10 day. Remove and discard patch within 12 hours or as directed by MD. D- 10 patch, R-0 and left verbatim on pharmacy VM. Patient understands care advice. No further needs at this time. Patient instructed to call back with new or worsening symptoms. Reason for Disposition [1] Prescription prescribed recently is not at pharmacy AND [2] triager has access to patient's EMR AND [3] prescription is recorded in the EMR Protocols used: Medication Refill and Renewal [id number] [facility] 12-20-2023 Hospital Discharge instructions Koby Santiago MD - 12/20/2023 3:04 AM EDT Follow up appointment with your doctor/fireperson - Keep next scheduled appointment Activity - Normal Activity Call your doctor/fireperson if you have: - leaking fluid - vaginal bleeding - regular contractions: More than 6 contractions in one hour - decreased movement - worsening abdominal (belly) pain - headache, blurry vision, increased swelling, upper abdominal pain If you are going home with contractions that are uncomfortable/painful- we recommend these coping strategies: rhythmic breathing, hydrotherapy, imagery or visualization, gentle massage, walking and changing your position. Treatment Verification: Prakash Greene was assessed on Labor and Delivery for a related visit on 12/20/23 . Koby Santiago MD [facility] documented in this encounter [facility] 09-09-2023 History of Present illness Narrative Vital signs BP 146/82 Weight 214 Pulse 96 Temp 98.0 Chief Complaint Patient presents with Amenorrhea Patient's last menstrual period was 12/12/2022 (approximate). History: Past Medical History: Diagnosis Date Acute cystitis without hematuria 06/28/2019 Anxiety Anxiety takes zyprexa Borderline personality disorder (CMS/HCC) (HCC) Drug abuse (CMS/HCC) (HCC) Hepatitis C Psychiatric problem PTSD (post-traumatic stress disorder) Past Surgical History: Procedure Laterality Date ABDOMINAL SURGERY 4yrs old TONSILLECTOMY (HISTORICAL) 3yrs old No family history on file. Social History Socioeconomic History Marital status: Single Tobacco Use Smoking status: Every Day Packs/day: 0.50 Years: 10.00 Additional pack years: 0.00 Total pack years: 5.00 Types: Cigarettes Start date: 04/28/2010 Last attempt to quit: 07/22/2022 Years since quittin.1 Smokeless tobacco: Never Vaping Use Vaping Use: Never used Substance and Sexual Activity Alcohol use: Not Currently Drug use: Not Currently Types: IV, Marijuana, Methamphetamines, Fentanyl Comment: stopped whrn she found out she was . Relapsed week of 07/07/22, currently in rehab Sexual activity: Yes Partners: Male Social Determinants of Health Transportation Needs: No Transportation Needs (07/22/2022) PRAPARE - Transportation Lack of Transportation (Medical): No Lack of Transportation (Non-Medical): No Intimate Partner Violence: Not At Risk (06/19/2022) Humiliation, Afraid, Rape, and Kick questionnaire Fear of Current or Ex-Partner: No Emotionally Abused: No Physically Abused: No Sexually Abused: No Housing Stability: High Risk (07/22/2022) Housing Stability Vital Sign Unable to Pay for Housing in the Last Year: No Number of Places Lived in the Last Year: 3 Unstable Housing in the Last Year: Yes Allergies: Allergies Allergen Reactions Fentanyl Itching Medications: Current Outpatient Medications on File Prior to Visit Medication Sig Dispense Refill Aristada 662 MG/2.4ML injection Inject 2.4 mL intramuscularly every 28 days Vit-Fe Fumarate-FA ( Plus Vitamin/Mineral) 27-1 MG tablet Take 1 tablet by mouth daily. 90 tablet 4 ARIPiprazole (Abilify) 5 MG tablet Take 5 mg by mouth daily. buprenorphine (Subtex) [address] 8 mg under the tongue. buPROPion XL (Wellbutrin XL) 150 MG 24 hr tablet Take 150 mg by mouth daily. docusate sodium (Colace) 100 MG capsule Take 1 capsule (100 mg) by mouth 2 times daily. 60 capsule 2 methadone (Dolophine) 10 MG/5ML solution Take 20 mg by mouth. OLANZapine (ZyPREXA) 7.5 MG tablet Take 1 tablet by mouth daily. No current facility-administered medications on file prior to visit. HPI: Patient presents to establish care at [facility]. LMP 06/12/23. However, states she had U/S at [facility] giving her YAS of 02/27/24. Taking PNV's. Denies cramping and bleeding. Denies fevers, chills, N/V. Denies troubles with bladder and bowels. Denies unusual vaginal discharge. Desires genetic testing. ROS: Review of Systems Constitutional: Negative. Gastrointestinal: Negative for constipation, diarrhea, nausea and vomiting. Genitourinary: Negative. exam: LMP 12/12/2022 (Approximate) Physical Exam Constitutional: Appearance: Normal appearance. HENT: Head: Normocephalic and atraumatic. Pulmonary: Effort: Pulmonary effort is normal. Abdominal: Palpations: Abdomen is soft. Comments: FHR 150's Musculoskeletal: General: Normal range of motion. Cervical back: Normal range of motion. Skin: General: Skin is warm and dry. Neurological: Mental Status: She is alert and oriented to person, place, and time. Psychiatric: Mood and Affect: Mood normal. Behavior: Behavior normal. Assessment and Plan: Prakash was seen today for amenorrhea. Diagnoses and all orders for this visit: care, subsequent in second trimester (Primary) - Chlamydia/Gonorrhea - Trichomonas vaginalis PCR - ABO/Rh - Antibody screen - CBC - Hemoglobin A1c - Hemoglobinopathy evaluation - Hepatitis B surface antigen - Hepatitis C antibody - HIV-1 and HIV-2 Antigen-Antibody Screen - Maternal Screen, AFP Only - RPR - Urine culture - Rubella antibody, IgG - PANORAMA TEST - US OB 14+ weeks anatomy scan; Future - MEDICATION ASSISTED TREATMENT PANEL - Hepatitis C viral load - Hepatic function panel 15 weeks gestation of Hx drug abuse currently sober. She is not on MAT. Gives verbal consent for urine drug screen. Hx Hep C. States no active disease. Will check viral load and hepatic fxn. Follow up for OB intake. Pt here for blood draw. Had labs drawn from R antecubital. Pt tolerated procedure well. documented in this encounter [facility] 09-09-2023 Note Pt here for blood dr cho. Had labs drawn from R antecubital. Pt tolerated procedure well. [facility] 04-16-2023 Hospital Discharge instructions JIN Brower - 04/16/2023 6:09 PM EST Ultrasound does show some thickening of the endometrium although discussed this with Dr. Pedraza of [facility] who does believe that this is just the start of your menstrual cycle. [facility] for further evaluation and management of your symptoms. Please return to the ED with any new or worsening symptoms. documented in this encounter [facility] 04-16-2023 Emergency department Note Emergency Department Encounter [facility] EMERGENCY DEPT Patient: Prakash Greene : 2000 Date of Evaluation: 04/16/2023 ED Provider: Jose Casas MD I saw the patient as the Clinician in Triage and performed a brief history and physical exam, established acuity, and ordered appropriate tests to develop basic plan of care. Patient will be seen by KOURTNEY, resident and/or my physician partner who will evaluate the patient. I wore appropriate PPE for the entirety of this encounter. Brief HPI: In brief, Prakash Greene is a 22 y.o. that presents with chief complaint of abdominal cramping. Patient states that 2 weeks ago she had a miscarriage where she had a lot of vaginal bleeding and believes she passed a fetus. She states she still having lower abdominal cramping. States her family is scaring her and concerning her that she would no longer be able to have children unless she gets cleaned out. Denies vaginal bleeding. Denies back pain. Denies fevers or chills Focused Physical exam: Awake and alert. Afebrile. Nontoxic. Lungs clear to auscultation. Heart regular rate and rhythm. Abdomen soft nondistended without focal tenderness Plan/MDM: Laboratory studies and pelvic ultrasound to evaluate for retained products of conception Plan for consultation with [facility] for evaluation and close outpatient follow-up. Patient does not exhibit any signs of peritonitis dehydration or anemia. Patients symptoms are consistent with sepsis, severe sepsis, or septic shock (If yes use .sepsiscoremeasure): no Please see subsequent provider note for further details and disposition This will serve as my Supervisory note and shared attestation. I did perform a substantive portion of the visit including all aspects of the Medical Decision Making. All diagnostic, treatment, and disposition decisions were made by myself in conjunction with the KOURTNEY. For all further details of the patient's emergency department visit, please see their documentation. (Comment: Please note this report has been produced using speech recognition software and may contain errors related to that system including errors in grammar, punctuation, and spelling as well as words and phrases that may be inappropriate. If there are any questions or concerns please feel free to contact the dictating provider for clarification) Jose Casas MD [facility] Jose Casas MD 04/16/23 [id number] documented in this encounter [facility] 04-16-2023 Physician Emergency department Note Emergency Department Encounter [facility] EMERGENCY DEPT Patient: Prakash Greene : 2000 Date of Evaluation: 04/16/2023 ED Provider: Jose Casas MD I saw the patient as the Clinician in Triage and performed a brief history and physical exam, established acuity, and ordered appropriate tests to develop basic plan of care. Patient will be seen by KOURTNEY, resident and/or my physician partner who will evaluate the patient. I wore appropriate PPE for the entirety of this encounter. Brief HPI: In brief, Prakash Greene is a 22 y.o. that presents with chief complaint of abdominal cramping. Patient states that 2 weeks ago she had a miscarriage where she had a lot of vaginal bleeding and believes she passed a fetus. She states she still having lower abdominal cramping. States her family is scaring her and concerning her that she would no longer be able to have children unless she gets cleaned out. Denies vaginal bleeding. Denies back pain. Denies fevers or chills Focused Physical exam: Awake and alert. Afebrile. Nontoxic. Lungs clear to auscultation. Heart regular rate and rhythm. Abdomen soft nondistended without focal tenderness Plan/MDM: Laboratory studies and pelvic ultrasound to evaluate for retained products of conception Plan for consultation with [facility] for evaluation and close outpatient follow-up. Patient does not exhibit any signs of peritonitis dehydration or anemia. Patients symptoms are consistent with sepsis, severe sepsis, or septic shock (If yes use .sepsiscoremeasure): no Please see subsequent provider note for further details and disposition This will serve as my Supervisory note and shared attestation. I did perform a substantive portion of the visit including all aspects of the Medical Decision Making. All diagnostic, treatment, and disposition decisions were made by myself in conjunction with the KOURTNEY. For all further details of the patient's emergency department visit, please see their documentation. (Comment: Please note this report has been produced using speech recognition software and may contain errors related to that system including errors in grammar, punctuation, and spelling as well as words and phrases that may be inappropriate. If there are any questions or concerns please feel free to contact the dictating provider for clarification) Jose Casas MD [employer] Jose Casas MD 04/16/23 [employer] Work Phone: 03-22-2023 Emergency department Note Pt threatening to leave. Pt went to restroom then never came back. Pt called 3 times and not found. Hoa Holland RN 03/22/23 1640 [employer] 03-22-2023 Emergency department Note Pt threatening to leave. Pt went to restroom then never came back. Pt called 3 times and not found. Hoa Holland RN 03/22/23 1640 Emergency Department Encounter [facility] EMERGENCY DEPT Patient: Prakash Greene : 2000 Date of Evaluation: 03/22/2023 ED Provider: Anrdeas Clark PA-C As the [id number], I performed a medical screening history and physical exam on this patient. HISTORY OF PRESENT ILLNESS In brief, Prakash Greene is a 22 y.o. female that presents for vaginal bleeding, passing golf ball sized blood clots vaginally, is not on anticoagulation, she is 14 weeks . Believes she is miscarrying. She is A1. PHYSICAL EXAM ED Triage Vitals [03/22/23 1549] Temp Heart Rate Resp BP 36.7 C (98.1 F) 58 16 105/74 SpO2 Temp Source Heart Rate Source Patient Position 99 % Temporal Monitor Sitting BP Location FiO2 (%) Left arm -- On brief exam, nondistressed young female, heart regular rhythm, lungs clear to auscultation, sitting on body Chux pad in triage. We will initiate diagnostics/treatments as indicated and place in main ED as soon as available. Andreas Clark PA-C [facility] [employer] Andreas Clark PA-C 03/22/23 161 documented in this encounter [facility] 03-22-2023 Physician Emergency department Note Emergency Department Encounter [facility] EMERGENCY DEPT Patient: Prakash Greene : 2000 Date of Evaluation: 03/22/2023 ED Provider: Andreas Clark PA-C As the [id number], I performed a medical screening history and physical exam on this patient. HISTORY OF PRESENT ILLNESS In brief, Prakash Greene is a 22 y.o. female that presents for vaginal bleeding, passing golf ball sized blood clots vaginally, is not on anticoagulation, she is 14 weeks . Believes she is miscarrying. She is A1. PHYSICAL EXAM ED Triage Vitals [03/22/23 1549] Temp Heart Rate Resp BP 36.7 C (98.1 F) 58 16 105/74 SpO2 Temp Source Heart Rate Source Patient Position 99 % Temporal Monitor Sitting BP Location FiO2 (%) Left arm -- On brief exam, nondistressed young female, heart regular rhythm, lungs clear to auscultation, sitting on body Chux pad in triage. We will initiate diagnostics/treatments as indicated and place in main ED as soon as available. Andreas Clark PA-C [facility] [employer] Andreas Clark PA-C 03/22/23 161 [facility] 03-12-[address] [facility] Referral New Patient Request Reason for Call: Outreach call to schedule new patient appointment. Outcome: Pt agreed to call back to schedule Follow up Plan: F/U by Letter/Phone. [facility] 03-12-[address] [facility] Referral New Patient Request Reason for Call: Outreach call to schedule new patient appointment. Outcome: Pt agreed to call back to schedule Follow up Plan: F/U by Letter/Phone. documented in this encounter [facility] 03-12-2023 Telephone encounter Note Called pt and scheduled for acute on this . [facility] 03-12-2023 Miscellaneous Notes Called pt and scheduled for acute on this . Amarilys putting patient on Acute. Please let pt know hcg is high at 51,090. This confirms suspicion for miscarriage or non-viable . She was supposed to come back in acute, or on Friday in the afternoon with resident. I do not see that she is scheduled. Please contact and schedule. I reviewed ED precautions with pt at her visit. Pt to ED for any severe pain and/or heavy bleeding. documented in this encounter [facility] 03-07-2023 Telephone encounter Note Am[facility] putting patient on Acute. [facility] 03-07-2023 Telephone encounter Note Please let pt know hcg is high at 51,090. This confirms suspicion for miscarriage or non-viable . She was supposed to come back in acute, or on Friday in the afternoon with resident. I do not see that she is scheduled. Please contact and schedule. I reviewed ED precautions with pt at her visit. Pt to ED for any severe pain and/or heavy bleeding. [facility] 02-21-2023 History of Present illness Narrative Chief Complaint Patient presents with Gynecologic Exam conformation, lmp 12-12-2022. Patient complaint of vaginal discharge, frequent urination. Patient's last menstrual period was 12/12/2022 (approximate). History: Past Medical History: Diagnosis Date Acute cystitis without hematuria 06/28/2019 Anxiety Anxiety takes zyprexa Borderline personality disorder (CMS/HCC) (HCC) Drug abuse (CMS/HCC) (HCC) Hepatitis C Psychiatric problem PTSD (post-traumatic stress disorder) Past Surgical History: Procedure Laterality Date ABDOMINAL SURGERY 4yrs old TONSILLECTOMY (HISTORICAL) 3yrs old No family history on file. Social History Socioeconomic History Marital status: Single Tobacco Use Smoking status: Every Day Packs/day: 0.50 Years: 10.00 Additional pack years: 0.00 Total pack years: 5.00 Types: Cigarettes Start date: 04/28/2010 Last attempt to quit: 07/22/2022 Years since quittin.5 Smokeless tobacco: Never Vaping Use Vaping Use: Never used Substance and Sexual Activity Alcohol use: Not Currently Drug use: Not Currently Types: IV, Marijuana, Methamphetamines, Fentanyl Comment: stopped whrn she found out she was . Relapsed week of 07/07/22, currently in rehab Sexual activity: Not Currently Partners: Male Social Determinants of Health Transportation Needs: No Transportation Needs (07/22/2022) PRAPARE - Transportation Lack of Transportation (Medical): No Lack of Transportation (Non-Medical): No Intimate Partner Violence: Not At Risk (06/19/2022) Humiliation, Afraid, Rape, and Kick questionnaire Fear of Current or Ex-Partner: No Emotionally Abused: No Physically Abused: No Sexually Abused: No Housing Stability: High Risk (07/22/2022) Housing Stability Vital Sign Unable to Pay for Housing in the Last Year: No Number of Places Lived in the Last Year: 3 Unstable Housing in the Last Year: Yes Allergies: Allergies Allergen Reactions Fentanyl Itching Medications: Current Outpatient Medications on File Prior to Visit Medication Sig Dispense Refill ARIPiprazole (Abilify) 5 MG tablet Take 5 mg by mouth daily. buprenorphine (Subtex) [address] 8 mg under the tongue. buPROPion XL (Wellbutrin XL) 150 MG 24 hr tablet Take 150 mg by mouth daily. docusate sodium (Colace) 100 MG capsule Take 1 capsule (100 mg) by mouth 2 times daily. 60 capsule 2 ibuprofen 600 MG tablet Take 1 tablet (600 mg) by mouth in the morning and 1 tablet (600 mg) at noon and 1 tablet (600 mg) in the evening and 1 tablet (600 mg) before bedtime. 60 tablet 0 nicotine (Nicoderm, Step 1) 21 MG/24HR patch Place 1 patch on the skin Every 24 hours. 30 patch 1 OLANZapine (ZyPREXA) 7.5 MG tablet Take 1 tablet by mouth daily. Vit-Fe Fumarate-FA ( Plus Vitamin/Mineral) 27-1 MG tablet Take 1 tablet by mouth daily. 90 tablet 4 No current facility-administered medications on file prior to visit. HPI: Patient presents for confirmation visit. LMP 12/12/22. Intermittent mild cramping. No bleeding. Denies fevers, chills, N/V. C/O vaginal discharge with odor. Reports urinary frequency. Denies burning. Taking PNV's. Desires genetic testing. Hx drug abuse. Last use 06/2021. States she used heroin and meth. States she is currently doing Methadone taper through [facility]. States she does not want to come off and wants to stay on something during her . Gynecologic Exam The patient's primary symptoms include pelvic pain and vaginal discharge. Associated symptoms include frequency. Pertinent negatives include no constipation, diarrhea, dysuria, nausea or vomiting. ROS: Review of Systems Constitutional: Negative. Gastrointestinal: Negative for constipation, diarrhea, nausea and vomiting. Genitourinary: Positive for frequency, pelvic pain and vaginal discharge. Negative for difficulty urinating, dysuria, vaginal bleeding and vaginal pain. exam: BP 128/76 (BP Location: Left arm, Patient Position: Sitting, BP Cuff Size: Adult) Pulse 86 Temp 36.8 C (98.2 F) (Temporal) Ht 5' 2 (1.575 m) Wt 202 lb (91.6 kg) LMP 12/12/2022 (Approximate) BMI 36.95 kg/m Physical Exam Constitutional: Appearance: Normal appearance. HENT: Head: Normocephalic and atraumatic. Pulmonary: Effort: Pulmonary effort is normal. Genitourinary: Exam position: Lithotomy position. Labia: Right: No rash, tenderness, lesion or injury. Left: No rash, tenderness, lesion or injury. Vagina: No signs of injury and foreign body. Vaginal discharge present. No erythema, tenderness, bleeding, lesions or prolapsed vaginal allen. Cervix: Normal. Musculoskeletal: General: Normal range of motion. Cervical back: Normal range of motion. Skin: General: Skin is warm and dry. Neurological: Mental Status: She is alert and oriented to person, place, and time. Psychiatric: Thought Content: Thought content normal. Assessment and Plan: Prakash was seen today for gynecologic exam. Diagnoses and all orders for this visit: Amenorrhea (Primary) - POC , urine - Urine culture - US nuchal measure 1st trimester; Future - US OB less than 14 weeks early; Future - US OB 14+ weeks anatomy scan; Future Vaginal discharge - Fungal Culture - Chlamydia/Gonorrhea - Gram Stain, Scored, Vaginal - Trichomonas vaginalis PCR History of drug abuse ([facility]) ([facility]) - MEDICATION ASSISTED TREATMENT PANEL Discussed she would need to discuss continuance with [facility] or come to [facility] to discuss MAT during . She is agreeable to come to next [facility] and discuss further. She will be scheduled for dating scan and intake at check out. Follow up for Needs seen next [facility] to discuss MAT. She also needs scheduled intake.. documented in this encounter [facility] 02-21-2023 Instructions The following attachments cannot be sent through Care Everywhere. Symptoms (Peruvian)Morning Sickness (Peruvian)documented in this encounter [facility] 08-26-2022 Hospital Discharge instructions JIN Lew - 08/26/2022 4:42 PM EDT Follow-up with gastroenterology. Take the Nicky-Colace once a day. And the MiraLAX twice a day. Eat small frequent meals, to reduce vomiting. And return to the ER if you experience any worsening symptoms. The following attachments cannot be sent through Care Everywhere.Constipation in Adults (Peruvian)Dealing with Constipation from the Drugs You Take (Peruvian)documented in this encounter [facility] 08-26-2022 Emergency department Note Bed: 07 Expected date: 08/26/22 Expected time: Means of arrival: Comments: Triage Eryn Montgomery RN 08/26/22 1346 [facility] 08-26-2022 Emergency department Note Emergency Department Encounter [facility] EMERGENCY DEPT Patient: Prakash Greene : 2000 Date of Evaluation: 08/26/2022 ED Provider: Ana Garcia MD I saw the patient as the Clinician in Triage and performed a brief history and physical exam, established acuity, and ordered appropriate tests to develop basic plan of care. Patient will be seen by KOURTNEY, resident and/or my physician partner who will evaluate the patient. If seen by the KOURTNEY I will manage the patient in a supervisory role and will be available for co-management. I did perform a substantive portion of the visit including all aspects of the Medical Decision Making. I wore appropriate PPE for the entirety of this encounter. Brief HPI: In brief, Prakash Greene is a 21 y.o. female that presents with chief complaint of rectal bleeding. The patient states that she had hemorrhoids and rectal bleeding after she delivered her baby a little over a month ago, but it had stopped, and she noticed bleeding today when she had a bowel movement. She endorses a history of constipation for most of her life but states that she did have a bowel movement today that was just ro, which is her normal bowel movement, but that it had blood. She also states that she has been vomiting and the last time she vomited was yesterday. She states that she vomits roughly 2-3 times a day. She denies any accompanying abdominal pain. Focused Physical exam: No reproducible TTP of her abdomen. Regular rate and rhythm, no murmurs. Lungs with good aeration bilaterally. Rectal exam deferred Plan/MDM: Presentation concerning for bleeding secondary to hemorrhoids versus functional constipation. Cannot rule out small bowel obstruction. Please see subsequent provider note for further details and disposition (Comment: Please note this report has been produced using speech recognition software and may contain errors related to that system including errors in grammar, punctuation, and spelling as well as words and phrases that may be inappropriate. If there are any questions or concerns please feel free to contact the dictating provider for clarification) Ana Garcia MD [facility] Ana Garcia MD 08/26/22 1213 Bed: 07 Expected date: 08/26/22 Expected time: Means of arrival: Comments: Triage Eryn Montgomery RN 08/26/22 1346 documented in this encounter [facility] 08-26-2022 Physician Emergency department Note Emergency Department Encounter [facility] EMERGENCY DEPT Patient: Prakash Greene : 2000 Date of Evaluation: 08/26/2022 ED Provider: Ana Garcia MD I saw the patient as the Clinician in Triage and performed a brief history and physical exam, established acuity, and ordered appropriate tests to develop basic plan of care. Patient will be seen by KOURTNEY, resident and/or my physician partner who will evaluate the patient. If seen by the KOURTNEY I will manage the patient in a supervisory role and will be available for co-management. I did perform a substantive portion of the visit including all aspects of the Medical Decision Making. I wore appropriate PPE for the entirety of this encounter. Brief HPI: In brief, Prakash Greene is a 21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 need an electric pump for home usel; will facilitate this. 21 year old admitted for induction of labor at 39 weeks. 3 Para 1. History of substance use disorder. Patient is currently at [facility]- inpatient. Court ordered. 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 Patient did not want to talk until her lining caser from [facility] is present. Images from the original note were not included. Vaginal Delivery Note Department of Obstetrics and Gynecology Patient: Prakash Greene : 2000 Date of delivery: 07/23/22 Pre-operative Diagnosis: Prakash Greene at 39w1d 1. Substance Use 2. Hep C 3. Tobacco Use during 4. 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 Tolliver; Dr. Khan; Dr. Serra Infant Information: Information for the patient's : Kimber GreenePrakash [[id number]] Information for the patient's : Kimber GreenePrakash [[id number]] Description: anatomically normal Meconium Noted: none Anesthesia: epidural Complications: None Application and Delivery: Prakash Greene at 39w1d admitted for IOL-Substance Use. Her labor course consisted of cytotec, mendoza bulb, pitocin and AROM. After AROM, she was persistently Cat II for recurrent variables. An amnioinfusion was started and pitocin was turned off. She made quick change to complete and pushed three times. She was known to be GBS negative and received no prophylaxis. After pushing with contractions the head delivered right occiput anterior over an intact perineum. A nuchal cord was present. The anterior, then posterior shoulder delivered easily and atraumatically followed by the rest of the . The was placed on the maternal abdomen and attended by the RN for evaluation. The was stimulated and dried. The cord was clamped and cut. The delivery of the placenta was spontaneous and appeared intact. Pitocin was started. The vagina was swept of all clots and debris. The perineum and vagina were evaluated. No lacerations were found All counts were correct. Mother and baby tolerated procedure well. EBL: 150 mL VTE Prophylaxis: Not Indicated LABOR DELIVERY ??? SCD's ONLY (labor through ambulation) SCD's PLUS Prophylactic Anticoagulation until discharge SCD's PLUS Prophylactic Anticoagulation for 6 weeks SCD's PLUS Therapeutic Anticoagulation for 6 weeks Vaginal Delivery [] BMI ? 40 kg/m2 Delivery All patients Vaginal Delivery [] BMI ? 40 kg/m2 AND [] Antepartum hospitalization ? 72 hours within the past month Delivery 1 Major Risk Factor: [] BMI ? 35 kg/m2 [] Low Risk Thrombophilia [] PPH+RBCs, IR, or operation [] Infection+Antibiotics [] Antepartum hospitalization ? 72 hours within the past month [] PMH: Sickle Cell, SLE, Cardiac Dz, Active IBD, Active Cancer, Nephrotic Syndrome OR 2 Minor Risk Factors: [] Multiple gestation [] Age > 40 [] PPH ? 1,000cc [] (+)FMH of VTE [] Smoker [] Preeclampsia [] BMI ? 40 kg/m2 AND [] Low Risk Thrombophilia OR ANY OF THE FOLLOWING: [] High Risk Thrombophilia without prior VTE [] Low Risk Thrombophilia with (+)FMH of VTE [] Any single prior VTE ANY OF THE FOLLOWING: [] Already on LMWH/UFH [] Multiple prior VTE [] High Risk Thrombophilia with prior VTE Low Risk Thrombophilia: FVL (heterozygous), Prothrombin (heterozygous), Protein C, Protein S High Risk Thrombophilia: FVL (homozygous), Prothrombin (homozygous), FVL+Prothrombin (heterozygous), Antithrombin III, APLS Delivery Summary: Specimen: Cord Blood Blood Type and Rh: O Rubella Immunity Status: No results found for: RUBELLABEV Cherelle Serra DO 07/23/2022, 3:41 AM OB Delivery Note 07/23/2022 Prakash Greene 21 y.o. Gestational Age: 39w1d /Para: Estimated Blood Loss: Delivery Blood Loss 07/22/22 1522 - 07/23/22 0340 None Quantitative Blood Loss: Roxanna Greene [[id number]] Labor Events labor?: No Antibiotics received during labor?: Yes Rupture of Membranes Rupture date/time: 07/23/22212 ReadOnly Edit in Flowsheets Rupture type: Artificial Fluid color: Clear Labor Details First cervical ripening date/time: Induction date/time: Augmentation date/time: Labor Event Times Labor onset date/time: Dilation complete date/time: 07/23/22308 EDT Start pushing date/time: Decision date/time () Delivery ([place]) Delivery date/time: 07/23/22 03:22:00 Details: Blood Loss Mother: Prakash Greene #[id number] Start of Mother's Information Delivery Blood Loss 07/22/22 1522 - 07/23/22 0340 None End of Mother's Information Mother: Prakash Greene #[id number] Delivery Providers Delivering clinician: Measurements Weight: Length: Cherelle Serra DO Associated attestation - Flavio Tolliver III, MD - 07/23/2022 4:20 AM EDT Hospital Care (Independent): I independently saw and evaluated the patient. I agree with the findings and plan of care as documented in the resident's note. documented in this encounter [facility] 07-25-2022 Note Formatting of this n ote might be different from the original. [place] met with mother of baby/mob briefly at bedside. She was holding baby and was appropriate. She asked Sw if she can appeal CSB decision in Court. Sw explained that the next business day after a filing for custody, there will be a court hearing that she will attend and she can talk to court at that time. She is aware hospital will have to release baby to [place] [facility] custody. She states ok for CSB to use the carseat she has in room, and also the baby clothing she has. She states this was a blessing in disguise and very motivated to stay at [facility] and get baby back in her care as soon as possible. Mob states she will be dc today and [facility] will pick her up and bring her back to visit tomorrow. Sw offered encouragement and support. Sw spoke to [facility] worker Isaura Conklin who is trying to reach mob by phone. Sw went back into room and mom was able to call Csb worker back to talk to her. SW will follow re: dc plan with CSB and get copy of court order once obtained. KENYA will assist with facilitating DC of baby to [place] [facility] custody once medically ready (Likely over weekend). [facility] 07-25-2022 Note Formatting of this n ote might be different from the original. [place] met with mother of baby/mob briefly at bedside. She was holding baby and was appropriate. She asked Sw if she can appeal CSB decision in Court. [place] explained that the next business day after a filing for custody, there will be a court hearing that she will attend and she can talk to court at that time. She is aware hospital will have to release baby to [place] [facility] custody. She states ok for CSB to use the carseat she has in room, and also the baby clothing she has. She states this was a blessing in disguise and very motivated to stay at [facility] and get baby back in her care as soon as possible. Mob states she will be dc today and [facility] will pick her up and bring her back to visit tomorrow. [place] offered encouragement and support. [place] spoke to [facility] worker Isaura Conklin who is trying to reach mob by phone. Sw went back into room and mom was able to call Csb worker back to talk to her. SW will follow re: dc plan with CSB and get copy of court order once obtained. KENYA will assist with facilitating DC of baby to [place] [facility] custody once medically ready (Likely over weekend). [facility] 07-25-2022 Hospital Discharge instructions Joanna Onofre, - 07/25/2022 6:34 AM EDT Images from the original note were not included. Thank you for allowing us to care of you at [facility]. This time can be one of many emotional ups and downs and many changes in your life. In these first weeks try to take good care of yourself because you will likely feel very tired. It may take 4 to 6 weeks to feel like yourself again, and possibly longer if you had a . FOLLOW-UP: Your follow-up care is a barron part of your treatment and safety. Follow-up with your OB providerin 4 weeks or as specified by your OB provider. If you had high blood pressure, visit your OB provider within 3-5 days after being home. Most women's blood pressure will return to pre- levels after delivery. However, some patients continue to have problems with their blood pressure, and some even get worse. Very high blood pressure can lead to seizures or stroke which can be life threatening. If ordered by your provider, take your blood pressure at home and call your OB provider if you have a high reading. Your OB provider can write you a prescription for a blood pressure monitor if you do not have one. Be sure to make and go to all appointments, and call your OB provider if you are having problems. It's also a good idea to know your test results and keep a list of the medicines you take. BLEEDING Vaginal bleeding will decrease in amount over the next few weeks. 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 Use pads instead of tampons for the bloody flow that may last as long as 2 weeks. You will notice that as your activity increases, your flow may increase. Call your provider if you are saturating one maxi pad in an hour & passing large clots for 3 hours or more. ACTIVITY NO SEXUAL activity for 6 weeks or until advised by your OB provider; Nothing in vagina: intercourse, tampons, or douching. Begin to think about your reproductive life plan. Talk to your OB provider about if and when you would like another baby in the future. The recommendation for safe spacing is 18-24 months. Showering is okay; NO tub baths, swimming, or hot tubs. Gradually increase your activity. Resume exercise regimen only after advised by your )OB provider. Avoid lifting anything heavier than ten pounds or a gallon of milk for six weeks. Avoid driving 1 week for vaginal delivery and 2 weeks for section, or longer if you are on prescription pain medicine unless otherwise instructed by your OB provider . Rise slowly from a lying to sitting and then a standing position. Climb stairs carefully. You may feel tired or have a lack of energy. You may continue your vitamin to replenish nutrients post-delivery. Nap when whenever you can to catch up on sleep. EMOTIONS You may feel chowdary, sad, teary, & overwhelmed for the first 2 weeks ; however, feelings of depression may occur any time within the first year after delivery. Contact your OB provider if you feel you may be showing signs of depression, or have thoughts of harming yourself or or anyone.. WOUND CARE For Vaginal Delivery: Shower daily, and cleanse your perineum (bottom) with mild soap from front to back. Use the plastic squirt bottle until bleeding stops each time you use the restroom instead of wiping with toilet paper. Ease soreness of hemorrhoids and the area between your vagina and rectum with ice compresses or witch wilder pads. If used, stitches will dissolve in 4-6 weeks on their own. You may use a sitz bath or soak in a clean tub with drain open and water running for comfort. Kegel exercises will help restore bladder control. To do these tighten your muscles as if you were stopping your urine flow. Hold for a few seconds and then relax. Do these throughout the day. For Section Delivery: Keep your incision clean and dry. If you had steri-strips you may remove these once they start falling off. If you have elicia they need to be removed 3-10 daysafter delivery. If you have steri-strips, remove after 7 - 10 days. Do not wear clothing that irritates the incision line. If your incision is in a crease that is not dry, use a hair-dryer to dry the area 3 times a day. If you develop fever, shaking chills, redness, swelling, drainage or discharge from your wound, or if your wound looks like it is coming apart call your provider immediately. BREAST CARE If you develop a warm, red, tender area on your breast or develop a fever contact your OB provider. If your breasts become engorged ask your provider because treatment can vary according to your needs. DIET & CONSTIPATION Eat a well-balanced diet focusing on foods high in fiber and protein such as: whole grain cereals and breads, fruits and vegetables and legumes (eg, beans, lentils) Drink 8-10 glasses of fluids daily, especially water. Limit caffeine. To avoid constipation you may take a mild [id number] stool softener (such as colace) as recommended by your OB provider. SWELLING Try to keep your legs elevated when you are sitting or lying down. Stay hydrated and take walks. If you had high blood pressure, weigh yourself at the same time each day. Write down your weight and take the record to your OB provider appointment. MEDICATIONS Take all medications prescribed for you exactly as ordered. Don't take any drugs not prescribed to you or over the counter medicines unless recommended by your provider. Don't smoke. WHEN TO CALL THE OB PROVIDER Signs of infection, including fever and chills Increased bleeding: soaking more than one pad an hour or passing clots the size of an egg or larger. Wounds that become red, swollen or drain pus Vaginal discharge that smells foul New pain, swelling, or tenderness in your legs Pain that you can't control with the medications you've been given Pain, burning, urgency or frequency of urination, or persistent bleeding in the urine Cough, shortness of breath, or serious difficulty catching your breath Chest pain or pain in the upper right area of your belly Headache (very painful) or vision changes like blurry or double vision, seeing spots or 'auras' Swelling that is worse or weight gain of more than 3 pounds in 3 days Depression, suicidal thoughts, or feelings of harming someone else Breasts that are hot, red and accompanied by fever Any cracking or bleeding from the nipple or areola (the dark-colored area of the breast) You may have been given a magnet like this: If so, we encourage you to use it on your refrigerator as a reminder of when to call your OB provider. IIn case of an emergency, call 911 immediately. If you are Covid-19 positive or a Person Under Investigation (PUI) These could be signs that your COVID-19 symptoms are worsening and you may need emergency care: You are severely dizzy or lightheaded. You are confused or can't think clearly. Your face and lips have a blue color. You are unable to respond to others or are very hard to wake up. Prevention steps for People with confirmed or suspected COVID-19 (including persons under investigation) who do not need to be hospitalized and People with confirmed COVID-19 who were hospitalized and determined to be medically stable to go home Your healthcare provider and public health staff will evaluate whe ther you can be cared for at home. If it is determined that you do not need to be hospitalized and can be isolated at home, you will be monitored by staff from your local or state health department. You should follow the prevention steps below until a healthcare provider or local or state health department says you can return to your normal activities. Stay home except to get medical care People who are mildly ill with COVID-19 are able to isolate at home during their illness. You should restrict activities outside your home, except for getting medical care. Do not go to work, school, or public areas. Avoid using public transportation, ride-sharing, or taxis. Separate yourself from other people and animals in your home People: As much as possible, you should stay in a specific room and away from other people in your home. Also, you should use a separate bathroom, if available. Animals: You should restrict contact with pets and other animals while you are sick with COVID-19, just like you would around other people. Although there have not been reports of pets or other animals becoming sick with COVID-19, it is still recommended that people sick with COVID-19 limit contact with animals until more information is known about the virus. When possible, have another member of your household care for your animals while you are sick. If you are sick with COVID-19, avoid contact with your pet, including petting, snuggling, being kissed or licked, and sharing food. If you must care for your pet or be around animals while you are sick, wash your hands before and after you interact with pets and wear a facemask. Call ahead before visiting your provider If you have a medical appointment, call the healthcare provider and tell them that you have or may have COVID-19. This will help the healthcare provider's office take steps to keep other people from getting infected or exposed. Wear a facemask You should wear a facemask when you are around other people (e.g., sharing a room or vehicle) or pets and before you enter a healthcare provider's office. If you are not able to wear a facemask (for example, because it causes trouble breathing), then people who live with you should not stay in the same room with you, or they should wear a facemask if they enter your room. Cover your coughs and sneezes Cover your mouth and nose with a tissue when you cough or sneeze. Throw used tissues in a lined trash can. Immediately wash your hands with soap and water for at least 20 seconds or, if soap and water are not available, clean your hands with an alcohol-based hand advisor advocate angel co founder that contains at least 60% alcohol. Clean your hands often Wash your hands often with soap and water for at least 20 seconds, especially after blowing your nose, coughing, or sneezing; going to the bathroom; and before eating or preparing food. If soap and water are not readily available, use an alcohol-based hand advisor advocate angel co founder with at least 60% alcohol, covering all surfaces of your hands and rubbing them together until they feel dry. Soap and water are the best option if hands are visibly dirty. Avoid touching your eyes, nose, and mouth with unwashed hands. Avoid sharing personal household items You should not share dishes, drinking glasses, cups, eating utensils, towels, or bedding with other people or pets in your home. After using these items, they should be washed thoroughly with soap and water. Clean all high-touch surfaces everyday High touch surfaces include counters, tabletops, doorknobs, bathroom fixtures, toilets, phones, keyboards, tablets, and bedside tables. Also, clean any surfaces that may have blood, stool, or body fluids on them. Use a household cleaning spray or wipe, according to the label instructions. Labels contain instructions for safe and effective use of the cleaning product including precautions you should take when applying the product, such as wearing gloves and making sure you have good ventilation during use of the product. Monitor your symptoms Seek prompt medical attention if your illness is worsening (e.g., difficulty breathing). Before seeking care, call your healthcare provider and tell them that you have, or are being evaluated for, COVID-19. Put on a facemask before you enter the facility. These steps will help the healthcare provider's office to keep other people in the office or waiting room from getting infected or exposed. Ask your healthcare provider to call the local or state health department. Persons who are placed under active monitoring or facilitated self-monitoring should follow instructions provided by their local health department or occupational health professionals, as appropriate. When working with your local health department check their available hours. If you have a medical emergency and need to call 911, notify the dispatch personnel that you have, or are being evaluated for COVID-19. If possible, put on a facemask before emergency medical services arrive. Discontinuing home isolation Patients with confirmed COVID-19 should remain under home isolation precautions until the risk of secondary transmission to others is thought to be low. The decision to discontinue home isolation precautions should be made on a [id number] basis, in consultation with healthcare providers and state and local health departments. Information on COVID-19 for all patients Call your provider before your next appointment if you develop any of the following symptoms: fever, cough, fatigue, anorexia, shortness of breath, sputum production, and muscle pains. Headache, confusion, rhinorrhea, sore throat, hemoptysis, vomiting, and diarrhea have been reported but are less common. Some persons with COVID-19 have experienced gastrointestinal symptoms such as diarrhea and nausea prior to developing fever and lower respiratory tract signs and symptoms. Ways to [place] with Anxiety & Stress It is normal to feel anxious or worried about COVID-19. You might feel sad about canceling celebrations and staying away from family and friends. Keep in mind that most people do not get severely ill from COVID-19. It is important to have a plan in case you get sick to prevent spreading the disease to others including an Advanced Care Plan (communicating and documenting your desired health care plan with family and healthcare team). You can take care of yourself by: Taking a break from watching the news Take deep breaths, stretch or meditate Getting exercise, eating healthy foods, and drinking plenty of water Finding activities you can enjoy inside your home Staying in touch with your family and friends. Tell your partner, family, and friends how you are feeling. Advance Care Planning People with COVID-19 may have no symptoms, mild symptoms, such as fever, cough, and shortness of breath or they may have more severe illness, developing severe and fatal pneumonia. As a result, Advance Care Planning with attention to naming a health care decision maker (someone you trust to make healthcare decisions for you if you could not speak for yourself) and sharing other health care preferences is important BEFORE a possible health crisis. Please contact your Primary Care Provider to discuss Advance Care Planning. Learning About Coronavirus (COVID-19) Coronavirus (COVID-19): Overview What is coronavirus (COVID-19)? The coronavirus disease (COVID-19) is caused by a virus. It is an illness that was first found in [facility], in March 2019. It has since spread worldwide. The virus can cause fever, cough, and trouble breathing. In severe cases, it can cause pneumonia and make it hard to breathe without help. It can cause . Coronaviruses are a large group of viruses. They cause the common cold. They also cause more serious illnesses like Middle East respiratory syndrome (MERS) and severe acute respiratory syndrome (SARS). COVID-19 is caused by a novel coronavirus. That means it's a new type that has not been seen in people before. This virus spreads ermegc-ru-sxkyru through droplets from coughing and sneezing. It can also spread when you are close to someone who is infected. It is always good practice to clean high touch surfaces frequently and avoid touching your mouth, nose and eyes until you have washed your hands if you touched these areas. What can you do to protect yourself from coronavirus (COVID-19)? The best way to protect yourself from getting sick is to: Wear a face mask. Avoid areas where there is an outbreak. Avoid contact with people who may be infected. Wash your hands often with soap or alcohol-based hand sanitizers. Avoid crowds and try to stay at least 6 feet away from other people. Wash your hands often, especially after you cough or sneeze. Use soap and water, and scrub for at least 20 seconds. If soap and water aren't available, use an alcohol-based hand advisor advocate angel co founder. Call 911 anytime you think you may need emergency care. For example, call if: You have severe trouble breathing. (You can't talk at all.) You have constant chest pain or pressure. You are severely dizzy or lightheaded. You are confused or can't think clearly. Your face and lips have a blue color. You pass out (lose consciousness) or are very hard to wake up. Call your OB Provider now if you develop symptoms such as: Shortness of breath. Fever. Cough. If you need to get care, call ahead to the provider's office for instructions before you go. Make sure you wear a face mask, to prevent exposing other people to the virus. Where can you get the latest information? The following health organizations are tracking and studying this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 on 04-04-[address] [facility] and was drug tested weekly there. She was at [facility] for a couple of days and came to hospital to get on subutex on 07-04-22. Was positive for amphetamine and cocaine at the time and went outside to smoke and when confronted by protective services, she got nervous and refused to come back in hospital, so was considered as leaving AMA. States was clean for 8 months and states only relapse was for a 1 1/2 week period a couple of weeks ago. Has been in [facility] again for the last 1 1/2 weeks and intends to stay there and wants to take baby back there. She states hse is working with [employer] [facility] Cheryle Moreno and gets her subutex through [facility]. has carseat (in room), pack and play, clothing, diapers etc. Sw discussed Safe sleep practices. Discussed mental health issues. She states she is a client of [facility] and her lining caser was Joy Barry, but it was recently switched to the woman who was here earlier, but she just met her for first time today. States she currently takes Zyprexa for dx of Bipolar, Borderline personality, PTSD, and anxiety. States overall feels mood stable and denied any SI/HI. Sw discussed referral being made to [facility] and she expressed understanding and willingness to cooperate. Resources discussed and support given. Referral made to Olga Kinney at [facility] CSB hotline. Mob aware that baby will remain at hospital to be watched for withdrawal for 4 days. Sw to follow up tomorrow to talk to assigned worker. Sw to follow [facility] 07-23-2022 Obstetrics Note Initial visit w/ pt. Seen regarding of term baby who is now 10 hours of age. This is second baby for pt; did not BF or pump for older child. Pt is on suboxone therapy and enrolled in a treatment program through [facility]. Pt's MAT panel was negative for all other substances today. I encouraged pt to give her milk to baby. Reviewed benefits of mothers milk for baby including bonding, brain development and enhanced immune system. She has given baby formula earlier today, but now states she is interested in BF. Assist given w/ feeding. Instruction given on skin to skin, positioning, and latch on technique. Importance of wide, deep latch discussed. Baby sleepy and not latching at this time. Attempted x 15 minutes. Pt able to hand express milk well. Encouraged to given SERGE via finger. . On demand, cue based, unlimited feeding reinforced, at least 8 x in 24 hours (after the first 24 hours); told to feed at least every 3 hours. Hunger signs and output parameters discussed. Frequent skin to skin encouraged. Discussed benefits of skin to skin and milk production. Demand and supply system of breast milk production discussed. Educated that baby does not have a medical need for formula, but if it is given then she should pump for every supplemental feeding that baby takes. Told that we could set her up with pumping. Pt verbalized understanding of all education. Denies questions. Told to call for assistance w/ latching baby. States she does need an electric pump for home usel; will facilitate this. [facility] 07-23-2022 Note Formatting of this n ote might be different from the original. 21 year old admitted for induction of labor at 39 weeks. 3 Para 1. History of substance use disorder. Patient is currently at [facility]- inpatient. Court ordered. 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 Patient did not want to talk until her lining caser from [facility] is present. [facility] 07-23-2022 Note Formatting of this n ote might be different from the original. 21 year old admitted for induction of labor at 39 weeks. 3 Para 1. History of substance use disorder. Patient is currently at [facility]- inpatient. Court ordered. 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 Patient did not want to talk until her lining caser from [facility] is present. [facility] 07-23-2022 Labor and delivery summary note Images from the original note were not included. Vaginal Delivery Note Department of Obstetrics and Gynecology Patient: Prakash Greene : 2000 Date of delivery: 07/23/22 Pre-operative Diagnosis: Prakash Greene at 39w1d 1. Substance Use 2. Hep C 3. Tobacco Use during 4. 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 Tolliver; Dr. Khan; Dr. Serra Infant Information: Information for the patient's : Roxanna Greene [[id number]] Information for the patient's : Roxanna Greene [[id number]] Description: anatomically normal Meconium Noted: none Anesthesia: epidural Complications: None Application and Delivery: Prakash Greene at 39w1d admitted for IOL-Substance Use. Her labor course consisted of cytotec, mendoza bulb, pitocin and AROM. After AROM, she was persistently Cat II for recurrent variables. An amnioinfusion was started and pitocin was turned off. She made quick change to complete and pushed three times. She was known to be GBS negative and received no prophylaxis. After pushing with contractions the head delivered right occiput anterior over an intact perineum. A nuchal cord was present. The anterior, then posterior shoulder delivered easily and atraumatically followed by the rest of the . The was placed on the maternal abdomen and attended by the RN for evaluation. The infant was stimulated and dried. The cord was clamped and cut. The delivery of the placenta was spontaneous and appeared intact. Pitocin was started. The vagina was swept of all clots and debris. The perineum and vagina were evaluated. No lacerations were found All counts were correct. Mother and baby tolerated procedure well. EBL: 150 mL VTE Prophylaxis: Not Indicated LABOR DELIVERY ??? SCD's ONLY (labor through ambulation) SCD's PLUS Prophylactic Anticoagulation until discharge SCD's PLUS Prophylactic Anticoagulation for 6 weeks SCD's PLUS Therapeutic Anticoagulation for 6 weeks Vaginal Delivery [] BMI ? 40 kg/m2 Delivery All patients Vaginal Delivery [] BMI ? 40 kg/m2 AND [] Antepartum hospitalization ? 72 hours within the past month Delivery 1 Major Risk Factor: [] BMI ? 35 kg/m2 [] Low Risk Thrombophilia [] PPH+RBCs, IR, or operation [] Infection+Antibiotics [] Antepartum hospitalization ? 72 hours within the past month [] PMH: Sickle Cell, SLE, Cardiac Dz, Active IBD, Active Cancer, Nephrotic Syndrome OR 2 Minor Risk Factors: [] Multiple gestation [] Age > 40 [] PPH ? 1,000cc [] (+)FMH of VTE [] Smoker [] Preeclampsia [] BMI ? 40 kg/m2 AND [] Low Risk Thrombophilia OR ANY OF THE FOLLOWING: [] High Risk Thrombophilia without prior VTE [] Low Risk Thrombophilia with (+)FMH of VTE [] Any single prior VTE ANY OF THE FOLLOWING: [] Already on LMWH/UFH [] Multiple prior VTE [] High Risk Thrombophilia with prior VTE Low Risk Thrombophilia: FVL (heterozygous), Prothrombin (heterozygous), Protein C, Protein S High Risk Thrombophilia: FVL (homozygous), Prothrombin (homozygous), FVL+Prothrombin (heterozygous), Antithrombin III, APLS Delivery Summary: Specimen: Cord Blood Blood Type and Rh: O Rubella Immunity Status: No results found for: RUBELLABEV Serra, DO 07/23/2022, 3:41 AM OB Delivery Note 07/23/2022 Prakash Greene 21 y.o. Gestational Age: 39w1d /Para: Estimated Blood Loss: Delivery Blood Loss 07/22/22 1522 - 07/23/22 0340 None Quantitative Blood Loss: Roxanna Greene [[id number]] Labor Events labor?: No Antibiotics received during labor?: Yes Rupture of Membranes Rupture date/time: 07/23/22 0213 ReadOnly Edit in Flowsheets Rupture type: Artificial Fluid color: Clear Labor Details First cervical ripening date/time: Induction date/time: Augmentation date/time: Labor Event Times Labor onset date/time: Dilation complete date/time: 07/23/22 030 EDT Start pushing date/time: Decision date/time () Delivery ([place]) Delivery date/time: 07/23/22 03:22:00 Details: Blood Loss Mother: Prakash Greene #[id number] Start of Mother's Information Delivery Blood Loss 07/22/22 1522 - 07/23/22 0340 None End of Mother's Information Mother: Prakash Greene #[id number] Delivery Providers Delivering clinician: Measurements Weight: Length: Cherelle Serra DO Associated attestation - Flavio Tolliver III, MD - 07/23/2022 4:20 AM EDT Hospital Care (Independent): I independently saw and evaluated the patient. I agree with the findings and plan of care as documented in the resident's note. [facility] Phone: 07-22-2022 History and physical note Obstetrical History and Physical CHIEF COMPLAINT: Induction HISTORY OF PRESENT ILLNESS: The patient is a 21 y.o. female at 39w0d OB History 3 Para 1 Term 1 AB 1 Living 1 SAB 1 IAB Ectopic Multiple Live Births 1 Patient presents with a chief complaint as above and is being admitted for IOL-HxSubstance use Denies DFM/VB/LOF/LEE/EpigastricPain/Visua l changes Estimated Due Date: Estimated Date of Delivery: 07/29/22 PC-01 HARDSTOP. Current EGA is 39w0d Is this patient being delivered between 13y8i-80j2g weeks with an acceptable medical indication (obstetric, maternal, and/or )? NA: Not Applicable: This patient is being delivered outside of the PC-01 range ([id number]) for reasons indicated in the medical record. CARE: Complications: See below PAST OB HISTORY: OB History Para Term AB Living 3 1 1 1 1 SAB IAB Ectopic Multiple Live Births 1 1 # Outcome Date GA Lbr Jasmeet/2nd Weight Sex Delivery Anes PTL Lv 3 Current 2 SAB 2020 10w0d 1 Term 01/12/17 F Vag-Spont Detailed OB History G1 Term G2 SAB G3 current Past Medical History: Past Medical History: Diagnosis Date Acute cystitis without hematuria 06/28/2019 Anxiety Anxiety takes zyprexa Borderline personality disorder ([facility] ([facility]) Drug abuse ([facility]) ([facility]) Psychiatric problem PTSD (post-traumatic stress disorder) Past Surgical History: Past Surgical History: Procedure Laterality Date ABDOMINAL SURGERY 4yrs old TONSILLECTOMY (HISTORICAL) 3yrs old Allergies: Fentanyl Social History: Social History Socioeconomic History Marital status: Single Spouse name: Not on file Number of children: Not on file Years of education: Not on file Highest education level: Not on file Occupational History Not on file Tobacco Use Smoking status: Every Day Packs/day: 0.50 Years: 10.00 Pack years: 5.00 Types: Cigarettes Start date: 04/28/2010 Last attempt to quit: 12/27/2021 Years since quittin.5 Smokeless tobacco: Never Vaping Use Vaping Use: Never used Substance and Sexual Activity Alcohol use: Not Currently Drug use: Not Currently Types: IV, Marijuana, Methamphetamines, Fentanyl Comment: stopped whrn she found out she was . Relapsed week of 07/07/22, currently in rehab Sexual activity: Not Currently Partners: Male Other Topics Concern Not on file Social History Narrative Not on file Social Determinants of Health Financial Resource Strain: Not on file Food Insecurity: Not on file Transportation Needs: No Transportation Needs Lack of Transportation (Medical): No Lack of Transportation (Non-Medical): No Physical Activity: Not on file Stress: Not on file Social Connections: Not on file Intimate Partner Violence: Not At Risk Fear of Current or Ex-Partner: No Emotionally Abused: No Physically Abused: No Sexually Abused: No Housing Stability: High Risk Unable to Pay for Housing in the Last Year: No Number of Places Lived in the Last Year: 3 Unstable Housing in the Last Year: Yes Family History: No family history on file. Medications Prior to Admission: Medications Prior to Admission Medication Sig Dispense Refill Last Dose buprenorphine (Subtex) [address] 8 mg under the tongue. docusate sodium (Colace) 100 MG capsule Take 1 capsule (100 mg) by mouth 2 times daily. 60 capsule 0 nicotine (Nicoderm, Step 1) 21 MG/24HR patch Place 1 patch on the skin Every 24 hours. 30 patch 1 OLANZapine (ZyPREXA) 7.5 MG tablet Take 1 tablet by mouth daily. Vit-Fe Fumarate-FA ( Plus Vitamin/Mineral) 27-1 MG tablet Take 1 tablet by mouth daily. 90 tablet 4 REVIEW OF SYSTEMS: Const: Negative HEENT: Negative Resp: Negative CVS: Negative GI: Negative : Negative MSK: Negative Breast: Negative Skin: Negative Heme/Lymph:Negative Endo: Negative Neuro: Negative Psych: Negative PHYSICAL EXAM: Vitals: 07/22/22 0904 BP: 118/70 Pulse: 100 Resp: 16 Temp: 36.8 C (98.3 F) TempSrc: Oral Weight: 200 lb (90.7 kg) Height: 5' 2 (1.575 m) General appearance: awake, alert, cooperative, no apparent distress, and appears stated age Neurologic: Awake, alert, oriented to name, place and time. Lungs: No increased work of breathing, good air exchange Abdomen: Soft, non tender, gravid, consistent with her gestational age Sterile Speculum Exam: Membranes: Intact HSV Lesions:not applicable Cervix: 2/60/-3 Contraction frequency: irritability Labs: cbc, type and screen pending Blood Type/Rh: No results found for: RH Group B Strep: No components found for: GRPBPCR Fetus: EFW: 2557g 25%, AC 16% 07/04 Presentation: Vtx by U/S Vega Score: 5 0 1 2 3 Position Posterior Mid Anterior - Consistency Firm Medium Soft - Effacement 0-30% 40-50% 60-70% 80% or > Dilation 0cm 1-2cm 3-4cm 5cm or > Station -3 -2 -1, 0 +1, +2 LABOR DELIVERY ??? SCD's ONLY (labor through ambulation) SCD's PLUS Prophylactic Anticoagulation until discharge SCD's PLUS Prophylactic Anticoagulation for 6 weeks SCD's PLUS Therapeutic Anticoagulation for 6 weeks Vaginal Delivery [] BMI ? 40 kg/m2 Delivery All patients Vaginal Delivery [] BMI ? 40 kg/m2 AND [] Antepartum hospitalization ? 72 hours within the past month Delivery 1 Major Risk Factor: [] BMI ? 35 kg/m2 [] Low Risk Thrombophilia [] PPH+RBCs, IR, or operation [] Infection+Antibiotics [] Antepartum hospitalization ? 72 hours within the past month [] PMH: Sickle Cell, SLE, Cardiac Dz, Active IBD, Active Cancer, Nephrotic Syndrome OR 2 Minor Risk Factors: [] Multiple gestation [] Age > 40 [] PPH ? 1,000cc [] (+)FMH of VTE [] Smoker [] Preeclampsia [] BMI ? 40 kg/m2 AND [] Low Risk Thrombophilia OR ANY OF THE FOLLOWING: [] High Risk Thrombophilia without prior VTE [] Low Risk Thrombophilia with (+)FMH of VTE [] Any single prior VTE ANY OF THE FOLLOWING: [] Already on LMWH/UFH [] Multiple prior VTE [] High Risk Thrombophilia with prior VTE Low Risk Thrombophilia: FVL (heterozygous), Prothrombin (heterozygous), Protein C, Protein S High Risk Thrombophilia: FVL (homozygous), Prothrombin (homozygous), FVL+Prothrombin (heterozygous), Antithrombin III, APLS ASSESSMENT AND PLAN: 1. IOL-Substance use Admission: Admit to L&D FHR: Category 1 Celestone: not indicated Pain control plan: desires epidural Delivery Plan: Cytotec, Mendoza balloon GBS: GBS negative, No indication for GBS prophylaxis LARC: 6wk PP IUD Intrapartum SCDs: Not Indicated VTE Prophylaxis: Not Indicated Hx Substance use -Previously used amphetamines and cocaine -Hx of benzodiazepine use, negative this pregnany -Goes to [facility] for subutex -Current regimen is 8mg each morning -Verified by [facility], had dose this AM per facility -Most recent growth US AGA Hep C -positive antibody, negative viral load on 05/23 -Will get CMP on admission -Denies use of needles in the last year Tobacco use during -PRN nicotine patch Bipolar disorder - Continue Zyprexa 7.5mg nightly Discussed with Dr Tolliver, who agrees with plan. Nhi Foreman MD 07/22/2022, 9:29 AM [facility] 07-22-2022 History and physical note Obstetrical History and Physical CHIEF COMPLAINT: Induction HISTORY OF PRESENT ILLNESS: The patient is a 21 y.o. female at 39w0d OB History 3 Para 1 Term 1 AB 1 Living 1 SAB 1 IAB Ectopic Multiple Live Births 1 Patient presents with a chief complaint as above and is being admitted for IOL-HxSubstance use Denies DFM/VB/LOF/LEE/EpigastricPain/Visua l changes Estimated Due Date: Estimated Date of Delivery: 07/29/22 PC-01 HARDSTOP. Current EGA is 39w0d Is this patient being delivered between 19s5a-35r5a weeks with an acceptable medical indication (obstetric, maternal, and/or )? NA: Not Applicable: This patient is being delivered outside of the PC-01 range ([id number]) for reasons indicated in the medical record. CARE: Complications: See below PAST OB HISTORY: OB History Para Term AB Living 3 1 1 1 1 SAB IAB Ectopic Multiple Live Births 1 1 # Outcome Date GA Lbr Jasmeet/2nd Weight Sex Delivery Anes PTL Lv 3 Current 2 SAB 2020 10w0d 1 Term 01/12/17 F Vag-Spont Detailed OB History G1 Term G2 SAB G3 current Past Medical History: Past Medical History: Diagnosis Date Acute cystitis without hematuria 06/28/2019 Anxiety Anxiety takes zyprexa Borderline personality disorder ([facility] ([facility]) Drug abuse ([facility]) ([facility]) Psychiatric problem PTSD (post-traumatic stress disorder) Past Surgical History: Past Surgical History: Procedure Laterality Date ABDOMINAL SURGERY 4yrs old TONSILLECTOMY (HISTORICAL) 3yrs old Allergies: Fentanyl Social History: Social History Socioeconomic History Marital status: Single Spouse name: Not on file Number of children: Not on file Years of education: Not on file Highest education level: Not on file Occupational History Not on file Tobacco Use Smoking status: Every Day Packs/day: 0.50 Years: 10.00 Pack years: 5.00 Types: Cigarettes Start date: 04/28/2010 Last attempt to quit: 12/27/2021 Years since quittin.5 Smokeless tobacco: Never Vaping Use Vaping Use: Never used Substance and Sexual Activity Alcohol use: Not Currently Drug use: Not Currently Types: IV, Marijuana, Methamphetamines, Fentanyl Comment: stopped whrn she found out she was . Relapsed week of 07/07/22, currently in rehab Sexual activity: Not Currently Partners: Male Other Topics Concern Not on file Social History Narrative Not on file Social Determinants of Health Financial Resource Strain: Not on file Food Insecurity: Not on file Transportation Needs: No Transportation Needs Lack of Transportation (Medical): No Lack of Transportation (Non-Medical): No Physical Activity: Not on file Stress: Not on file Social Connections: Not on file Intimate Partner Violence: Not At Risk Fear of Current or Ex-Partner: No Emotionally Abused: No Physically Abused: No Sexually Abused: No Housing Stability: High Risk Unable to Pay for Housing in the Last Year: No Number of Places Lived in the Last Year: 3 Unstable Housing in the Last Year: Yes Family History: No family history on file. Medications Prior to Admission: Medications Prior to Admission Medication Sig Dispense Refill Last Dose buprenorphine (Subtex) [address] 8 mg under the tongue. docusate sodium (Colace) 100 MG capsule Take 1 capsule (100 mg) by mouth 2 times daily. 60 capsule 0 nicotine (Nicoderm, Step 1) 21 MG/24HR patch Place 1 patch on the skin Every 24 hours. 30 patch 1 OLANZapine (ZyPREXA) 7.5 MG tablet Take 1 tablet by mouth daily. Vit-Fe Fumarate-FA ( Plus Vitamin/Mineral) 27-1 MG tablet Take 1 tablet by mouth daily. 90 tablet 4 REVIEW OF SYSTEMS: Const: Negative HEENT: Negative Resp: Negative CVS: Negative GI: Negative : Negative MSK: Negative Breast: Negative Skin: Negative Heme/Lymph:Negative Endo: Negative Neuro: Negative Psych: Negative PHYSICAL EXAM: Vitals: 07/22/22 0904 BP: 118/70 Pulse: 100 Resp: 16 Temp: 36.8 C (98.3 F) TempSrc: Oral Weight: 200 lb (90.7 kg) Height: 5' 2 (1.575 m) General appearance: awake, alert, cooperative, no apparent distress, and appears stated age Neurologic: Awake, alert, oriented to name, place and time. Lungs: No increased work of breathing, good air exchange Abdomen: Soft, non tender, gravid, consistent with her gestational age Sterile Speculum Exam: Membranes: Intact HSV Lesions:not applicable Cervix: 2/60/-3 Contraction frequency: irritability Labs: cbc, type and screen pending Blood Type/Rh: No results found for: RH Group B Strep: No components found for: GRPBPCR Fetus: EFW: 2557g 25%, AC 16% 07/04 Presentation: Vtx by U/S Vega Score: 5 0 1 2 3 Position Posterior Mid Anterior - Consistency Firm Medium Soft - Effacement 0-30% 40-50% 60-70% 80% or > Dilation 0cm 1-2cm 3-4cm 5cm or > Station -3 -2 -1, 0 +1, +2 LABOR DELIVERY ??? SCD's ONLY (labor through ambulation) SCD's PLUS Prophylactic Anticoagulation until discharge SCD's PLUS Prophylactic Anticoagulation for 6 weeks SCD's PLUS Therapeutic Anticoagulation for 6 weeks Vaginal Delivery [] BMI ? 40 kg/m2 Delivery All patients Vaginal Delivery [] BMI ? 40 kg/m2 AND [] Antepartum hospitalization ? 72 hours within the past month Delivery 1 Major Risk Factor: [] BMI ? 35 kg/m2 [] Low Risk Thrombophilia [] PPH+RBCs, IR, or operation [] Infection+Antibiotics [] Antepartum hospitalization ? 72 hours within the past month [] PMH: Sickle Cell, SLE, Cardiac Dz, Active IBD, Active Cancer, Nephrotic Syndrome OR 2 Minor Risk Factors: [] Multiple gestation [] Age > 40 [] PPH ? 1,000cc [] (+)FMH of VTE [] Smoker [] Preeclampsia [] BMI ? 40 kg/m2 AND [] Low Risk Thrombophilia OR ANY OF THE FOLLOWING: [] High Risk Thrombophilia without prior VTE [] Low Risk Thrombophilia with (+)FMH of VTE [] Any single prior VTE ANY OF THE FOLLOWING: [] Already on LMWH/UFH [] Multiple prior VTE [] High Risk Thrombophilia with prior VTE Low Risk Thrombophilia: FVL (heterozygous), Prothrombin (heterozygous), Protein C, Protein S High Risk Thrombophilia: FVL (homozygous), Prothrombin (homozygous), FVL+Prothrombin (heterozygous), Antithrombin III, APLS ASSESSMENT AND PLAN: 1. IOL-Substance use Admission: Admit to L&D FHR: Category 1 Celestone: not indicated Pain control plan: desires epidural Delivery Plan: Cytotec, Mendoza balloon GBS: GBS negative, No indication for GBS prophylaxis LARC: 6wk PP IUD Intrapartum SCDs: Not Indicated VTE Prophylaxis: Not Indicated Hx Substance use -Previously used amphetamines and cocaine -Hx of benzodiazepine use, negative this pregnany -Goes to [facility] for subutex -Current regimen is 8mg each morning -Verified by [facility], had dose this AM per facility -Most recent growth US AGA Hep C -positive antibody, negative viral load on 05/23 -Will get CMP on admission -Denies use of needles in the last year Tobacco use during -PRN nicotine patch Bipolar disorder - Continue Zyprexa 7.5mg nightly Discussed with Dr Tolliver, who agrees with plan. Nhi Foreman MD 07/22/2022, 9:29 AM documented in this encounter [facility] 07-22-2022 Evaluation + Plan note Associated Problem(s): Substance abuse affecting in third trimester, antepartum UDS +amphetamines, cocaine on 07/04 prior to attempted admission for detox Patient went out to smoke and became very frightened when code brown was called on her and she was surrounded by police officers causing her to leave AMA Patient now says she is getting Subutex from [facility] 8mg in AM. Started on 07/10. No relapse since starting Subutex UDS today [facility] 07-22-2022 Evaluation + Plan note Associated Problem(s): care, subsequent in third trimester Doing well, no ob complaints Desires IOL Scheduled today for 39w GBS and 3rd trimester STI screening today [facility] 07-22-2022 Miscellaneous Notes Associated Problem(s): Substance abuse affecting in third trimester, antepartum UDS +amphetamines, cocaine on 07/04 prior to attempted admission for detox Patient went out to smoke and became very frightened when code brown was called on her and she was surrounded by police officers causing her to leave AMA Patient now says she is getting Subutex from [facility] 8mg in AM. Started on 07/10. No relapse since starting Subutex UDS today Associated Problem(s): care, subsequent in third trimester Doing well, no ob complaints Desires IOL Scheduled today for 39w GBS and 3rd trimester STI screening today documented in this encounter [facility] 07-18-2022 History of Present illness Narrative Vital signs BP 107/73 Weight 201.2 lb Pulse 89 Temp 97.4 Protein trace Glucose negative 21 y.o. yo at 38w3d Here today for LAFONZO No acute complaints. Denies DFM/VB/CTX/LOF ROS: No pelvic pain PE: Vitals: 07/18/22 1403 BP: 107/73 Pulse: 89 Body mass index is 36.8 kg/m . PE: Gen: NAD, A&Ox3 HEENT: NC/AT, EOMI Abd: nontender, uterus palpable on exam Skin: warm/dry BLE: without edema, nontender ASSESSMENT/PLAN: care, subsequent in third trimester Doing well, no ob complaints Desires IOL Scheduled today for 39w GBS and 3rd trimester STI screening today Substance abuse affecting in third trimester, antepartum UDS +amphetamines, cocaine on 07/04 prior to attempted admission for detox Patient went out to smoke and became very frightened when codi reno was called on her and she was surrounded by police officers causing her to leave AMA Patient now says she is getting Subutex from [facility] 8mg in AM. Started on 07/10. No relapse since starting Subutex UDS today Follow up for PP visit. Associated attestation - Anisha Barber MD - 07/22/2022 3:[address] [facility]: This [facility] by the resident. I reviewed and agree with the care provided by the resident during or immediately following the visit including the patient's medical history, the resident's finding in the physical exam, patient's diagnosis and treatment plan. documented in this encounter [facility] 07-15-2022 Hospital Discharge instructions Rocio Rebolledo DO - 07/15/2022 12:44 AM EDT Follow up appointment with your doctor/fireperson - Keep next scheduled appointment Activity - Normal Activity Call your doctor/fireperson if you have: - leaking fluid - vaginal bleeding - regular contractions: More than 6 contractions in one hour - decreased movement - worsening abdominal (belly) pain - headache, blurry vision, increased swelling, upper abdominal pain If you are going home with contractions that are uncomfortable/painful- we recommend these coping strategies: rhythmic breathing, hydrotherapy, imagery or visualization, gentle massage, walking and changing your position. Treatment Verification: Prakash Greene was assessed on Labor and Delivery for a related visit on 07/15/22 . Rocio Rebolledo DO [facility] documented in this encounter [facility] 07-15-2022 History of Present illness Narrative Department of Obstetrics and Gynecology Labor and Delivery Triage Note CHIEF COMPLAINT: contractions HISTORY OF PRESENT ILLNESS: The patient is a 21 y.o. 38w0d. OB History 3 Para 1 Term 1 AB 1 Living 1 SAB 1 IAB Ectopic Multiple Live Births 1 Patient presents with a chief complaint as above. Hasn't had BM in 6 days, feels fullness in abdomen and nausea. Vomited twice this morning. No recent sick contacts. Able to drink small sips of fluids, unable to eat much. Presenting with [facility] detox program area representative. Denies DFM/VB/LOF/CTX Estimated Due Date: Estimated Date of Delivery: 07/29/22 PAST MEDICAL HISTORY: Past Medical History: Diagnosis Date Acute cystitis without hematuria 06/28/2019 Anxiety Anxiety takes zyprexa Borderline personality disorder (CMS/HCC) (HCC) Drug abuse (CMS/[facility]) ([facility]) Psychiatric problem PTSD (post-traumatic stress disorder) PAST SURGICAL HISTORY: Past Surgical History: Procedure Laterality Date ABDOMINAL SURGERY 4yrs old TONSILLECTOMY (HISTORICAL) 3yrs old SOCIAL HISTORY: reports that she has been smoking cigarettes. She started smoking about 12 years ago. She has a 5.00 pack-year smoking history. She has never used smokeless tobacco. She reports that she does not currently use alcohol. She reports that she does not currently use drugs after having used the following drugs: IV, Marijuana, and Methamphetamines. MEDICATIONS: Prior to Admission medications Medication Sig Start Date End Date Taking? Authorizing Provider buprenorphine (Subtex) [address] 8 mg under the tongue. Historical Provider, nicotine (Nicoderm, Step 1) 21 MG/24HR patch Place 1 patch on the skin Every 24 hours. 05/23/22 06/22/22 NICKI Barry CNP OLANZapine (ZyPREXA) 7.5 MG tablet Take 1 tablet by mouth daily. 05/03/22 Historical Provider, Vit-Fe Fumarate-FA ( Plus Vitamin/Mineral) 27-1 MG tablet Take 1 tablet by mouth daily. 04/26/22 NICKI Barry CNP CARE: Complicated by: substance abuse, Hep C with negative viral load REVIEW OF SYSTEMS: Pertinent items are noted in HPI. APPEARANCE: Pain: No PHYSICAL EXAM: Vital Signs: VS wnl-reviewed/Respirations normal effort Vitals: 07/14/22 2345 07/14/22 2349 07/14/22 2350 BP: 109/77 Pulse: 106 94 95 Resp: 16 Temp: 36.8 C (98.2 F) TempSrc: Oral SpO2: 97% Abdomen: soft, ND, no rebound/guarding, tender to palpation in lower quadrants Uterus: gravid/non-tender LE Edema: trace Speculum Exam: defer heart rate: Category I Cervix: closed Contraction frequency: none Membranes: Intact RESULTS: NST: N/A GENERAL LABS: No results found for this or any previous visit (from the past 24 hour(s)). TRIAGE COURSE: Patient seen and evaluated at bedside. NAD, though lower quadrants tender to palpation without radiation. BSUS confirming vertex position. Patient ok with cervical check, confirmed that it is closed. Patient comfortable with [facility] and would like to continue detox with them. Unable to leave urine sample. Plan for Reglan 10 mg PO x1 and soap suds enema. Patient requesting to self administer enema. Will recheck after administration, and plan to discharge on stool softeners. Patient had BM successfully, blood noted with wiping and on enema tubing. No vaginal bleeding on exam or after exam. Patient feeling better after Reglan as well. Will discharge back to [facility] with colace, prune juice ok to take as well. Questions answered, return precautions provided. ESSION: Constipation Pain assessment and plan: None DISCUSSED WITH [facility] PROVIDER: Dr. Moreno DISPOSITION: Discharge to Home Associated attestation - Lucy Moreno MD - 07/15/2022 6:30 AM EDT Hospital Care (Independent): I independently saw and evaluated the patient. I agree with the findings and plan of care as documented in the resident's note. documented in this encounter [facility] 07-14-2022 Telephone encounter Note Reason for Disposition Patient sounds very sick or weak to the triager Protocols used: - [id number] S: Patient calls for complaint of constipation B: patient has not had bowel movement now for six days A: patient no bm for six days, abdomen distended according to provider and patient has vomited for the last three days. Patient is 38 weeks R: patient caregiver advised that economic developer provider will be contacted to discuss. Provider advises patient she should be seen in labor and delivery. Provider/caregiver verbalizes understanding of same [facility] 07-14-2022 Miscellaneous Notes Reason for Disposition Patient sounds very sick or weak to the triager Protocols used: - [id number] S: Patient calls for complaint of constipation B: patient has not had bowel movement now for six days A: patient no bm for six days, abdomen distended according to provider and patient has vomited for the last three days. Patient is 38 weeks R: patient caregiver advised that economic developer provider will be contacted to discuss. Provider advises patient she should be seen in labor and delivery. Provider/caregiver verbalizes understanding of same documented in this encounter [facility] 07-11-2022 Procedure note Procedure(s): NONSTRESS TEST jade Judd at 37w3d with an YAS of 07/29/2022, by Ultrasound, was seen at [facility] for a nonstress test. Reason for Non-Stress Test 1 : Other (Comment) (substance abuse) Variability in Waveform for Non-Stress Test 1: Moderate Decelerations in Non-Stress Test 1: None Accelerations in Non-Stress Test 1: Yes Acoustic Stimulator for Non-Stress Test 1: Yes (x3 with movement and acceleration in FHR) Baseline Heart Rate for Non-Stress Test 1: 115 BPM Uterine Irritability for Non-Stress Test 1: No Contractions in Non-Stress Test 1: Not present Interpretation of Non-Stress Test 1: Reactive [facility] 07-11-2022 Procedure note Procedure(s): NONSTRESS TEST jade Judd at 37w3d with an YAS of 07/29/2022, by Ultrasound, was seen at [facility] for a nonstress test. Reason for Non-Stress Test 1 : Other (Comment) (substance abuse) Variability in Waveform for Non-Stress Test 1: Moderate Decelerations in Non-Stress Test 1: None Accelerations in Non-Stress Test 1: Yes Acoustic Stimulator for Non-Stress Test 1: Yes (x3 with movement and acceleration in FHR) Baseline Heart Rate for Non-Stress Test 1: 115 BPM Uterine Irritability for Non-Stress Test 1: No Contractions in Non-Stress Test 1: Not present Interpretation of Non-Stress Test 1: Reactive documented in this encounter [facility] 07-04-2022 Note Formatting of this n ote might be different from the original. Pt left from triage stating that she needed to go outside and smoke, counseled by RN that we recommend staying, pt left with friend anyway. Dr. Wise updated and codi reno was called, pt was found by [facility] Police and stated that she would not come back and did not want admission anymore. Will discharge pt as left AMA. [facility] 07-04-2022 Note Formatting of this n ote might be different from the original. Pt left from triage stating that she needed to go outside and smoke, counseled by RN that we recommend staying, pt left with friend anyway. Dr. Wise updated and codi reno was called, pt was found by [facility] Police and stated that she would not come back and did not want admission anymore. Will discharge pt as left AMA. [facility] 07-04-2022 Miscellaneous Notes Pt left from triage stating that she needed to go outside and smoke, counseled by RN that we recommend staying, pt left with friend anyway. Dr. Wise updated and codi reno was called, pt was found by [facility] Police and stated that she would not come back and did not want admission anymore. Will discharge pt as left AMA. documented in this encounter [facility] 07-04-2022 Hospital course Narrative Images from the original note were not included. Department of Obstetrics and Gynecology [facility] Discharge Summary Admission on 07/04/2022 2:48 PM Prakash Greene is a 21 y.o. at 36w3d who was admitted for detox for substance use. Has a hx of fentanyl and methamphetamine use as well as extensive psychiatric hx. However, pt eloped from triage to go out and smoke. Codi reno was called and pt was found by [facility] Police outside, but she refused to be admitted. Will discharge AMA. Meds: Medication List ASK your doctor about these medications nicotine 21 MG/24HR patch Commonly known as: Nicoderm, Step 1 Place 1 patch on the skin Every 24 hours. OLANZapine 7.5 MG tablet Commonly known as: ZyPREXA Plus Vitamin/Mineral 27-1 MG tablet Take 1 tablet by mouth daily. Discharge to: Left Against Medical Advice Discharge date: 07/04/22 Discharge Dx: Substance Use Disorder Follow up appointment with your doctor/fireperson - Keep next scheduled appointment Activity - Normal Activity Call your doctor/fireperson if you have: - leaking fluid - vaginal bleeding - regular contractions: More than 6 contractions in one hour - decreased movement - worsening abdominal (belly) pain - headache, blurry vision, increased swelling, upper abdominal pain SAMIRA Mills, DO on 07/04/2022 at 5:00 PM documented in this encounter [facility] 07-04-2022 Consult note Associated Order (s): IP CONSULT TO ADDICTION MEDICINE Addiction Medicine Consultation H & P Patient: Prakash Greene Admit Date: 07/04/2022 Primary Care Physician: Pcp No (Inactive) Reason for Consultation: Detox, . No chief complaint on file. History of Present Illness Prakash Greene is a 21 y.o. year old female with a PMH of Hep C, Tobacco Use, 36 weeks gestation and a years long history of polysubstance use. Prakash Greene states that she was released from [facility] for 4 days, and quickly relapsed. She states she has been back in [facility] for 1 day, prior to returning, was using fentanyl. She states she was using up to 3 g/day, but most recently was using 1 g/day that she believes is laced with fentanyl. She denies intentional fentanyl use at this time, but states she is having withdrawal symptoms consistent with fentanyl use. She states that she does have a history of IV drug use, but most recently has been smoking and snorting. Last reported use was 2 days prior to presentation. Patient states that prior to this, she had been in [facility] for 8 months. Prior to that, she spent 3 months at [facility], 4 months in [facility]. She is also completed residential rehabilitation at [facility] in 2019. She states currently that she is experiencing multiple withdrawal symptoms including back pain, restless leg, muscular pain, joint pain, runny nose, nausea. Patient denies any prior history of MAT. Patient denies any other current substance use. On admission, a urine drug screen was pending, and a serum alcohol level was pending. Current Substance Use: See HPI Substance Use History: 10 years old at first use of THC, Meth @ 11, Opioids @ 16. Longest period of sobriety since daily use began is 8 months. Consequences: [x] IVDA. [] Blackouts related to substance use. [] History of withdrawal seizures. [] History of delirium tremens. [x] History of overdoses. [x] Legal consequences of substance use. Substance Use Disorder Criteria: 2-3 = mild; 4-5 = moderate; 6 or >6 = severe substance use disorder [x] Taking substance in larger amounts and/or for longer than intended. [x] Wanting to cut down or quit but not being able to. [x] Spending a lot of time obtaining the substance. [x] Craving or a strong desire to use substance. [x] Repeatedly doesn't carry out major obligations due to substance use. [x] Using despite recurring social or interpersonal problems. [x] Reducing social, occupational, or recreational activities. [x] Recurrent use in physically hazardous situations. [x] Consistent use despite recurrent physical or psychological difficulties. [x] Tolerance (increased amounts to achieve intoxication or diminished effect). [x] Withdrawal syndrome or the substance is used to avoid withdrawal. Treatment History: Inpatient Rehab: [facility] in 2019, [facility] in 2021. Chem Dep IOP: Previous. Detoxifications: Multiple prior. 12 Step Meetings: Denies current. Medication Assisted Treatment: Denies. Psychiatric History: Current Psychiatrist: Martin KUMAR Current Medications: Zyprexa 7.5mg Diagnoses: Bipolar 2, PTSD, Anxiety, Borderline Psychiatric Hospitalizations: Multiple for suicidal ideation Previous Suicide Attempts: Denies Adverse Childhood Events: + Trauma History: + History of Head Injuries: Denies Remaining History: Social History Socioeconomic History Marital status: Single Spouse name: Not on file Number of children: Not on file Years of education: Not on file Highest education level: Not on file Occupational History Not on file Tobacco Use Smoking status: Every Day Packs/day: 0.50 Years: 10.00 Pack years: 5.00 Types: Cigarettes Start date: 04/28/2010 Last attempt to quit: 12/27/2021 Years since quittin.5 Smokeless tobacco: Never Vaping Use Vaping Use: Never used Substance and Sexual Activity Alcohol use: Not Currently Drug use: Not Currently Types: IV, Marijuana, Methamphetamines Comment: stopped whrn she found out she was Sexual activity: Not Currently Partners: Male Other Topics Concern Not on file Social History Narrative Not on file Social Determinants of Health Financial Resource Strain: Not on file Food Insecurity: Not on file Transportation Needs: No Transportation Needs Lack of Transportation (Medical): No Lack of Transportation (Non-Medical): No Physical Activity: Not on file Stress: Not on file Social Connections: Not on file Intimate Partner Violence: Not At Risk Fear of Current or Ex-Partner: No Emotionally Abused: No Physically Abused: No Sexually Abused: No Housing Stability: High Risk Unable to Pay for Housing in the Last Year: No Number of Places Lived in the Last Year: 3 Unstable Housing in the Last Year: Yes Past Medical History: Diagnosis Date Acute cystitis without hematuria 06/28/2019 Anxiety Borderline personality disorder ([facility]) ([facility]) Drug abuse ([facility]) ([facility]) Psychiatric problem PTSD (post-traumatic stress disorder) Past Surgical History: Procedure Laterality Date ABDOMINAL SURGERY 4yrs old TONSILLECTOMY (HISTORICAL) 3yrs old No family history on file. Review of Systems Review of Systems Constitutional: Positive for diaphoresis. Negative for chills, fatigue and fever. HENT: Positive for rhinorrhea. Gastrointestinal: Positive for abdominal pain and nausea. Negative for constipation, diarrhea and vomiting. Musculoskeletal: Positive for arthralgias, back pain and myalgias. Neurological: Negative for tremors, weakness and light-headedness. Psychiatric/Behavioral: Negative for agitation and suicidal ideas. The patient is nervous/anxious. Physicial Exam There were no vitals filed for this visit. Physical Exam Constitutional: General: She is not in acute distress. Appearance: Normal appearance. She is diaphoretic. She is not ill-appearing. HENT: Head: Normocephalic and atraumatic. Nose: No rhinorrhea. Mouth/Throat: Mouth: Mucous membranes are moist. Eyes: General: No scleral icterus. Conjunctiva/sclera: Conjunctivae normal. Cardiovascular: Pulses: Normal pulses. Pulmonary: Effort: Pulmonary effort is normal. No respiratory distress. Musculoskeletal: General: Normal range of motion. Cervical back: Normal range of motion. Skin: General: Skin is warm. Neurological: General: No focal deficit present. Mental Status: She is alert and oriented to person, place, and time. Motor: No tremor. Psychiatric: Mood and Affect: Mood normal. Behavior: Behavior normal. Thought Content: Thought content normal. Judgment: Judgment normal. Labs No results found for this or any previous visit (from the past 48 hour(s)). Medications buprenorphine, 2 mg, SubLINGual, q2h OLANZapine, 7.5 mg, Oral, Nightly vitamin, 1 tablet, Oral, Daily sodium chloride 0.9%, 10 mL, IntraVENous, 2 times per day Tdap-Dtap, 0.5 mL, IntraMUSCular, Once PRN medications: acetaminophen, aluminum & magnesium hydroxide-simethicone, dicyclomine, hydrOXYzine pamoate, loperamide, nicotine, ondansetron ODT OR [DISCONTINUED] ondansetron, sodium chloride, sodium chloride 0.9% Assessment & Plan Opioid use disorder Counseled patient on biopsychosocial consequences of substance use. Encouraged professional chemical dependency treatment. Encouraged 12 step meeting attendance. SW to finalize an addiction treatment plan before discharge: Patient is currently at [facility], plans to return there for further residential treatment once stabilized onto buprenorphine. [facility] services as well as OB care. Opioid withdrawal Last use of Fentanyl/Meth was on 07/02. Opioid use disorder: Discussed methods of initiation onto buprenorphine with patient at length. Discussed traditional method of awaiting mild withdrawal symptoms and then initiating low-dose of buprenorphine to alleviate symptoms versus microdose induction with continuation of full opioid agonist. Discussed buprenorphine induction on mono product versus naloxone containing product. Discussed that traditionally a buprenorphine mono product is used during , but that recent data shows no adverse effects from a naloxone containing product. Discussed that naloxone containing product has lower risk of diversion. Discussed that risk of withdrawal from naloxone is if product is abused. Shared decision making model utilized with patient. Patient states she would prefer to be on Subutex if possible. Will inducted on that. Patient was counseled extensively on methods of induction onto buprenorphine including traditional method versus micro induction. Patient was counseled on risks to include precipitated withdrawal, labor, category 2 heart tracing. Patient would like to be started on buprenorphine and a traditional method. All patient counseled that she must remain on continuous monitoring during the induction period. We will start Suboxone 2 mg every 2 hours for 4 doses to begin for COWS score greater than 8. Counseled patient that if she experiences increased withdrawal symptoms, she should notify nursing so that staffing specialist can increase her dose of Suboxone if needed. COWS scores per unit protocol. PRN medications for withdrawal symptom management added. INFORMED CONSENT: The nature and purpose of buprenorphine MAT use during was reviewed with this patient at length. The benefits and risks of utilizing MAT have also been reviewed at length including the potential risk of MARGE for the after delivery. Alternative treatment options for her drug addiction have also been reviewed. Pursuant to this discussion, the patient agrees to utilize buprenorphine MAT while . Patient signed contract and understands limitations on visitors, belongings during stabilization. Tobacco Use Disorder Patch PRN. Will add Lozenge/Gum once stabilized from opioid withdrawal Hep C Will refer for treatment after delivery/. IUP @ 36/3 Management per primary team. Disposition: Discharge anticipated in 3-4 days. This is pending: Resolution of withdrawal symptoms. Medical stabilization. Labs/tests/tasks to review: UDS. Avionics Repair Technician recommendations: Recommend CLP consult. Will follow. Sal Wise DO Addiction Medicine 07/04/2022 at 4:58 PM I spent 60 minutes counseling and coordinating care regarding patient's chemical dependency status. [employer] Phone: 07-04-2022 Consult note Associated Order (s): IP CONSULT TO ADDICTION MEDICINE Addiction Medicine Consultation H & P Patient: Prakash Greene Admit Date: 07/04/2022 Primary Care Physician: Pcp No (Inactive) Reason for Consultation: Detox, . No chief complaint on file. History of Present Illness Prakash Greene is a 21 y.o. year old female with a PMH of Hep C, Tobacco Use, 36 weeks gestation and a years long history of polysubstance use. Prakash Greene states that she was released from [facility] for 4 days, and quickly relapsed. She states she has been back in [facility] for 1 day, prior to returning, was using fentanyl. She states she was using up to 3 g/day, but most recently was using 1 g/day that she believes is laced with fentanyl. She denies intentional fentanyl use at this time, but states she is having withdrawal symptoms consistent with fentanyl use. She states that she does have a history of IV drug use, but most recently has been smoking and snorting. Last reported use was 2 days prior to presentation. Patient states that prior to this, she had been in [facility] for 8 months. Prior to that, she spent 3 months at [facility], 4 months in [facility]. She is also completed residential rehabilitation at [place] in 2019. She states currently that she is experiencing multiple withdrawal symptoms including back pain, restless leg, muscular pain, joint pain, runny nose, nausea. Patient denies any prior history of MAT. Patient denies any other current substance use. On admission, a urine drug screen was pending, and a serum alcohol level was pending. Current Substance Use: See HPI Substance Use History: 10 years old at first use of THC, Meth @ 11, Opioids @ 16. Longest period of sobriety since daily use began is 8 months. Consequences: [x] IVDA. [] Blackouts related to substance use. [] History of withdrawal seizures. [] History of delirium tremens. [x] History of overdoses. [x] Legal consequences of substance use. Substance Use Disorder Criteria: 2-3 = mild; 4-5 = moderate; 6 or >6 = severe substance use disorder [x] Taking substance in larger amounts and/or for longer than intended. [x] Wanting to cut down or quit but not being able to. [x] Spending a lot of time obtaining the substance. [x] Craving or a strong desire to use substance. [x] Repeatedly doesn't carry out major obligations due to substance use. [x] Using despite recurring social or interpersonal problems. [x] Reducing social, occupational, or recreational activities. [x] Recurrent use in physically hazardous situations. [x] Consistent use despite recurrent physical or psychological difficulties. [x] Tolerance (increased amounts to achieve intoxication or diminished effect). [x] Withdrawal syndrome or the substance is used to avoid withdrawal. Treatment History: Inpatient Rehab: [facility] 2019, [facility] in 2021. Chem Dep IOP: Previous. Detoxifications: Multiple prior. 12 Step Meetings: Denies current. Medication Assisted Treatment: Denies. Psychiatric History: Current Psychiatrist: Martin Milner [facility] Current Medications: Zyprexa 7.5mg Diagnoses: Bipolar 2, PTSD, Anxiety, Borderline Psychiatric Hospitalizations: Multiple for suicidal ideation Previous Suicide Attempts: Denies Adverse Childhood Events: + Trauma History: + History of Head Injuries: Denies Remaining History: Social History Socioeconomic History Marital status: Single Spouse name: Not on file Number of children: Not on file Years of education: Not on file Highest education level: Not on file Occupational History Not on file Tobacco Use Smoking status: Every Day Packs/day: 0.50 Years: 10.00 Pack years: 5.00 Types: Cigarettes Start date: 04/28/2010 Last attempt to quit: 12/27/2021 Years since quittin.5 Smokeless tobacco: Never Vaping Use Vaping Use: Never used Substance and Sexual Activity Alcohol use: Not Currently Drug use: Not Currently Types: IV, Marijuana, Methamphetamines Comment: stopped whrn she found out she was Sexual activity: Not Currently Partners: Male Other Topics Concern Not on file Social History Narrative Not on file Social Determinants of Health Financial Resource Strain: Not on file Food Insecurity: Not on file Transportation Needs: No Transportation Needs Lack of Transportation (Medical): No Lack of Transportation (Non-Medical): No Physical Activity: Not on file Stress: Not on file Social Connections: Not on file Intimate Partner Violence: Not At Risk Fear of Current or Ex-Partner: No Emotionally Abused: No Physically Abused: No Sexually Abused: No Housing Stability: High Risk Unable to Pay for Housing in the Last Year: No Number of Places Lived in the Last Year: 3 Unstable Housing in the Last Year: Yes Past Medical History: Diagnosis Date Acute cystitis without hematuria 06/28/2019 Anxiety Borderline personality disorder ([facility]) ([facility]) Drug abuse ([facility]) ([facility]) Psychiatric problem PTSD (post-traumatic stress disorder) Past Surgical History: Procedure Laterality Date ABDOMINAL SURGERY 4yrs old TONSILLECTOMY (HISTORICAL) 3yrs old No family history on file. Review of Systems Review of Systems Constitutional: Positive for diaphoresis. Negative for chills, fatigue and fever. HENT: Positive for rhinorrhea. Gastrointestinal: Positive for abdominal pain and nausea. Negative for constipation, diarrhea and vomiting. Musculoskeletal: Positive for arthralgias, back pain and myalgias. Neurological: Negative for tremors, weakness and light-headedness. Psychiatric/Behavioral: Negative for agitation and suicidal ideas. The patient is nervous/anxious. Physicial Exam There were no vitals filed for this visit. Physical Exam Constitutional: General: She is not in acute distress. Appearance: Normal appearance. She is diaphoretic. She is not ill-appearing. HENT: Head: Normocephalic and atraumatic. Nose: No rhinorrhea. Mouth/Throat: Mouth: Mucous membranes are moist. Eyes: General: No scleral icterus. Conjunctiva/sclera: Conjunctivae normal. Cardiovascular: Pulses: Normal pulses. Pulmonary: Effort: Pulmonary effort is normal. No respiratory distress. Musculoskeletal: General: Normal range of motion. Cervical back: Normal range of motion. Skin: General: Skin is warm. Neurological: General: No focal deficit present. Mental Status: She is alert and oriented to person, place, and time. Motor: No tremor. Psychiatric: Mood and Affect: Mood normal. Behavior: Behavior normal. Thought Content: Thought content normal. Judgment: Judgment normal. Labs No results found for this or any previous visit (from the past 48 hour(s)). Medications buprenorphine, 2 mg, SubLINGual, q2h OLANZapine, 7.5 mg, Oral, Nightly vitamin, 1 tablet, Oral, Daily sodium chloride 0.9%, 10 mL, IntraVENous, 2 times per day Tdap-Dtap, 0.5 mL, IntraMUSCular, Once PRN medications: acetaminophen, aluminum & magnesium hydroxide-simethicone, dicyclomine, hydrOXYzine pamoate, loperamide, nicotine, ondansetron ODT OR [DISCONTINUED] ondansetron, sodium chloride, sodium chloride 0.9% Assessment & Plan Opioid use disorder Counseled patient on biopsychosocial consequences of substance use. Encouraged professional chemical dependency treatment. Encouraged 12 step meeting attendance. SW to finalize an addiction treatment plan before discharge: Patient is currently at [facility], plans to return there for further residential treatment once stabilized onto buprenorphine. [facility] for support services as well as OB care. Opioid withdrawal Last use of Fentanyl/Meth was on 07/02. Opioid use disorder: Discussed methods of initiation onto buprenorphine with patient at length. Discussed traditional method of awaiting mild withdrawal symptoms and then initiating low-dose of buprenorphine to alleviate symptoms versus microdose induction with continuation of full opioid agonist. Discussed buprenorphine induction on mono product versus naloxone containing product. Discussed that traditionally a buprenorphine mono product is used during , but that recent data shows no adverse effects from a naloxone containing product. Discussed that naloxone containing product has lower risk of diversion. Discussed that risk of withdrawal from naloxone is if product is abused. Shared decision making model utilized with patient. Patient states she would prefer to be on Subutex if possible. Will inducted on that. Patient was counseled extensively on methods of induction onto buprenorphine including traditional method versus micro induction. Patient was counseled on risks to include precipitated withdrawal, labor, category 2 heart tracing. Patient would like to be started on buprenorphine and a traditional method. All patient counseled that she must remain on continuous monitoring during the induction period. We will start Suboxone 2 mg every 2 hours for 4 doses to begin for COWS score greater than 8. Counseled patient that if she experiences increased withdrawal symptoms, she should notify nursing so that staffing specialist can increase her dose of Suboxone if needed. COWS scores per unit protocol. PRN medications for withdrawal symptom management added. INFORMED CONSENT: The nature and purpose of buprenorphine MAT use during was reviewed with this patient at length. The benefits and risks of utilizing MAT have also been reviewed at length including the potential risk of MARGE for the after delivery. Alternative treatment options for her drug addiction have also been reviewed. Pursuant to this discussion, the patient agrees to utilize buprenorphine MAT while . Patient signed contract and understands limitations on visitors, belongings during stabilization. Tobacco Use Disorder Patch PRN. Will add Lozenge/Gum once stabilized from opioid withdrawal Hep C Will refer for treatment after delivery/. IUP @ / Management per primary team. Disposition: Discharge anticipated in 3-4 days. This is pending: Resolution of withdrawal symptoms. Medical stabilization. Labs/tests/tasks to review: UDS. Avionics Repair Technician recommendations: Recommend CLP consult. Will follow. Sal Wise DO Addiction Medicine 07/04/2022 at 4:58 PM I spent 60 minutes counseling and coordinating care regarding patient's chemical dependency status. documented in this encounter [facility] 07-04-2022 History and physical note Images from the original note were not included. Department of Obstetrics and Gynecology History and Physical CHIEF COMPLAINT: Detox HISTORY OF PRESENT ILLNESS: The patient is a 21 y.o. female at 36w3d. OB History 3 Para 1 Term 1 AB 1 Living 1 SAB 1 IAB Ectopic Multiple Live Births 1 Patient presents with a chief complaint as above and is being admitted for detox. Patient presents with a chief complaint as above. Patient here because she feels like she is in withdrawal from methamphetamines and fentanyl. She last used 2 days ago, she snorted it. She has used IV in the past. She was given a drugs the other day but she typically trades sexual favors for drugs. She has never been on methadone or subutex in the past. She has a 10 year history of opiate use. She wishes to be started on subutex. She is currently at [facility]. She was previously incarcerated and was clean during that time, was released to [facility] and recently released at that time. Transport: No Prior Hospitalizations: No Estimated Due Date: Estimated Date of Delivery: 07/29/22 CARE: Complications: Substance Use Disorder Complex Social Situation Hepatitis C Tobacco Use PAST OB HISTORY: OB History 3 Para 1 Term 1 AB 1 Living 1 SAB 1 IAB Ectopic Multiple Live Births 1 Detailed OB History Term SAB Current Past Medical History: Past Medical History: Diagnosis Date Acute cystitis without hematuria 06/28/2019 Anxiety Borderline personality disorder (CMS/HCC) (HCC) Drug abuse (CMS/HCC) ([facility]) Psychiatric problem PTSD (post-traumatic stress disorder) Past Surgical History: Past Surgical History: Procedure Laterality Date ABDOMINAL SURGERY 4yrs old TONSILLECTOMY (HISTORICAL) 3yrs old Allergies: Fentanyl Social History: Social History Socioeconomic History Marital status: Single Spouse name: Not on file Number of children: Not on file Years of education: Not on file Highest education level: Not on file Occupational History Not on file Tobacco Use Smoking status: Every Day Packs/day: 0.50 Years: 10.00 Pack years: 5.00 Types: Cigarettes Start date: 04/28/2010 Last attempt to quit: 12/27/2021 Years since quittin.5 Smokeless tobacco: Never Vaping Use Vaping Use: Never used Substance and Sexual Activity Alcohol use: Not Currently Drug use: Not Currently Types: IV, Marijuana, Methamphetamines Comment: stopped whrn she found out she was Sexual activity: Not Currently Partners: Male Other Topics Concern Not on file Social History Narrative Not on file Social Determinants of Health Financial Resource Strain: Not on file Food Insecurity: Not on file Transportation Needs: No Transportation Needs Lack of Transportation (Medical): No Lack of Transportation (Non-Medical): No Physical Activity: Not on file Stress: Not on file Social Connections: Not on file Intimate Partner Violence: Not At Risk Fear of Current or Ex-Partner: No Emotionally Abused: No Physically Abused: No Sexually Abused: No Housing Stability: High Risk Unable to Pay for Housing in the Last Year: No Number of Places Lived in the Last Year: 3 Unstable Housing in the Last Year: Yes Family History: No family history on file. Medications Prior to Admission: Medications Prior to Admission Medication Sig Dispense Refill Last Dose nicotine (Nicoderm, Step 1) 21 MG/24HR patch Place 1 patch on the skin Every 24 hours. 30 patch 1 OLANZapine (ZyPREXA) 7.5 MG tablet Take 1 tablet by mouth daily. Vit-Fe Fumarate-FA ( Plus Vitamin/Mineral) 27-1 MG tablet Take 1 tablet by mouth daily. 90 tablet 4 REVIEW OF SYSTEMS: Review of Systems Constitutional: Negative for chills and fever. HENT: Positive for postnasal drip. Negative for drooling. Respiratory: Negative for cough and shortness of breath. Cardiovascular: Negative for chest pain. Gastrointestinal: Negative for abdominal pain, nausea and vomiting. Genitourinary: Negative for dysuria, pelvic pain and vaginal bleeding. Musculoskeletal: Negative for back pain. Skin: Negative for rash. Neurological: Negative for headaches. Psychiatric/Behavioral: Negative for confusion. All other systems reviewed and are negative. Labs: MAT pending Type and screen pending PHYSICAL EXAM: There were no vitals filed for this visit. General appearance: awake, alert, cooperative, no apparent distress, and appears stated age Neurologic: Awake, alert, oriented to name, place and time. Lungs: No increased work of breathing, good air exchange Abdomen: Soft, non tender, gravid, consistent with her gestational age Contraction frequency: None Fetus: EFW: 2557g (25%), AC 16% on 07/04 Presentation: vertex by U/S NST: Reactive ASSESSMENT AND PLAN: LABOR DELIVERY ??? SCD's ONLY (labor through ambulation) SCD's PLUS Prophylactic Anticoagulation until discharge SCD's PLUS Prophylactic Anticoagulation for 6 weeks SCD's PLUS Therapeutic Anticoagulation for 6 weeks Vaginal Delivery [] BMI ? 40 kg/m2 Delivery All patients Vaginal Delivery [] BMI ? 40 kg/m2 AND [] Antepartum hospitalization ? 72 hours within the past month Delivery 1 Major Risk Factor: [] BMI ? 35 kg/m2 [] Low Risk Thrombophilia [] PPH+RBCs, IR, or operation [] Infection+Antibiotics [] Antepartum hospitalization ? 72 hours within the past month [] PMH: Sickle Cell, SLE, Cardiac Dz, Active IBD, Active Cancer, Nephrotic Syndrome OR 2 Minor Risk Factors: [] Multiple gestation [] Age > 40 [] PPH ? 1,000cc [] (+)FMH of VTE [] Smoker [] Preeclampsia [] BMI ? 40 kg/m2 AND [] Low Risk Thrombophilia OR ANY OF THE FOLLOWING: [] High Risk Thrombophilia without prior VTE [] Low Risk Thrombophilia with (+)FMH of VTE [] Any single prior VTE ANY OF THE FOLLOWING: [] Already on LMWH/UFH [] Multiple prior VTE [] High Risk Thrombophilia with prior VTE Low Risk Thrombophilia: FVL (heterozygous), Prothrombin (heterozygous), Protein C, Protein S High Risk Thrombophilia: FVL (homozygous), Prothrombin (homozygous), FVL+Prothrombin (heterozygous), Antithrombin III, APLS VTE Prophylaxis: Not Indicated Admission: Admit to Antepartum (PNU) FHR: Category 1, heart monitoring continuous Labs: GBS ordered, but not yet obtained GC/CT ordered, but not yet obtained Urine ordered, but not yet obtained Type&Screen ordered, but not yet obtained Serum Labs CBC, CMP Consults: ADM Imaging: Not indicated Diet: General Testing: TBD Timing and Route of Delivery: TBD Medications: Neuroprotection Not indicated Tocolysis Not indicated Antibiotics Not indicated Steroids: Betamethasone - not indicated Substance Use Disorder - Has snorted fentanyl and meth for 10 years - Was recently in half-way and then discharged to [facility], used for the three days after leaving [facility] - Last used 1g Fentanyl/meth on 07/02 - Currently at [facility] - Never on MAT in the past - Multiple negative UDS this - COWS 8 on admission - ADM consulted on admission, appreciate recs - Used IV drugs in the past - Per Dr. Wise, will start pt on Subutex 2x2x4 Bipolar Disorder Borderline Personality Disorder PTSD - Continue home Zyprexa, pt states that she has not taken in a few days Hepatitis C - VL undetectable on 05/23/22 Tobacco Use - Per chart review, smokes about 1/2 ppd - Nicotine patches ordered PRN Obesity - BMI 35 - Encourage ambulation IUP @ 36w3d - Dating by 16w2d US - Cephalic on 07/04 - Monitoring: CEFM - Diet: General - BMZ deferred Discussed with Dr. De Los Santos, who agrees with plan. SAMIRA Mills, 07/04/2022, 3:58 PM Cc: Flavio Tolliver III, * Associated attestation - Mary De Los Santos MD - 07/04/2022 7:58 PM EST Attending Supervising Physician's Attestation Statement This patient was admitted overnight while I was economic developer. I discussed the assessment and management with the resident physician. I reviewed and agree with the findings and plan as documented in the note. Mary De Los Santos MD [facility] 07-04-2022 History and physical note Images from the original note were not included. Department of Obstetrics and Gynecology History and Physical CHIEF COMPLAINT: Detox HISTORY OF PRESENT ILLNESS: The patient is a 21 y.o. female at 36w3d. OB History 3 Para 1 Term 1 AB 1 Living 1 SAB 1 IAB Ectopic Multiple Live Births 1 Patient presents with a chief complaint as above and is being admitted for detox. Patient presents with a chief complaint as above. Patient here because she feels like she is in withdrawal from methamphetamines and fentanyl. She last used 2 days ago, she snorted it. She has used IV in the past. She was given a drugs the other day but she typically trades sexual favors for drugs. She has never been on methadone or subutex in the past. She has a 10 year history of opiate use. She wishes to be started on subutex. She is currently at [facility]. She was previously incarcerated and was clean during that time, was released to [facility] and recently released at that time. Transport: No Prior Hospitalizations: No Estimated Due Date: Estimated Date of Delivery: 07/29/22 CARE: Complications: Substance Use Disorder Complex Social Situation Hepatitis C Tobacco Use PAST OB HISTORY: OB History 3 Para 1 Term 1 AB 1 Living 1 SAB 1 IAB Ectopic Multiple Live Births 1 Detailed OB History Term SAB Current Past Medical History: Past Medical History: Diagnosis Date Acute cystitis without hematuria 06/28/2019 Anxiety Borderline personality disorder ([facility]) ([facility]) Drug abuse ([facility]) ([facility]) Psychiatric problem PTSD (post-traumatic stress disorder) Past Surgical History: Past Surgical History: Procedure Laterality Date ABDOMINAL SURGERY 4yrs old TONSILLECTOMY (HISTORICAL) 3yrs old Allergies: Fentanyl Social History: Social History Socioeconomic History Marital status: Single Spouse name: Not on file Number of children: Not on file Years of education: Not on file Highest education level: Not on file Occupational History Not on file Tobacco Use Smoking status: Every Day Packs/day: 0.50 Years: 10.00 Pack years: 5.00 Types: Cigarettes Start date: 04/28/2010 Last attempt to quit: 12/27/2021 Years since quittin.5 Smokeless tobacco: Never Vaping Use Vaping Use: Never used Substance and Sexual Activity Alcohol use: Not Currently Drug use: Not Currently Types: IV, Marijuana, Methamphetamines Comment: stopped whrn she found out she was Sexual activity: Not Currently Partners: Male Other Topics Concern Not on file Social History Narrative Not on file Social Determinants of Health Financial Resource Strain: Not on file Food Insecurity: Not on file Transportation Needs: No Transportation Needs Lack of Transportation (Medical): No Lack of Transportation (Non-Medical): No Physical Activity: Not on file Stress: Not on file Social Connections: Not on file Intimate Partner Violence: Not At Risk Fear of Current or Ex-Partner: No Emotionally Abused: No Physically Abused: No Sexually Abused: No Housing Stability: High Risk Unable to Pay for Housing in the Last Year: No Number of Places Lived in the Last Year: 3 Unstable Housing in the Last Year: Yes Family History: No family history on file. Medications Prior to Admission: Medications Prior to Admission Medication Sig Dispense Refill Last Dose nicotine (Nicoderm, Step 1) 21 MG/24HR patch Place 1 patch on the skin Every 24 hours. 30 patch 1 OLANZapine (ZyPREXA) 7.5 MG tablet Take 1 tablet by mouth daily. Vit-Fe Fumarate-FA ( Plus Vitamin/Mineral) 27-1 MG tablet Take 1 tablet by mouth daily. 90 tablet 4 REVIEW OF SYSTEMS: Review of Systems Constitutional: Negative for chills and fever. HENT: Positive for postnasal drip. Negative for drooling. Respiratory: Negative for cough and shortness of breath. Cardiovascular: Negative for chest pain. Gastrointestinal: Negative for abdominal pain, nausea and vomiting. Genitourinary: Negative for dysuria, pelvic pain and vaginal bleeding. Musculoskeletal: Negative for back pain. Skin: Negative for rash. Neurological: Negative for headaches. Psychiatric/Behavioral: Negative for confusion. All other systems reviewed and are negative. Labs: MAT pending Type and screen pending PHYSICAL EXAM: There were no vitals filed for this visit. General appearance: awake, alert, cooperative, no apparent distress, and appears stated age Neurologic: Awake, alert, oriented to name, place and time. Lungs: No increased work of breathing, good air exchange Abdomen: Soft, non tender, gravid, consistent with her gestational age Contraction frequency: None Fetus: EFW: 2557g (25%), AC 16% on 07/04 Presentation: vertex by U/S NST: Reactive ASSESSMENT AND PLAN: LABOR DELIVERY ??? SCD's ONLY (labor through ambulation) SCD's PLUS Prophylactic Anticoagulation until discharge SCD's PLUS Prophylactic Anticoagulation for 6 weeks SCD's PLUS Therapeutic Anticoagulation for 6 weeks Vaginal Delivery [] BMI ? 40 kg/m2 Delivery All patients Vaginal Delivery [] BMI ? 40 kg/m2 AND [] Antepartum hospitalization ? 72 hours within the past month Delivery 1 Major Risk Factor: [] BMI ? 35 kg/m2 [] Low Risk Thrombophilia [] PPH+RBCs, IR, or operation [] Infection+Antibiotics [] Antepartum hospitalization ? 72 hours within the past month [] PMH: Sickle Cell, SLE, Cardiac Dz, Active IBD, Active Cancer, Nephrotic Syndrome OR 2 Minor Risk Factors: [] Multiple gestation [] Age > 40 [] PPH ? 1,000cc [] (+)FMH of VTE [] Smoker [] Preeclampsia [] BMI ? 40 kg/m2 AND [] Low Risk Thrombophilia OR ANY OF THE FOLLOWING: [] High Risk Thrombophilia without prior VTE [] Low Risk Thrombophilia with (+)FMH of VTE [] Any single prior VTE ANY OF THE FOLLOWING: [] Already on LMWH/UFH [] Multiple prior VTE [] High Risk Thrombophilia with prior VTE Low Risk Thrombophilia: FVL (heterozygous), Prothrombin (heterozygous), Protein C, Protein S High Risk Thrombophilia: FVL (homozygous), Prothrombin (homozygous), FVL+Prothrombin (heterozygous), Antithrombin III, APLS VTE Prophylaxis: Not Indicated Admission: Admit to Antepartum (PNU) FHR: Category 1, heart monitoring continuous Labs: GBS ordered, but not yet obtained GC/CT ordered, but not yet obtained Urine ordered, but not yet obtained Type&Screen ordered, but not yet obtained Serum Labs CBC, CMP Consults: ADM Imaging: Not indicated Diet: General Testing: TBD Timing and Route of Delivery: TBD Medications: Neuroprotection Not indicated Tocolysis Not indicated Antibiotics Not indicated Steroids: Betamethasone - not indicated Substance Use Disorder - Has snorted fentanyl and meth for 10 years - Was recently in half-way and then discharged to [facility], used for the three days after leaving [facility] - Last used 1g Fentanyl/meth on 07/02 - Currently at [facility] - Never on MAT in the past - Multiple negative UDS this - COWS 8 on admission - ADM consulted on admission, appreciate recs - Used IV drugs in the past - Per Dr. Wise, will start pt on Subutex 2x2x4 Bipolar Disorder Borderline Personality Disorder PTSD - Continue home Zyprexa, pt states that she has not taken in a few days Hepatitis C - VL undetectable on 05/23/22 Tobacco Use - Per chart review, smokes about 1/2 ppd - Nicotine patches ordered PRN Obesity - BMI 35 - Encourage ambulation IUP @ 36w3d - Dating by 16w2d US - Cephalic on 07/04 - Monitoring: CEFM - Diet: General - BMZ deferred Discussed with Dr. De Los Santos, who agrees with plan. SAMIRA Mills, DO 07/04/2022, 3:58 PM Cc: Flavio Tolliver III, * Associated attestation - Mary De Los Santos MD - 07/04/2022 7:58 PM EST Attending Supervising Physician's Attestation Statement This patient was admitted overnight while I was economic developer. I discussed the assessment and management with the resident physician. I reviewed and agree with the findings and plan as documented in the note. Mary De Los Santos MD documented in this encounter [facility] 07-04-2022 History of Present illness Narrative Department of Obstetrics and Gynecology Labor and Delivery Triage Note CHIEF COMPLAINT: Detox HISTORY OF PRESENT ILLNESS: The patient is a 21 y.o. 36w3d. OB History 3 Para 1 Term 1 AB 1 Living 1 SAB 1 IAB Ectopic Multiple Live Births 1 Patient presents with a chief complaint as above. Patient here because she feels like she is in withdrawal from methamphetamines and fentanyl. She last used 2 days ago, she snorted it. She has used IV in the past. She was given a drugs the other day but she typically trades sexual favors for drugs. She has never been on methadone or subutex in the past. She has a 10 year history of opiate use. She wishes to be started on subutex. She is currently at [facility]. She was previously incarcerated and was clean during that time, was released to [facility] and recently released at that time. Denies DFM/VB/LOF/CTX Estimated Due Date: Estimated Date of Delivery: 07/29/22 PAST MEDICAL HISTORY: Past Medical History: Diagnosis Date Acute cystitis without hematuria 06/28/2019 Anxiety Borderline personality disorder ([facility]) ([facility]) Drug abuse ([facility]) ([facility]) Psychiatric problem PTSD (post-traumatic stress disorder) PAST SURGICAL HISTORY: Past Surgical History: Procedure Laterality Date ABDOMINAL SURGERY 4yrs old TONSILLECTOMY (HISTORICAL) 3yrs old SOCIAL HISTORY: reports that she has been smoking cigarettes. She started smoking about 12 years ago. She has a 5.00 pack-year smoking history. She has never used smokeless tobacco. She reports that she does not currently use alcohol. She reports that she does not currently use drugs after having used the following drugs: IV, Marijuana, and Methamphetamines. MEDICATIONS: Prior to Admission medications Medication Sig Start Date End Date Taking? Authorizing Provider nicotine (Nicoderm, Step 1) 21 MG/24HR patch Place 1 patch on the skin Every 24 hours. 05/23/22 06/22/22 NICKI Barry CNP OLANZapine (ZyPREXA) 7.5 MG tablet Take 1 tablet by mouth daily. 05/03/22 Historical Provider, Vit-Fe Fumarate-FA ( Plus Vitamin/Mineral) 27-1 MG tablet Take 1 tablet by mouth daily. 04/26/22 NICKI Barry CNP terconazole (Terazol 7) 0.4 % vaginal cream Insert 1 applicator into the vagina Nightly for 7 days. 06/19/22 07/03/22 Alfonso Evans MD CARE: Complicated by: Substance use disorder, hep C, limited care, hx of benzo withdrawal REVIEW OF SYSTEMS: Pertinent items are noted in HPI. APPEARANCE: Pain: No PHYSICAL EXAM: Vital Signs: BP normotensive, HR mildly tachycardic, T wnl, RR wnl. Abdomen: soft, NT, ND, no rebound/guarding Uterus: gravid/non-tender LE Edema: trace Speculum Exam: defer heart rate: Category I Cervix: defer Contraction frequency: none RESULTS: PATIENT DECLINING MONITORING ON ADMISSION NST: Reactive GENERAL LABS: No results found for this or any previous visit (from the past 24 hour(s)). TRIAGE COURSE: Patient wishes to be started on Subutex, will admit to and consult ADM. COWS 8. Patient agreeable to monitoring at this time. UDS pending. JOANNA ADHIKARI, DO 07/04/2022 4:03 PM IMPRESSION: Detox Pain assessment and plan: per ADM DISCUSSED WITH [facility] PROVIDER: Dr. De Los Santos DISPOSITION: Admit to Antepartum (PNU) documented in this encounter [facility] 07-04-2022 Procedure note jade Judd at 36w3d with an YAS of 07/29/2022, by Ultrasound, was seen at [facility] for a nonstress test. Reason for Non-Stress Test 1 : Other (Comment) (substance abuse) Variability in Waveform for Non-Stress Test 1: Moderate Decelerations in Non-Stress Test 1: None Accelerations in Non-Stress Test 1: Yes Acoustic Stimulator for Non-Stress Test 1: No Baseline Heart Rate for Non-Stress Test 1: 125 BPM Uterine Irritability for Non-Stress Test 1: No Contractions in Non-Stress Test 1: Not present Interpretation of Non-Stress Test 1: Reactive [facility] 07-04-2022 Procedure note jade Judd at 36w3d with an YAS of 07/29/2022, by Ultrasound, was seen at [facility] for a nonstress test. Reason for Non-Stress Test 1 : Other (Comment) (substance abuse) Variability in Waveform for Non-Stress Test 1: Moderate Decelerations in Non-Stress Test 1: None Accelerations in Non-Stress Test 1: Yes Acoustic Stimulator for Non-Stress Test 1: No Baseline Heart Rate for Non-Stress Test 1: 125 BPM Uterine Irritability for Non-Stress Test 1: No Contractions in Non-Stress Test 1: Not present Interpretation of Non-Stress Test 1: Reactive documented in this encounter [facility] 06-30-2022 Telephone encounter Note Name of Caller: Prakash Contact Reason for Appointment: Pt is confirming her appt for 07/04/22. Thank you. Office Name: [facility] Medication Refills need, if any: n/a Medication Name: n/a [facility] 06-30-2022 Miscellaneous Notes Name of Caller: Prakash Contact Reason for Appointment: Pt is confirming her appt for 07/04/22. Thank you. Office Name: [facility] Medication Refills need, if any: n/a Medication Name: n/a documented in this encounter [facility] 06-19-2022 Hospital Discharge instructions Alfonso Evans MD - 06/19/2022 9:41 PM EST Follow up appointment with your doctor/fireperson - Keep next scheduled appointment Activity - Normal Activity Call your doctor/fireperson if you have: - leaking fluid - vaginal bleeding - regular contractions: Every 5 minutes or closer for one hour - decreased movement - worsening abdominal (belly) pain - headache, blurry vision, increased swelling, upper abdominal pain If you are going home with contractions that are uncomfortable/painful- we recommend these coping strategies: rhythmic breathing, hydrotherapy, imagery or visualization, gentle massage, walking and changing your position. Treatment Verification: Elsi Greene was assessed on Labor and Delivery for a related visit on 06/19/2022. Alfonso Evans MD [facility] documented in this encounter [facility] 06-19-2022 History of Present illness Narrative Images from the original note were not included. Department of Obstetrics and Gynecology Labor and Delivery Triage Note CHIEF COMPLAINT: Contractions HISTORY OF PRESENT ILLNESS: The patient is a 21 y.o. 34w2d. OB History 3 Para 1 Term 1 AB 1 Living 1 SAB 1 IAB Ectopic Multiple Live Births 1 Patient presents with a chief complaint as above. Patient is presenting with contractions that started just prior to presenting. States contractions occurring every 5 minutes. Describes feeling them in her bilateral lower back. Patient also reports vaginal discharge that is more thick than usual. Denies any dysuria, frequency. Denies abdominal pain. Denies DFM/VB/LOF. Estimated Due Date: Estimated Date of Delivery: 07/29/22 PAST MEDICAL HISTORY: Past Medical History: Diagnosis Date Acute cystitis without hematuria 06/28/2019 Anxiety Borderline personality disorder ([facility]) ([facility]) Drug abuse ([facility]) ([facility]) Psychiatric problem PTSD (post-traumatic stress disorder) PAST SURGICAL HISTORY: Past Surgical History: Procedure Laterality Date ABDOMINAL SURGERY 4yrs old TONSILLECTOMY (HISTORICAL) 3yrs old SOCIAL HISTORY: Patient reports current cigarette smoking 0.5 PPD. Denies any alcohol or drug use. Social History Socioeconomic History Marital status: Single Tobacco Use Smoking status: Every Day Packs/day: 0.50 Years: 10.00 Pack years: 5.00 Types: Cigarettes Start date: 04/28/2010 Last attempt to quit: 12/27/2021 Years since quittin.4 Smokeless tobacco: Never Vaping Use Vaping Use: Never used Substance and Sexual Activity Alcohol use: Not Currently Drug use: Not Currently Types: IV, Marijuana, Methamphetamines Comment: stopped whrn she found out she was Sexual activity: Not Currently Partners: Male Social Determinants of Health Transportation Needs: No Transportation Needs Lack of Transportation (Medical): No Lack of Transportation (Non-Medical): No Intimate Partner Violence: Not At Risk Fear of Current or Ex-Partner: No Emotionally Abused: No Physically Abused: No Sexually Abused: No Housing Stability: High Risk Unable to Pay for Housing in the Last Year: No Number of Places Lived in the Last Year: 3 Unstable Housing in the Last Year: Yes MEDICATIONS: No current facility-administered medications for this encounter. CARE: Complicated by: substance abuse, Hep C REVIEW OF SYSTEMS: Pertinent items are noted in HPI. APPEARANCE: Pain: No PHYSICAL EXAM: Vital Signs: VS wnl-reviewed/Respirations normal effort Vitals: 06/19/222053 BP: 122/74 Pulse: 108 Resp: 18 Temp: 36.8 C (98.3 F) TempSrc: Oral SpO2: 98% Weight: 87.5 kg (193 lb) Height: 1.575 m (5' 2) Abdomen: soft, gravid, nontender, nondistended, no abnormal masses, no epigastric pain Uterus: gravid/non-tender LE Edema: trace Speculum Exam: no pooling of fluid seen, Nitrizine test is negative, Ferning test is negative, wet prep results: no pathogens and positive hyphae heart rate: Category I Cervix: Closed Contraction frequency: none Membranes: Intact TRIAGE COURSE: Low concern for PTL given closed cervix and no contractions on toco. Vertex on BSUS. Wet prep consistent with yeast vaginitis, will send prescription for terazol cream. Will discharge home with return precautions. ESSION: Threatened Pre-Term Labor Pain assessment and plan: None DISCUSSED WITH PNC PROVIDER: Dr. Bermeo, OBC DISPOSITION: Discharge to Home Associated attestation - Lucy Moreno MD - 06/19/2022 9:44 PM EST Hospital Care (Independent): I independently saw and evaluated the patient. I agree with the findings and plan of care as documented in the resident's note. documented in this encounter [facility] 06-06-2022 History of Present illness Narrative Patient presents for obstetrical ultrasound 32w3d for Nurse visit Elsi denies Headache Right upper quadrant pain Vision changes Chest pain Shortness of breath Vaginal bleeding Leaking of fluid Contractions There were no vitals taken for this visit. 21 y.o. with no concerns today Elsi was instructed to keep her scheduled visit documented in this encounter [facility] 06-06-2022 Procedure note Procedure(s): NONSTRESS TEST jade Coffman at 32w3d with an YAS of 07/29/2022, by Ultrasound, was seen at [facility] for a nonstress test. Reason for Non-Stress Test 1 : Other (Comment) (H/o substance abuse) Variability in Waveform for Non-Stress Test 1: Moderate Decelerations in Non-Stress Test 1: None Accelerations in Non-Stress Test 1: Yes Acoustic Stimulator for Non-Stress Test 1: No Baseline Heart Rate for Non-Stress Test 1: 125 BPM Uterine Irritability for Non-Stress Test 1: No Contractions in Non-Stress Test 1: Not present Interpretation of Non-Stress Test 1: Reactive [facility] 06-06-2022 Procedure note Procedure(s): NONSTRESS TEST jade Coffman at 32w3d with an YAS of 07/29/2022, by Ultrasound, was seen at [facility] for a nonstress test. Reason for Non-Stress Test 1 : Other (Comment) (H/o substance abuse) Variability in Waveform for Non-Stress Test 1: Moderate Decelerations in Non-Stress Test 1: None Accelerations in Non-Stress Test 1: Yes Acoustic Stimulator for Non-Stress Test 1: No Baseline Heart Rate for Non-Stress Test 1: 125 BPM Uterine Irritability for Non-Stress Test 1: No Contractions in Non-Stress Test 1: Not present Interpretation of Non-Stress Test 1: Reactive documented in this encounter [facility] 05-27-2022 Telephone encounter Note Central scheduling called and scheduled with PT over the phone. [facility] 05-27-2022 Miscellaneous Notes Central scheduling called and scheduled with PT over the phone. I will work on it. Patient needs scheduled for q4wk growth scans to start now and weekly NST/ARLYN to start at 32wks please. Thanks. documented in this encounter [facility] 05-23-2022 Telephone encounter Note I will work on it. [facility] 05-23-2022 Miscellaneous Notes I will work on it. Patient needs scheduled for q4wk growth scans to start now and weekly NST/ARLYN to start at 32wks please. Thanks. documented in this encounter [facility] 05-23-2022 Telephone encounter Note Patient needs scheduled for q4wk growth scans to start now and weekly NST/ARLYN to start at 32wks please. Thanks. [facility] 05-23-2022 History of Present illness Narrative Vital signs BP 114/73 Weight 189.8lb Pulse 104 Temp 97.1 Protein Glucose Pt here for OB visit. States she sometimes worries the baby is not moving good, but states she feels baby is moving OK today. No LOF or bleeding. No contractions. History reviewed - see episode report No nausea or vomiting. Planning on . Unsure of control plan. Patient currently released from half-way and resides in sober house. Last drug use 01/01. Drug of choice opiates and amphetamines. States she is interested in MAT. Smoker. Smokes 1/2 PPD. Interested in help with smoking. PE: See vitals Pt A&OX3, NAD Normal affect Non labored breathing Abd - non tender Ext - no edema Plan: 1.) GCT and CBC today. 2.) Hx +Hep C antibody. Hepatic fxn and viral load today. 3.) Will have her follow up in next centering to discuss MAT. Utox to be sent from last visit. She will also need scheduled for testing. 4.) Rx Nicoderm. Encouraged her to enroll in [facility]. 5.) Urine culture to be sent from last visit. 6.) Reviewed kick counts. 7.) Encouraged her to think about control plan. 8.) Discuss tdap next visit. 9.) Missed follow up anatomy scan. Discussed she will need to reschedule this. 10.) RTC centering. Pt here for blood draw. Had GCT, CBC and Hep C drawn from right antecubital. Pt tolerated procedure well. documented in this encounter [facility] 04-23-2022 Telephone encounter Note S: Patient spoke with [facility] nurse regarding vaginal discharge, decrease movement B: Onset of symptoms/concern symptoms 2 days A: Pt is calling regarding having vaginal discharge that is green/yellow and cottage cheese in consistency. Pt stated that she having vaginal odor that smells like a yeast infection. Mild itching. Back pain 3/10. No abdominal pain. No rash. No fever. No pain with urination. Pt stated that she is having decreased movement < 5 kicks per hour. Pt stated that she is currently at [facility]. Pt is 26 weeks, 1 day; YAS 07/29. R: Instructed pt to go to L&D to be evaluated with the decrease in movement. Pt state that since she at [facility], [facility] RN would need to tell RS-Ms West the recommendation and pt gave permission for [facility] RN to tell Ms West the recommendation. Spoke with Ms West and informed her that pt needs to be evaluated at [facility] L&D. Ms West understood. Reason for Disposition [1] 23 or more weeks AND [2] baby is moving less today (e.g., kick count < 5 in 1 hour or < 10 in 2 hours) Answer Assessment - Initial Assessment Questions 1. DISCHARGE: Describe the discharge. (e.g., white, yellow, green, lamar, foamy, cottage cheese-like) Green/yellow cottage cheese, odor smell like a yeast infection, symptoms 2 days ago. Itching-mild. No pain. Odor-no. No abd pain. No rash. No fever. No pain with urination. Back pain but no side pain. 07/05 2. ODOR: Is there a bad odor? *No Answer* 3. ONSET: When did the discharge begin? *No Answer* 4. RASH: Is there a rash in that area? If Yes, ask: Describe it. (e.g., redness, blisters, sores, bumps) *No Answer* 5. ABDOMINAL PAIN: Are you having any abdominal pain? If Yes, ask: What does it feel like? (e.g., crampy, dull, intermittent, constant) *No Answer* 6. ABDOMINAL PAIN SEVERITY: If present, ask: How bad is it? (e.g., Scale 1-10; mild, moderate, or severe) - MILD (1-3): doesn't interfere with normal activities, abdomen soft and not tender to touch - MODERATE (4-7): interferes with normal activities or awakens from sleep, abdomen tender to touch - SEVERE (8-10): excruciating pain, doubled over, unable to do any normal activities *No Answer* 7. CAUSE: What do you think is causing the discharge? *No Answer* 8. OTHER SYMPTOMS: Do you have any other symptoms? (e.g., fever, itching, vaginal bleeding, pain with urination) *No Answer* 9. YAS: What date are you expecting to deliver? *No Answer* 10. : How many weeks are you? *No Answer* Protocols used: - Vaginal [id number] [facility] 04-23-2022 Miscellaneous Notes S: Patient spoke with [facility] nurse regarding vaginal discharge, decrease movement B: Onset of symptoms/concern symptoms 2 days A: Pt is calling regarding having vaginal discharge that is green/yellow and cottage cheese in consistency. Pt stated that she having vaginal odor that smells like a yeast infection. Mild itching. Back pain 07/05. No abdominal pain. No rash. No fever. No pain with urination. Pt stated that she is having decreased movement < 5 kicks per hour. Pt stated that she is currently at [facility]. Pt is 26 weeks, 1 day; YAS 07/29. R: Instructed pt to go to L&D to be evaluated with the decrease in movement. Pt state that since she at [facility], [facility] RN would need to tell RS-Ms West the recommendation and pt gave permission for [facility] RN to tell Ms West the recommendation. Spoke with Ms West and informed her that pt needs to be evaluated at [facility] L&D. Ms West understood. Reason for Disposition [1] 23 or more weeks AND [2] baby is moving less today (e.g., kick count < 5 in 1 hour or < 10 in 2 hours) Answer Assessment - Initial Assessment Questions 1. DISCHARGE: Describe the discharge. (e.g., white, yellow, green, lamar, foamy, cottage cheese-like) Green/yellow cottage cheese, odor smell like a yeast infection, symptoms 2 days ago. Itching-mild. No pain. Odor-no. No abd pain. No rash. No fever. No pain with urination. Back pain but no side pain. 07/05 2. ODOR: Is there a bad odor? *No Answer* 3. ONSET: When did the discharge begin? *No Answer* 4. RASH: Is there a rash in that area? If Yes, ask: Describe it. (e.g., redness, blisters, sores, bumps) *No Answer* 5. ABDOMINAL PAIN: Are you having any abdominal pain? If Yes, ask: What does it feel like? (e.g., crampy, dull, intermittent, constant) *No Answer* 6. ABDOMINAL PAIN SEVERITY: If present, ask: How bad is it? (e.g., Scale 1-10; mild, moderate, or severe) - MILD (1-3): doesn't interfere with normal activities, abdomen soft and not tender to touch - MODERATE (4-7): interferes with normal activities or awakens from sleep, abdomen tender to touch - SEVERE (8-10): excruciating pain, doubled over, unable to do any normal activities *No Answer* 7. CAUSE: What do you think is causing the discharge? *No Answer* 8. OTHER SYMPTOMS: Do you have any other symptoms? (e.g., fever, itching, vaginal bleeding, pain with urination) *No Answer* 9. YAS: What date are you expecting to deliver? *No Answer* 10. : How many weeks are you? *No Answer* Protocols used: - Vaginal [id number] documented in this encounter [facility] 12-20-2021 Hospital Discharge instructions JIN Lew - 12/20/2021 3:55 AM EDT Take your medications as prescribed, follow-up with [facility] and return to the emergency department if you experience any new or worsening symptoms. The following attachments cannot be sent through Care Everywhere.Cellulitis (Peruvian)documented in this encounter [facility] Work Phone: 07-22-2020 Note Inmate was given KOP for Melatonin . Inmate understands medication. Direction and education given on medication. [facility] [employer] [facility] 07-14-2020 Note Initial Mental Healt h Evaluation 30 mins HPI: I can not stay focus. I con't complete any task. Sleep, I wasn't. Chronic s/i, denied plan or intent. Mood fluctuates hour to hour. Meth use - Since [employer] school 1 gram a day. Benzo and etoh age 9. Opioid - 1 gram Past Psychiatric History: Miranda Psychotropic Medication History - Remeron, Buspar but does not like Buspar and is not able to take Remeron in [facility]. Prozac, Zoloft, Depakote Medication List: Current Outpatient Medications on File Prior to Encounter Medication Sig Dispense Refill * naloxone (Narcan) 4 mg/0.1 mL nasal liquid Use 1 spray in one nostril as needed for overdose. May repeat every 2 to 3 min in alternating nostrils until medical assistance is available * clindamycin (CLEOCIN) 150 MG capsule Take 2 Capsules by mouth every 6 hours for 7 days. 56 Capsule 0 No current facility-administered medications on file prior to encounter. Trauma Specific History: Juvenile facilities. Penitentiary, homeless. Developmental/Education Hx: Family Hx: MENTAL STATUS EXAMINATION: Appearance AND attitude: calm, cooperative, friendly, well groomed. Mood: anxious. Affect: Full Range. Speech: appropriate AND spontaneous, normal rate AND flow, clear. Thought form: logical, organized, with tight association. Thought content AND perception: no abnormal processes noted. Orientation: Oriented to time, person AND place. Memory AND attention: sustained. Judgment AND insight: fair Assessment: Pt meets criteria for BPD, opioid, benzo, etoh, cocaine use d/o. 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] Bacterial vaginosis [N76.0, B96.89] Benzodiazepine withdrawal without complication (HCC) [F13.230] Severe major depression (HCC) [F32.2] Episodic mood disorder (HCC) [F39] First in adolescent 16 years of age or older [Z34.00] Homeless [Z59.0] Insufficient care in third trimester [O09.33] Marijuana use [F12.90] Normal labor [O80, Z37.9] Opioid withdrawal (HCC) [F11.23] Polysubstance abuse (HCC) [F19.10] Substance use disorder [F19.90] Tobacco use during in third trimester [O99.333] Medication- Risk, benefits, and alternatives were reviewed and understood Treatment plan: Trial [place] 300 mg po BID. Will obtain trough lithium level, kidney function and tsh in 7 days. Refer to: No referral RTC-: 2-3 weeks Luiz Botello APRN-FRANK [facility] 07-08-2020 Note Inmate was given KOP for Melatonin . Inmate understands medication. Direction and education given on medication. Medication Compliance Agreement signed. [facility] 04-17-2019 Note PROCEDURE INFORMATIO N: Exam: CT Abdomen And Pelvis Without Contrast Exam date and time: 04/16/2019 11:15 PM Age: 18 years old Clinical indication: Abdominal pain; Flank; Right lower quadrant (rlq) TECHNIQUE: Imaging protocol: Computed tomography of the abdomen and pelvis without contrast. Radiation optimization: All CT scans at this facility use at least one of these dose optimization techniques: automated exposure control; mA and/or kV adjustment per patient size (includes targeted exams where dose is matched to clinical indication); or iterative reconstruction. COMPARISON: No relevant prior studies available. FINDINGS: Lungs: There are no suspicious pulmonary nodules or areas of lung consolidation. Liver: The liver is normal in architecture, without suspicious abnormality. Gallbladder and bile ducts: Gallbladder is contracted. No calcified stones are seen. Pancreas: The pancreatic parenchyma is normal in bulk and sharply marginated. Duct is not dilated. No calcifications, masses, or abnormal fluid collections. Spleen: Spleen is normal in size. No mass or fluid collection. Adrenals: There are no adrenal masses. Kidneys and ureters: Normal in parenchymal bulk. No hydronephrosis or asymmetric perinephric stranding. No solid masses. One or 2 punctate nonobstructing calcifications of the renal sinuses. Stomach and bowel: No significant abnormalities of the stomach. There are no dilated or thickened small bowel loops. Gas and stool of abundant quantities are seen in the colon. No mass. Appendix: The appendix is seen. It is normal. Intraperitoneal space: No ascites. No abscess. No inflammation within the intra-abdominal fat. No pneumoperitoneum. No mass. Vasculature: Unremarkable. No abdominal aortic aneurysm. Lymph nodes: There are no enlarged celiac, mesenteric, periportal, extraperitoneal or inguinal lymph nodes. Bladder: There is no bladder wall thickening, mass, or calculus. Reproductive: The uterus and ovaries are within normal limits. There are no adenexal masses. Bones/joints: Age appropriate. No acute fracture. No dislocation. Soft tissues: See Intraperitoneal Space Finding. [employer] Work Phone: 04-17-2019 Note Joselo, Mhy Incoming Ra diant Results From [facility] - 04/17/2019 12:38 AM EST PROCEDURE INFORMATION: Exam: CT Abdomen And Pelvis Without Contrast Exam date and time: 04/16/2019 11:15 PM Age: 18 years old Clinical indication: Abdominal pain; Flank; Right lower quadrant (rlq) TECHNIQUE: Imaging protocol: Computed tomography of the abdomen and pelvis without contrast. Radiation optimization: All CT scans at this facility use at least one of these dose optimization techniques: automated exposure control; mA and/or kV adjustment per patient size (includes targeted exams where dose is matched to clinical indication); or iterative reconstruction. COMPARISON: No relevant prior studies available. FINDINGS: Lungs: There are no suspicious pulmonary nodules or areas of lung consolidation. Liver: The liver is normal in architecture, without suspicious abnormality. Gallbladder and bile ducts: Gallbladder is contracted. No calcified stones are seen. Pancreas: The pancreatic parenchyma is normal in bulk and sharply marginated. Duct is not dilated. No calcifications, masses, or abnormal fluid collections. Spleen: Spleen is normal in size. No mass or fluid collection. Adrenals: There are no adrenal masses. Kidneys and ureters: Normal in parenchymal bulk. No hydronephrosis or asymmetric perinephric stranding. No solid masses. One or 2 punctate nonobstructing calcifications of the renal sinuses. Stomach and bowel: No significant abnormalities of the stomach. There are no dilated or thickened small bowel loops. Gas and stool of abundant quantities are seen in the colon. No mass. Appendix: The appendix is seen. It is normal. Intraperitoneal space: No ascites. No abscess. No inflammation within the intra-abdominal fat. No pneumoperitoneum. No mass. Vasculature: Unremarkable. No abdominal aortic aneurysm. Lymph nodes: There are no enlarged celiac, mesenteric, periportal, extraperitoneal or inguinal lymph nodes. Bladder: There is no bladder wall thickening, mass, or calculus. Reproductive: The uterus and ovaries are within normal limits. There are no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 Da te cephALEXin (KEFLEX) 500 MG capsule Take 1 capsule by mouth 2 times daily for 7 days 14 capsule 0 12/20/2021 12/27/2021 clindamycin (CLEOCIN) 150 MG capsule Take 3 capsules by mouth 3 times daily for 7 days 63 capsule 0 12/20/2021 12/27/2021 Scheduled Active and Recently Administ ered Medications (unrecognized section and content) Medication Order 07/10/2021 07/11/2021 07/12/2021 0.9 % sodium chloride bolus 500 mL, IntraVENous, at 247.9 mL/hr, Administer over 121 Minutes, ONCE, On Ana 07/12/21 at 0330, For 1 dose 0455 (Not Given - Pr ovider: Rajwinder Amaya RN - Reason: Patient/family refused) azithromycin (ZITHROMAX) tablet 1,000 mg (COMPLETED) 1,000 mg, Oral, ONCE, On Ana 07/12/21 at 0500, For 1 dose 0502 (Given - Provid er: Rajwinder Amaya RN) cefTRIAXone (ROCEPHIN) 500 mg in lidocaine 1 % 1 mL IM Injection (COMPLETED) 500 mg, IntraMUSCular, ONCE, On Ana 07/12/21 at 0500, For 1 dose 0503 (Given - Provid er: Rajwinder Amaya RN) cephALEXin (KEFLEX) capsule 500 mg (COMPLETED) 500 mg, Oral, ONCE, On Ana 07/12/21 at 0430, For 1 dose 0438 (Given - Provid er: Rajwinder Amaya RN) metroNIDAZOLE (FLAGYL) tablet 2,000 mg (COMPLETED) 2,000 mg, Oral, ONCE, On Ana 07/12/21 at 0500, For 1 dose 050 (Given - Provid er: Rajwinder Amaya RN) Scheduled Medication Order 09/07/2021 09/08/2021 09/09/2021 diphenhydrAMINE (BENADRYL) injection 50 mg (COMPLETED) 50 mg, IntraMUSCular, ONCE, 1 dose, On 09/08/21 at 1945 1944 (Given - Provider: Siria Casanova, URIEL) haloperidol lactate (HALDOL) injection 5 mg (COMPLETED) 5 mg, IntraMUSCular, ONCE, 1 dose, On 09/08/21 at 194, IM route of administration preferred. Because of the risk of TdP and QT prolongation, ECG monitoring is recommended if haloperidol is given IV. 1944 (Given - Provider: Siria Casanova, URIEL) LORazepam (ATIVAN) injection 2 mg (COMPLETED) 2 mg, IntraMUSCular, ONCE, 1 dose, On 09/08/21 at 1945 1944 (Given - Provider: Siria Casanova, URIEL) Scheduled Medication Order 12/18/2021 12/19/2021 12/20/2021 clindamycin (CLEOCIN) capsule 450 mg (COMPLETED) 450 mg, Oral, ONCE, 1 dose, On Ana 12/20/21 at 0300, Antimicrobial Indications: Skin and Soft Tissue Infection 0416 (Given - Provid er: Cathryn Nunes RN) Scheduled Medication Order 07/02/2022 07/03/2022 07/04/2022 buprenorphine (Subtex) SL tablet 2 mg 2 mg, SubLINGual, Every 2 hours, First dose on Ana 07/04/22 at 1700, For 4 doses 1700 (Canceled Entry - Provider: Automatic Discharge Provider - Comment: Automatically canceled at discontinue of medication order)1900 (Canceled Entry - Provider: Automatic Discharge Provider - Comment: Automatically canceled at discontinue of medication order) OLANZapine (ZyPREXA) tablet 7.5 mg 7.5 mg, Oral, Nightly, First dose on Ana 07/04/22 at 2100 vitamin tablet 1 tablet, Oral, Daily, First dose on Ana 07/04/22 at 1630 1630 (Canceled Entry - Provider: Automatic Discharge Provider - Comment: Automatically canceled at discontinue of medication order) sodium chloride 0.9% (NS) flush 10 mL 10 mL, IntraVENous, Every 12 hours scheduled (2 times per day), First dose on Ana 07/04/22 at 2100 Tdap (BoostRIX) vaccine 0.5 mL 0.5 mL, IntraMUSCular, Once, On Ana 07/04/22 at 1630, For 1 dose, Tdap. Not to be confused with look-alike/sound-alike product DTaP. 1630 (Canceled Entry - Provider: Automatic Discharge Provider - Comment: Automatically canceled at discontinue of medication order) PRN Medication Order 07/02/2022 07/03/2022 07/04/2022 acetaminophen (Tylenol) tablet 650 mg 650 mg, Oral, Every 4 hours PRN, mild pain (1-3), Fever GREATER than 100.5 F (38 C), Starting on Ana 07/04/22 at 1610, Maximum dose of acetaminophen is 4000 mg from all sources in 24 hours. aluminum & magnesium hydroxide-simethicone (Mylanta) 200-200-20 MG/5ML oral suspension 30 mL 30 mL, Oral, Every 6 hours PRN, indigestion, heartburn, Starting on Ana 07/04/22 at 1610 buprenorphine (Subtex) SL tablet 4 mg 4 mg, SubLINGual, Once PRN, Withdrawal (COWS > 6), Starting on Fri07/05/22 at 0000, For 1 dose dicyclomine (Bentyl) capsule 10 mg 10 mg, Oral, 3 times daily PRN, Abd cramping, Starting on Fri07/04/22 at 1611 hydrOXYzine pamoate (Vistaril) capsule 25 mg 25 mg, Oral, Every 6 hours PRN, anxiety, sleep, Starting on Fri07/04/22 at 1615 loperamide (Imodium) capsule 2 mg 2 mg, Oral, Every 6 hours PRN, diarrhea, Starting on Fri07/04/22 at 1610 nicotine (Nicoderm, Step 1) 21 MG/24HR patch 1 patch 1 patch, TransDERmal, Administer over 24 Hours, Daily PRN, For cravings, Starting on Fri07/04/22 at 1614 ondansetron ODT (Zofran-ODT) disintegrating tablet 4 mg 4 mg, Oral, Every 8 hours PRN, nausea, vomiting, Starting on Fri07/04/22 at 1610, 1st Line. If inadequate response within 60 minutes, proceed to next-line agent or contact provider if no further options ordered. Patient should allow tablet to dissolve on tongue. Do not remove from blister pack until just before administering. sodium chloride 0.9 % infusion 5-250 mL/hr, IntraVENous, PRN, if patient receiving piggyback infusions and maintenance fluids are not ordered OR KVO fluids to protect IV site / prevent frequent line interruptions/ long duration, Starting on Fri07/04/22 at 1610, For piggyback infusion, administer at same rate as piggyback for a total of 25 mL. Enter 25 mL into dose field and piggyback rate into rate field of order. If piggyback is infusing at a rate less than 100 mL/hr, enter 25 mL into dose field and 100 mL/hr into rate field of order. For KVO fluids, enter rate of 20 mL/hr or less into rate field of order. sodium chloride 0.9% (NS) flush 10 mL 10 mL, IntraVENous, PRN, line care, Starting on Fri07/04/22 at 1610, After every IV line use Scheduled Medication Order 07/13/2022 07/14/2022 07/15/2022 metoclopramide (Reglan) tablet 10 mg (COMPLETED) 10 mg, Oral, Once, On Fri07/15/22 at 0030, For 1 dose 0019 (Given - Provid er: Beth Plata RN) Scheduled Medication Order 07/23/2022 07/24/2022 07/25/2022 buprenorphine (Subtex) SL tablet 8 mg 8 mg, SubLINGual, Daily, First dose on Fri07/23/22 at 0900, Every morning 1032 (Given - Provider: Melanie Chappell RN) 0845 (Given - Provider: Melanie Chappell RN) 0913 (Given - Provider: Corinne Padilla, URIEL) ferrous sulfate tablet 325 mg 325 mg, Oral, 2 times daily with meals, First dose on Fri07/23/22 at 0800, , Start if Hgb less than 10. 0800 (Not Given - Provider: Mishel Ohara RN - Reason: Other)1700 (Due) 0800 (Not Given - Provider: Melanie Chappell RN - Reason: Order parameters not met)1700 (Not Given - Provider: Melanie Chappell RN - Reason: Order parameters not met) 0800 (Not Given - Provider: Corinne Padilla RN - Reason: Order parameters not met)1700 (Due) measles, mumps and rubella (MMR) vaccine 0.5 mL 0.5 mL, SubCUTAneous, Prior to discharge, Starting on Fri07/23/22 at 0358, For 1 dose, , Administer if Rubella non-immune or equivocal Vaccine is a vial of powder. Reconstitute with the available diluent for this vaccine. Barcode scan vaccine vial for Vaccine Record OLANZapine (ZyPREXA) tablet 7.5 mg 7.5 mg, Oral, Nightly, First dose on Fri07/22/22 at 2100 2019 (Given - Provider: Fiona Coreas RN) 2123 (Given - Provider: Jeannie Sweeney RN) 233 (Given - Provider: Chandrika Bearden RN - Comment: takes at bedtime) rho(D) immune globulin (WinRho) injection 300 mcg 300 mcg, IntraMUSCular, Once, On Fri07/23/22 at 0400, For 1 dose, 0400 (Canceled Entry - Provider: Oxana Young, URIEL) Continuous Medication Order 07/23/2022 07/24/2022 07/25/2022 lactated ringers infusion (CANCELED) 125 mL/hr, IntraVENous, Continuous, Starting on Fri07/22/22 at 0900, Pre-Delivery 0250 (New Bag - Provider: Oxana Young RN)0322 (Stopped - Provider: Fabiola Slater, URIEL - Comment: Stopped by L&D RN) PRN Medication Order 07/23/2022 07/24/2022 07/25/2022 acetaminophen (Tylenol) tablet 650 mg 650 mg, Oral, Every 6 hours PRN, mild pain (1-3), Starting on Fri07/23/22 at 0358, Give in addition to any other pain medication ordered at same time for any pain indication. Maximum dose of acetaminophen is 4000 mg from all sources in 24 hours. Alternate ibuprofen and acetaminophen every 3 hours. 0535 (Given - Provider: Oxana Young RN)2019 (Given - Provider: Fiona Coreas RN) 642 (Given - Provider: Fabiola Slater RN) 2336 (Given - Provider: Chandrika Bearden RN) Benzocaine-Benzethonium 20-0.2 % spray Topical, As needed, pain, , Starting on Fri07/23/22 at 0358, , Apply to perineal area. Patient is capable and may self administer at bedside. buprenorphine (Subtex) SL tablet 4 mg (COMPLETED) 4 mg, SubLINGual, Once PRN, COWS >6, Starting on Fri07/23/22 at 1715, For 1 dose, PRN COWS >6 1857 (Given - Provider: Andreina Erazo, URIEL) docusate sodium (Colace) capsule 100 mg 100 mg, Oral, 2 times daily PRN, constipation, Vaginal Delivery, Starting on Fri07/23/22 at 0358, Do not crush or break. 2019 (Given - Provider: Fiona Coreas RN) 2123 (Given - Provider: Jeannie Sweeney RN) 925 (Given - Provider: Corinne Padilla RN) famotidine (Pepcid) tablet 20 mg 20 mg, Oral, 2 times daily PRN, heartburn, Starting on Fri07/23/22 at 0358, , Renal dose per pharmacy for peptic ulcer prophylaxis. ibuprofen tablet 600 mg 600 mg, Oral, Every 6 hours PRN, mild pain (1-3), Starting on Fri07/23/22 at 0358, Alternate ibuprofen and acetaminophen every 3 hours. 0535 (Given - Provider: Oxana Young, RN)2019 (Given - Provider: Fiona Coreas, RN) 0643 (Given - Provider: Fabiola Slater RN) 0926 (Given - Provider: Corinne Padilla, URIEL)2337 (Given - Provider: Chandrika Bearden RN) lactated Ringer's bolus (CANCELED) 500 mL, IntraVENous, Administer over 61 Minutes, PRN, Intrauterine resuscitation for hypertonus, tachysystole, non-ressuring status, or as prescribed by the physician. Every hour as needed, nurse may repeat bolus., Starting on Fri07/22/22 at 0855, Pre-Delivery 0221 (Rate/Dose Change - Provider: Oxana Young RN)0323 (Stopped - Provider: Fabiola Slater RN - Comment: Stopped by L&D RN) lanolin (Lansinoh) cream Topical, As needed, dry skin, nipple discomfort, Starting on Fri07/23/22 at 0358, , Apply to affected area. nicotine (Nicoderm, Step 3) 7 MG/24HR patch 1 patch 1 patch, TransDERmal, Administer over 24 Hours, PRN, smoking cessation, Starting on Fri07/22/22 at 0936 ondansetron (Zofran) injection 4 mg(Linked Group 1) 4 mg, IntraVENous, Every 6 hours PRN, nausea, vomiting, Starting on Fri07/23/22 at 0358, 1st Line. Give IV if patient is unable to take orally. If inadequate response within 60 minutes, proceed to next-line agent or contact provider if no further options ordered. ondansetron ODT (Zofran-ODT) disintegrating tablet 4 mg(Linked Group 1) 4 mg, Oral, Every 8 hours PRN, nausea, vomiting, Starting on Fri07/23/22 at 0358, 1st Line. If inadequate response within 60 minutes, proceed to next-line agent or contact provider if no further options ordered. Patient should allow tablet to dissolve on tongue. Do not remove from blister pack until just before administering. oxytocin (Pitocin) 30 units in 500 mL infusion 250-999 celia-units/min (250-999 mL/hr), IntraVENous, Continuous PRN, bleeding, Starting on Fri07/22/22 at 0855, For Immediate Post Use Only. Give after delivery of placenta. Bag 1 of 2: Bolus for bag to infuse at 999 ml/hour for 15 minutes (15 units in 250cc). After initial bolus then decrease rate to 250cc/hr for 1 hour. Then discontinue 0327 (New Bag - Provider: Oxana Young, URIEL)0342 (Rate/Dose Change - Provider: Oxana Young, RN)0418 (Rate/Dose Verify - Provider: Oxana Young, URIEL) oxytocin (Pitocin) 30 units in 500 mL infusion () 125 celia-units/min (125 mL/hr), IntraVENous, Continuous PRN, bleeding, Starting on Fri07/23/22 at 0358, For 48 hours, , For Immediate Post Use Only. Give after delivery of placenta and initial 30 unit bolus. Bag 2 of 2: 125cc/hr (125 mu/min) for an additional infusion of 500cc (30 units). 0442 (New Bag - Provider: Oxana Young, URIEL) witch wilder-glycerin (Tucks) pad Topical, As needed, hemorrhoids, For perineal pain or discomfort, Starting on Fri07/23/22 at 0358, , Apply to perineal area. Patient is capable and may self administer at bedside. Linked Groups Order Group 1: ondansetron ODT (Zofran-ODT) disintegrating tablet 4 mgJump to med 4 mg, Oral, Every 8 hours PRN, nausea, vomiting, Starting on Fri07/23/22 at 0358
1st Line. If inadequate response within 60 minutes, proceed to next-line agent or contact provider if no further options ordered. Patient should allow tablet to dissolve on tongue. Do not remove from blister pack until just before administering.
Or ondansetron (Zofran) injection 4 mgJump to med 4 mg, IntraVENous, Every 6 hours PRN, nausea, vomiting, Starting on Fri07/23/22 at 0358
1st Line. Give IV if patient is unable to take orally. If inadequate response within 60 minutes, proceed to next-line agent or contact provider if no further options ordered.
Scheduled Medication Order 08/24/2022 08/25/2022 08/26/2022 sodium chloride 0.9 % bolus 1,000 mL (COMPLETED) 1,000 mL, IntraVENous, at 1,000 mL/hr, Administer over 1 Hours, Once, On 08/26/22 at 1440, For 1 dose 1517 (New Bag - Prov ider: Jeannie Lizama LPN)1617 (Stopped - Provider: Jeannie Lizama LPN) PRN Medication Order 08/24/2022 08/25/2022 08/26/2022 iopamidol (Isovue-370) 76 % injection 75 mL (COMPLETED) 75 mL, IntraVENous, IMG once PRN, contrast, Starting on Fri08/26/22 at 1500, For 1 dose 1500 (Given - Provid er: SUE Ibarra) Scheduled Medication Order 12/18/2023 12/19/2023 12/20/2023 Lidocaine 4 % patch 1 patch 1 patch, TransDERmal, Administer over 12 Hours, Daily, First dose (after last modification) on 12/20/23 at 0315, Apply patch to affected area. Patch may remain in place for up to 12 hours in any 24 hour period. 0307 (Medication Kourtney lied - Provider: Iram Myers RN)0311 (Due: Medication Removed - Provider: Automatic Discharge Provider - Comment: Time automatically adjusted from order being discontinued) Scheduled Medication Order 02/22/2024 02/23/2024 02/24/2024 chlorhexidine (Hibiclens) 4 % solution 1 Application (CANCELED) 1 Application, Topical, Daily, First dose on 02/22/24 at 1215, Pre-Delivery, Use solution to clean abdomen upon admission then once daily until delivered 1230 (Given - Provider: Trenton Vazquez RN) etonogestrel-eluting 68 mg contraceptive implant 1 each (COMPLETED) 1 each, Implant, Once, On 02/22/24 at 2330, For 1 dose 0045 (Given - Provider: Ricarda Baker RN) ferrous sulfate tablet 325 mg 325 mg, Oral, 2 times daily with meals, First dose on Fri02/23/24 at 0800, , Start if Hgb less than 10. Hold oral ferrous sulfate dose if receiving IV iron sucrose (Venofer) 0800 (Not Given - Provider: Ava Burns RN - Reason: Order parameters not met)1700 (Not Given - Provider: Ava Burns RN - Reason: Order parameters not met) 0800 (Not Given - Provider: Fiona Recio RN - Reason: Order parameters not met) lidocaine PF (Xylocaine) 1 % injection 5 mL (COMPLETED) 5 mL, Infiltration, Once, On 02/22/24 at 2330, For 1 dose 0045 (Given - Provider: Ricarda Baker RN) measles, mumps and rubella (MMR) vaccine 0.5 mL 0.5 mL, SubCUTAneous, Prior to discharge, Starting on Fri02/23/24 at 0224, For 1 dose, , Administer if Rubella non-immune or equivocal Vaccine is a vial of powder. Reconstitute with the available diluent for this vaccine. Barcode scan vaccine vial for Vaccine Record Continuous Medication Order 02/22/2024 02/23/2024 02/24/2024 lactated ringers infusion (CANCELED) 125 mL/hr, IntraVENous, Continuous, Starting on Fri02/22/24 at 1215, Pre-Delivery 1540 (New Bag - Provider: Trenton Vazquez RN)1550 (Rate/Dose Change - Provider: Trenton Vazquez RN)1620 (Rate/Dose Change - Provider: Trenton Vazquez RN)1754 (Rate/Dose Change - Provider: Trenton Vazquez RN)1822 (New Bag - Provider: Trenton Vazquez RN) oxytocin (Pitocin) 30 units in 500 mL infusion (CANCELED) 1-2 celia-units/min (1-2 mL/hr), IntraVENous, Continuous, Starting on Fri02/22/24 at 1515, Begin infusion at 1 celia-unit/min (1 celia-unit per min = 1 mL per hour) and increase by 1 celia-unit/min after 30 minutes. Maintain at 2 celia-unit/min until mendoza bulb comes out. Notify provider when mendoza bulb comes out. 1546 (New Bag - Provider: Trenton Vazquez RN)1627 (Rate/Dose Change - Provider: Trenton Vazquez RN)1740 (Stopped - Provider: Trenton Vazquez RN) oxytocin (Pitocin) 30 units in 500 mL infusion (CANCELED) 1-20 celia-units/min (1-20 mL/hr), IntraVENous, Continuous, Starting on 02/22/24 at 1745, Begin infusion at 1 celia-unit/min (1 celia-unit per min = 1 mL per hour) and increase by 1 celia-unit/min after 30 minutes. Then increase by 2 celia-units/min as needed, no faster than every 30 minutes, until labor is achieved. Labor is defined as contractions every 2-3 minutes with cervical changes or [place] units (MVU) greater than 200 in a 10-minute window. Maximum infusion rate: 20 celia-unit/min. Contact provider if maximum rate does not achieve desired response. Provider may order alternative titration goal or other clinically appropriate goal of titration rate (s). Smaller titration increments of 1 celia-units/min, not faster than every 30 minutes, may be used when approaching therapeutic goal. 1740 (Rate/Dose Verify - Provider: Trenton Vazquez RN)1749 (Rate/Dose Change - Provider: Trenton Vazquez RN)2037 (Rate/Dose Change - Provider: Ricarda Baker RN)2134 (Stopped - Provider: Ricarda Baker RN - Comment: carlos Garduno) ropivacaine (Naropin) 0.2 % (OB) epidural infusion (CANCELED)(Linked Group 1) 8 mL/hr, Epidural, Continuous, Starting on 02/22/24 at 1815, Pre-Delivery, [facility] Basal Infusion 1830 (New Bag - Provider: NICKI Oleary CUSTOMER RETENTION SPECIALIST)1833 (Given - Provider: NICKI Oleary CRNA) PRN Medication Order 02/22/2024 02/23/2024 02/24/2024 acetaminophen (Tylenol) tablet 650 mg 650 mg, Oral, Every 6 hours PRN, other, pain (1-10), Starting on 02/22/24 at 2353, Give in addition to any other pain medication ordered at same time for any pain indication. Maximum dose of acetaminophen is 4000 mg from all sources in 24 hours. Alternate ibuprofen and acetaminophen every 3 hours. Give ibuprofen first in the sequence. 0453 (Given - Provider: Anya Ornelas RN)1059 (Given - Provider: Ava Burns RN)1739 (Given - Provider: Ava Burns RN)2311 (Given - Provider: Love Linda RN) 0644 (Given - Provider: Love Linda RN) benzocaine 20% containing (Dermoplast) spray Topical, As needed, pain, , Starting on Fri02/23/24 at 0224, , Apply to perineal area. Patient is capable and may self administer at bedside. 0309 (Given - Provider: Cassidy Zambrano RN) diphenhydrAMINE (BENADryl) tablet/capsule 25 mg 25 mg, Oral, Every 6 hours PRN, sleep, Starting on Fri02/23/24 at 2035 2041 (Given - Provider: Love Linda RN) docusate sodium (Colace) capsule 100 mg 100 mg, Oral, 2 times daily PRN, constipation, Vaginal Delivery, Starting on 02/22/24 at 2353, Do not crush or break. 1059 (Given - Provider: Ava Burns RN)2311 (Given - Provider: Love Linda RN) famotidine (Pepcid) tablet 20 mg 20 mg, Oral, 2 times daily PRN, heartburn, Starting on 02/23/24 at 0224, , Renal dose per pharmacy for peptic ulcer prophylaxis. ibuprofen tablet 600 mg 600 mg, Oral, Every 6 hours PRN, other, pain (1-10), Starting on 02/22/24 at 2353, Alternate ibuprofen and acetaminophen every 3 hours. Give ibuprofen first in the sequence. 0553 (Given - Provider: Cassidy Zambrano RN)1211 (Given - Provider: Ava Burns RN)1739 (Given - Provider: Ava Burns RN)2311 (Given - Provider: Love Linda RN) 0644 (Given - Provider: Love Linda RN) lanolin (Lansinoh) cream Topical, As needed, dry skin, nipple discomfort, Starting on Fri02/23/24 at 0224, , Apply to affected area. ondansetron (Zofran) injection 4 mg(Linked Group 2) 4 mg, IntraVENous, Every 6 hours PRN, nausea, vomiting, Starting on 02/22/24 at 2353, 1st Line. Give IV if patient is unable to take orally. If inadequate response within 60 minutes, proceed to next-line agent or contact provider if no further options ordered. ondansetron ODT (Zofran-ODT) disintegrating tablet 4 mg(Linked Group 2) 4 mg, Oral, Every 8 hours PRN, nausea, vomiting, Starting on 02/22/24 at 2353, 1st Line. If inadequate response within 60 minutes, proceed to next-line agent or contact provider if no further options ordered. Patient should allow tablet to dissolve on tongue. Do not remove from blister pack until just before administering. oxytocin (Pitocin) 30 units in 500 mL infusion (CANCELED) 250-999 celia-units/min (250-999 mL/hr), IntraVENous, Continuous PRN, bleeding, Starting on Fri02/22/24 at 1211, Post-Delivery, For Immediate Post Use Only. Give after delivery of placenta. Bag 1 of 2: Bolus for bag to infuse at 999 ml/hour for 15 minutes (15 units in 250cc). After initial bolus then decrease rate to 250cc/hr for 1 hour. Then discontinue 2315 (New Bag - Provider: Ricarda Baker, RN)2330 (Rate/Dose Change - Provider: Ricarda Baker, RN) oxytocin (Pitocin) 30 units in 500 mL infusion 125 celia-units/min (125 mL/hr), IntraVENous, Continuous PRN, bleeding, Starting on Fri02/23/24 at 0031, For 48 hours, , For Immediate Post Use Only. Give after delivery of placenta and initial 30 unit bolus. Bag 2 of 2: 125cc/hr (125 mu/min) for an additional infusion of 500cc (30 units). 0030 (New Bag - Provider: Ricarda Baker, RN) witch wilder-glycerin (Tucks) pad Topical, As needed, hemorrhoids, For perineal pain or discomfort, Starting on Fri02/23/24 at 0224, , Apply to perineal area. Patient is capable and may self administer at bedside. 0309 (Given - Provider: Cassidy Zambrano RN) Linked Groups Order Group 1: ropivacaine (Naropin) 0.2 % (OB) epidural infusion (CANCELED)Jump to med 8 mL/hr, Epidural, Continuous, Starting on 02/22/24 at 1815, Pre-Delivery, [facility] Basal Infusion And ropivacaine 0.2 % in sodium chloride 0.9 % (OB) epidural syringe (CANCELED) Epidural, Continuous, Starting on 02/22/24 at 1815, Pre-Delivery, PCEA patient controlled syringe Pt. Controlled Dose: 5 ml Lockout Interval: 10 min One Hour Limit: 15 mL Group 2: ondansetron ODT (Zofran-ODT) disintegrating tablet 4 mgJump to med 4 mg, Oral, Every 8 hours PRN, nausea, vomiting, Starting on 02/22/24 at 2353, 1st Line. If inadequate response within 60 minutes, proceed to next-line agent or contact provider if no further options ordered. Patient should allow tablet to dissolve on tongue. Do not remove from blister pack until just before administering. Or ondansetron (Zofran) injection 4 mgJump to med 4 mg, IntraVENous, Every 6 hours PRN, nausea, vomiting, Starting on 02/22/24 at 2353, 1st Line. Give IV if patient is unable to take orally. If inadequate response within 60 minutes, proceed to next-line agent or contact provider if no further options ordered. Care Teams (unrecognized sec tion and content) Fire Prevention Chief Relationship Specialty Start Date End Date No, Pcp [address] [place] [address] PCP - General 03/07/22 Fire Prevention Chief Relationship Specialty Start Date End Date No, Pcp [address] [place] [address] PCP - General 03/07/22 Fire Prevention Chief Relationship Specialty Start Date End Date No, Pcp [address] [place] [address] PCP - General 03/07/22 Fire Prevention Chief Relationship Specialty Start Date End Date No, Pcp [address] [place] [address] PCP - General 03/07/22 Fire Prevention Chief Relationship Specialty Start Date End Date No, Pcp [address] [place] [address] PCP - General 03/07/22 Fire Prevention Chief Relationship Specialty Start Date End Date No, Pcp [address] [place] [address] PCP - General 03/07/22 Fire Prevention Chief Relationship Specialty Start Date End Date No, Pcp [address] [place] [address] PCP - General 03/07/22 Fire Prevention Chief Relationship Specialty Start Date End Date [facility] [address] [place] [address] PCP - General 03/07/22 Fire Prevention Chief Relationship Specialty Start Date End Date [facility] [address] [place] [address] PCP - General 03/07/22 Fire Prevention Chief Relationship Specialty Start Date End Date [facility] [address] [place] [address] PCP - General 03/07/22 Fire Prevention Chief Relationship Specialty Start Date End Date [facility] [address] [place] [address] PCP - General 03/07/22 Fire Prevention Chief Relationship Specialty Start Date End Date [facility] [address] [place] [address] PCP - General 03/07/22 Fire Prevention Chief Relationship Specialty Start Date End Date [facility] [address] [place] [address] PCP - General 03/07/22 Fire Prevention Chief Relationship Specialty Start Date End Date [facility] [address] [place] [address] PCP - General 03/07/22 Fire Prevention Chief Relationship Specialty Start Date End Date [facility] [address] [place] [address] PCP - General 03/07/22 Fire Prevention Chief Relationship Specialty Start Date End Date No, Pcp [address] [place] [address] PCP - General 03/07/22 Fire Prevention Chief Relationship Specialty Start Date End Date No, Pcp [address] [place] [address] PCP - General 03/07/22 Fire Prevention Chief Relationship Specialty Start Date End Date No, Pcp [address] [place] [address] PCP - General 03/07/22 Fire Prevention Chief Relationship Specialty Start Date End Date No, Pcp [address] [place] [address] PCP - General 03/07/22 Fire Prevention Chief Relationship Specialty Start Date End Date No, Pcp [address] [place] [address] PCP - General 03/07/22 Fire Prevention Chief Relationship Specialty Start Date End Date No, Pcp [address] [place] [address] PCP - General 03/07/22 Fire Prevention Chief Relationship Specialty Start Date End Date No, Pcp [address] [place] [address] PCP - General 03/07/22 Team Status: Active Member Role/Relationship Status Dates No Primary Care Physician Primary Care Provider Active Team Status: Inactive Member Role/Relationship Status Dates Dr. Abdifatah Mattson MD Emergency Provider Active Sta rt: November 10, 2024 End: November 10, 2024 No Primary Care Physician Primary Care Provider Active Start: November 10, 2024 End: November 10, 2024 Goals (unrecognized section and content) Goals may be documented in a n alternate section FOR RECORDS PERTAINING TO PATIENTS WHO ARE OR HAVE BEEN ENROLLED IN A CHEMICAL DEPENDENCY/SUBSTANCEABUSE PROGRAM, SOME INFORMATION MAY BE OMITTED. This clinical summary was aggregated from multiple sources. Caution should be exercised in using it in the provision of clinical care. This summary normalizes information from multiple sources, and as a consequence, information in this document may materially change the coding, format and clinical context of patient data. In addition, data may be omitted in some cases. CLINICAL DECISIONS SHOULD BE BASED ON THE PRIMARY CLINICAL RECORDS. [employer] provides no warranty or guarantee of the accuracy or completeness of information in this document.
[2024-12-23 23:21] VITALS: BP 134/87; PULSE 85; RESP 18; TEMP 36.7; O2SAT 99
== END 2024-12-23 23:25 | disposition home or self-care (01) ==
PROVIDERS: Emergency Provider Emergency Medicine; Visit Provider Emergency Medicine
DX: R07.9 Chest pain, unspecified (principal); F31.9 Bipolar disorder, unspecified; F17.210 Nicotine dependence, cigarettes, uncomplicated; F41.9 Anxiety disorder, unspecified; F17.290 Nicotine dependence, other tobacco product, uncomplicated; Z79.899 Other long term (current) drug therapy
CPT/HCPCS: 71046; 93005; 99284